=== PATIENT | female | born 1935 | race Caucasian/White ===

== ENCOUNTER → 2017-08-09 | Outpatient (CLI) | payer MEDICARE ==
--- NOTE | 2017-08-10 11:31 | MM ---
Reason for exam: clinical finding. History: Patient is postmenopausal. Indicated problem(s): lump or thickening in the right breast. Physical Findings: Nurse Summary: 1.5 x 2cm nodule in the right breast at 2 o'clock (nurse ts). MG 3D Diag Mammo Wo Cad SANDIE Bilateral CC and MLO view(s) were taken. Spot compression MLO and spot compression CC view(s) were taken of the left breast. The breast tissue is heterogeneously dense. This may lower the sensitivity of mammography. Benign round calcifications right breast. Focal asymmetry 3 o'clock right breast anteriorly incompletely disperses on 3D images. 2 o'clock focal asymmetry anterior left breast appears to disperse on spot 3D views. These results were verbally communicated with the patient and result sheet given to the patient on 08/09/17. ASSESSMENT: Incomplete: need additional imaging evaluation, BI-RAD 0 RECOMMENDATION: Ultrasound of both breasts. (left 2 o'clock upper outer quadrant and right palpable)
--- NOTE | 2017-08-10 11:34 | USB ---
Reason for exam: additional evaluation requested from abnormal screening. History: Patient is postmenopausal. US Breast Limited BILAT Right breast ultrasound includes all four quadrants, the retroareolar region and axilla. Finding demonstrates a 1.3 x 1.0 x 1.5cm irregular, spiculated, solid, hypoechoic lesion at 2 o'clock and a 0.8cm benign lymph node at the axilla. Left breast ultrasound demonstrates no cystic or solid lesion seen. Scanned 12-3 o'clock. These results were verbally communicated with the patient and result sheet given to the patient on 08/09/17. ASSESSMENT: Highly suggestive of malignancy, BI-RAD 5 RECOMMENDATION: Surgical consultation and ultrasound core biopsy of the right breast. Called Dr. Garcia with mammographic findings and has scheduled an appointment for the patient for 09/26/[address] at [address] English. Biopsy scheduled for 08/30/17 at 12:20. PRELIMINARY REPORT CALLED AND FAXED TO DR. ENGLISH ON 08/10/17.
== END | disposition home or self-care (01) ==
LOC: RADMAMWWP 13:35
PROVIDERS: ATTEND Family Medicine
DX: N63.0 Unspecified lump in unspecified breast (principal); R92.8 Other abnormal and inconclusive findings on diagnostic imaging of breast
CPT/HCPCS: 77066; 76642; G0279

== ENCOUNTER 2017-08-21 11:23 | Inpatient (IN) | payer MEDICARE, OTHER ==
[2017-08-21 12:51] LABS: INR 4.9 (<1.2); Partial Thromboplastin Time 37.5 sec (22.0-30.0); Prothrombin Time 44.6 sec (9.0-12.0)
[2017-08-21 12:57] LABS: Albumin 2.9 g/dL (3.5-5.0); Calcium 8.5 mg/dL (8.4-10.2); Magnesium 2.5 mg/dL (1.6-2.3); Potassium 3.2 mmol/L (3.5-5.1); Total Bilirubin 4.3 mg/dL (0.2-1.3); Total Protein 6.1 g/dL (6.3-8.2)
--- NOTE | 2017-08-21 13:21 | XR ---
EXAMINATION TYPE: XR chest 2V DATE OF EXAM: 08/21/2017 COMPARISON: 02/19/2016 TECHNIQUE: PA and lateral views submitted. HISTORY: Chest pain FINDINGS: Heart is markedly enlarged and is a diffuse interstitial pattern and small bilateral effusions. No pn eumothorax. Arthropathy of the shoulders. Atherosclerotic change aorta. Degenerative change spine. IMPRESSION: 1. Marked cardiomegaly with small bilateral effusions and findings suggestive of mild CHF.
[2017-08-21 13:32] LABS: Anisocytosis Slight; Basophils # (A) 0.1 k/uL (0-0.2); Basophils % (A) 1 %; Eosinophils # (A) 0.1 k/uL (0-0.7); Eosinophils % (A) 2 %; HCT 42.1 % (34.0-46.0); HGB 13.2 gm/dL (11.4-16.0); Hypochromasia Marked; Lymphocytes # (A) 0.9 k/uL (1.0-4.8); Lymphocytes % (A) 14 %; MCH 26.1 pg (25.0-35.0); MCHC 31.2 g/dL (31.0-37.0); Mean Platelet Volume 8.7; Monocytes # (A) 0.5 k/uL (0-1.0); Monocytes % (A) 7 %; Neutrophils # (A) 4.9 k/uL (1.3-7.7); Neutrophils % (A) 74 %; Platelet Count 186 k/uL (150-450); Poikilocytosis Moderate; RBC 5.05 m/uL (3.80-5.40); RDW 19.1 % (11.5-15.5); WBC 6.6 k/uL (3.8-10.6)
[2017-08-21 13:33] LABS: MCV 83.5 fL (80.0-100.0)
[2017-08-21] MEDS ORDERED: NALOXONE 0.4 MG/ML 1 ML VIAL IV PRN (13:48)
--- NOTE | 2017-08-21 13:48 | ED ---
SOB HPI - General Chief Complaint: Shortness of Breath Stated Complaint: CHF Time Seen by Provider: 08/21/17 11:25 Source: patient, EMS, Caregiver Mode of arrival: EMS Limitations: no limitations - History of Present Illness Initial Comments: Patient complains of progressively worsening shortness of breath. Nothing makes it better or worse. She was seen by her doctor today. He was concern for worsening heart failure. She has swelling in legs. She has no belly or back pain. She has no nausea or vomiting. Her shortness of breath is worse with any type of exertion. - Related Data Home Medications Medication Instructions Recorded Confirmed Atorvastatin [Lipitor] 40 mg PO HS 05/07/15 02/12/16 Calcium Carbonate/Vitamin D3 1 tab PO DAILY@1700 07/22/15 08/21/17 [Calcium 600-Vit D3 400 Tablet] Nystatin [Nystop] 1 applic TOPICAL BID PRN 07/22/15 08/21/17 Brinzolamide/Brimonidine Tart 1 drop LEFT EYE BID 10/13/15 08/21/17 [Simbrinza 1%-0.2% Eye Drops] Glucosamine/Chondr Paiz A Sod [Osteo 1 tab PO DAILY@1700 10/13/15 02/12/16 Bi-Flex Caplet] Potassium Chloride [K-Tab ER] 20 meq PO DAILY@1700 10/13/15 08/21/17 Timolol 0.5% Ophth Soln [Timoptic 1 drop LEFT EYE DAILY 10/13/15 08/21/17 0.5% Ophth Soln] Bisacodyl [Dulcolax] 10 mg RECTAL DAILY PRN 08/21/17 08/21/17 Ergocalciferol (Vitamin D2) 50,000 unit PO WE@1700 08/21/17 08/21/17 [Vitamin D2] Famotidine [Pepcid] 20 mg PO DAILY 08/21/17 08/21/17 Furosemide [Lasix] 40 mg PO DAILY@1400 08/21/17 08/21/17 Furosemide [Lasix] 80 mg PO DAILY 08/21/17 08/21/17 Latanoprost [Xalatan 0.005%] 1 drop BOTH EYES HS 08/21/17 08/21/17 Levothyroxine Sodium [Synthroid] 150 mcg PO DAILY@0800 08/21/17 08/21/17 Magnesium Hydroxide [Milk of 7,200 mg PO DAILY PRN 08/21/17 08/21/17 Magnesia Concentrate] Magnesium Oxide [Suarez] 500 mg PO BID@0800,1700 08/21/17 08/21/17 Memantine [Namenda] 10 mg PO DAILY 08/21/17 08/21/17 Metoprolol Succinate [Toprol XL] 50 mg PO DAILY 08/21/17 08/21/17 Na Phos,M-B/Na Phos,Di-Ba [Fleet 133 ml RECTAL ONCE PRN 08/21/17 08/21/17 Adult] Ocusoft Lid Scrub Plus Pad 1 applic OPHTHALMIC DAILY PRN 08/21/17 08/21/17 Polyethylene Glycol 3350 [Miralax] 17 gm PO DAILY PRN 08/21/17 08/21/17 Vit C/E/Zn/Coppr/Lutein/Zeaxan 1 cap PO BID@0800,1700 08/21/17 08/21/17 [Preservision Areds 2 Softgel] Warfarin [Coumadin] 2 mg PO DAILY@1700 08/21/17 08/21/17 guaiFENesin-DM 100-10MG/5ML 10 ml PO Q4H PRN 08/21/17 08/21/17 [Robitussin DM] Allergies Allergy/AdvReac Type Severity Reaction Status Date / Time No Known Allergies Allergy Verified 08/21/17 11:45 Review of Systems ROS Statement: Those systems with pertinent positive or pertinent negative responses have been documented in the HPI. ROS Other: All systems not noted in ROS Statement are negative. 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 Past Anesthesia/Blood Transfusion Reactions: No Reported Reaction Past Psychological History: No Psychological Hx Reported Smoking Status: Never smoker Past Alcohol Use History: None Reported Past Drug Use History: None Reported - Past Family History Father Additional Family Medical History / Comment(s): parkinsons Mother Family Medical History: Deep Vein Thrombosis (DVT) Additional Family Medical History / Comment(s): heart problems General Exam Limitations: no limitations General appearance: alert, in no apparent distress Head exam: Present: atraumatic, normocephalic, normal inspection Eye exam: Present: normal appearance, PERRL, EOMI. Absent: scleral icterus, conjunctival injection, periorbital swelling ENT exam: Present: normal exam, mucous membranes moist Neck exam: Present: normal inspection. Absent: tenderness, meningismus, lymphadenopathy Respiratory exam: Present: respiratory distress. Absent: wheezes, rales, rhonchi, stridor Cardiovascular Exam: Present: regular rate, normal rhythm, normal heart sounds. Absent: systolic murmur, diastolic murmur, rubs, gallop, clicks GI/Abdominal exam: Present: soft, normal bowel sounds. Absent: distended, tenderness, guarding, rebound, rigid Extremities exam: Present: normal capillary refill, pedal edema. Absent: tenderness, joint swelling, calf tenderness Back exam: Present: normal inspection Neurological exam: Present: alert, oriented X3, CN II-XII intact Psychiatric exam: Present: normal affect, normal mood Skin exam: Present: warm, dry, intact, normal color. Absent: rash Course Vital Signs 08/21/17 08/21/17 11:33 12:03 Temperature 94.7 F L Pulse Rate 107 H 96 Respiratory 18 18 Rate Blood Pressure 151/73 O2 Sat by Pulse 91 L Oximetry Medical Decision Making - Medical Decision Making Patient presents with shortness of breath. She has significant edema, rales in the lungs, and evidence of fluid overload on her chest x-ray. She will be admitted to her doctor. - Lab Data Result diagrams: 08/21/17 12:09 08/21/17 12:09 Lab Results 08/21/17 08/21/17 08/21/17 Range/Units 12:09 12:09 12:09 WBC 6.6 (3.8-10.6) k/uL RBC 5.05 (3.80-5.40) m/uL Hgb 13.2 (11.4-16.0) gm/dL Hct 42.1 (34.0-46.0) % MCV 83.5 D (80.0-100.0) fL MCH 26.1 (25.0-35.0) pg MCHC 31.2 (31.0-37.0) g/dL RDW 19.1 H (11.5-15.5) % Plt Count 186 (150-450) k/uL Neutrophils % 74 % Lymphocytes % 14 % Monocytes % 7 % Eosinophils % 2 % Basophils % 1 % Neutrophils # 4.9 (1.3-7.7) k/uL Lymphocytes # 0.9 L (1.0-4.8) k/uL Monocytes # 0.5 (0-1.0) k/uL Eosinophils # 0.1 (0-0.7) k/uL Basophils # 0.1 (0-0.2) k/uL Hypochromasia Marked Poikilocytosis Moderate Anisocytosis Slight PT 44.6 H (9.0-12.0) sec INR 4.9 H (<1.2) APTT 37.5 H (22.0-30.0) sec Sodium 139 (137-145) mmol/L Potassium 3.2 L (3.5-5.1) mmol/L Chloride 96 L (98-107) mmol/L Carbon Dioxide 33 H (22-30) mmol/L Anion Gap 10 mmol/L BUN 21 H (7-17) mg/dL Creatinine 0.90 (0.52-1.04) mg/dL Est GFR (CKD-EPI)AfAm 70 (>60 ml/min/1.73 sqM) Est GFR (CKD-EPI)NonAf 61 (>60 ml/min/1.73 sqM) Glucose 111 H (74-99) mg/dL Calcium 8.5 (8.4-10.2) mg/dL Magnesium 2.5 H (1.6-2.3) mg/dL Total Bilirubin 4.3 H (0.2-1.3) mg/dL AST 41 H (14-36) U/L ALT 40 (9-52) U/L Alkaline Phosphatase 356 H (38-126) U/L NT-Pro-B Natriuret Pep pg/mL Total Protein 6.1 L (6.3-8.2) g/dL Albumin 2.9 L (3.5-5.0) g/dL 08/21/17 Range/Units 12:09 WBC (3.8-10.6) k/uL RBC (3.80-5.40) m/uL Hgb (11.4-16.0) gm/dL Hct (34.0-46.0) % MCV (80.0-100.0) fL MCH (25.0-35.0) pg MCHC (31.0-37.0) g/dL RDW (11.5-15.5) % Plt Count (150-450) k/uL Neutrophils % % Lymphocytes % % Monocytes % % Eosinophils % % Basophils % % Neutrophils # (1.3-7.7) k/uL Lymphocytes # (1.0-4.8) k/uL Monocytes # (0-1.0) k/uL Eosinophils # (0-0.7) k/uL Basophils # (0-0.2) k/uL Hypochromasia Poikilocytosis Anisocytosis PT (9.0-12.0) sec INR (<1.2) APTT (22.0-30.0) sec Sodium (137-145) mmol/L Potassium (3.5-5.1) mmol/L Chloride (98-107) mmol/L Carbon Dioxide (22-30) mmol/L Anion Gap mmol/L BUN (7-17) mg/dL Creatinine (0.52-1.04) mg/dL Est GFR (CKD-EPI)AfAm (>60 ml/min/1.73 sqM) Est GFR (CKD-EPI)NonAf (>60 ml/min/1.73 sqM) Glucose (74-99) mg/dL Calcium (8.4-10.2) mg/dL Magnesium (1.6-2.3) mg/dL Total Bilirubin (0.2-1.3) mg/dL AST (14-36) U/L ALT (9-52) U/L Alkaline Phosphatase (38-126) U/L NT-Pro-B Natriuret Pep 4400 pg/mL Total Protein (6.3-8.2) g/dL Albumin (3.5-5.0) g/dL 08/21/17 13:47 Twelve-lead EKG interpreted by me as showing ventricular rate 103 bpm, no P waves are appreciated, QRS Compazine normal, no ST elevation or depression, interpreted by me as atrial fibrillation. Disposition Clinical Impression: Congestive heart failure Disposition: ADMITTED IP TO THIS HOSP Condition: Fair Referrals: Rohan Lucero MD [Primary Care Provider] - 1-2 days Time of Disposition: 13:48
[2017-08-21] MEDS ORDERED: FUROSEMIDE 10 MG/ML 10 ML VIAL IV STA (13:50)
[2017-08-21] MEDS ORDERED: FUROSEMIDE 40 MG TAB PO SCH (14:00)
[2017-08-21] MEDS ORDERED: NYSTATIN 100,000 UNIT/GM POWD 15 GM TOPICAL PRN (14:27)
[2017-08-21] MEDS ORDERED: guaiFENesin-DM 100-10MG/5ML 10 ML CUP PO PRN (14:27)
[2017-08-21] MEDS ORDERED: POLYETHYLENE GLYCOL 3350 17 GM POWD.PACK PO PRN (14:27)
[2017-08-21] MEDS ORDERED: MAGNESIUM HYDROXIDE 2,400 MG/10 ML CUP PO PRN (14:27)
[2017-08-21] MEDS ORDERED: POTASSIUM CHLORIDE ER 20 MEQ TAB.ER PO STA (14:31)
[2017-08-21] MEDS: POTASSIUM CHLORIDE ER 20 MEQ TAB.ER PO SCH (18:18)
[2017-08-21] MEDS: MAGNESIUM OXIDE 400 MG TAB PO SCH (18:18)
[2017-08-21] MEDS: ATORVASTATIN 40 MG TAB PO SCH (20:24)
[2017-08-21] MEDS: LATANOPROST 0.005% OPHTH DROPS 2.5 ML BTL BOTH EYES SCH (20:24)
[2017-08-21] MEDS: FAMOTIDINE 20 MG TAB PO SCH (20:24)
[2017-08-22 06:28] LABS: Anisocytosis Slight; Basophils % (A) 1 %; Eosinophils # (A) 0.1 k/uL (0-0.7); Eosinophils % (A) 2 %; HCT 43.7 % (34.0-46.0); HGB 13.5 gm/dL (11.4-16.0); Hypochromasia Marked; Lymphocytes # (A) 1.1 k/uL (1.0-4.8); Lymphocytes % (A) 19 %; MCH 25.6 pg (25.0-35.0); MCHC 30.8 g/dL (31.0-37.0); MCV 83.3 fL (80.0-100.0); Monocytes # (A) 0.5 k/uL (0-1.0); Monocytes % (A) 8 %; Neutrophils % (A) 68 %; Platelet Count 173 k/uL (150-450); Poikilocytosis Moderate; RBC 5.25 m/uL (3.80-5.40); RDW 19.1 % (11.5-15.5); WBC 5.9 k/uL (3.8-10.6)
[2017-08-22 06:44] LABS: Prothrombin Time 47.9 sec (9.0-12.0)
[2017-08-22 06:55] LABS: INR 5.3 (<1.2)
[2017-08-22 06:57] LABS: Albumin 2.8 g/dL (3.5-5.0); Calcium 8.4 mg/dL (8.4-10.2); Magnesium 2.4 mg/dL (1.6-2.3); Potassium 3.3 mmol/L (3.5-5.1)
[2017-08-22] MEDS ORDERED: POTASSIUM CHLORIDE ER 20 MEQ TAB.ER PO STA (07:29)
[2017-08-22] MEDS: FAMOTIDINE 20 MG TAB PO SCH (08:11)
[2017-08-22] MEDS: LEVOTHYROXINE 75 MCG TAB PO SCH (08:11)
[2017-08-22] MEDS: MAGNESIUM OXIDE 400 MG TAB PO SCH ×2 (08:11→15:12)
[2017-08-22] MEDS: METOPROLOL SUCCINATE (ER) 50 MG TAB.ER.24H PO SCH (08:12)
[2017-08-22] MEDS: TIMOLOL 0.5% OPHTH DROPS 5 ML BTL LEFT EYE SCH (08:12)
[2017-08-22] MEDS: MEMANTINE 10 MG TAB PO SCH (08:12)
[2017-08-22] MEDS ORDERED: FAMOTIDINE 20 MG TAB PO SCH (09:00)
[2017-08-22] MEDS ORDERED: FUROSEMIDE 80 MG TAB PO SCH (09:00)
--- NOTE | 2017-08-22 09:44 | XR ---
EXAMINATION TYPE: XR chest 1V DATE OF EXAM: 08/22/2017 COMPARISON: Prior chest x-ray 08/21/2017 HISTORY: Congestive heart failure, shortness of breath TECHNIQUE: Single frontal view of the chest is obtained. FINDINGS: The heart is enlarged. No evident pneumothorax or sizable effusion. Suspect some improveme nt in the interstitium, aeration within the lungs. There are overlying cardiac leads. Arthropathy aga in noted within the shoulders. IMPRESSION: Suspect some improvement in patient's volume status. Cardiomegaly.
--- NOTE | 2017-08-22 11:04 | P.CRDCN ---
History of Present Illness History of present illness: Patient is a poor historian. Initially she told me she just did not feel well but later when we be examined her she complained of shortness of breath. She is lying flat in bed and looks comfortable. Underlying atrial fibrillation. She has a murmur of mitral regurgitation at the cardiac apex right lower extremity edema and a d-dimer is pending. History of hypertension dyslipidemia atrial fibrillation. Hypokalemia. Supratherapeutic INR Suggest rate control for atrial fibrillation and anticoagulation for stroke prevention. Currently INR is supratherapeutic at 5.3 hemoglobin is normal LV function assessment Continue diuretics Add spironolactone See full dictation by nurse practitioner Past Medical History Past Medical History: Atrial Fibrillation, Heart Failure, CVA/TIA, Dementia, Hyperlipidemia, Hypertension, Memory Impairment, Osteoarthritis (OA), Thyroid Disorder Additional Past Medical History / Comment(s): irregular rythym, stress incont of urine,DJD, skin ca removed,had some bleeding behind lt eye- sees a dr for this, "RT CALF HAS A WOUND ON IT "10-13-15 fell out of w/c struck face on floor, pt 2 person assist, yael lift, continent uses bed bergeron, on coumadin for afib, rhabdoylosis, 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 breat biopsy scheduled 08/31/2017. surgery for hemorrhage from TIA in Left eye Past Anesthesia/Blood Transfusion Reactions: No Reported Reaction Past Psychological History: No Psychological Hx Reported Smoking Status: Never smoker Past Alcohol Use History: None Reported Past Drug Use History: None Reported - Past Family History Father Additional Family Medical History / Comment(s): parkinsons Mother Family Medical History: Deep Vein Thrombosis (DVT) Additional Family Medical History / Comment(s): heart problems Medications and Allergies Home Medications Medication Instructions Recorded Confirmed Type Atorvastatin [Lipitor] 40 mg PO HS 05/07/15 02/12/16 History Calcium Carbonate/Vitamin D3 1 tab PO DAILY@1700 07/22/15 08/21/17 History [Calcium 600-Vit D3 400 Tablet] Nystatin [Nystop] 1 applic TOPICAL BID PRN 07/22/15 08/21/17 History Brinzolamide/Brimonidine Tart 1 drop LEFT EYE BID 10/13/15 08/21/17 History [Simbrinza 1%-0.2% Eye Drops] Glucosamine/Chondr Paiz A Sod [Osteo 1 tab PO DAILY@1700 10/13/15 02/12/16 History Bi-Flex Caplet] Potassium Chloride [K-Tab ER] 20 meq PO DAILY@1700 10/13/15 08/21/17 History Timolol 0.5% Ophth Soln [Timoptic 1 drop LEFT EYE DAILY 10/13/15 08/21/17 History 0.5% Ophth Soln] Bisacodyl [Dulcolax] 10 mg RECTAL DAILY PRN 08/21/17 08/21/17 History Ergocalciferol (Vitamin D2) 50,000 unit PO WE@1700 08/21/17 08/21/17 History [Vitamin D2] Famotidine [Pepcid] 20 mg PO DAILY 08/21/17 08/21/17 History Furosemide [Lasix] 40 mg PO DAILY@1400 08/21/17 08/21/17 History Furosemide [Lasix] 80 mg PO DAILY 08/21/17 08/21/17 History Latanoprost [Xalatan 0.005%] 1 drop BOTH EYES HS 08/21/17 08/21/17 History Levothyroxine Sodium [Synthroid] 150 mcg PO DAILY@0800 08/21/17 08/21/17 History Magnesium Hydroxide [Milk of 7,200 mg PO DAILY PRN 08/21/17 08/21/17 History Magnesia Concentrate] Magnesium Oxide [Suarez] 500 mg PO BID@0800,1700 08/21/17 08/21/17 History Memantine [Namenda] 10 mg PO DAILY 08/21/17 08/21/17 History Metoprolol Succinate [Toprol XL] 50 mg PO DAILY 08/21/17 08/21/17 History Na Phos,M-B/Na Phos,Di-Ba [Fleet 133 ml RECTAL ONCE PRN 08/21/17 08/21/17 History Adult] Ocusoft Lid Scrub Plus Pad 1 applic OPHTHALMIC DAILY PRN 08/21/17 08/21/17 History Polyethylene Glycol 3350 [Miralax] 17 gm PO DAILY PRN 08/21/17 08/21/17 History Vit C/E/Zn/Coppr/Lutein/Zeaxan 1 cap PO BID@0800,1700 08/21/17 08/21/17 History [Preservision Areds 2 Softgel] Warfarin [Coumadin] 2 mg PO DAILY@1700 08/21/17 08/21/17 History guaiFENesin-DM 100-10MG/5ML 10 ml PO Q4H PRN 08/21/17 08/21/17 History [Robitussin DM] Allergies Allergy/AdvReac Type Severity Reaction Status Date / Time No Known Allergies Allergy Verified 08/21/17 11:45 Physical Exam Vitals: Vital Signs Temp Pulse Pulse Resp BP BP Pulse Ox 08/22/17 08:00 18 08/22/17 04:00 98.0 F 77 18 99/58 93 L 08/22/17 00:00 97.2 F L 80 16 102/66 93 L 08/21/17 23:44 106 H 20 08/21/17 20:00 97.3 F L 82 18 97/50 88 L 08/21/17 18:34 106 H 20 08/21/17 17:11 98.8 F 84 20 144/102 96 08/21/17 14:05 96.8 F L 106 H 16 113/90 92 L 08/21/17 14:00 94 18 129/72 08/21/17 13:45 96 18 08/21/17 12:03 96 18 91 L 08/21/17 11:33 94.7 F L 107 H 18 151/73 Intake and Output 08/21/17 08/22/17 08/22/17 22:59 06:59 14:59 Intake Total 118 Output Total 900 Balance -900 118 Intake: Oral 118 Output: Urine 900 Other: Voiding Method Indwelling Catheter Indwelling Catheter Indwelling Catheter Weight 99.5 kg Results 08/22/17 05:40 08/22/17 05:40 Cardiac Enzymes 08/21/17 08/21/17 08/21/17 Range/Units 12:09 12:09 17:58 AST 41 H (14-36) U/L Troponin I 0.013 0.014 (0.000-0.034) ng/mL 08/21/17 08/22/17 Range/Units 23:49 05:40 AST 39 H (14-36) U/L Troponin I 0.015 (0.000-0.034) ng/mL Coagulation 08/21/17 08/22/17 Range/Units 12:09 05:40 PT 44.6 H 47.9 H (9.0-12.0) sec APTT 37.5 H (22.0-30.0) sec CBC 08/21/17 08/22/17 Range/Units 12:09 05:40 WBC 6.6 5.9 (3.8-10.6) k/uL RBC 5.05 5.25 (3.80-5.40) m/uL Hgb 13.2 13.5 (11.4-16.0) gm/dL Hct 42.1 43.7 (34.0-46.0) % Plt Count 186 173 (150-450) k/uL Comprehensive Metabolic Panel 08/21/17 08/22/17 Range/Units 12:09 05:40 Sodium 139 138 (137-145) mmol/L Potassium 3.2 L 3.3 L (3.5-5.1) mmol/L Chloride 96 L 95 L (98-107) mmol/L Carbon Dioxide 33 H 33 H (22-30) mmol/L BUN 21 H 20 H (7-17) mg/dL Creatinine 0.90 1.00 (0.52-1.04) mg/dL Glucose 111 H 78 (74-99) mg/dL Calcium 8.5 8.4 (8.4-10.2) mg/dL AST 41 H 39 H (14-36) U/L ALT 40 36 (9-52) U/L Alkaline Phosphatase 356 H 357 H (38-126) U/L Total Protein 6.1 L 6.0 L (6.3-8.2) g/dL Albumin 2.9 L 2.8 L (3.5-5.0) g/dL Current Medications Generic Name Dose Route Start Last Admin Trade Name Freq PRN Reason Stop Dose Admin Atorvastatin Calcium 40 mg 08/21/17 21:00 08/21/17 20:24 Lipitor PO 40 mg HS [facility] Administration Famotidine 20 mg 08/21/17 21:00 08/22/17 08:11 Pepcid PO 20 mg BID [facility] Administration Furosemide 40 mg 08/21/17 14:00 08/21/17 14:57 Lasix PO Not Given DAILY@1400 [facility] Furosemide 80 mg 08/22/17 09:00 08/22/17 08:11 Lasix PO 80 mg DAILY [facility] Administration Guaifenesin/Dextromethorphan 10 ml 08/21/17 14:27 Robitussin Dm PO Q4H PRN Cough Latanoprost 1 drops 08/21/17 21:00 08/21/17 20:24 Xalatan 0.005% BOTH EYES 1 drops HS [facility] Administration Levothyroxine Sodium 150 mcg 08/22/17 08:00 08/22/17 08:11 Synthroid PO 150 mcg DAILY@0800 [facility] Administration Magnesium Hydroxide 7,200 mg 08/21/17 14:27 Milk Of Magnesia PO DAILY PRN Constipation Magnesium Oxide 400 mg 08/21/17 17:00 08/22/17 08:11 Mag-Ox PO 400 mg BID@0800,1700 [facility] Administration Memantine 10 mg 08/22/17 09:00 08/22/17 08:12 Namenda PO 10 mg DAILY [facility] Administration Metoprolol Succinate 50 mg 08/22/17 09:00 08/22/17 08:12 Toprol Xl PO 50 mg DAILY [facility] Administration Naloxone HCl 0.2 mg 08/21/17 13:48 Narcan IV Q2M PRN Opioid Reversal Nystatin 1 applic 08/21/17 14:27 Mycostatin Powder TOPICAL BID PRN Rash Ondansetron HCl 4 mg 08/21/17 13:48 Zofran IVP Q8HR PRN Nausea And Vomiting Polyethylene Glycol 17 gm 08/21/17 14:27 Miralax PO DAILY PRN Constipation Potassium Chloride 20 meq 08/21/17 17:00 08/21/17 18:18 K-Dur 20 PO 20 meq DAILY@1700 [facility] Administration Timolol Maleate 1 drops 08/22/17 09:00 08/22/17 08:12 Timoptic LEFT EYE 1 drops DAILY [facility] Administration Intake and Output 08/21/17 08/22/17 08/22/17 22:59 06:59 14:59 Intake Total 118 Output Total 900 Balance -900 118 Intake: Oral 118 Output: Urine 900 Other: Voiding Method Indwelling Catheter Indwelling Catheter Indwelling Catheter Weight 99.5 kg 08/22/17 05:40 08/22/17 05:40
--- NOTE | 2017-08-22 12:39 | P.HPIM ---
History of Present Illness H&P Date: 08/22/17 Chief Complaint: Shortness of breath 82-year-old female who was transported to [facility] from [facility] after she was seen by Dr. Lucero and found to have increasing shortness of breath and increased edema to the lower extremities. Patient denies chest pain or pressure. Denies cough or sputum production. Denies nausea or vomiting. Denies pain or discomfort. Denies dizziness or lightheadedness. The patient has a history of atrial fibrillation maintained on long-term anticoagulated with Coumadin, glaucoma, asymptomatic bacteriuria, mood disorder with psychotic features, hypothyroidism, diastolic congestive heart failure, hypertension, hyperlipidemia, TIA, and osteopenia. 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 Chest x-ray 08/21/2017: Marked cardiomegaly with small bilateral effusions and findings suggestive of mild congestive heart failure Chest x-ray 08/22/2017: Some improvement noted in the patient's volume status. Cardiomegaly. EKG: Atrial fibrillation. Rate 103. Laboratory data: WBC 6.6. Hemoglobin 13.2. Platelet count 186. Sodium 139. Potassium 3.2. BUN 21. Creatinine 0.90. GFR 61. Glucose 111. Magnesium 2.5. AST 41. ALT 40. Total bilirubin 4.3. Alkaline phosphatase 356. Troponins negative 3 BNP: 4400 The patient was admitted to the hospital under the care of Dr. Lucero. Consultations were placed to cardiology. Review of Systems GENERAL: Patient denies fever. Denies chills. EYES: Denies blurred vision. Denies vision changes. Denies eye pain. EARS, NOSE, MOUTH, & THROAT: Denies headache. Denies sore throat. Denies ear pain. RESPIRATORY: Positive for shortness of breath. Denies cough. Denies sputum production. Denies hemoptysis. CARDIOVASCULAR: Denies chest pain or pressure. Denies palpitations. Denies arrhythmias. GASTROINTESTINAL: Denies abdominal pain. Denies diarrhea. Denies constipation. Denies nausea. Denies vomiting. Denies heartburn. Denies blood in the stool. GENITOURINARY: Denies urinary frequency. Denies burning. Denies dysuria. Denies cloudy urine. Denies blood in the urine. MUSCULOSKELETAL: Complaints of pain to bilateral feet. Denies myalgias. Denies joint swelling. Denies decreased range of motion beyond patients baseline. INTEGUMENTARY: Denies pruitis. Denies rash. PSYCHIATRIC: Denies suicidal or homicial ideations. ENDOCRINE: Denies weight change. Denies polydipsia. Denies polyuria. HEMATOLOGIC: Denies bleeding disorders. Past Medical History Past Medical History: Atrial Fibrillation, Heart Failure, CVA/TIA, Dementia, Hyperlipidemia, Hypertension, Memory Impairment, Osteoarthritis (OA), Thyroid Disorder Additional Past Medical History / Comment(s): irregular rythym, stress incont of urine,DJD, skin ca removed,had some bleeding behind lt eye- sees a dr for this, "RT CALF HAS A WOUND ON IT "10-13-15 fell out of w/c struck face on floor, pt 2 person assist, yael lift, continent uses bed bergeron, on coumadin for afib, rhabdoylosis, 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 breat biopsy scheduled 08/31/2017. surgery for hemorrhage from TIA in Left eye Past Anesthesia/Blood Transfusion Reactions: No Reported Reaction Past Psychological History: No Psychological Hx Reported Smoking Status: Never smoker Past Alcohol Use History: None Reported Past Drug Use History: None Reported - Past Family History Father Additional Family Medical History / Comment(s): parkinsons Mother Family Medical History: Deep Vein Thrombosis (DVT) Additional Family Medical History / Comment(s): heart problems Medications and Allergies Home Medications Medication Instructions Recorded Confirmed Type Atorvastatin [Lipitor] 40 mg PO HS 05/07/15 02/12/16 History Calcium Carbonate/Vitamin D3 1 tab PO DAILY@1700 07/22/15 08/21/17 History [Calcium 600-Vit D3 400 Tablet] Nystatin [Nystop] 1 applic TOPICAL BID PRN 07/22/15 08/21/17 History Brinzolamide/Brimonidine Tart 1 drop LEFT EYE BID 10/13/15 08/21/17 History [Simbrinza 1%-0.2% Eye Drops] Glucosamine/Chondr Paiz A Sod [Osteo 1 tab PO DAILY@1700 10/13/15 02/12/16 History Bi-Flex Caplet] Potassium Chloride [K-Tab ER] 20 meq PO DAILY@1700 10/13/15 08/21/17 History Timolol 0.5% Ophth Soln [Timoptic 1 drop LEFT EYE DAILY 10/13/15 08/21/17 History 0.5% Ophth Soln] Bisacodyl [Dulcolax] 10 mg RECTAL DAILY PRN 08/21/17 08/21/17 History Ergocalciferol (Vitamin D2) 50,000 unit PO WE@1700 08/21/17 08/21/17 History [Vitamin D2] Famotidine [Pepcid] 20 mg PO DAILY 08/21/17 08/21/17 History Furosemide [Lasix] 40 mg PO DAILY@1400 08/21/17 08/21/17 History Furosemide [Lasix] 80 mg PO DAILY 08/21/17 08/21/17 History Latanoprost [Xalatan 0.005%] 1 drop BOTH EYES HS 08/21/17 08/21/17 History Levothyroxine Sodium [Synthroid] 150 mcg PO DAILY@0800 08/21/17 08/21/17 History Magnesium Hydroxide [Milk of 7,200 mg PO DAILY PRN 08/21/17 08/21/17 History Magnesia Concentrate] Magnesium Oxide [Suarez] 500 mg PO BID@0800,1700 08/21/17 08/21/17 History Memantine [Namenda] 10 mg PO DAILY 08/21/17 08/21/17 History Metoprolol Succinate [Toprol XL] 50 mg PO DAILY 08/21/17 08/21/17 History Na Phos,M-B/Na Phos,Di-Ba [Fleet 133 ml RECTAL ONCE PRN 08/21/17 08/21/17 History Adult] Ocusoft Lid Scrub Plus Pad 1 applic OPHTHALMIC DAILY PRN 08/21/17 08/21/17 History Polyethylene Glycol 3350 [Miralax] 17 gm PO DAILY PRN 08/21/17 08/21/17 History Vit C/E/Zn/Coppr/Lutein/Zeaxan 1 cap PO BID@0800,1700 08/21/17 08/21/17 History [Preservision Areds 2 Softgel] Warfarin [Coumadin] 2 mg PO DAILY@1700 08/21/17 08/21/17 History guaiFENesin-DM 100-10MG/5ML 10 ml PO Q4H PRN 08/21/17 08/21/17 History [Robitussin DM] Allergies Allergy/AdvReac Type Severity Reaction Status Date / Time No Known Allergies Allergy Verified 08/21/17 11:45 Physical Exam Vitals: Vital Signs Temp Pulse Pulse Resp BP BP Pulse Ox 08/22/17 08:00 18 08/22/17 04:00 98.0 F 77 18 99/58 93 L 08/22/17 00:00 97.2 F L 80 16 102/66 93 L 08/21/17 23:44 106 H 20 08/21/17 20:00 97.3 F L 82 18 97/50 88 L 08/21/17 18:34 106 H 20 08/21/17 17:11 98.8 F 84 20 144/102 96 08/21/17 14:05 96.8 F L 106 H 16 113/90 92 L 08/21/17 14:00 94 18 129/72 08/21/17 13:45 96 18 08/21/17 12:03 96 18 91 L 08/21/17 11:33 94.7 F L 107 H 18 151/73 Intake and Output 08/21/17 08/22/17 08/22/17 22:59 06:59 14:59 Intake Total 118 Output Total 900 Balance -900 118 Intake: Oral 118 Output: Urine 900 Other: Voiding Method Indwelling Catheter Indwelling Catheter Indwelling Catheter Weight 99.5 kg GENERAL: This is a 82-year-old female in no apparent distress at the time of examination. Pleasant and cooperative. HEENT: Head is atraumatic, normocephalic. Pupils are equal, round, and reactive to light. Sclerae anicteric. Conjunctivae are clear. Mucus membranes of the mouth are moist. Neck is supple. RESPIRATORY: Diminished throughout. Some rales noted to bilateral bases. No use of accessory muscles. Patient maintaining oxygen saturation greater than 92 %. No chest wall tenderness is noted on palpation or with deep breathing. CARDIOVASCULAR: Irregular rhythm. S1 and S2 noted. Systolic murmur auscultated. No JVD noted. No S3 or S4 noted. GASTROINTESTINAL: No distention noted. Abdomen soft and round. Normal active bowel sounds auscultated x 4 quadrants. No pain or tenderness noted upon palpation. INTEGUMENTARY: No cyanosis. No jaundice. No rashes noted. No cellulitis noted. EXTREMITIES: 1+ peripheral pulses. +2-3 right lower extremity edema. No calf tenderness noted. NEUROLOGIC: Cranial nerves II-XII intact. PSYCHIATRIC: Awake, alert, and oriented X 1-2. Appropriate affect. Results CBC & Chem 7: 08/22/17 05:40 08/22/17 05:40 Labs: Abnormal Lab Results - Last 24 Hours (Table) 08/21/17 08/21/17 08/21/17 Range/Units 12:09 12:09 12:09 MCHC (31.0-37.0) g/dL RDW 19.1 H (11.5-15.5) % Lymphocytes # 0.9 L (1.0-4.8) k/uL PT 44.6 H (9.0-12.0) sec INR 4.9 H (<1.2) APTT 37.5 H (22.0-30.0) sec Potassium 3.2 L (3.5-5.1) mmol/L Chloride 96 L (98-107) mmol/L Carbon Dioxide 33 H (22-30) mmol/L BUN 21 H (7-17) mg/dL Glucose 111 H (74-99) mg/dL Magnesium 2.5 H (1.6-2.3) mg/dL Total Bilirubin 4.3 H (0.2-1.3) mg/dL AST 41 H (14-36) U/L Alkaline Phosphatase 356 H (38-126) U/L Total Protein 6.1 L (6.3-8.2) g/dL Albumin 2.9 L (3.5-5.0) g/dL 08/22/17 08/22/17 08/22/17 Range/Units 05:40 05:40 05:40 MCHC 30.8 L (31.0-37.0) g/dL RDW 19.1 H (11.5-15.5) % Lymphocytes # (1.0-4.8) k/uL PT 47.9 H (9.0-12.0) sec INR 5.3 H* (<1.2) APTT (22.0-30.0) sec Potassium 3.3 L (3.5-5.1) mmol/L Chloride 95 L (98-107) mmol/L Carbon Dioxide 33 H (22-30) mmol/L BUN 20 H (7-17) mg/dL Glucose (74-99) mg/dL Magnesium 2.4 H (1.6-2.3) mg/dL Total Bilirubin 4.0 H (0.2-1.3) mg/dL AST 39 H (14-36) U/L Alkaline Phosphatase 357 H (38-126) U/L Total Protein 6.0 L (6.3-8.2) g/dL Albumin 2.8 L (3.5-5.0) g/dL Thrombosis Risk Factor Assmnt - Choose All That Apply Any of the Below Risk Factors Present?: Yes Each Factor Represents 1 point: Medical pt on bed rest, Obesity (BMI >25), Swollen legs (current) Each Risk Factor Represents 3 Points: Age 75 years or older Thrombosis Risk Factor Assessment Total Risk Factor Score: 6 Thrombosis Risk Factor Assessment Level: High Risk Assessment and Plan Plan: ASSESSMENT: Acute exacerbation of diastolic congestive heart failure, echo from 2015 revealed ejection fraction of 55-60%, repeat echo pending Chronic atrial fibrillation, maintained on long-term anticoagulation with Coumadin Supratherapeutic INR, INR 4.9 on admission 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 Appreciate recommendations and input Continue Lasix Spironolactone added per cardiology Await results of echocardiogram D-dimer ordered per cardiology. Await results Continue to hold Coumadin. Monitor INR. Recheck in a.m. Elevate lower extremities JESUS hose to bilateral LE Obtain UA and culture Urinary catheter ordered per ER physician per family request. Continue at this time Accurate I&O Replace potassium Consult physical therapy and occupational therapy Home meds as appropriate Monitor labs GI prophylaxis: Pepcid 20 mg by mouth twice a day DVT prophylaxis: Coumadin on hold secondary to elevated INR. Venodyne's to bilateral lower extremities Monitor vital signs and address as appropriate Discharge planning: Patient to return to [facility] when stable Further recommendations pending patient's course Nurse practitioner note has been reviewed by physician. Signing provider agrees with the documented findings, assessment, and plan of care.
--- NOTE | 2017-08-22 13:25 | P.PN ---
Subjective Progress Note Date: 08/22/17 This is an 82-year-old female with history of chronic persistent atrial fibrillation, anticoagulated with Coumadin, hypothyroidism, hypertension , hyperlipidemia, prior TIA. She presented to the hospital with symptoms of progressively worsening shortness of breath as well as edema to her lower extremities. Chest x-ray on presentation here showed marked cardiomegaly with small bilateral effusions and findings suggestive of mild congestive heart failure. EKG shows atrial fibrillation with a moderately rapid ventricular response. Blood pressure 118/80 with a heart rate in the 90s, temperature 97.6 she is 94% on 3 L of oxygen. White blood cell count 5.9, hemoglobin 13.5, platelet count 173. INR today 5.3, d-dimer 0.6, sodium 138, potassium 3.3, BUN 20, creatinine 1.0. A serum level is 2.4. AST and alk phos mildly elevated. BNP level 4400. Troponins 0.013, 0.014, 0.015. Patient denies having any chest discomfort. Objective - Vital Signs Vital signs: Vital Signs Temp 97.6 F 08/22/17 11:58 Pulse 95 08/22/17 11:58 Resp 18 08/22/17 12:00 BP 118/89 08/22/17 11:58 Pulse Ox 94 L 08/22/17 11:58 Intake & Output 08/21/17 08/22/17 08/22/17 18:59 06:59 18:59 Intake Total 118 Output Total 900 Balance -900 118 Weight 103.32 kg 99.5 kg Intake: Oral 118 Output: Urine 900 Other: Voiding Method Indwelling Catheter Indwelling Catheter Indwelling Catheter - Exam PHYSICAL EXAMINATION: HEENT: Head is atraumatic, normocephalic. Pupils equal, round. Neck is supple. There no elevated jugular venous pressure. HEART EXAMINATION: Heart S1 and S2 irregularly irregular a systolic murmur is heard. CHEST EXAMINATION: Lungs reveal diminished air entry to bilateral bases with rales to the bases bilaterally. ABDOMEN: Soft, nontender. Bowel sounds are heard. No organomegaly noted. EXTREMITIES: 1+ peripheral pulses with 1-2+ edema to the right lower extremity, trace edema to the left lower extremity. Evidence of bilateral redness to the lower extremities. . NEUROLOGIC patient is awake, alert and oriented -3. . - Labs CBC & Chem 7: 08/22/17 05:40 08/22/17 05:40 Labs: Abnormal Lab Results - Last 24 Hours (Table) 08/21/17 08/22/17 08/22/17 Range/Units 12:09 05:40 05:40 MCHC 30.8 L (31.0-37.0) g/dL RDW 19.1 H 19.1 H (11.5-15.5) % Lymphocytes # 0.9 L (1.0-4.8) k/uL PT 47.9 H (9.0-12.0) sec INR 5.3 H* (<1.2) D-Dimer (<0.60) mg/L FEU Potassium (3.5-5.1) mmol/L Chloride (98-107) mmol/L Carbon Dioxide (22-30) mmol/L BUN (7-17) mg/dL Magnesium (1.6-2.3) mg/dL Total Bilirubin (0.2-1.3) mg/dL AST (14-36) U/L Alkaline Phosphatase (38-126) U/L Total Protein (6.3-8.2) g/dL Albumin (3.5-5.0) g/dL 08/22/17 08/22/17 Range/Units 05:40 11:18 MCHC (31.0-37.0) g/dL RDW (11.5-15.5) % Lymphocytes # (1.0-4.8) k/uL PT (9.0-12.0) sec INR (<1.2) D-Dimer 0.62 H (<0.60) mg/L FEU Potassium 3.3 L (3.5-5.1) mmol/L Chloride 95 L (98-107) mmol/L Carbon Dioxide 33 H (22-30) mmol/L BUN 20 H (7-17) mg/dL Magnesium 2.4 H (1.6-2.3) mg/dL Total Bilirubin 4.0 H (0.2-1.3) mg/dL AST 39 H (14-36) U/L Alkaline Phosphatase 357 H (38-126) U/L Total Protein 6.0 L (6.3-8.2) g/dL Albumin 2.8 L (3.5-5.0) g/dL Assessment and Plan Plan: Assessment and plan #1 congestive cardiac failure, likely diastolic in nature, acute on chronic. Patient had an echocardiogram with Doppler study performed in 2016 which revealed an ejection fraction of 55-60% with evidence of moderate aortic stenosis. #2 chronic persistent atrial fibrillation, on Coumadin for anticoagulation, INR supratherapeutic, 5.3 #3 hypokalemia #4 hypothyroidism #5 hypertension #6 hyperlipidemia #7 prior TIA Plan Patient was given a one-time dose of IV Lasix in the emergency room, her weight is documented to be down 4 kg from admission. Patient still has bilateral rales with some considerable amount of edema, we'll continue with IV Lasix until tomorrow, then change control coordinator to by mouth Lasix. We will repeat an echocardiogram with Doppler study. Continue to hold Coumadin, monitor daily PT/ INRs. We will also get a venous duplex study of the right lower extremity because of the significant edema as compared with the left leg. Check lytes BUN and creatinine in the morning along with daily weights and daily lytes BUN and creatinine. DNP note has been reviewed, I agree with a documented findings and plan of care. Patient was seen and examined.
[2017-08-22 14:45] LABS: Appearance,Urine Clear (Clear); Bacteria,Urine Rare /hpf; Bilirubin,Urine Negative (Negative); Blood,Urine Moderate (Negative); Color,Urine Yellow; Glucose,Urine (UA) Negative (Negative); Hyaline Casts,Urine 7 /lpf (0-2); Ketones,Urine Negative (Negative); Leukocyte Esterase,Urine Moderate (Negative); Mucus,Urine Rare /hpf; Nitrite,Urine Negative (Negative); PH, Urine 6.5 (5.0-8.0); Protein,Urine 1+ (Negative); RBC,Urine 45 /hpf (0-5); Specific Gravity,Urine 1.013 (1.001-1.035); WBC,Urine 33 /hpf (0-5)
[2017-08-22] MEDS: FUROSEMIDE 10 MG/ML 4 ML VIAL IV SCH ×2 (15:11→21:11)
[2017-08-22] MEDS: POTASSIUM CHLORIDE ER 20 MEQ TAB.ER PO SCH (15:12)
--- NOTE | 2017-08-22 15:53 | US ---
EXAMINATION TYPE: US venous doppler duplex LE RT DATE OF EXAM: 08/22/2017 1:53 PM COMPARISON: US 01/05/2016 CLINICAL HISTORY: r/o dvt. Pt is a poor historian. Swelling. Difficult exam as patient is moving duri ng exam SIDE PERFORMED: Right TECHNIQUE: The lower extremity deep venous system is examined utilizing real time linear array sonog lynn with graded compression, doppler sonography and color-flow sonography. VESSELS IMAGED: External Iliac Vein (EIV) Common Femoral Vein Deep Femoral Vein Greater Saphenous Vein * Femoral Vein Popliteal Vein Small Saphenous Vein * Proximal Calf Veins (* superficial vessels) Right Leg: Appears negative for DVT IMPRESSION: 1. Right lower extremity negative for deep venous thrombosis
--- NOTE | 2017-08-22 16:32 | ECHOF ---
Referral Reason:chf MEASUREMENTS -------- HEIGHT: 175.3 cm WEIGHT: 103.0 kg BP: 129/72 RVIDd: 3.4 cm (< 3.3) IVSd: 1.4 cm (0.6 - 1.1) LVIDd: 4.4 cm (3.9 - 5.3) LVPWd: 1.2 cm (0.6 - 1.1) IVSs: 1.7 cm LVIDs: 3.1 cm LVPWs: 1.8 cm LA Diam: 5.0 cm (2.7 - 3.8) Ao Diam: 3.0 cm (2.0 - 3.7) AV Cusp: 1.5 cm (1.5 - 2.6) MV EXCURSION: 23.427 mm (> 18.000) MV EF SLOPE: 182 mm/s (70 - 150) EPSS: 0.1 cm AV maxP.92 mmHg AV meanP.94 mmHg AR PHT: 415 ms RAP: 15.00 mmHg RVSP: 54.14 mmHg FINDINGS -------- Atrial fibrillation. This was a technically adequate study. The left ventricular size is normal. There is moderate concentric left ventricular hypertrophy. O verall left ventricular systolic function is low-normal with, an EF between 50 - 55 %. The right ventricle is mildly enlarged. The left atrium is moderately dilated. The right atrium is normal in size. There is severe aortic valve sclerosis. There is mild aortic regurgitation. There is moderate-to- severe aortic stenosis present.peak gradient is 46.9 and mean gradient is 22.9 Moderate mitral annular calcification present. Moderate mitral regurgitation is present. Severe tricuspid regurgitation present. There is moderate pulmonary hypertension. The right ventr icular systolic pressure, as measured by Doppler, is 54.14mmHg. Moderate pulmonic regurgitation. The aortic root size is normal. The inferior vena cava is dilated with no significant inspiratory collapse which is consistent estima denise right atrial pressure of >15 mmHg. There is no pericardial effusion. CONCLUSIONS -------- 1. Atrial fibrillation. 2. This was a technically adequate study. 3. The left ventricular size is normal. 4. There is moderate concentric left ventricular hypertrophy. 5. Overall left ventricular systolic function is low-normal with, an EF between 50 - 55 %. 6. The right ventricle is mildly enlarged. 7. The left atrium is moderately dilated. 8. The right atrium is normal in size. 9. There is severe aortic valve sclerosis. 10. There is mild aortic regurgitation. 11. There is [id number] aortic stenosis present. 12. Moderate mitral annular calcification present. 13. Moderate mitral regurgitation is present. 14. Severe tricuspid regurgitation present. 15. There is moderate pulmonary hypertension. 16. The right ventricular systolic pressure, as measured by Doppler, is 54.14mmHg. 17. Moderate pulmonic regurgitation. 18. The aortic root size is normal. 19. The inferior vena cava is dilated with no significant inspiratory collapse which is consistent es timated right atrial pressure of >15 mmHg. 20. There is no pericardial effusion. STERILE PROCESSING TECHNICIAN: Rosi Stevens RDCS
[2017-08-22] MEDS: LATANOPROST 0.005% OPHTH DROPS 2.5 ML BTL BOTH EYES SCH (21:11)
[2017-08-22] MEDS: ATORVASTATIN 40 MG TAB PO SCH (21:11)
[2017-08-23 06:51] LABS: Anisocytosis Slight; Basophils % (A) 0 %; Eosinophils # (A) 0.1 k/uL (0-0.7); Eosinophils % (A) 2 %; HCT 42.9 % (34.0-46.0); HGB 13.3 gm/dL (11.4-16.0); Hypochromasia Marked; Lymphocytes % (A) 15 %; MCH 25.4 pg (25.0-35.0); MCHC 30.9 g/dL (31.0-37.0); MCV 82.3 fL (80.0-100.0); Mean Platelet Volume 8.3; Microcytosis Slight; Monocytes # (A) 0.5 k/uL (0-1.0); Monocytes % (A) 8 %; Neutrophils # (A) 4.7 k/uL (1.3-7.7); Neutrophils % (A) 73 %; Platelet Count 163 k/uL (150-450); Poikilocytosis Moderate; RBC 5.22 m/uL (3.80-5.40); RDW 19.3 % (11.5-15.5); WBC 6.5 k/uL (3.8-10.6)
[2017-08-23 07:13] LABS: INR 4.2 (<1.2); Prothrombin Time 37.5 sec (9.0-12.0)
[2017-08-23 07:14] LABS: Albumin 2.6 g/dL (3.5-5.0); Calcium 8.2 mg/dL (8.4-10.2); Magnesium 2.3 mg/dL (1.6-2.3); Potassium 3.1 mmol/L (3.5-5.1); Total Bilirubin 4.3 mg/dL (0.2-1.3); Total Protein 5.7 g/dL (6.3-8.2)
[2017-08-23] MEDS ORDERED: POTASSIUM CHLORIDE ER 20 MEQ TAB.ER PO STA (07:37)
[2017-08-23] MEDS ORDERED: FAMOTIDINE 20 MG TAB PO SCH (09:00)
[2017-08-23] MEDS: MEMANTINE 10 MG TAB PO SCH (09:13)
[2017-08-23] MEDS: FUROSEMIDE 10 MG/ML 4 ML VIAL IV SCH ×2 (09:13→19:47)
[2017-08-23] MEDS: LEVOTHYROXINE 75 MCG TAB PO SCH (09:13)
[2017-08-23] MEDS: METOPROLOL SUCCINATE (ER) 50 MG TAB.ER.24H PO SCH (09:14)
[2017-08-23] MEDS: TIMOLOL 0.5% OPHTH DROPS 5 ML BTL LEFT EYE SCH (09:14)
[2017-08-23] MEDS: MAGNESIUM OXIDE 400 MG TAB PO SCH ×2 (09:14→17:09)
--- NOTE | 2017-08-23 11:55 | P.PN ---
Subjective Progress Note Date: 08/23/17 82-year-old female who was transported to [facility] from [facility] after she was seen by Dr. Lucero and found to have increasing shortness of breath and increased edema to the lower extremities. Patient denies chest pain or pressure. Denies cough or sputum production. Denies nausea or vomiting. Denies pain or discomfort. Denies dizziness or lightheadedness. The patient has a history of atrial fibrillation maintained on long-term anticoagulated with Coumadin, glaucoma, asymptomatic bacteriuria, mood disorder with psychotic features, hypothyroidism, diastolic congestive heart failure, hypertension, hyperlipidemia, TIA, and osteopenia. 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 Chest x-ray 08/21/2017: Marked cardiomegaly with small bilateral effusions and findings suggestive of mild congestive heart failure Chest x-ray 08/22/2017: Some improvement noted in the patient's volume status. Cardiomegaly. EKG: Atrial fibrillation. Rate 103. Laboratory data: WBC 6.6. Hemoglobin 13.2. Platelet count 186. Sodium 139. Potassium 3.2. BUN 21. Creatinine 0.90. GFR 61. Glucose 111. Magnesium 2.5. AST 41. ALT 40. Total bilirubin 4.3. Alkaline phosphatase 356. Troponins negative 3 BNP: 4400 The patient was admitted to the hospital under the care of Dr. Lucero. Consultations were placed to cardiology. 08/23/2017 Patient seen and examined at the bedside. Patient was started on Lasix 40 mg IV every 12 hours yesterday per cardiology. Patient underwent a venous Doppler on 08/22/2017 due to right lower extremity edema. Doppler was negative for a DVT. Blood pressure is stable with a last reading of 110 over the T8. She is on room air with oxygen saturations greater than 92%. She is afebrile. She remains A. fib on the monitor in the 80s and 90s. INR this morning is 4.2. Coumadin remains on hold. Potassium is low this morning at 3.1. Urinalysis was completed on 08/22/2017 revealing clear yellow urine, 1+ proteinuria, moderate blood, moderate leukocyte esterase, RBC 45, WBC 33, rare bacteria, rare mucus, and hyaline casts of 7. The patient pulled out her indwelling urinary catheter this morning. Echocardiogram was completed on 08/21/2017 which revealed moderate concentric left ventricular hypertrophy, ejection fraction of 50-55%, mildly enlarged right ventricle, mild aortic regurgitation, moderate to severe aortic stenosis, moderate mitral regurgitation, severe tricuspid regurgitation, moderate pulmonary hypertension, moderate pulmonic regurgitation, and RVSP of 54.14. Objective - Vital Signs Vital signs: Vital Signs Temp 97.3 F L 08/23/17 03:19 Pulse 98 08/23/17 03:19 Resp 18 08/23/17 03:19 BP 110/58 08/23/17 03:19 Pulse Ox 93 L 08/23/17 03:19 Intake & Output 08/22/17 08/23/17 08/23/17 18:59 06:59 18:59 Intake Total 338 448 Output Total 200 1500 Balance 138 -1500 448 Weight 99.5 kg 99 kg Intake: Oral 338 448 Output: Urine 200 1500 Other: Voiding Method Indwelling Catheter Indwelling Catheter # Bowel Movements 1 - Exam GENERAL: This is a 82-year-old female in no apparent distress at the time of examination. Pleasant and cooperative. HEENT: Head is atraumatic, normocephalic. Pupils are equal, round, and reactive to light. Sclerae anicteric. Conjunctivae are clear. Mucus membranes of the mouth are moist. Neck is supple. RESPIRATORY: Diminished throughout. No use of accessory muscles. Patient maintaining oxygen saturation greater than 92%. No chest wall tenderness is noted on palpation or with deep breathing. CARDIOVASCULAR: Irregular rhythm. S1 and S2 noted. Systolic murmur auscultated. No JVD noted. No S3 or S4 noted. GASTROINTESTINAL: No distention noted. Abdomen soft and round. Normal active bowel sounds auscultated x 4 quadrants. Slight pain and tenderness noted upon palpation of right upper and lower quadrant. INTEGUMENTARY: Patient appears slightly jaundice. No cyanosis. No rashes noted. No cellulitis noted. EXTREMITIES: 1+ peripheral pulses. +2-3 right lower extremity edema. No calf tenderness noted. NEUROLOGIC: Cranial nerves II-XII intact. PSYCHIATRIC: Awake, alert, and oriented X 1-2. Appropriate affect. - Labs CBC & Chem 7: 08/23/17 06:13 08/23/17 06:13 Labs: Abnormal Lab Results - Last 24 Hours (Table) 08/22/17 08/22/17 08/23/17 Range/Units 11:18 13:35 06:13 MCHC 30.9 L (31.0-37.0) g/dL RDW 19.3 H (11.5-15.5) % PT (9.0-12.0) sec INR (<1.2) D-Dimer 0.62 H (<0.60) mg/L FEU Potassium (3.5-5.1) mmol/L Carbon Dioxide (22-30) mmol/L BUN (7-17) mg/dL Glucose (74-99) mg/dL Calcium (8.4-10.2) mg/dL Total Bilirubin (0.2-1.3) mg/dL AST (14-36) U/L Alkaline Phosphatase (38-126) U/L Total Protein (6.3-8.2) g/dL Albumin (3.5-5.0) g/dL Urine Protein 1+ H (Negative) Urine Blood Moderate H (Negative) Ur Leukocyte Esterase Moderate H (Negative) Urine RBC 45 H (0-5) /hpf Urine WBC 33 H (0-5) /hpf Urine Bacteria Rare H (None) /hpf Hyaline Casts 7 H (0-2) /lpf Urine Mucus Rare H (None) /hpf 08/23/17 08/23/17 Range/Units 06:13 06:13 MCHC (31.0-37.0) g/dL RDW (11.5-15.5) % PT 37.5 H (9.0-12.0) sec INR 4.2 H (<1.2) D-Dimer (<0.60) mg/L FEU Potassium 3.1 L (3.5-5.1) mmol/L Carbon Dioxide 31 H (22-30) mmol/L BUN 21 H (7-17) mg/dL Glucose 70 L (74-99) mg/dL Calcium 8.2 L (8.4-10.2) mg/dL Total Bilirubin 4.3 H (0.2-1.3) mg/dL AST 42 H (14-36) U/L Alkaline Phosphatase 378 H (38-126) U/L Total Protein 5.7 L (6.3-8.2) g/dL Albumin 2.6 L (3.5-5.0) g/dL Urine Protein (Negative) Urine Blood (Negative) Ur Leukocyte Esterase (Negative) Urine RBC (0-5) /hpf Urine WBC (0-5) /hpf Urine Bacteria (None) /hpf Hyaline Casts (0-2) /lpf Urine Mucus (None) /hpf Assessment and Plan Plan: ASSESSMENT: Acute exacerbation of diastolic congestive heart failure, echo reveals ejection fraction of 50-55% Chronic atrial fibrillation, maintained on long-term anticoagulation with Coumadin Supratherapeutic INR, INR 4.9 on admission, Coumadin remains on hold Bacteruria, urinalysis positive for leukocyte esterase, urine culture pending 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 Appreciate recommendations and input Continue Lasix 40 mg every 12 hours. Wean per cardiology Continue to hold Coumadin. Monitor INR. Recheck in a.m. Elevate lower extremities. JESUS hose to bilateral LE Await results of urine culture Begin Levaquin 750 mg by mouth daily Re-insert indwelling urinary catheter Accurate I&O Obtain amylase, lipase, and lactic acid Consult Dr. English Obtain ultrasound of gallbladder and liver Replace potassium Physical therapy and occupational therapy Home meds as appropriate Monitor labs GI prophylaxis: Pepcid 20 mg by daily DVT prophylaxis: Coumadin on hold secondary to elevated INR. JESUS hose and Venodyne's to bilateral lower extremities Monitor vital signs and address as appropriate Discharge planning: Patient to return to [facility] when stable Further recommendations pending patient's course Nurse practitioner note has been reviewed by physician. Signing provider agrees with the documented findings, assessment, and plan of care.
[2017-08-23 12:34] LABS: Amylase 31 U/L (30-110); Lipase 95 U/L (23-300)
[2017-08-23] MEDS ORDERED: Potassium Replacement Protocol 1 EACH MISC MISCELLANE PRN (12:37)
[2017-08-23] MEDS: LEVOFLOXACIN 750 MG TAB PO SCH (13:43)
[2017-08-23] MEDS ORDERED: SODIUM CHLORIDE 0.9% 1,000 ML IV SCH (13:45)
[2017-08-23] MEDS: POTASSIUM CHLORIDE ER 20 MEQ TAB.ER PO SCH (17:09)
--- NOTE | 2017-08-23 17:17 | US ---
"EXAMINATION TYPE: US abdomen limited DATE OF EXAM: 08/23/2017 COMPARISON: Previous dated ultrasound 02/02/2016, CT abdomen pelvis 02/11/2016 CLINICAL HISTORY: hx of gallstones, elevated bilirubin,jaundice. History of gallstones, jaundice EXAM MEASUREMENTS: Liver Length: 17.9 cm, size may be under represented by measurement obtained. Gallbladder Wall: 0.6 cm CBD: 0.7 cm Right Kidney: 9.8 x 4.8 x 4.6 cm *Technical limitations due to patient's condition- difficult for her to hold still Pancreas: Obscured by bowel gas Liver: upper limits of normal in size Gallbladder: hydropic = 11.3cm, multiple stones with sludge. Only visualized in supine position due to patient's condition Evidence for sonographic Pink's sign: Yes CBD: limited evaluation, appears upper limits of normal Right Kidney: no evidence of hydronephrosis *Right pleural effusion IMPRESSION: Right pleural effusion. Positive sonographic Pink's sign. Findings suggest cholecystiti s, correlate. Exam is limited. Suspect hepatomegaly. A Campbell level critical message alert has been initiated for Rohan Lucero MD via the [employer] | Critical Results System on 08/23/2017 5:13 PM. This message alert has been sent to Rohan Lucero MD via the preferences provided by the clinician for the receipt of Radiology Critical Findings. [facility] [id number]."
--- NOTE | 2017-08-23 18:32 | P.GSCN ---
History of Present Illness Consult date: 08/23/17 Reason for Consult: Cholecystitis History of present illness: Patient brought to the hospital with complaints of shortness of breath and lower extremity edema. During her evaluation she was found to have an elevated bilirubin and alkaline phosphatase. Ultrasound was obtained and showed multiple gallstones and some tenderness on examination of the gallbladder. Common bile duct at the upper limits of normal. Prior CAT scan from 2016 showed no pancreatic mass and some large gallstones present. The patient is evaluated this evening with her sister present. She denies any abdominal pain at this time. She states she is hungry. Per the sister her health is been declining recently. Her shortness of breath does seem improved. Her edema likewise seem somewhat improved. Patient on Coumadin with an elevated INR. Review of Systems The patient denies any acute changes in vision or hearing, no dysphagia or odynophagia, no chest pain, no dysuria or hematuria, no headache, no runny nose , no rectal bleeding or melena, no unexplained weight loss Past Medical History Past Medical History: Atrial Fibrillation, Heart Failure, CVA/TIA, Dementia, Hyperlipidemia, Hypertension, Memory Impairment, Osteoarthritis (OA), Thyroid Disorder Additional Past Medical History / Comment(s): irregular rythym, stress incont of urine,DJD, skin ca removed,had some bleeding behind lt eye- sees a dr for this, "RT CALF HAS A WOUND ON IT "10-13-15 fell out of w/c struck face on floor, pt 2 person assist, yael lift, continent uses bed bergeron, on coumadin for afib, rhabdoylosis, glaucoma History of Any Multi-Drug Resistant Organisms: ESBL Year Discovered:: 07/25/17 MDRO Source:: ESBL URINE Past Surgical History: Hernia Repair, Orthopedic Surgery, Tonsillectomy Additional Past Surgical History / Comment(s): rt ankle sx has screws in place, umbilical and lt inguinal hernias, carlyle cataracts, SKIN CANCER REMOVED FROM ARM. breat biopsy scheduled 08/31/2017. surgery for hemorrhage from TIA in Left eye Past Anesthesia/Blood Transfusion Reactions: No Reported Reaction Past Psychological History: No Psychological Hx Reported Smoking Status: Never smoker Past Alcohol Use History: None Reported Past Drug Use History: None Reported - Past Family History Father Additional Family Medical History / Comment(s): parkinsons Mother Family Medical History: Deep Vein Thrombosis (DVT) Additional Family Medical History / Comment(s): heart problems Medications and Allergies Home Medications Medication Instructions Recorded Confirmed Type Atorvastatin [Lipitor] 40 mg PO HS 05/07/15 02/12/16 History Calcium Carbonate/Vitamin D3 1 tab PO DAILY@1700 07/22/15 08/21/17 History [Calcium 600-Vit D3 400 Tablet] Nystatin [Nystop] 1 applic TOPICAL BID PRN 07/22/15 08/21/17 History Brinzolamide/Brimonidine Tart 1 drop LEFT EYE BID 10/13/15 08/21/17 History [Simbrinza 1%-0.2% Eye Drops] Glucosamine/Chondr Paiz A Sod [Osteo 1 tab PO DAILY@1700 10/13/15 02/12/16 History Bi-Flex Caplet] Potassium Chloride [K-Tab ER] 20 meq PO DAILY@1700 10/13/15 08/21/17 History Timolol 0.5% Ophth Soln [Timoptic 1 drop LEFT EYE DAILY 10/13/15 08/21/17 History 0.5% Ophth Soln] Bisacodyl [Dulcolax] 10 mg RECTAL DAILY PRN 08/21/17 08/21/17 History Ergocalciferol (Vitamin D2) 50,000 unit PO WE@1700 08/21/17 08/21/17 History [Vitamin D2] Famotidine [Pepcid] 20 mg PO DAILY 08/21/17 08/21/17 History Furosemide [Lasix] 40 mg PO DAILY@1400 08/21/17 08/21/17 History Furosemide [Lasix] 80 mg PO DAILY 08/21/17 08/21/17 History Latanoprost [Xalatan 0.005%] 1 drop BOTH EYES HS 08/21/17 08/21/17 History Levothyroxine Sodium [Synthroid] 150 mcg PO DAILY@0800 08/21/17 08/21/17 History Magnesium Hydroxide [Milk of 7,200 mg PO DAILY PRN 08/21/17 08/21/17 History Magnesia Concentrate] Magnesium Oxide [Suarez] 500 mg PO BID@0800,1700 08/21/17 08/21/17 History Memantine [Namenda] 10 mg PO DAILY 08/21/17 08/21/17 History Metoprolol Succinate [Toprol XL] 50 mg PO DAILY 08/21/17 08/21/17 History Na Phos,M-B/Na Phos,Di-Ba [Fleet 133 ml RECTAL ONCE PRN 08/21/17 08/21/17 History Adult] Ocusoft Lid Scrub Plus Pad 1 applic OPHTHALMIC DAILY PRN 08/21/17 08/21/17 History Polyethylene Glycol 3350 [Miralax] 17 gm PO DAILY PRN 08/21/17 08/21/17 History Vit C/E/Zn/Coppr/Lutein/Zeaxan 1 cap PO BID@0800,1700 08/21/17 08/21/17 History [Preservision Areds 2 Softgel] Warfarin [Coumadin] 2 mg PO DAILY@1700 08/21/17 08/21/17 History guaiFENesin-DM 100-10MG/5ML 10 ml PO Q4H PRN 08/21/17 08/21/17 History [Robitussin DM] Allergies Allergy/AdvReac Type Severity Reaction Status Date / Time No Known Allergies Allergy Verified 08/21/17 11:45 Surgical - Exam Vital Signs Temp Pulse Resp BP 94.7 F L 107 H 18 151/73 08/21/17 11:33 08/21/17 11:33 08/21/17 11:33 08/21/17 11:33 Physical exam: General: Elderly somewhat obese white female appears quite weak, in no distress , jaundiced HEENT: Normocephalic, sclerae icteric Abdomen: Nontender, nondistended Extremities: Bilateral lower extremity edema Neuro: Alert and oriented Results - Labs 08/23/17 06:13 08/23/17 14:22 Abnormal Lab Results - Last 24 Hours (Table) 08/23/17 08/23/17 08/23/17 Range/Units 06:13 06:13 06:13 MCHC 30.9 L (31.0-37.0) g/dL RDW 19.3 H (11.5-15.5) % PT 37.5 H (9.0-12.0) sec INR 4.2 H (<1.2) Potassium 3.1 L (3.5-5.1) mmol/L Carbon Dioxide 31 H (22-30) mmol/L BUN 21 H (7-17) mg/dL Glucose 70 L (74-99) mg/dL Plasma Lactic Acid Ashish (0.7-2.0) mmol/L Calcium 8.2 L (8.4-10.2) mg/dL Total Bilirubin 4.3 H (0.2-1.3) mg/dL AST 42 H (14-36) U/L Alkaline Phosphatase 378 H (38-126) U/L Total Protein 5.7 L (6.3-8.2) g/dL Albumin 2.6 L (3.5-5.0) g/dL 08/23/17 08/23/17 08/23/17 Range/Units 12:05 14:22 14:22 MCHC (31.0-37.0) g/dL RDW (11.5-15.5) % PT (9.0-12.0) sec INR (<1.2) Potassium 3.4 L (3.5-5.1) mmol/L Carbon Dioxide (22-30) mmol/L BUN (7-17) mg/dL Glucose (74-99) mg/dL Plasma Lactic Acid Ashish 3.3 H* 2.8 H* (0.7-2.0) mmol/L Calcium (8.4-10.2) mg/dL Total Bilirubin (0.2-1.3) mg/dL AST (14-36) U/L Alkaline Phosphatase (38-126) U/L Total Protein (6.3-8.2) g/dL Albumin (3.5-5.0) g/dL Microbiology - Last 24 Hours (Table) 08/22/17 13:35 Urine Culture - Preliminary Urine,Catheterized Diabetes panel 08/23/17 08/23/17 Range/Units 06:13 14:22 Sodium 138 (137-145) mmol/L Potassium 3.1 L 3.4 L (3.5-5.1) mmol/L Chloride 98 (98-107) mmol/L Carbon Dioxide 31 H (22-30) mmol/L BUN 21 H (7-17) mg/dL Creatinine 0.91 (0.52-1.04) mg/dL Glucose 70 L (74-99) mg/dL Calcium 8.2 L (8.4-10.2) mg/dL AST 42 H (14-36) U/L ALT 40 (9-52) U/L Alkaline Phosphatase 378 H (38-126) U/L Total Protein 5.7 L (6.3-8.2) g/dL Albumin 2.6 L (3.5-5.0) g/dL Calcium panel 08/23/17 Range/Units 06:13 Calcium 8.2 L (8.4-10.2) mg/dL Albumin 2.6 L (3.5-5.0) g/dL Pituitary panel 08/23/17 08/23/17 Range/Units 06:13 14:22 Sodium 138 (137-145) mmol/L Potassium 3.1 L 3.4 L (3.5-5.1) mmol/L Chloride 98 (98-107) mmol/L Carbon Dioxide 31 H (22-30) mmol/L BUN 21 H (7-17) mg/dL Creatinine 0.91 (0.52-1.04) mg/dL Glucose 70 L (74-99) mg/dL Calcium 8.2 L (8.4-10.2) mg/dL Adrenal panel 08/23/17 08/23/17 Range/Units 06:13 14:22 Sodium 138 (137-145) mmol/L Potassium 3.1 L 3.4 L (3.5-5.1) mmol/L Chloride 98 (98-107) mmol/L Carbon Dioxide 31 H (22-30) mmol/L BUN 21 H (7-17) mg/dL Creatinine 0.91 (0.52-1.04) mg/dL Glucose 70 L (74-99) mg/dL Calcium 8.2 L (8.4-10.2) mg/dL Total Bilirubin 4.3 H (0.2-1.3) mg/dL AST 42 H (14-36) U/L ALT 40 (9-52) U/L Alkaline Phosphatase 378 H (38-126) U/L Total Protein 5.7 L (6.3-8.2) g/dL Albumin 2.6 L (3.5-5.0) g/dL Assessment and Plan (1) Cholelithiasis Narrative/Plan: We'll consult GI for evaluation for possible choledocholithiasis. Clinically benign examination at this time. Patient is high risk for any sort of surgical procedure at this point. We'll follow closely with you. Current Visit: Yes Status: Acute Code(s): K80.20 - CALCULUS OF GALLBLADDER W /O CHOLECYSTITIS W/O OBSTRUCTION SNOMED Code(s): 289400613
[2017-08-23] MEDS: QUEtiapine 50 MG TAB PO SCH (19:47)
[2017-08-23] MEDS: FAMOTIDINE 20 MG TAB PO SCH (19:47)
[2017-08-23] MEDS: LATANOPROST 0.005% OPHTH DROPS 2.5 ML BTL BOTH EYES SCH (19:47)
[2017-08-23] MEDS: ATORVASTATIN 40 MG TAB PO SCH (19:47)
[2017-08-23] MEDS ORDERED: HALOPERIDOL LACTATE 5 MG/ML 1 ML VIAL IVP ONE (23:25)
[2017-08-24 05:53] LABS: Albumin 2.5 g/dL (3.5-5.0); Calcium 8.3 mg/dL (8.4-10.2); Potassium 3.6 mmol/L (3.5-5.1); Total Bilirubin 4.4 mg/dL (0.2-1.3); Total Protein 5.5 g/dL (6.3-8.2)
[2017-08-24 06:00] LABS: Anisocytosis Slight; Basophils % (A) 0 %; Eosinophils # (A) 0.1 k/uL (0-0.7); Eosinophils % (A) 1 %; HCT 42.4 % (34.0-46.0); Hypochromasia Marked; Lymphocytes # (A) 0.9 k/uL (1.0-4.8); Lymphocytes % (A) 12 %; MCH 25.5 pg (25.0-35.0); MCHC 30.7 g/dL (31.0-37.0); MCV 82.9 fL (80.0-100.0); Mean Platelet Volume 7.1; Microcytosis Slight; Monocytes # (A) 0.6 k/uL (0-1.0); Monocytes % (A) 7 %; Neutrophils # (A) 6.1 k/uL (1.3-7.7); Neutrophils % (A) 78 %; Platelet Count 167 k/uL (150-450); Poikilocytosis Moderate; RBC 5.12 m/uL (3.80-5.40); RDW 19.4 % (11.5-15.5); WBC 7.8 k/uL (3.8-10.6)
[2017-08-24 06:02] LABS: INR 3.9 (<1.2); Prothrombin Time 35.1 sec (9.0-12.0)
[2017-08-24] MEDS: FUROSEMIDE 10 MG/ML 4 ML VIAL IV SCH (09:17)
[2017-08-24] MEDS: MAGNESIUM OXIDE 400 MG TAB PO SCH ×2 (09:17→17:54)
[2017-08-24] MEDS: POTASSIUM CHLORIDE ER 20 MEQ TAB.ER PO SCH (09:17)
[2017-08-24] MEDS: TIMOLOL 0.5% OPHTH DROPS 5 ML BTL LEFT EYE SCH (09:17)
[2017-08-24] MEDS: LEVOFLOXACIN 750 MG TAB PO SCH (09:18)
[2017-08-24] MEDS: MEMANTINE 10 MG TAB PO SCH (09:18)
[2017-08-24] MEDS: LEVOTHYROXINE 75 MCG TAB PO SCH (09:18)
[2017-08-24] MEDS: METOPROLOL SUCCINATE (ER) 50 MG TAB.ER.24H PO SCH (09:18)
[2017-08-24] MEDS: FAMOTIDINE 20 MG TAB PO SCH (09:18)
--- NOTE | 2017-08-24 14:12 | P.PN ---
Subjective Progress Note Date: 08/24/17 82-year-old female who was transported to [facility] from [facility] after she was seen by Dr. Lucero and found to have increasing shortness of breath and increased edema to the lower extremities. Patient denies chest pain or pressure. Denies cough or sputum production. Denies nausea or vomiting. Denies pain or discomfort. Denies dizziness or lightheadedness. The patient has a history of atrial fibrillation maintained on long-term anticoagulated with Coumadin, glaucoma, asymptomatic bacteriuria, mood disorder with psychotic features, hypothyroidism, diastolic congestive heart failure, hypertension, hyperlipidemia, TIA, and osteopenia. 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 Chest x-ray 08/21/2017: Marked cardiomegaly with small bilateral effusions and findings suggestive of mild congestive heart failure Chest x-ray 08/22/2017: Some improvement noted in the patient's volume status. Cardiomegaly. EKG: Atrial fibrillation. Rate 103. Laboratory data: WBC 6.6. Hemoglobin 13.2. Platelet count 186. Sodium 139. Potassium 3.2. BUN 21. Creatinine 0.90. GFR 61. Glucose 111. Magnesium 2.5. AST 41. ALT 40. Total bilirubin 4.3. Alkaline phosphatase 356. Troponins negative 3 BNP: 4400 The patient was admitted to the hospital under the care of Dr. Lucero. Consultations were placed to cardiology. 08/23/2017 Patient seen and examined at the bedside. Patient was started on Lasix 40 mg IV every 12 hours yesterday per cardiology. Patient underwent a venous Doppler on 08/22/2017 due to right lower extremity edema. Doppler was negative for a DVT. Blood pressure is stable with a last reading of 110 over the T8. She is on room air with oxygen saturations greater than 92%. She is afebrile. She remains A. fib on the monitor in the 80s and 90s. INR this morning is 4.2. Coumadin remains on hold. Potassium is low this morning at 3.1. Urinalysis was completed on 08/22/2017 revealing clear yellow urine, 1+ proteinuria, moderate blood, moderate leukocyte esterase, RBC 45, WBC 33, rare bacteria, rare mucus, and hyaline casts of 7. The patient pulled out her indwelling urinary catheter this morning. Echocardiogram was completed on 08/21/2017 which revealed moderate concentric left ventricular hypertrophy, ejection fraction of 50-55%, mildly enlarged right ventricle, mild aortic regurgitation, moderate to severe aortic stenosis, moderate mitral regurgitation, severe tricuspid regurgitation, moderate pulmonary hypertension, moderate pulmonic regurgitation, and RVSP of 54.14. 08/24/2017 Patient seen and examined at the bedside. patient underwent ultrasound of the abdomen on 08/23/2017 which revealed right pleural effusion, positive sonographic Pink sign, findings suggestive of cholecystitis. Suspected hepatomegaly. General surgery was consulted. no surgical intervention from their standpoint. INR this morning is 3.9. Coumadin remains on hold. Patient' s lactic acid yesterday was 3.2. IV fluids were ordered if ok with cardiology. Fluids were discontinued. Repeat lactic acid 2.1. patient remains on Lasix 40 mg IV every 12 hours. patient remains on Levaquin for a possible urinary tract infection. Urine culture is currently pending. Objective - Vital Signs Vital signs: Vital Signs Temp 97.0 F L 08/24/17 08:00 Pulse 90 08/24/17 08:00 Resp 18 08/24/17 08:00 BP 115/83 08/24/17 08:00 Pulse Ox 98 08/24/17 08:00 Intake & Output 08/23/17 08/24/17 08/24/17 18:59 06:59 18:59 Intake Total 688 50 Output Total 250 97 Balance 438 -47 Intake: Oral 688 50 Output: Urine 250 Uretheral ([place]) 250 Post Void Residual 97 Other: Voiding Method Diaper Diaper Diaper Incontinent Incontinent Incontinent # Voids 2 # Bowel Movements 2 - Exam GENERAL: This is a 82-year-old female in no apparent distress at the time of examination. Pleasant and cooperative. HEENT: Head is atraumatic, normocephalic. Pupils are equal, round, and reactive to light. Sclerae anicteric. Conjunctivae are clear. Mucus membranes of the mouth are moist. Neck is supple. RESPIRATORY: Diminished throughout. No use of accessory muscles. Patient maintaining oxygen saturation greater than 92%. No chest wall tenderness is noted on palpation or with deep breathing. CARDIOVASCULAR: Irregular rhythm. S1 and S2 noted. Systolic murmur auscultated. No JVD noted. No S3 or S4 noted. GASTROINTESTINAL: No distention noted. Abdomen soft and round. Normal active bowel sounds auscultated x 4 quadrants. Slight pain and tenderness noted upon palpation of right upper quadrant. INTEGUMENTARY: Patient appears slightly jaundice. No cyanosis. No rashes noted. No cellulitis noted. EXTREMITIES: 1+ peripheral pulses. +2-3 right lower extremity edema. No calf tenderness noted. NEUROLOGIC: Cranial nerves II-XII intact. PSYCHIATRIC: Awake, alert, and oriented X 1-2. Appropriate affect. - Labs CBC & Chem 7: 08/24/17 05:16 08/24/17 05:16 Labs: Abnormal Lab Results - Last 24 Hours (Table) 08/23/17 08/23/17 08/23/17 Range/Units 12:05 14:22 14:22 MCHC (31.0-37.0) g/dL RDW (11.5-15.5) % Lymphocytes # (1.0-4.8) k/uL PT (9.0-12.0) sec INR (<1.2) Potassium 3.4 L (3.5-5.1) mmol/L Chloride (98-107) mmol/L Carbon Dioxide (22-30) mmol/L BUN (7-17) mg/dL Plasma Lactic Acid Ashish 3.3 H* 2.8 H* (0.7-2.0) mmol/L Calcium (8.4-10.2) mg/dL Total Bilirubin (0.2-1.3) mg/dL Alkaline Phosphatase (38-126) U/L Total Protein (6.3-8.2) g/dL Albumin (3.5-5.0) g/dL 08/23/17 08/24/17 08/24/17 Range/Units 19:53 00:35 05:16 MCHC 30.7 L (31.0-37.0) g/dL RDW 19.4 H (11.5-15.5) % Lymphocytes # 0.9 L (1.0-4.8) k/uL PT (9.0-12.0) sec INR (<1.2) Potassium (3.5-5.1) mmol/L Chloride (98-107) mmol/L Carbon Dioxide (22-30) mmol/L BUN (7-17) mg/dL Plasma Lactic Acid Ashish 3.2 H* 2.1 H* (0.7-2.0) mmol/L Calcium (8.4-10.2) mg/dL Total Bilirubin (0.2-1.3) mg/dL Alkaline Phosphatase (38-126) U/L Total Protein (6.3-8.2) g/dL Albumin (3.5-5.0) g/dL 08/24/17 08/24/17 Range/Units 05:16 05:16 MCHC (31.0-37.0) g/dL RDW (11.5-15.5) % Lymphocytes # (1.0-4.8) k/uL PT 35.1 H (9.0-12.0) sec INR 3.9 H (<1.2) Potassium (3.5-5.1) mmol/L Chloride 96 L (98-107) mmol/L Carbon Dioxide 33 H (22-30) mmol/L BUN 21 H (7-17) mg/dL Plasma Lactic Acid Ashish (0.7-2.0) mmol/L Calcium 8.3 L (8.4-10.2) mg/dL Total Bilirubin 4.4 H (0.2-1.3) mg/dL Alkaline Phosphatase 347 H (38-126) U/L Total Protein 5.5 L (6.3-8.2) g/dL Albumin 2.5 L (3.5-5.0) g/dL Microbiology - Last 24 Hours (Table) 08/22/17 13:35 Urine Culture - Preliminary Urine,Catheterized Assessment and Plan Plan: ASSESSMENT: Acute exacerbation of diastolic congestive heart failure, echo reveals ejection fraction of 50-55% Chronic atrial fibrillation, maintained on long-term anticoagulation with Coumadin Supratherapeutic INR, INR 4.9 on admission, Coumadin remains on hold Bacteruria, urinalysis positive for leukocyte esterase, urine culture pending 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 Appreciate recommendations and input Decrease lasix to once daily Continue to hold Coumadin. Monitor INR. Recheck in a.m. Elevate lower extremities. JESUS hose to bilateral LE Await results of urine culture Continue Levaquin Nursing unable to reinsert urinary catheter. Patient incontinent. Monitor number of voids Gen. surgery on consult. No intervention from their standpoint Gen. surgery consulted GI to evaluate patient Physical therapy and occupational therapy Home meds as appropriate Monitor labs GI prophylaxis: Pepcid 20 mg by daily DVT prophylaxis: Coumadin on hold secondary to elevated INR. JESUS hose and Venodyne's to bilateral lower extremities Monitor vital signs and address as appropriate Discharge planning: Patient to return to [facility] when stable Further recommendations pending patient's course Nurse practitioner note has been reviewed by physician. Signing provider agrees with the documented findings, assessment, and plan of care.
--- NOTE | 2017-08-24 15:21 | CONS ---
CONSULTATION DATE OF SERVICE: 08/24/2017 REASON FOR CONSULTATION: Elevated LFTs and jaundice. HISTORY OF THE PRESENT ILLNESS: The patient is an 82-year-old pleasant white female who has been in a [place] [facility] for the last 2 years, needing total care, was admitted to hospital because of shortness of breath, lower extremity edema on and off for the last several days' duration. During the hospitalization, she was noted to have elevated abnormal LFTs with bili up to 4 and alkaline phosphatase in 300 range and we are consulted in regards to this issue. The patient denies any abdominal pain. She reports no nausea vomiting, denies any rectal bleeding or melena. She does complain of some chronic constipation. About 2 months she was told that she has some gallstones. She denies any history of chronic liver disease. No history of jaundice or hepatitis in the past. No history of alcohol use. She has been on statins for several years for hypercholesteremia. Presently, she reports no abdominal pain. No nausea, vomiting. She did have.labs done at the time of admission the hospital, which showed initially the bilirubin was 4 and this morning it is 4.4, alk phos is elevated at 357 and ALT and AST are within normal limits at 34 and 35 respectively. Amylase and lipase are normal. On review of her labs from the last 1 year, she is always noted to have mild elevation of LFTs with T-bili in the range of 1.8 to 2.5 and alkaline phosphatase ranging between 180 to 220. In February of 2016, bilirubin was 1, but alkaline phosphatase was elevated at 197, but in August of 2016, T-bili was 1.8, alkaline phosphatase was 193 with ALT and AST within normal limits. PAST MEDICAL HISTORY: Significant for congestive heart failure, hypertension, hypercholesteremia, diabetes mellitus, morbid obesity, atrial fibrillation, hypothyroidism, dementia, history of CVA in the past. PAST SURGICAL HISTORY: Hernia repair, tonsillectomy, right ankle surgery, bilateral cataract surgery, breast biopsy that is scheduled for a week from now, inguinal hernia repair. MEDICATIONS: At home include Coumadin, polyethylene glycol, Toprol, Namenda, magnesium citrate p.r.n., Synthroid, Lasix, Pepcid, potassium chloride, Osteo Bi-Flex, Lipitor, calcium/vitamin-D. FAMILY HISTORY: Father had Parkinson's. Mother has coronary artery disease and DVT. SOCIAL HISTORY: No smoking or alcohol use. REVIEW OF SYSTEMS: CARDIOPULMONARY: No chest pain, shortness of breath. GENITOURINARY: No dysuria, hematuria. MUSCULOSKELETAL: Wheelchair-bound because of generalized weakness. NEUROLOGY: Unremarkable other than mild dementia. PSYCHIATRIC: Unremarkable. ENT: Vision unremarkable. CONSTITUTIONAL: Morbid obesity. No fever, chills, night sweats. HEMATOLOGY: Unremarkable. ENDOCRINE: Unremarkable. PHYSICAL EXAMINATION: She appears comfortable, in no apparent distress. Vital signs are stable. Blood pressure is 130/86, pulse rate 90, and temperature 97. HEENT examination unremarkable, conjunctivae are pink, sclerae slightly icteric. Oral cavity no lesions. Neck: No JVD or lymph node enlargement. Chest was clear to auscultation. HEART: Regular rate and rhythm. ABDOMEN: Soft. Bowel sounds are positive. EXTREMITIES: 2+ pedal edema. SKIN: No rashes. NEURO: Alert and oriented x3. No focal deficits. She did have a 2D echocardiogram that showed evidence of moderate pulmonary hypertension. Ejection fraction is 50% to 55%. Right ventricle is mildly enlarged. Dilation of the inferior vena cava with elevated right-sided pressures. Labs from today T-bili is 4.4. AST and ALT are 34 and 35 respectively. Alkaline phosphatase is 347. Amylase and lipase are normal. PT 35.1, INR 3.9, WBC 7.8, hemoglobin 13, and platelets are 167. 000. Ultrasound of the abdomen showed evidence of gallstones but no evidence of biliary ductal dilation. IMPRESSION: This is a lady who presents to the hospital with shortness of breath, lower extremity swelling/diastolic dysfunction/congestive heart failure,who is also noted to have elevated alkaline phosphatase and total bilirubin up to 4.4 with alkaline phosphatase in the 300 range. All of this is consistent with intrahepatic cholestasis, most likely explained on the basis of passive venous congestion resulting from right-sided heart failure. Her LFTs have been abnormal for the last 1 year with mild elevation of bilirubin and alkaline phosphatase, which over the year have been gradually getting worse. Serum transaminases all remain within normal limits. Ultrasound did show evidence of gallstones but no evidence of biliary ductal dilation. With lack of abdominal pain and with no evidence of biliary ductal dilation, it is very unlikely that we are dealing with extrahepatic biliary pathology. However, this cannot be entirely excluded. RECOMMENDATIONS: I had a lengthy discussion with the patient's family who is at the bedside. I will schedule her for an MRCP to evaluate for common bile duct and total of CBD stones or other pathology. Repeat labs in the morning and will follow closely during hospital stay. Thank you for this consultation. GARCIA / MARY: [id number] /
--- NOTE | 2017-08-24 17:07 | P.PN ---
Subjective Progress Note Date: 08/24/17 Principal diagnosis: Cholelithiasis Yesterday evening when evaluated had no abdominal pain however today suggested that she was having some vague abdominal discomforts. The patient is a poor historian however. Energy level remains poor. Shortness of breath is improved. Consultation by GI noted. Liver enzymes unchanged. Objective - Vital Signs Vital signs: Vital Signs Temp 96.6 F L 08/24/17 15:30 Pulse 93 08/24/17 15:30 Resp 20 08/24/17 15:30 BP 98/68 08/24/17 15:30 Pulse Ox 96 08/24/17 15:30 Intake & Output 08/23/17 08/24/17 08/24/17 18:59 06:59 18:59 Intake Total 688 50 240 Output Total 250 97 Balance 438 -47 240 Intake: Oral 688 50 240 Output: Urine 250 Uretheral ([place]) 250 Post Void Residual 97 Other: Voiding Method Diaper Diaper Diaper Incontinent Incontinent Incontinent # Voids 2 1 # Bowel Movements 2 - Exam Abdomen: Soft, mild epigastric tenderness, no rebound or guarding - Labs CBC & Chem 7: 08/24/17 05:16 08/24/17 05:16 Labs: Abnormal Lab Results - Last 24 Hours (Table) 08/23/17 08/24/17 08/24/17 Range/Units 19:53 00:35 05:16 MCHC 30.7 L (31.0-37.0) g/dL RDW 19.4 H (11.5-15.5) % Lymphocytes # 0.9 L (1.0-4.8) k/uL PT (9.0-12.0) sec INR (<1.2) Chloride (98-107) mmol/L Carbon Dioxide (22-30) mmol/L BUN (7-17) mg/dL Plasma Lactic Acid Ashish 3.2 H* 2.1 H* (0.7-2.0) mmol/L Calcium (8.4-10.2) mg/dL Total Bilirubin (0.2-1.3) mg/dL Alkaline Phosphatase (38-126) U/L Total Protein (6.3-8.2) g/dL Albumin (3.5-5.0) g/dL 08/24/17 08/24/17 Range/Units 05:16 05:16 MCHC (31.0-37.0) g/dL RDW (11.5-15.5) % Lymphocytes # (1.0-4.8) k/uL PT 35.1 H (9.0-12.0) sec INR 3.9 H (<1.2) Chloride 96 L (98-107) mmol/L Carbon Dioxide 33 H (22-30) mmol/L BUN 21 H (7-17) mg/dL Plasma Lactic Acid Ashish (0.7-2.0) mmol/L Calcium 8.3 L (8.4-10.2) mg/dL Total Bilirubin 4.4 H (0.2-1.3) mg/dL Alkaline Phosphatase 347 H (38-126) U/L Total Protein 5.5 L (6.3-8.2) g/dL Albumin 2.5 L (3.5-5.0) g/dL Microbiology - Last 24 Hours (Table) 08/22/17 13:35 Urine Culture - Final Urine,Catheterized Assessment and Plan (1) Cholelithiasis Narrative/Plan: Agree with GIs evaluation. Elevated liver enzymes likely on the basis of hepatic congestion with concurrent admission for exacerbation of CHF. Await MRI findings although the family was informed that given her girth this may not be a possible exam for her. If that is the case would advise continued observation. Will follow. Current Visit: Yes Status: Acute Code(s): K80.20 - CALCULUS OF GALLBLADDER W /O CHOLECYSTITIS W/O OBSTRUCTION SNOMED Code(s): 113477758
[2017-08-24] MEDS: ATORVASTATIN 40 MG TAB PO SCH (20:18)
[2017-08-24] MEDS: LATANOPROST 0.005% OPHTH DROPS 2.5 ML BTL BOTH EYES SCH (20:18)
[2017-08-24] MEDS: QUEtiapine 50 MG TAB PO SCH (20:18)
[2017-08-25] MEDS ORDERED: LORazepam 2 MG/ML INJ IV STA (00:09)
[2017-08-25 06:23] LABS: Anisocytosis Slight; Basophils % (A) 1 %; Eosinophils # (A) 0.1 k/uL (0-0.7); Eosinophils % (A) 2 %; HCT 45.1 % (34.0-46.0); HGB 13.4 gm/dL (11.4-16.0); Hypochromasia Marked; INR 3.8 (<1.2); Lymphocytes % (A) 14 %; MCH 25.2 pg (25.0-35.0); MCHC 29.8 g/dL (31.0-37.0); MCV 84.5 fL (80.0-100.0); Mean Platelet Volume 7.3; Monocytes # (A) 0.6 k/uL (0-1.0); Monocytes % (A) 7 %; Neutrophils # (A) 5.6 k/uL (1.3-7.7); Neutrophils % (A) 75 %; Platelet Count 153 k/uL (150-450); Poikilocytosis Moderate; Prothrombin Time 33.8 sec (9.0-12.0); RBC 5.34 m/uL (3.80-5.40); RDW 19.3 % (11.5-15.5); WBC 7.5 k/uL (3.8-10.6)
[2017-08-25 06:37] LABS: Albumin 2.5 g/dL (3.5-5.0); Calcium 8.3 mg/dL (8.4-10.2); Potassium 4.5 mmol/L (3.5-5.1); Total Bilirubin 3.7 mg/dL (0.2-1.3); Total Protein 5.6 g/dL (6.3-8.2)
--- NOTE | 2017-08-25 07:01 | CT ---
EXAMINATION TYPE: CT brain wo con DATE OF EXAM: 08/25/2017 HISTORY: Altered mental status CT DLP: 1081.6 mGycm. Automated Exposure Control for Dose Reduction was Utilized. TECHNIQUE: CT scan of the head is performed without contrast. COMPARISON: CT brain February 13, 2016 FINDINGS: There is no acute intracranial hemorrhage or midline shift identified. There is diffuse v entricular and sulcal prominence consistent with diffuse age-related cerebral atrophy. Asymmetry to t he ventricles with left side more prominent is stable from prior. There is low-attenuation in the per iventricular white matter consistent with chronic small vessel ischemic change. The globes are intac t and the visualized sinuses are clear. IMPRESSION: No acute intracranial hemorrhage or midline shift. There is moderate to severe diffuse age-related cerebral atrophy and chronic small vessel ischemic change redemonstrated without signific ant change from prior.
[2017-08-25] MEDS ORDERED: LEVOFLOXACIN 750 MG TAB PO SCH (09:00)
[2017-08-25] MEDS: LEVOTHYROXINE 75 MCG TAB PO SCH (09:24)
[2017-08-25] MEDS: FAMOTIDINE 20 MG TAB PO SCH (09:24)
[2017-08-25] MEDS: TIMOLOL 0.5% OPHTH DROPS 5 ML BTL LEFT EYE SCH (09:24)
[2017-08-25] MEDS: MAGNESIUM OXIDE 400 MG TAB PO SCH ×2 (09:24→17:07)
[2017-08-25] MEDS: FUROSEMIDE 10 MG/ML 4 ML VIAL IV SCH (09:24)
[2017-08-25] MEDS: MEMANTINE 10 MG TAB PO SCH (09:25)
[2017-08-25] MEDS: METOPROLOL SUCCINATE (ER) 50 MG TAB.ER.24H PO SCH (09:25)
--- NOTE | 2017-08-25 11:42 | P.PN ---
Subjective Progress Note Date: 08/25/17 Patient is an 82-year-old white female who presented to the hospital with shortness of breath and lower extremity edema. During her evaluation she was found to have an elevated bilirubin and alkaline phosphatase. An ultrasound revealed multiple gallstones and some tenderness on examination of the gallbladder. Common bile duct was at the upper limits of normal. The patient at this time denies any abdominal pain. Patient's bilirubin today is 3.7, AST 35 and ALT 37. Alk phosphatase 360. The intent is to obtain an MRCP. Objective - Vital Signs Vital signs: Vital Signs Temp 95.4 F L 08/25/17 11:27 Pulse 93 08/25/17 08:00 Resp 20 08/25/17 08:00 BP 107/87 08/25/17 08:00 Pulse Ox 97 08/25/17 08:00 Intake & Output 08/24/17 08/25/17 08/25/17 18:59 06:59 18:59 Intake Total 720 Balance 720 Weight 98.5 kg Intake: Oral 720 Other: Voiding Method Diaper Diaper Diaper Incontinent Incontinent Incontinent # Voids 1 1 1 # Bowel Movements 0 - Constitutional General appearance: Present: obese - Respiratory Details: Decreased breath sounds bilaterally at the bases - Cardiovascular Heart sounds: normal: S1, S2 - Gastrointestinal Gastrointestinal Comment(s): No guarding or rebound General gastrointestinal: Present: normal bowel sounds, soft - Labs CBC & Chem 7: 08/25/17 05:45 08/25/17 05:45 Labs: Abnormal Lab Results - Last 24 Hours (Table) 08/25/17 08/25/17 08/25/17 Range/Units 05:45 05:45 05:45 MCHC 29.8 L (31.0-37.0) g/dL RDW 19.3 H (11.5-15.5) % PT 33.8 H (9.0-12.0) sec INR 3.8 H (<1.2) BUN 27 H (7-17) mg/dL Creatinine 1.06 H (0.52-1.04) mg/dL Calcium 8.3 L (8.4-10.2) mg/dL Total Bilirubin 3.7 H (0.2-1.3) mg/dL Alkaline Phosphatase 360 H (38-126) U/L Total Protein 5.6 L (6.3-8.2) g/dL Albumin 2.5 L (3.5-5.0) g/dL Microbiology - Last 24 Hours (Table) 08/22/17 13:35 Urine Culture - Final Urine,Catheterized Assessment and Plan Assessment: Impression/plan: 1. Cholelithiasis with elevated bilirubin 2. Await MRCP 3. Patient does not have an acute surgical abdomen at this time
--- NOTE | 2017-08-25 12:10 | PN ---
PROGRESS NOTE Patient is an 82-year-old pleasant white female admitted to the hospital with shortness of breath and lower extremity swelling for the last few weeks duration. She was subsequently diagnosed with diastolic congestive heart failure/right-sided heart failure. The patient was seen in consultation yesterday for elevated total bilirubin and alkaline phosphatase. The patient was scheduled for an MRCP to evaluate for any CBD pathology. MRCP is scheduled for this afternoon. The patient in the meantime, denies any symptoms. She reports no abdominal pain. Overall she feels better. No nausea, vomiting. PHYSICAL EXAMINATION: She appears comfortable. No apparent distress. Vital signs are stable. Blood pressure is 107/87, pulse rate 97, temperature 95.4. HEENT EXAMINATION: Unremarkable. Conjunctivae pink. Sclerae slightly icteric. Oral cavity no lesions. Neck: No JVD or lymph node enlargement. Chest was clear to auscultation. HEART: Regular rate and rhythm. Abdomen is slightly distended. It was nontender. Bowel sounds are positive. Extremities: 2+ pedal edema. Skin: No rashes. Neuro: She is alert and oriented x3. No focal deficits. LAB: From today; WBC 7.5, hemoglobin 13.4, platelets are normal. INR of 3.8, AST is 35, ALT is 37, T bilirubin is 3.7, alkaline phosphatase is 360, BUN is 27, creatinine 1.06. IMPRESSION: This is a lady who was admitted to the hospital with diastolic congestive heart failure, who also was noted to have incidental elevated total bilirubin and alkaline phosphatase with normal serum transaminases. As mentioned in my yesterday's consultation note, she was noted to have elevated alkaline phosphatase and bilirubin dating back to January of 2017. Based on the clinical presentation, it appears that most likely we are dealing with an passive venous congestion of the liver causing the intrahepatic cholestasis and doubt biliary pathology. In any event, as the ultrasound of the abdomen showed gallstones, I schedule the patient for an MRCP which is going to be performed this afternoon. RECOMMENDATIONS: 1. Continue with current management. 2. Await MRCP results. 3. Repeat labs in the morning and follow the patient closely during hospital stay. MMODL / IJN: [id number] /
--- NOTE | 2017-08-25 12:40 | MR ---
EXAMINATION TYPE: MR MRCP DATE OF EXAM: 08/25/2017 COMPARISON: Limited abdominal ultrasound 2 days ago. HISTORY: abnormal u/s Standard multiplanar, multisequence MRI departmental protocol Multiplanar, multisequence images of the abdomen focusing on biliary system were acquired. . 2-D and 3-D reconstructed images are created on MRI scanner and reviewed. FINDINGS: Exam noted markedly suboptimal as patient did not understand breath-hold request. IMPRESSION: Liver/gallbladder/pancreas/biliary system: Gallbladder is redemonstrated with distended margins. Ther e are is single large dependent 1.9 cm gallstone felt present axial image 18. There is no suspicious surrounding inflammatory change. Liver is normal in size. There is no suspicious intrahepatic or extr a hepatic biliary dilatation. There are however 2 small common bile duct stones seen best image 21 se alejandra [id number] and image 60 series 701. Pancreas is poorly visualized. There is suspected fat replaced atro phy. Duct is not well seen but does not show dilatation. Other: Cardiomegaly is present. There is suspected small to moderate-sized right pleural effusion. Co nsider chest x-ray correlation. Spleen is small and lobulated. There is slight nodularity to left adr enal gland. There is some cortical thinning in both kidneys. There are subcentimeter lesion laterally lower pole level right kidney image 28 series 301 presumed benign. There is underlying scoliosis with moderate to advanced multilevel spurring and disc space narrowing in the lumbar spine. There are scattered colonic diverticula. There is no CT evidence for acute diver ticulitis. There is no suspicious abdominal fluid collection. IMPRESSION: There are 2 common bile duct stones. There is no suspicious biliary dilatation however. T here is larger stone in gallbladder without MRI evidence for acute cholecystitis. Suboptimal study du e to motion artifact degradation.
[2017-08-25] MEDS: POTASSIUM CHLORIDE ER 20 MEQ TAB.ER PO SCH (17:07)
[2017-08-25] MEDS: LEVOFLOXACIN 750 MG TAB PO SCH (17:07)
[2017-08-25] MEDS: LATANOPROST 0.005% OPHTH DROPS 2.5 ML BTL BOTH EYES SCH (21:02)
[2017-08-25] MEDS: ATORVASTATIN 40 MG TAB PO SCH (21:02)
[2017-08-25] MEDS: QUEtiapine 50 MG TAB PO SCH (21:02)
[2017-08-26 07:33] LABS: Anisocytosis Slight; Basophils % (A) 0 %; Eosinophils # (A) 0.2 k/uL (0-0.7); Eosinophils % (A) 2 %; HCT 44.1 % (34.0-46.0); HGB 13.1 gm/dL (11.4-16.0); Hypochromasia Marked; Lymphocytes # (A) 1.2 k/uL (1.0-4.8); Lymphocytes % (A) 18 %; MCHC 29.7 g/dL (31.0-37.0); MCV 84.3 fL (80.0-100.0); Monocytes # (A) 0.5 k/uL (0-1.0); Monocytes % (A) 8 %; Neutrophils # (A) 4.8 k/uL (1.3-7.7); Neutrophils % (A) 70 %; Platelet Count 167 k/uL (150-450); Poikilocytosis Slight; RBC 5.23 m/uL (3.80-5.40); RDW 19.6 % (11.5-15.5); WBC 6.9 k/uL (3.8-10.6)
[2017-08-26 07:38] LABS: INR 2.8 (<1.2); Prothrombin Time 25.1 sec (9.0-12.0)
[2017-08-26 08:00] LABS: Albumin 2.8 g/dL (3.5-5.0); Calcium 8.6 mg/dL (8.4-10.2); Magnesium 2.6 mg/dL (1.6-2.3); Total Bilirubin 3.9 mg/dL (0.2-1.3); Total Protein 6.1 g/dL (6.3-8.2)
[2017-08-26] MEDS: POTASSIUM CHLORIDE ER 20 MEQ TAB.ER PO SCH (08:03)
[2017-08-26] MEDS: METOPROLOL SUCCINATE (ER) 50 MG TAB.ER.24H PO SCH (08:03)
[2017-08-26] MEDS: TIMOLOL 0.5% OPHTH DROPS 5 ML BTL LEFT EYE SCH (08:03)
[2017-08-26] MEDS: MAGNESIUM OXIDE 400 MG TAB PO SCH ×2 (08:03→08:23)
[2017-08-26] MEDS: FUROSEMIDE 10 MG/ML 4 ML VIAL IV SCH (08:03)
[2017-08-26] MEDS: MEMANTINE 10 MG TAB PO SCH (08:04)
[2017-08-26] MEDS: FAMOTIDINE 20 MG TAB PO SCH (08:04)
[2017-08-26] MEDS: LEVOTHYROXINE 75 MCG TAB PO SCH (08:04)
[2017-08-26 08:08] LABS: Potassium 4.2 mmol/L (3.5-5.1)
--- NOTE | 2017-08-26 09:29 | PN ---
PROGRESS NOTE DATE OF SERVICE: August 26, 2017 REQUESTING PHYSICIAN: Dr. English HISTORY: The patient is an 82-year-old pleasant white female admitted to the hospital with/shortness of breath and lower extremity swelling. She was incidentally noted to have elevated bilirubin and alkaline phosphatase with normal ALT and AST. She had ultrasound of the abdomen showed evidence of gallstones. She hence had an MRCP done yesterday and surprisingly did show evidence of 2 common bile duct stones with no significant biliary ductal dilation. The patient remains stable. No abdominal pain. No nausea, vomiting. No fever, chills, night sweats. PHYSICAL EXAMINATION: She appears comfortable. No apparent distress. VITAL SIGNS: Stable. Blood pressure 95/64, pulse rate 50 and afebrile. HEENT examination: Unremarkable. Conjunctivae pink. Sclerae anicteric. Oral cavity no lesions. Neck no JVD or lymph node enlargement. Chest was clear to auscultation. HEART: Regular rate and rhythm. ABDOMEN: Soft, it was nontender, nondistended. Obese. Extremities 2+ pedal edema. Skin no rashes. Neuro: She is somewhat confused, but oriented to name and place. LABS: From this morning show T-bilirubin is 3.9, AST 68, ALT 32, and alkaline phosphatase is 438. WBC 6.9, hemoglobin 13.1, platelets 167. INR is 2.8. IMPRESSION: 1. Elevated alkaline phosphatase and T-bilirubin with minimal elevation of serum transaminases. MRCP done yesterday showed evidence of common bile duct stone as well as gallstones. 2. Exacerbation of congestive heart failure. 3. History of atrial fibrillation on Coumadin, presently on hold INR is 2.8. RECOMMENDATIONS: I discussed with the patient MRCP findings, but she is somewhat confused this morning and she is not able to comprehend at this time. In regards to the common bile duct stones, we will consider proceeding with an ERCP if the patient and family are in agreement to it. Of course, at her age and comorbid conditions, I would like to discuss the risks, benefits, and complications with the family who is presently not available at the bedside. At this time we will continue to hold heparin in preparation for possible ERCP in the next 1 or 2 days once INR is less than 1.5. Thank you for this consultation. MMODL / IJN: [id number] /
--- NOTE | 2017-08-26 11:24 | P.PN ---
Subjective Progress Note Date: 08/26/17 Principal diagnosis: Dementia, choledocholithiasis This is a patient residing in the assisted being cared for by Dr. Lucero with a history of known symptomatic gallstones who presented to the hospital with significant jaundice and elevated liver enzymes. MRCP yesterday revealed gallstones in the biliary ducts, as well as the slightly larger stone residing in the gallbladder itself, liver functions and bilirubin have improved over the last 3 or 4 days considerations at this time would be ERCP and possible laparoscopic cholecystectomy this will be discussed with family as patient may not be able to tolerate anesthetic or procedures Objective - Vital Signs Vital signs: Vital Signs Temp 96.7 F L 08/26/17 08:00 Pulse 50 L 08/26/17 08:00 Resp 20 08/26/17 08:00 BP 114/78 08/26/17 08:00 Pulse Ox 99 08/26/17 08:00 Intake & Output 08/25/17 08/26/17 08/26/17 17:59 06:59 18:59 Intake Total Output Total Balance Weight Intake: Oral Output: Urine Other: Voiding Method Diaper Incontinent # Voids # Bowel Movements - Exam General: [Patient awake, alert and oriented times 3. Patient in no acute distress.] HEENT: [PERRL. EOMI. No pharyngeal erythema or exudate.] Generalize as well as scleral icterus Neck: [No adenopathy.] Cardiac: [Heart regular in rate and rhythm. No S3. No S4. No clicks, rubs. No murmur.] Lungs: [Clear to auscultation bilaterally.] Abdomen: [No mass. No organomegaly. Bowel sounds presnt and normoactive in all 4 quadrants.] Extremes: [No edema no cyanosis no claudication normal pulses] : [] Musculoskeletal: [No joint erythema, edema or tenderness.] Skin: [No rash.] Neurologic: [No lateralizing deficits. CN II - XII grossly intact.] Lymphatic: [No adenopathy.] - Labs CBC & Chem 7: 08/26/17 07:12 08/26/17 07:12 Labs: Abnormal Lab Results - Last 24 Hours (Table) 08/26/17 08/26/17 08/26/17 Range/Units 07:12 07:12 07:12 MCHC 29.7 L (31.0-37.0) g/dL RDW 19.6 H (11.5-15.5) % PT 25.1 H (9.0-12.0) sec INR 2.8 H (<1.2) BUN 28 H (7-17) mg/dL Creatinine 1.07 H (0.52-1.04) mg/dL Glucose 63 L (74-99) mg/dL Magnesium 2.6 H (1.6-2.3) mg/dL Total Bilirubin 3.9 H (0.2-1.3) mg/dL AST 68 H (14-36) U/L Alkaline Phosphatase 438 H (38-126) U/L Total Protein 6.1 L (6.3-8.2) g/dL Albumin 2.8 L (3.5-5.0) g/dL Microbiology - Last 24 Hours (Table) 08/22/17 13:35 Urine Culture - Final Urine,Catheterized Assessment and Plan (1) Choledocholithiasis with chronic cholecystitis Current Visit: Yes Status: Acute Code(s): K80.44 - CALCULUS OF BILE DUCT W CHRONIC CHOLECYST W/O OBSTRUCTION SNOMED Code(s): 05677968 (2) Cholelithiasis Current Visit: Yes Status: Acute Code(s): K80.20 - CALCULUS OF GALLBLADDER W /O CHOLECYSTITIS W/O OBSTRUCTION SNOMED Code(s): 944758440 (3) Acute exacerbation of CHF (congestive heart failure) Current Visit: No Status: Acute Code(s): I50.9 - HEART FAILURE, UNSPECIFIED SNOMED Code(s): 06438514 Plan: Liver enzymes had been improving case discussed with Dr. Valentine Verdin GI, consideration of performing ERCP will be discussed with son's Time with Patient: Greater than 30
--- NOTE | 2017-08-26 11:42 | P.PN ---
Subjective Patient is an 82-year-old white female who presented to the hospital with shortness of breath and lower extremity edema. During her evaluation she was found to have an elevated bilirubin and alkaline phosphatase. An ultrasound revealed multiple gallstones and some tenderness on examination of the gallbladder. Common bile duct was at the upper limits of normal. The patient at this time denies any abdominal pain. Patient's bilirubin today is 3.9, AST 68 and ALT 32. Alk phosphatase 438. An MRCP was performed yesterday which revealed 2 common bile duct stones. No suspicious biliary dilatation was noted. There is also a larger stone in the gallbladder without MRI evidence for acute cholecystitis. Objective - Vital Signs Vital signs: Vital Signs Temp 96.7 F L 08/26/17 08:00 Pulse 50 L 08/26/17 08:00 Resp 20 08/26/17 08:00 BP 114/78 08/26/17 08:00 Pulse Ox 99 08/26/17 08:00 Intake & Output 08/25/17 08/26/17 08/26/17 17:59 06:59 18:59 Intake Total Output Total Balance Weight Intake: Oral Output: Urine Other: Voiding Method Diaper Incontinent # Voids # Bowel Movements - Constitutional General appearance: Present: obese - Respiratory Details: Decreased breath sounds at the bases - Cardiovascular Heart sounds: normal: S1, S2 - Gastrointestinal Gastrointestinal Comment(s): No guarding or rebound General gastrointestinal: Present: normal bowel sounds, soft - Labs CBC & Chem 7: 08/26/17 07:12 08/26/17 07:12 Labs: Abnormal Lab Results - Last 24 Hours (Table) 08/26/17 08/26/17 08/26/17 Range/Units 07:12 07:12 07:12 MCHC 29.7 L (31.0-37.0) g/dL RDW 19.6 H (11.5-15.5) % PT 25.1 H (9.0-12.0) sec INR 2.8 H (<1.2) BUN 28 H (7-17) mg/dL Creatinine 1.07 H (0.52-1.04) mg/dL Glucose 63 L (74-99) mg/dL Magnesium 2.6 H (1.6-2.3) mg/dL Total Bilirubin 3.9 H (0.2-1.3) mg/dL AST 68 H (14-36) U/L Alkaline Phosphatase 438 H (38-126) U/L Total Protein 6.1 L (6.3-8.2) g/dL Albumin 2.8 L (3.5-5.0) g/dL Microbiology - Last 24 Hours (Table) 08/22/17 13:35 Urine Culture - Final Urine,Catheterized - Imaging and Cardiology MRI cholangiopancreatography results reviewed. Assessment and Plan Assessment: Impression/plan: 1. Cholelithiasis with elevated bilirubin 2. MRI results reviewed, await recommendations from GI 3. Patient does not have an acute surgical abdomen at this time
[2017-08-26] MEDS: QUEtiapine 50 MG TAB PO SCH (21:18)
[2017-08-26] MEDS: ATORVASTATIN 40 MG TAB PO SCH (21:18)
[2017-08-26] MEDS: LATANOPROST 0.005% OPHTH DROPS 2.5 ML BTL BOTH EYES SCH (21:18)
[2017-08-27 07:05] LABS: Calcium 8.3 mg/dL (8.4-10.2)
[2017-08-27 07:07] LABS: INR 2.6 (<1.2); Prothrombin Time 23.3 sec (9.0-12.0)
[2017-08-27 07:08] LABS: Anisocytosis Slight; HCT 43.8 % (34.0-46.0); HGB 12.8 gm/dL (11.4-16.0); Hypochromasia Marked; MCH 24.8 pg (25.0-35.0); MCHC 29.3 g/dL (31.0-37.0); MCV 84.7 fL (80.0-100.0); Mean Platelet Volume 9.6; Platelet Count 159 k/uL (150-450); Poikilocytosis Slight; RBC 5.17 m/uL (3.80-5.40); RDW 19.8 % (11.5-15.5); WBC 6.1 k/uL (3.8-10.6)
[2017-08-27 07:15] LABS: Potassium 5.7 mmol/L (3.5-5.1)
[2017-08-27] MEDS: LEVOTHYROXINE 75 MCG TAB PO SCH (09:36)
[2017-08-27] MEDS: MAGNESIUM OXIDE 400 MG TAB PO SCH ×2 (09:36→16:21)
[2017-08-27] MEDS: FAMOTIDINE 20 MG TAB PO SCH (09:36)
[2017-08-27] MEDS: MEMANTINE 10 MG TAB PO SCH (09:37)
[2017-08-27] MEDS: METOPROLOL SUCCINATE (ER) 50 MG TAB.ER.24H PO SCH (09:37)
[2017-08-27] MEDS: TIMOLOL 0.5% OPHTH DROPS 5 ML BTL LEFT EYE SCH (09:38)
[2017-08-27 11:30] LABS: Eosinophils # (M) 0.24 k/uL (0-0.7); Lymphocytes # (M) 1.04 k/uL (1.0-4.8); Monocytes # (M) 0.24 k/uL (0-1.0); Neutrophils # (M) 4.58 k/uL (1.3-7.7); Neutrophils % (M) 75 %; Nucleated Red Blood Cells 0 /100 WBC (0-0); Total Cells Counted 100
--- NOTE | 2017-08-27 13:19 | P.PN ---
Subjective Progress Note Date: 08/27/17 82-year-old female who was transported to [facility] from [facility] after she was seen by Dr. Lucero and found to have increasing shortness of breath and increased edema to the lower extremities. Patient denies chest pain or pressure. Denies cough or sputum production. Denies nausea or vomiting. Denies pain or discomfort. Denies dizziness or lightheadedness. The patient has a history of atrial fibrillation maintained on long-term anticoagulated with Coumadin, glaucoma, asymptomatic bacteriuria, mood disorder with psychotic features, hypothyroidism, diastolic congestive heart failure, hypertension, hyperlipidemia, TIA, and osteopenia. 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 Chest x-ray 08/21/2017: Marked cardiomegaly with small bilateral effusions and findings suggestive of mild congestive heart failure Chest x-ray 08/22/2017: Some improvement noted in the patient's volume status. Cardiomegaly. EKG: Atrial fibrillation. Rate 103. Laboratory data: WBC 6.6. Hemoglobin 13.2. Platelet count 186. Sodium 139. Potassium 3.2. BUN 21. Creatinine 0.90. GFR 61. Glucose 111. Magnesium 2.5. AST 41. ALT 40. Total bilirubin 4.3. Alkaline phosphatase 356. Troponins negative 3 BNP: 4400 The patient was admitted to the hospital under the care of Dr. Lucero. Consultations were placed to cardiology. 08/23/2017 Patient seen and examined at the bedside. Patient was started on Lasix 40 mg IV every 12 hours yesterday per cardiology. Patient underwent a venous Doppler on 08/22/2017 due to right lower extremity edema. Doppler was negative for a DVT. Blood pressure is stable with a last reading of 110 over the T8. She is on room air with oxygen saturations greater than 92%. She is afebrile. She remains A. fib on the monitor in the 80s and 90s. INR this morning is 4.2. Coumadin remains on hold. Potassium is low this morning at 3.1. Urinalysis was completed on 08/22/2017 revealing clear yellow urine, 1+ proteinuria, moderate blood, moderate leukocyte esterase, RBC 45, WBC 33, rare bacteria, rare mucus, and hyaline casts of 7. The patient pulled out her indwelling urinary catheter this morning. Echocardiogram was completed on 08/21/2017 which revealed moderate concentric left ventricular hypertrophy, ejection fraction of 50-55%, mildly enlarged right ventricle, mild aortic regurgitation, moderate to severe aortic stenosis, moderate mitral regurgitation, severe tricuspid regurgitation, moderate pulmonary hypertension, moderate pulmonic regurgitation, and RVSP of 54.14. 08/24/2017 Patient seen and examined at the bedside. patient underwent ultrasound of the abdomen on 08/23/2017 which revealed right pleural effusion, positive sonographic Pink sign, findings suggestive of cholecystitis. Suspected hepatomegaly. General surgery was consulted. no surgical intervention from their standpoint. INR this morning is 3.9. Coumadin remains on hold. Patient' s lactic acid yesterday was 3.2. IV fluids were ordered if ok with cardiology. Fluids were discontinued. Repeat lactic acid 2.1. patient remains on Lasix 40 mg IV every 12 hours. patient remains on Levaquin for a possible urinary tract infection. Urine culture is currently pending. 08/25/2017-Note per Dr. Mendez 08/26/2017-Note per Dr. Mendez 08/27/2017 Patient evaluated at the bedside. Patient underwent MRCP which revealed common bile duct stone and well as gallstones. Patient is to undergo ERCP when INR is less than 1.5 per GI documentation. INR this morning is 2.6. Patient remains off Coumadin. Potassium this morning is 5.7. Patients urinalysis was positive for leukocyte esterase. Urine culture was sent but per lab report specimen was unsuitable and requested new specimen. Patient remains on Levaquin. Apparently, cardiology has signed off the case but patient remains on lasix 40mg IV daily. Patient has some confusion over the weekend and was pulling out IV lines and taking off her gown. CT of the brain was completed on 08/25/2017 revealing no evidence of intracranial hemorrhage or midline shift. There is moderate to severe diffuse age-related cerebral atrophy and chronic small vessel ischemic changes redemonstrated without significant change from prior exam. Objective - Vital Signs Vital signs: Vital Signs Temp 96.0 F L 08/27/17 09:00 Pulse 90 08/27/17 09:00 Resp 20 08/27/17 09:00 BP 97/71 08/27/17 09:00 Pulse Ox 92 L 08/27/17 09:00 Intake & Output 08/26/17 08/27/17 08/27/17 18:59 06:59 18:59 Intake Total 360 Output Total 0 Balance 360 0 Weight 99.5 kg Intake: Oral 360 Output: Urine 0 Other: Voiding Method Diaper Diaper Diaper Incontinent Incontinent Incontinent # Voids 2 1 - Exam GENERAL: This is a 82-year-old female in no apparent distress at the time of examination. Lethargic, but easily arousable to verbal stimulation HEENT: Head is atraumatic, normocephalic. Pupils are equal, round, and reactive to light. Sclerae anicteric. Conjunctivae are clear. Mucus membranes of the mouth are moist. Neck is supple. RESPIRATORY: Diminished throughout. No use of accessory muscles. Patient maintaining oxygen saturation greater than 92%. No chest wall tenderness is noted on palpation or with deep breathing. CARDIOVASCULAR: Irregular rhythm. S1 and S2 noted. Systolic murmur auscultated. No JVD noted. No S3 or S4 noted. GASTROINTESTINAL: No distention noted. Abdomen soft and round. Normal active bowel sounds auscultated x 4 quadrants. Slight pain and tenderness noted upon palpation of right upper quadrant. INTEGUMENTARY: Jaundiced improve significantly. No cyanosis. No rashes noted. No cellulitis noted. EXTREMITIES: 1+ peripheral pulses. +2-3 right lower extremity edema. No calf tenderness noted. NEUROLOGIC: Cranial nerves II-XII intact. PSYCHIATRIC: Awake, alert, and oriented X 1-2. Appropriate affect. - Labs CBC & Chem 7: 08/27/17 06:20 08/27/17 06:20 Labs: Abnormal Lab Results - Last 24 Hours (Table) 08/27/17 08/27/17 08/27/17 Range/Units 06:20 06:20 06:20 MCH 24.8 L (25.0-35.0) pg MCHC 29.3 L (31.0-37.0) g/dL RDW 19.8 H (11.5-15.5) % PT 23.3 H (9.0-12.0) sec INR 2.6 H (<1.2) Sodium 136 L (137-145) mmol/L Potassium 5.7 H (3.5-5.1) mmol/L BUN 30 H (7-17) mg/dL Calcium 8.3 L (8.4-10.2) mg/dL Assessment and Plan Plan: ASSESSMENT: Acute exacerbation of diastolic congestive heart failure, echo reveals ejection fraction of 50-55% Chronic atrial fibrillation, maintained on long-term anticoagulation with Coumadin Supratherapeutic INR, INR 4.9 on admission, Coumadin remains on hold Bacteruria, urinalysis positive for leukocyte esterase, urine culture pending 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 Continue to hold Coumadin. Monitor INR. Recheck in a.m. Nursing unable to insert IV. Okay per Dr. Mendez to leave out temporarily. Please attempt on each nursing shift to obtain IV access. Continue Levaquin. Obtain new urine culture as last specimen was unsuitable per lab report Elevate lower extremities. JESUS hose to bilateral LE Gen. surgery and GI on consult. Patient to undergo ERCP when INR is less than 1.5 per GI documentation Physical therapy and occupational therapy Home meds as appropriate Monitor labs GI prophylaxis: Pepcid 20 mg by daily DVT prophylaxis: Coumadin on hold secondary to elevated INR. JESUS hose and Venodyne's to bilateral lower extremities Monitor vital signs and address as appropriate Discharge planning: Patient to return to [facility] when stable Further recommendations pending patient's course Nurse practitioner note has been reviewed by physician. Signing provider agrees with the documented findings, assessment, and plan of care.
[2017-08-27] MEDS ORDERED: PHYTONADIONE ORAL 5 MG/5 ML ORAL.SYRG PO STA (13:21)
--- NOTE | 2017-08-27 15:06 | PN ---
PROGRESS NOTE DATE OF SERVICE: 08/27/2017 Patient is an 82-year-old pleasant white female admitted to the hospital with shortness of breath and lower extremity swelling. While in the hospital, she was noted to have elevated total bilirubin and alkaline phosphatase and an MRCP done 2 days ago did show evidence of common bile duct stones. She has history of A fib is on oral anticoagulant Coumadin which has been on hold and INR today is 2.6. She denies any new symptoms. PHYSICAL EXAMINATION: Appears comfortable, in no apparent distress. Vital signs are stable. Blood pressure is 106/80, pulse rate of 105 and afebrile. HEENT EXAMINATION: Unremarkable, conjunctivae are pink, sclarea slightly anicteric, no lesions. NECK: No JVD or lymph node enlargement Chest was clear to auscultation. HEART: Regular rate and rhythm. ABDOMEN: Obese, bowel sounds are positive, no organomegaly. EXTREMITIES: 1+ pedal edema. NEURO: Alert and oriented x3. No focal deficits. LABS: From today, WBC 6.1, hemoglobin 12.8, platelets are normal. INR is 2.5. T-bili yesterday was 3.9 and alk phos is 438. IMPRESSION: 1. Elevated T-bili and alk phos the cholestasis MRCP showed 2 CBD stones and gallstones. 2. History of congestive heart pain. 3. Atrial fibrillation on Coumadin which is on hold, INR is 2.3 today. RECOMMENDATIONS: I had a lengthy discussion with the patient's family who is at the bedside. I discussed with them about the possibility the MRCP results as well one CBD stone extraction. Explained the procedure with benefits and complications and they would like to think about it at this time. For now, continue with symptomatic and supportive care. Will follow the patient closely during the hospital stay. Thank you for this consultation. MMODL / IJN: [id number] /
--- NOTE | 2017-08-27 15:13 | P.PN ---
Subjective Progress Note Date: 08/27/17 Principal diagnosis: Cholelithiasis Patient remains confused. Denies pain. No liver enzymes obtained today. MRCP over the weekend did reveal choledocholithiasis. Family currently undecided on whether they would like ERCP performed. Objective - Vital Signs Vital signs: Vital Signs Temp 96.0 F L 08/27/17 09:00 Pulse 90 08/27/17 09:00 Resp 20 08/27/17 09:00 BP 97/71 08/27/17 09:00 Pulse Ox 92 L 08/27/17 09:00 Intake & Output 08/26/17 08/27/17 08/27/17 18:59 06:59 18:59 Intake Total 360 120 Output Total 0 Balance 360 0 120 Weight 99.5 kg Intake: Oral 360 120 Output: Urine 0 Other: Voiding Method Diaper Diaper Diaper Incontinent Incontinent Incontinent # Voids 2 1 1 - Exam Abdomen: Soft, nondistended, nontender - Labs CBC & Chem 7: 08/27/17 06:20 08/27/17 06:20 Labs: Abnormal Lab Results - Last 24 Hours (Table) 08/27/17 08/27/17 08/27/17 Range/Units 06:20 06:20 06:20 MCH 24.8 L (25.0-35.0) pg MCHC 29.3 L (31.0-37.0) g/dL RDW 19.8 H (11.5-15.5) % PT 23.3 H (9.0-12.0) sec INR 2.6 H (<1.2) Sodium 136 L (137-145) mmol/L Potassium 5.7 H (3.5-5.1) mmol/L BUN 30 H (7-17) mg/dL Calcium 8.3 L (8.4-10.2) mg/dL Assessment and Plan (1) Cholelithiasis Narrative/Plan: MRCP shows choledocholithiasis. If the patient's family chooses to proceed with ERCP will discuss surgical options with them following that. We'll follow with you. Repeat enzymes tomorrow. Current Visit: Yes Status: Acute Code(s): K80.20 - CALCULUS OF GALLBLADDER W /O CHOLECYSTITIS W/O OBSTRUCTION SNOMED Code(s): 692297152
[2017-08-27] MEDS: LEVOFLOXACIN 750 MG TAB PO SCH (16:21)
[2017-08-27] MEDS: POTASSIUM CHLORIDE ER 20 MEQ TAB.ER PO SCH (16:21)
[2017-08-27] MEDS: FUROSEMIDE 10 MG/ML 4 ML VIAL IV SCH (19:41)
[2017-08-27] MEDS: ATORVASTATIN 40 MG TAB PO SCH (19:59)
[2017-08-27] MEDS: QUEtiapine 50 MG TAB PO SCH (19:59)
[2017-08-27] MEDS: LATANOPROST 0.005% OPHTH DROPS 2.5 ML BTL BOTH EYES SCH (19:59)
[2017-08-27 20:56] LABS: Glucose,Whole Blood 83 mg/dL (75-99)
[2017-08-28 06:49] LABS: INR 2.5 (<1.2); Prothrombin Time 22.2 sec (9.0-12.0)
[2017-08-28 07:05] LABS: Albumin 2.5 g/dL (3.5-5.0); Calcium 8.5 mg/dL (8.4-10.2); Potassium 4.7 mmol/L (3.5-5.1); Total Bilirubin 3.8 mg/dL (0.2-1.3); Total Protein 5.6 g/dL (6.3-8.2)
[2017-08-28] MEDS: FUROSEMIDE 40 MG TAB PO SCH (08:02)
[2017-08-28] MEDS: MAGNESIUM OXIDE 400 MG TAB PO SCH ×2 (08:02→16:35)
[2017-08-28] MEDS: TIMOLOL 0.5% OPHTH DROPS 5 ML BTL LEFT EYE SCH (08:02)
[2017-08-28] MEDS: FAMOTIDINE 20 MG TAB PO SCH (08:02)
[2017-08-28] MEDS: MEMANTINE 10 MG TAB PO SCH (08:02)
[2017-08-28] MEDS: METOPROLOL SUCCINATE (ER) 50 MG TAB.ER.24H PO SCH (08:02)
[2017-08-28] MEDS: LEVOTHYROXINE 75 MCG TAB PO SCH (08:02)
--- NOTE | 2017-08-28 10:39 | P.PN ---
Subjective Patient is resting comfortably in bed. Mildly short of breath denies any chest discomfort on examination pulse rate in the 90s, blood pressure 110/60 mmHg, rhythm irregular Mildly tachypneic when she speaks Heart sounds systolic murmur breath sounds are reduced bilaterally with no rhonchi or crackles 2-D echo shows moderate concentric LVH ejection fraction 50-55% mild RV enlargement him a dilated left atrium, moderate to severe aortic stenosis Impression Atrial fibrillation Diastolic heart failure Aortic stenosis Suggest Increase metoprolol to 70 femoral grams. Daily Would increase Lasix to 40 mrem twice daily. At home she was taking 80 mg in the morning 40 mg in the evening Check TSH Objective - Vital Signs Vital signs: Vital Signs Temp 97 F L 08/28/17 08:00 Pulse 90 08/28/17 08:00 Resp 18 08/28/17 08:00 BP 110/60 08/28/17 08:00 Pulse Ox 93 L 08/28/17 08:00 Intake & Output 08/27/17 08/28/17 08/28/17 18:59 06:59 18:59 Intake Total 240 300 Balance 240 300 Weight 99.5 kg Intake: Oral 240 300 Other: Voiding Method Diaper Diaper Diaper Incontinent Incontinent Incontinent # Voids 1 - Labs CBC & Chem 7: 08/27/17 06:20 08/28/17 05:28 Labs: Abnormal Lab Results - Last 24 Hours (Table) 08/28/17 08/28/17 Range/Units 05:28 05:28 PT 22.2 H (9.0-12.0) sec INR 2.5 H (<1.2) Sodium 136 L (137-145) mmol/L Chloride 96 L (98-107) mmol/L BUN 31 H (7-17) mg/dL Creatinine 1.40 H (0.52-1.04) mg/dL Glucose 65 L (74-99) mg/dL Total Bilirubin 3.8 H (0.2-1.3) mg/dL AST 106 H (14-36) U/L ALT 53 H (9-52) U/L Alkaline Phosphatase 873 H (38-126) U/L Total Protein 5.6 L (6.3-8.2) g/dL Albumin 2.5 L (3.5-5.0) g/dL Microbiology - Last 24 Hours (Table) 08/27/17 18:00 Urine Culture - Preliminary Urine,Catheterized
[2017-08-28] MEDS ORDERED: PHYTONADIONE ORAL 5 MG/5 ML ORAL.SYRG PO STA (13:00)
--- NOTE | 2017-08-28 13:14 | P.PN ---
Subjective Progress Note Date: 08/28/17 Principal diagnosis: Elevated liver enzymes choledocholithiasis MRCP reported to, bile duct stones without suspicious biliary dilatation. INR 2.5. Received oral vitamin K yesterday. Afebrile. Total bilirubin 3.8. AST 106. ALT 53. Alkaline phosphatase 873. Objective - Vital Signs Vital signs: Vital Signs Temp 97 F L 08/28/17 08:00 Pulse 90 08/28/17 08:00 Resp 18 08/28/17 08:00 BP 110/60 08/28/17 08:00 Pulse Ox 93 L 08/28/17 08:00 Intake & Output 08/27/17 08/28/17 08/28/17 18:59 06:59 18:59 Intake Total 240 300 Balance 240 300 Weight 99.5 kg Intake: Oral 240 300 Other: Voiding Method Diaper Diaper Diaper Incontinent Incontinent Incontinent # Voids 1 - Exam General appearance: The patient is awake no acute distress. Slightly jaundice. HET: Head is normocephalic and atraumatic. Pupils are equal and reactive. Sclerae yellow. Oropharynx is clear without lesions. Neck: Supple without lymphadenopathy. Trachea midline. Heart: S1 S2. Regular rate and rhythm. Lungs: No crackles or wheezes are heard. Abdomen: Soft, nontender, nondistended with bowel sounds. No peritoneal signs. No palpable organomegaly or masses. Extremities: Normal skin color and turgor. No cyanosis, rash, ulceration, clubbing, or edema. Radial and pedal pulses are 2/4 bilaterally. Neurological: No focal deficits. Strength and sensation are grossly intact. - Labs CBC & Chem 7: 08/27/17 06:20 08/28/17 05:28 Labs: Abnormal Lab Results - Last 24 Hours (Table) 08/28/17 08/28/17 Range/Units 05:28 05:28 PT 22.2 H (9.0-12.0) sec INR 2.5 H (<1.2) Sodium 136 L (137-145) mmol/L Chloride 96 L (98-107) mmol/L BUN 31 H (7-17) mg/dL Creatinine 1.40 H (0.52-1.04) mg/dL Glucose 65 L (74-99) mg/dL Total Bilirubin 3.8 H (0.2-1.3) mg/dL AST 106 H (14-36) U/L ALT 53 H (9-52) U/L Alkaline Phosphatase 873 H (38-126) U/L Total Protein 5.6 L (6.3-8.2) g/dL Albumin 2.5 L (3.5-5.0) g/dL Microbiology - Last 24 Hours (Table) 08/27/17 18:00 Urine Culture - Preliminary Urine,Catheterized Assessment and Plan (1) Choledocholithiasis Narrative/Plan: Increased LFTs Current Visit: Yes Status: Acute Code(s): K80.50 - CALCULUS OF BILE DUCT W/ O CHOLANGITIS OR CHOLECYST W/O OBST SNOMED Code(s): 003807024 (2) Cholelithiasis Current Visit: Yes Status: Acute Code(s): K80.20 - CALCULUS OF GALLBLADDER W /O CHOLECYSTITIS W/O OBSTRUCTION SNOMED Code(s): 290940044 (3) Obesity (BMI 30.0-34.9) Current Visit: Yes Status: Chronic Code(s): E66.9 - OBESITY, UNSPECIFIED SNOMED Code(s): 993164996 (4) Warfarin-induced coagulopathy Current Visit: No Status: Acute Code(s): T45.511A - POISONING BY ANTICOAGULANTS, ACCIDENTAL, INIT SNOMED Code(s): 61940897 (5) Chronic atrial fibrillation Current Visit: Yes Status: Chronic Code(s): I48.2 - CHRONIC ATRIAL FIBRILLATION SNOMED Code(s): 100920066 (6) Congestive heart failure Current Visit: Yes Status: Acute Code(s): I50.9 - HEART FAILURE, UNSPECIFIED SNOMED Code(s): 68743686 (7) Dementia Current Visit: Yes Status: Chronic Code(s): F03.90 - UNSPECIFIED DEMENTIA WITHOUT BEHAVIORAL DISTURBANCE SNOMED Code(s): 03912268 Plan: 1. ERCP once INR is 1.5 or less. Awaiting family consent. 2. Will provide vitamin K today if family decides ERCP. Repeat PT/INR CMP in a.m. Nothing by mouth after midnight. Assessment and plan a care discussed with Dr. Savage
--- NOTE | 2017-08-28 14:13 | P.PN ---
Subjective Progress Note Date: 08/28/17 82-year-old female who was transported to [facility] from [facility] after she was seen by Dr. Lucero and found to have increasing shortness of breath and increased edema to the lower extremities. Patient denies chest pain or pressure. Denies cough or sputum production. Denies nausea or vomiting. Denies pain or discomfort. Denies dizziness or lightheadedness. The patient has a history of atrial fibrillation maintained on long-term anticoagulated with Coumadin, glaucoma, asymptomatic bacteriuria, mood disorder with psychotic features, hypothyroidism, diastolic congestive heart failure, hypertension, hyperlipidemia, TIA, and osteopenia. 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 Chest x-ray 08/21/2017: Marked cardiomegaly with small bilateral effusions and findings suggestive of mild congestive heart failure Chest x-ray 08/22/2017: Some improvement noted in the patient's volume status. Cardiomegaly. EKG: Atrial fibrillation. Rate 103. Laboratory data: WBC 6.6. Hemoglobin 13.2. Platelet count 186. Sodium 139. Potassium 3.2. BUN 21. Creatinine 0.90. GFR 61. Glucose 111. Magnesium 2.5. AST 41. ALT 40. Total bilirubin 4.3. Alkaline phosphatase 356. Troponins negative 3 BNP: 4400 The patient was admitted to the hospital under the care of Dr. Lucero. Consultations were placed to cardiology. 08/23/2017 Patient seen and examined at the bedside. Patient was started on Lasix 40 mg IV every 12 hours yesterday per cardiology. Patient underwent a venous Doppler on 08/22/2017 due to right lower extremity edema. Doppler was negative for a DVT. Blood pressure is stable with a last reading of 110 over the T8. She is on room air with oxygen saturations greater than 92%. She is afebrile. She remains A. fib on the monitor in the 80s and 90s. INR this morning is 4.2. Coumadin remains on hold. Potassium is low this morning at 3.1. Urinalysis was completed on 08/22/2017 revealing clear yellow urine, 1+ proteinuria, moderate blood, moderate leukocyte esterase, RBC 45, WBC 33, rare bacteria, rare mucus, and hyaline casts of 7. The patient pulled out her indwelling urinary catheter this morning. Echocardiogram was completed on 08/21/2017 which revealed moderate concentric left ventricular hypertrophy, ejection fraction of 50-55%, mildly enlarged right ventricle, mild aortic regurgitation, moderate to severe aortic stenosis, moderate mitral regurgitation, severe tricuspid regurgitation, moderate pulmonary hypertension, moderate pulmonic regurgitation, and RVSP of 54.14. 08/24/2017 Patient seen and examined at the bedside. patient underwent ultrasound of the abdomen on 08/23/2017 which revealed right pleural effusion, positive sonographic Pink sign, findings suggestive of cholecystitis. Suspected hepatomegaly. General surgery was consulted. no surgical intervention from their standpoint. INR this morning is 3.9. Coumadin remains on hold. Patient' s lactic acid yesterday was 3.2. IV fluids were ordered if ok with cardiology. Fluids were discontinued. Repeat lactic acid 2.1. patient remains on Lasix 40 mg IV every 12 hours. patient remains on Levaquin for a possible urinary tract infection. Urine culture is currently pending. 08/25/2017-Note per Dr. Mendez 08/26/2017-Note per Dr. Mendez 08/27/2017 Patient evaluated at the bedside. Patient underwent MRCP which revealed common bile duct stone and well as gallstones. Patient is to undergo ERCP when INR is less than 1.5 per GI documentation. INR this morning is 2.6. Patient remains off Coumadin. Potassium this morning is 5.7. Patients urinalysis was positive for leukocyte esterase. Urine culture was sent but per lab report specimen was unsuitable and requested new specimen. Patient remains on Levaquin. Apparently, cardiology has signed off the case but patient remains on lasix 40mg IV daily. Patient has some confusion over the weekend and was pulling out IV lines and taking off her gown. CT of the brain was completed on 08/25/2017 revealing no evidence of intracranial hemorrhage or midline shift. There is moderate to severe diffuse age-related cerebral atrophy and chronic small vessel ischemic changes redemonstrated without significant change from prior exam. 08/28/2017 Patient examined at the bedside on rounds with Dr. Mendez. Patient is awake and alert, but remains confused. Patient does complain of abdominal pain. Dr. Mendez asked patient if she wanted to undergo furthering testing and procedures and patient states she wanted to proceed. Patients son is her guardian. Apparently, family is undecided if they want to pursue ERCP. INR this morning is 2.5. Patient received 5mg Vitamin K yesterday. BUN 31. Creatinine 1.40. AST 106. ALT 53. Alkaline phosphatase 873. TSH 1.4. Objective - Vital Signs Vital signs: Vital Signs Temp 97.1 F L 08/28/17 12:00 Pulse 90 08/28/17 12:00 Resp 18 08/28/17 12:00 BP 109/76 08/28/17 12:00 Pulse Ox 99 08/28/17 12:00 Intake & Output 08/27/17 08/28/17 08/28/17 18:59 06:59 18:59 Intake Total 240 300 240 Balance 240 300 240 Weight 99.5 kg Intake: Oral 240 300 240 Other: Voiding Method Diaper Diaper Diaper Incontinent Incontinent Incontinent # Voids 1 - Exam GENERAL: This is a 82-year-old female in no apparent distress at the time of examination. Patient is awake and alert. Sitting up in bed. HEENT: Head is atraumatic, normocephalic. Pupils are equal, round, and reactive to light. Sclerae anicteric. Conjunctivae are clear. Mucus membranes of the mouth are moist. Neck is supple. RESPIRATORY: Diminished throughout. No use of accessory muscles. Patient maintaining oxygen saturation greater than 92%. No chest wall tenderness is noted on palpation or with deep breathing. CARDIOVASCULAR: Irregular rhythm. S1 and S2 noted. Systolic murmur auscultated. No JVD noted. No S3 or S4 noted. GASTROINTESTINAL: No distention noted. Abdomen soft and round. Normal active bowel sounds auscultated x 4 quadrants. Slight pain and tenderness noted upon palpation of right upper quadrant. INTEGUMENTARY: Jaundiced improve significantly. No cyanosis. No rashes noted. No cellulitis noted. EXTREMITIES: 1+ peripheral pulses. +2 right lower extremity edema. No calf tenderness noted. NEUROLOGIC: Cranial nerves II-XII intact. PSYCHIATRIC: Awake, alert, and oriented X 1-2. Appropriate affect. - Labs CBC & Chem 7: 08/27/17 06:20 08/28/17 05:28 Labs: Abnormal Lab Results - Last 24 Hours (Table) 08/28/17 08/28/17 Range/Units 05:28 05:28 PT 22.2 H (9.0-12.0) sec INR 2.5 H (<1.2) Sodium 136 L (137-145) mmol/L Chloride 96 L (98-107) mmol/L BUN 31 H (7-17) mg/dL Creatinine 1.40 H (0.52-1.04) mg/dL Glucose 65 L (74-99) mg/dL Total Bilirubin 3.8 H (0.2-1.3) mg/dL AST 106 H (14-36) U/L ALT 53 H (9-52) U/L Alkaline Phosphatase 873 H (38-126) U/L Total Protein 5.6 L (6.3-8.2) g/dL Albumin 2.5 L (3.5-5.0) g/dL Microbiology - Last 24 Hours (Table) 08/27/17 18:00 Urine Culture - Preliminary Urine,Catheterized Assessment and Plan Plan: ASSESSMENT: Acute exacerbation of diastolic congestive heart failure, echo reveals ejection fraction of 50-55% Chronic atrial fibrillation, maintained on long-term anticoagulation with Coumadin Supratherapeutic INR, INR 4.9 on admission, Coumadin remains on hold Bacteruria, urinalysis positive for leukocyte esterase, urine culture pending 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 Monitor INR. Recheck in a.m. Continue Levaquin. Await results of urine culture Elevate lower extremities. JESUS hose to bilateral LE Gen. surgery and GI on consult Physical therapy and occupational therapy Home meds as appropriate Monitor labs GI prophylaxis: Pepcid 20 mg by daily DVT prophylaxis: Coumadin on hold secondary to elevated INR. JESUS hose and Venodyne's to bilateral lower extremities Monitor vital signs and address as appropriate Discharge planning: Patient to return to [facility] when stable Further recommendations pending patient's course Nurse practitioner note has been reviewed by physician. Signing provider agrees with the documented findings, assessment, and plan of care.
[2017-08-28] MEDS: POTASSIUM CHLORIDE ER 20 MEQ TAB.ER PO SCH (16:35)
--- NOTE | 2017-08-28 22:31 | P.PN ---
Subjective Progress Note Date: 08/28/17 Principal diagnosis: Cholelithiasis Patient remains confused. Bilirubin remains elevated at 3.8. INR remains elevated as well. Unclear whether she is experiencing pain today or not. Unable to provide history. Per the nursing staff the family has not decided on aggressiveness of care. Objective - Vital Signs Vital signs: Vital Signs Temp 96.8 F L 08/28/17 17:00 Pulse 74 08/28/17 17:00 Resp 20 08/28/17 17:00 BP 107/66 08/28/17 17:00 Pulse Ox 93 L 08/28/17 17:00 Intake & Output 08/28/17 08/28/17 08/29/17 06:59 18:59 06:59 Intake Total 300 240 Balance 300 240 Weight 99.5 kg Intake: Oral 300 240 Other: Voiding Method Diaper Diaper Incontinent Incontinent # Voids 1 - Exam Abdomen: Soft, nontender, nondistended - Labs CBC & Chem 7: 08/27/17 06:20 08/28/17 05:28 Labs: Abnormal Lab Results - Last 24 Hours (Table) 08/28/17 08/28/17 Range/Units 05:28 05:28 PT 22.2 H (9.0-12.0) sec INR 2.5 H (<1.2) Sodium 136 L (137-145) mmol/L Chloride 96 L (98-107) mmol/L BUN 31 H (7-17) mg/dL Creatinine 1.40 H (0.52-1.04) mg/dL Glucose 65 L (74-99) mg/dL Total Bilirubin 3.8 H (0.2-1.3) mg/dL AST 106 H (14-36) U/L ALT 53 H (9-52) U/L Alkaline Phosphatase 873 H (38-126) U/L Total Protein 5.6 L (6.3-8.2) g/dL Albumin 2.5 L (3.5-5.0) g/dL Microbiology - Last 24 Hours (Table) 08/27/17 18:00 Urine Culture - Preliminary Urine,Catheterized Assessment and Plan (1) Cholelithiasis Narrative/Plan: Continue to hold anticoagulation. Await family decision regarding ERCP. Remain on surgical standby. Current Visit: Yes Status: Acute Code(s): K80.20 - CALCULUS OF GALLBLADDER W /O CHOLECYSTITIS W/O OBSTRUCTION SNOMED Code(s): 982367037
[2017-08-29] MEDS: QUEtiapine 50 MG TAB PO SCH ×2 (00:54→21:17)
[2017-08-29] MEDS: LATANOPROST 0.005% OPHTH DROPS 2.5 ML BTL BOTH EYES SCH ×2 (00:54→21:17)
[2017-08-29] MEDS: ATORVASTATIN 40 MG TAB PO SCH (01:04)
[2017-08-29] MEDS: FUROSEMIDE 40 MG TAB PO SCH (08:35)
[2017-08-29] MEDS: FAMOTIDINE 20 MG TAB PO SCH (08:36)
[2017-08-29] MEDS: MAGNESIUM OXIDE 400 MG TAB PO SCH ×2 (08:36→17:30)
[2017-08-29] MEDS: METOPROLOL SUCCINATE (ER) 25 MG TAB.ER.24H PO SCH (08:36)
[2017-08-29] MEDS: LEVOTHYROXINE 75 MCG TAB PO SCH (08:37)
[2017-08-29] MEDS: MEMANTINE 10 MG TAB PO SCH (08:37)
[2017-08-29] MEDS: TIMOLOL 0.5% OPHTH DROPS 5 ML BTL LEFT EYE SCH (08:41)
[2017-08-29] MEDS: HALOPERIDOL LACTATE 5 MG/ML 1 ML VIAL IM PRN (09:07)
[2017-08-29 11:00] LABS: Albumin 2.7 g/dL (3.5-5.0); Calcium 9.3 mg/dL (8.4-10.2); Potassium 4.8 mmol/L (3.5-5.1); Total Bilirubin 3.9 mg/dL (0.2-1.3); Total Protein 5.8 g/dL (6.3-8.2)
[2017-08-29 11:01] LABS: INR 1.7 (<1.2); Prothrombin Time 15.7 sec (9.0-12.0)
--- NOTE | 2017-08-29 11:04 | P.PN ---
Subjective Progress Note Date: 08/29/17 82-year-old female who was transported to [facility] from [facility] after she was seen by Dr. Lucero and found to have increasing shortness of breath and increased edema to the lower extremities. Patient denies chest pain or pressure. Denies cough or sputum production. Denies nausea or vomiting. Denies pain or discomfort. Denies dizziness or lightheadedness. The patient has a history of atrial fibrillation maintained on long-term anticoagulated with Coumadin, glaucoma, asymptomatic bacteriuria, mood disorder with psychotic features, hypothyroidism, diastolic congestive heart failure, hypertension, hyperlipidemia, TIA, and osteopenia. 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 Chest x-ray 08/21/2017: Marked cardiomegaly with small bilateral effusions and findings suggestive of mild congestive heart failure Chest x-ray 08/22/2017: Some improvement noted in the patient's volume status. Cardiomegaly. EKG: Atrial fibrillation. Rate 103. Laboratory data: WBC 6.6. Hemoglobin 13.2. Platelet count 186. Sodium 139. Potassium 3.2. BUN 21. Creatinine 0.90. GFR 61. Glucose 111. Magnesium 2.5. AST 41. ALT 40. Total bilirubin 4.3. Alkaline phosphatase 356. Troponins negative 3 BNP: 4400 The patient was admitted to the hospital under the care of Dr. Lucero. Consultations were placed to cardiology. 08/23/2017 Patient seen and examined at the bedside. Patient was started on Lasix 40 mg IV every 12 hours yesterday per cardiology. Patient underwent a venous Doppler on 08/22/2017 due to right lower extremity edema. Doppler was negative for a DVT. Blood pressure is stable with a last reading of 110 over the T8. She is on room air with oxygen saturations greater than 92%. She is afebrile. She remains A. fib on the monitor in the 80s and 90s. INR this morning is 4.2. Coumadin remains on hold. Potassium is low this morning at 3.1. Urinalysis was completed on 08/22/2017 revealing clear yellow urine, 1+ proteinuria, moderate blood, moderate leukocyte esterase, RBC 45, WBC 33, rare bacteria, rare mucus, and hyaline casts of 7. The patient pulled out her indwelling urinary catheter this morning. Echocardiogram was completed on 08/21/2017 which revealed moderate concentric left ventricular hypertrophy, ejection fraction of 50-55%, mildly enlarged right ventricle, mild aortic regurgitation, moderate to severe aortic stenosis, moderate mitral regurgitation, severe tricuspid regurgitation, moderate pulmonary hypertension, moderate pulmonic regurgitation, and RVSP of 54.14. 08/24/2017 Patient seen and examined at the bedside. patient underwent ultrasound of the abdomen on 08/23/2017 which revealed right pleural effusion, positive sonographic Pink sign, findings suggestive of cholecystitis. Suspected hepatomegaly. General surgery was consulted. no surgical intervention from their standpoint. INR this morning is 3.9. Coumadin remains on hold. Patient' s lactic acid yesterday was 3.2. IV fluids were ordered if ok with cardiology. Fluids were discontinued. Repeat lactic acid 2.1. patient remains on Lasix 40 mg IV every 12 hours. patient remains on Levaquin for a possible urinary tract infection. Urine culture is currently pending. 08/25/2017-Note per Dr. Mendez 08/26/2017-Note per Dr. Mendez 08/27/2017 Patient evaluated at the bedside. Patient underwent MRCP which revealed common bile duct stone and well as gallstones. Patient is to undergo ERCP when INR is less than 1.5 per GI documentation. INR this morning is 2.6. Patient remains off Coumadin. Potassium this morning is 5.7. Patients urinalysis was positive for leukocyte esterase. Urine culture was sent but per lab report specimen was unsuitable and requested new specimen. Patient remains on Levaquin. Apparently, cardiology has signed off the case but patient remains on lasix 40mg IV daily. Patient has some confusion over the weekend and was pulling out IV lines and taking off her gown. CT of the brain was completed on 08/25/2017 revealing no evidence of intracranial hemorrhage or midline shift. There is moderate to severe diffuse age-related cerebral atrophy and chronic small vessel ischemic changes redemonstrated without significant change from prior exam. 08/28/2017 Patient examined at the bedside on rounds with Dr. Mendez. Patient is awake and alert, but remains confused. Patient does complain of abdominal pain. Dr. Mendez asked patient if she wanted to undergo furthering testing and procedures and patient states she wanted to proceed. Patients son is her guardian. Apparently, family is undecided if they want to pursue ERCP. INR this morning is 2.5. Patient received 5mg Vitamin K yesterday. BUN 31. Creatinine 1.40. AST 106. ALT 53. Alkaline phosphatase 873. TSH 1.4. 08/29/2017 Patient examined at the bedside. Patient has been transferred to general medical floor. Patient very restless and agitated this morning. Constantly calling out and yelling. Patient's blood pressure is on the lower side this morning at 89/65. Previous reading 90/62. Patients heart rate currently 77 but has been running in the 90s. Patient's INR yesterday was 2.5. Patient received 10 mg vitamin K. Repeat INR this morning is currently pending. Comprehensive metabolic panel from this morning is also currently pending. Currently awaiting decision from family regarding whether or not they would like to proceed with ERCP. Objective - Vital Signs Vital signs: Vital Signs Temp 97.0 F L 08/29/17 06:11 Pulse 77 08/29/17 06:11 Resp 18 08/29/17 06:11 BP 89/65 08/29/17 06:11 Pulse Ox 94 L 08/29/17 06:11 Intake & Output 08/28/17 08/29/17 08/29/17 18:59 06:59 18:59 Intake Total 240 Balance 240 Weight 99.5 kg Intake: Oral 240 Other: Voiding Method Diaper Diaper Incontinent Incontinent # Voids 1 - Exam GENERAL: This is a 82-year-old female who is restless and agitated. Frequently yelling out. HEENT: Head is atraumatic, normocephalic. Pupils are equal, round, and reactive to light. Sclerae anicteric. Conjunctivae are clear. Mucus membranes of the mouth are dry. Neck is supple. RESPIRATORY: Diminished throughout. No use of accessory muscles. Patient maintaining oxygen saturation greater than 92%. No chest wall tenderness is noted on palpation or with deep breathing. CARDIOVASCULAR: Irregular rhythm. S1 and S2 noted. Systolic murmur auscultated. No JVD noted. No S3 or S4 noted. GASTROINTESTINAL: No distention noted. Abdomen soft and round. Normal active bowel sounds auscultated x 4 quadrants. Slight pain and tenderness noted upon palpation of right upper quadrant. INTEGUMENTARY: Jaundiced improve significantly. No cyanosis. No rashes noted. No cellulitis noted. EXTREMITIES: 1+ peripheral pulses. +1-2 right lower extremity edema. No calf tenderness noted. NEUROLOGIC: Cranial nerves II-XII intact. PSYCHIATRIC: Patient oriented 1. Restless and calling out frequently. - Labs CBC & Chem 7: 08/27/17 06:20 08/28/17 05:28 Labs: Microbiology - Last 24 Hours (Table) 08/27/17 18:00 Urine Culture - Final Urine,Catheterized Assessment and Plan Plan: ASSESSMENT: Acute exacerbation of diastolic congestive heart failure, echo reveals ejection fraction of 50-55% Chronic atrial fibrillation, maintained on long-term anticoagulation with Coumadin Supratherapeutic INR, INR 4.9 on admission, Coumadin remains on hold Bacteruria, urinalysis positive for leukocyte esterase, urine culture negative 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 Hypokalemia, secondary to diuretic therapy Elevated bilirubin and alkaline phosphatase with normal amylase and lipase with slight jaundice, s/p MRCP revealing common bile duct stone and also gallstones History of TIA Essential hypertension Hyperlipidemia Hypothyroidism Dementia Obesity: BMI 32.4 PLAN: Haldol 2 mg IM every 4 hours PRN for agitation Hold morning dose of Lasix secondary to hypotension. May give metoprolol. Monitor blood pressure Await results of lab work from this morning Await family's decision regarding whether or not they would like to proceed with ERCP Continue to hold Coumadin. Monitor INR. Gen. surgery and GI on consult Physical therapy and occupational therapy Home meds as appropriate Monitor labs GI prophylaxis: Pepcid 20 mg by daily DVT prophylaxis: Coumadin on hold secondary to elevated INR. JESUS hose and Venodyne's to bilateral lower extremities Monitor vital signs and address as appropriate Discharge planning: Patient to return to [facility] when stable Further recommendations pending patient's course Nurse practitioner note has been reviewed by physician. Signing provider agrees with the documented findings, assessment, and plan of care.
[2017-08-29] MEDS: SODIUM CHLORIDE 0.9% 1,000 ML IV SCH (12:25)
--- NOTE | 2017-08-29 13:14 | P.PN ---
Subjective Progress Note Date: 08/29/17 Principal diagnosis: Elevated liver enzymes choledocholithiasis INR 1.7. Still awaiting family consent for possible ERCP. Afebrile. Total bilirubin 3.9. AST 85. ALT 49. Alkaline phosphatase 839. Objective - Vital Signs Vital signs: Vital Signs Temp 97.0 F L 08/29/17 06:11 Pulse 77 08/29/17 06:11 Resp 18 08/29/17 06:11 BP 89/65 08/29/17 06:11 Pulse Ox 94 L 08/29/17 06:11 Intake & Output 08/28/17 08/29/17 08/29/17 18:59 06:59 18:59 Intake Total 240 Balance 240 Weight 99.5 kg 99.5 kg Intake: Oral 240 Other: Voiding Method Diaper Diaper Incontinent Incontinent # Voids 1 - Exam General appearance: The patient is awake no acute distress. Slightly jaundice. HET: Head is normocephalic and atraumatic. Pupils are equal and reactive. Sclerae yellow. Oropharynx is clear without lesions. Neck: Supple without lymphadenopathy. Trachea midline. Heart: S1 S2. Regular rate and rhythm. Lungs: No crackles or wheezes are heard. Abdomen: Soft, nontender, nondistended with bowel sounds. No peritoneal signs. No palpable organomegaly or masses. Extremities: Normal skin color and turgor. No cyanosis, rash, ulceration, clubbing, or edema. Radial and pedal pulses are 2/4 bilaterally. Neurological: No focal deficits. Strength and sensation are grossly intact. - Labs CBC & Chem 7: 08/27/17 06:20 08/29/17 09:30 Labs: Abnormal Lab Results - Last 24 Hours (Table) 08/29/17 08/29/17 Range/Units 09:30 09:30 PT 15.7 H (9.0-12.0) sec INR 1.7 H (<1.2) Chloride 95 L (98-107) mmol/L BUN 36 H (7-17) mg/dL Creatinine 1.60 H (0.52-1.04) mg/dL Glucose 113 H (74-99) mg/dL Total Bilirubin 3.9 H (0.2-1.3) mg/dL AST 85 H (14-36) U/L Alkaline Phosphatase 839 H (38-126) U/L Total Protein 5.8 L (6.3-8.2) g/dL Albumin 2.7 L (3.5-5.0) g/dL Microbiology - Last 24 Hours (Table) 08/27/17 18:00 Urine Culture - Final Urine,Catheterized Assessment and Plan (1) Choledocholithiasis Narrative/Plan: Increased LFTs Current Visit: Yes Status: Acute Code(s): K80.50 - CALCULUS OF BILE DUCT W/ O CHOLANGITIS OR CHOLECYST W/O OBST SNOMED Code(s): 351640954 (2) Cholelithiasis Current Visit: Yes Status: Acute Code(s): K80.20 - CALCULUS OF GALLBLADDER W /O CHOLECYSTITIS W/O OBSTRUCTION SNOMED Code(s): 485337038 (3) Obesity (BMI 30.0-34.9) Current Visit: Yes Status: Chronic Code(s): E66.9 - OBESITY, UNSPECIFIED SNOMED Code(s): 165767064 (4) Warfarin-induced coagulopathy Current Visit: No Status: Acute Code(s): T45.511A - POISONING BY ANTICOAGULANTS, ACCIDENTAL, INIT SNOMED Code(s): 21030411 (5) Chronic atrial fibrillation Current Visit: Yes Status: Chronic Code(s): I48.2 - CHRONIC ATRIAL FIBRILLATION SNOMED Code(s): 909367631 (6) Congestive heart failure Current Visit: Yes Status: Acute Code(s): I50.9 - HEART FAILURE, UNSPECIFIED SNOMED Code(s): 55918049 (7) Dementia Current Visit: Yes Status: Chronic Code(s): F03.90 - UNSPECIFIED DEMENTIA WITHOUT BEHAVIORAL DISTURBANCE SNOMED Code(s): 28450256 Plan: 1. ERCP; Awaiting family consent. Assessment and plan of care discussed with Dr. Savage
[2017-08-29] MEDS: LEVOFLOXACIN 750 MG TAB PO SCH (17:30)
[2017-08-29] MEDS: POTASSIUM CHLORIDE ER 20 MEQ TAB.ER PO SCH (17:30)
--- NOTE | 2017-08-29 20:35 | P.PN ---
Subjective Progress Note Date: 08/29/17 Principal diagnosis: Cholelithiasis Patient remains somewhat lethargic. Alkaline phosphatase elevated today. INR 1.7. Family is now interested in Dr. Verdin proceeding with ERCP. Patient apparently told her family she wanted those stones out. Objective - Vital Signs Vital signs: Vital Signs Temp 96.0 F L 08/29/17 19:00 Pulse 81 08/29/17 19:00 Resp 16 08/29/17 19:00 BP 116/80 08/29/17 19:00 Pulse Ox 99 08/29/17 19:00 Intake & Output 08/29/17 08/29/17 08/30/17 06:59 18:59 06:59 Intake Total 480 Output Total 0 Balance 480 Weight 99.5 kg 99.5 kg Intake: Oral 480 Output: Post Void Residual 0 Other: Voiding Method Diaper Incontinent # Voids 1 - Exam Abdomen: Soft, nontender, nondistended - Labs CBC & Chem 7: 08/27/17 06:20 08/29/17 09:30 Labs: Abnormal Lab Results - Last 24 Hours (Table) 08/29/17 08/29/17 Range/Units 09:30 09:30 PT 15.7 H (9.0-12.0) sec INR 1.7 H (<1.2) Chloride 95 L (98-107) mmol/L BUN 36 H (7-17) mg/dL Creatinine 1.60 H (0.52-1.04) mg/dL Glucose 113 H (74-99) mg/dL Total Bilirubin 3.9 H (0.2-1.3) mg/dL AST 85 H (14-36) U/L Alkaline Phosphatase 839 H (38-126) U/L Total Protein 5.8 L (6.3-8.2) g/dL Albumin 2.7 L (3.5-5.0) g/dL Microbiology - Last 24 Hours (Table) 08/27/17 18:00 Urine Culture - Final Urine,Catheterized Assessment and Plan (1) Cholelithiasis Narrative/Plan: Await ERCP findings. I did discuss with the patient's sister the options of cholecystectomy. We plan to review the results of the ERCP and discussed surgical options further following that. Current Visit: Yes Status: Acute Code(s): K80.20 - CALCULUS OF GALLBLADDER W /O CHOLECYSTITIS W/O OBSTRUCTION SNOMED Code(s): 683828840
[2017-08-29] MEDS: ATORVASTATIN 20 MG TAB PO SCH ×2 (21:19→21:21)
[2017-08-30] MEDS: HALOPERIDOL LACTATE 5 MG/ML 1 ML VIAL IM PRN (00:40)
[2017-08-30 00:49] LABS: Appearance,Urine Cloudy (Clear); Bacteria,Urine Many /hpf; Bilirubin,Urine 1+ (Negative); Blood,Urine Trace (Negative); Budding Yeast,Urine Moderate /hpf; Color,Urine Yellow; Glucose,Urine (UA) Negative (Negative); Hyaline Casts,Urine 25 /lpf (0-2); Ketones,Urine Negative (Negative); Leukocyte Esterase,Urine Moderate (Negative); Mucus,Urine Many /hpf; Nitrite,Urine Negative (Negative); Protein,Urine 2+ (Negative); RBC,Urine 29 /hpf (0-5); Specific Gravity,Urine 1.016 (1.001-1.035); Squamous Epithelial Cell,Urine 28 /hpf (0-4); WBC,Urine 63 /hpf (0-5)
[2017-08-30 08:55] LABS: INR 1.7 (<1.2); Prothrombin Time 15.7 sec (9.0-12.0)
[2017-08-30 09:02] LABS: Albumin 2.5 g/dL (3.5-5.0); Calcium 8.7 mg/dL (8.4-10.2); Potassium 5.9 mmol/L (3.5-5.1); Total Bilirubin 3.4 mg/dL (0.2-1.3); Total Protein 5.7 g/dL (6.3-8.2)
[2017-08-30] MEDS ORDERED: DEXTROSE 50%-WATER 50 ML SYRINGE IVP ONE ×2 (09:19→14:59)
[2017-08-30] MEDS: LEVOTHYROXINE 75 MCG TAB PO SCH (09:19)
[2017-08-30] MEDS: MAGNESIUM OXIDE 400 MG TAB PO SCH ×2 (09:19→17:17)
[2017-08-30] MEDS: FAMOTIDINE 20 MG TAB PO SCH (09:19)
[2017-08-30] MEDS: MEMANTINE 10 MG TAB PO SCH (09:19)
[2017-08-30] MEDS ORDERED: INSULIN REGULAR 100 UNIT/ML VIAL IV ONE ×2 (09:19→14:59)
[2017-08-30] MEDS: TIMOLOL 0.5% OPHTH DROPS 5 ML BTL LEFT EYE SCH (09:30)
[2017-08-30] MEDS: SODIUM CHLORIDE 0.9% 1,000 ML IV SCH (09:31)
[2017-08-30] MEDS: METOPROLOL SUCCINATE (ER) 25 MG TAB.ER.24H PO SCH (09:31)
--- NOTE | 2017-08-30 09:50 | P.PN ---
Subjective Progress Note Date: 08/30/17 82-year-old female who was transported to [facility] from [facility] after she was seen by Dr. Lucero and found to have increasing shortness of breath and increased edema to the lower extremities. Patient denies chest pain or pressure. Denies cough or sputum production. Denies nausea or vomiting. Denies pain or discomfort. Denies dizziness or lightheadedness. The patient has a history of atrial fibrillation maintained on long-term anticoagulated with Coumadin, glaucoma, asymptomatic bacteriuria, mood disorder with psychotic features, hypothyroidism, diastolic congestive heart failure, hypertension, hyperlipidemia, TIA, and osteopenia. 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 Chest x-ray 08/21/2017: Marked cardiomegaly with small bilateral effusions and findings suggestive of mild congestive heart failure Chest x-ray 08/22/2017: Some improvement noted in the patient's volume status. Cardiomegaly. EKG: Atrial fibrillation. Rate 103. Laboratory data: WBC 6.6. Hemoglobin 13.2. Platelet count 186. Sodium 139. Potassium 3.2. BUN 21. Creatinine 0.90. GFR 61. Glucose 111. Magnesium 2.5. AST 41. ALT 40. Total bilirubin 4.3. Alkaline phosphatase 356. Troponins negative 3 BNP: 4400 The patient was admitted to the hospital under the care of Dr. Lucero. Consultations were placed to cardiology. 08/23/2017 Patient seen and examined at the bedside. Patient was started on Lasix 40 mg IV every 12 hours yesterday per cardiology. Patient underwent a venous Doppler on 08/22/2017 due to right lower extremity edema. Doppler was negative for a DVT. Blood pressure is stable with a last reading of 110 over the T8. She is on room air with oxygen saturations greater than 92%. She is afebrile. She remains A. fib on the monitor in the 80s and 90s. INR this morning is 4.2. Coumadin remains on hold. Potassium is low this morning at 3.1. Urinalysis was completed on 08/22/2017 revealing clear yellow urine, 1+ proteinuria, moderate blood, moderate leukocyte esterase, RBC 45, WBC 33, rare bacteria, rare mucus, and hyaline casts of 7. The patient pulled out her indwelling urinary catheter this morning. Echocardiogram was completed on 08/21/2017 which revealed moderate concentric left ventricular hypertrophy, ejection fraction of 50-55%, mildly enlarged right ventricle, mild aortic regurgitation, moderate to severe aortic stenosis, moderate mitral regurgitation, severe tricuspid regurgitation, moderate pulmonary hypertension, moderate pulmonic regurgitation, and RVSP of 54.14. 08/24/2017 Patient seen and examined at the bedside. patient underwent ultrasound of the abdomen on 08/23/2017 which revealed right pleural effusion, positive sonographic Pink sign, findings suggestive of cholecystitis. Suspected hepatomegaly. General surgery was consulted. no surgical intervention from their standpoint. INR this morning is 3.9. Coumadin remains on hold. Patient' s lactic acid yesterday was 3.2. IV fluids were ordered if ok with cardiology. Fluids were discontinued. Repeat lactic acid 2.1. patient remains on Lasix 40 mg IV every 12 hours. patient remains on Levaquin for a possible urinary tract infection. Urine culture is currently pending. 08/25/2017-Note per Dr. Mendez 08/26/2017-Note per Dr. Mendez 08/27/2017 Patient evaluated at the bedside. Patient underwent MRCP which revealed common bile duct stone and well as gallstones. Patient is to undergo ERCP when INR is less than 1.5 per GI documentation. INR this morning is 2.6. Patient remains off Coumadin. Potassium this morning is 5.7. Patients urinalysis was positive for leukocyte esterase. Urine culture was sent but per lab report specimen was unsuitable and requested new specimen. Patient remains on Levaquin. Apparently, cardiology has signed off the case but patient remains on lasix 40mg IV daily. Patient has some confusion over the weekend and was pulling out IV lines and taking off her gown. CT of the brain was completed on 08/25/2017 revealing no evidence of intracranial hemorrhage or midline shift. There is moderate to severe diffuse age-related cerebral atrophy and chronic small vessel ischemic changes redemonstrated without significant change from prior exam. 08/28/2017 Patient examined at the bedside on rounds with Dr. Mendez. Patient is awake and alert, but remains confused. Patient does complain of abdominal pain. Dr. Mendez asked patient if she wanted to undergo furthering testing and procedures and patient states she wanted to proceed. Patients son is her guardian. Apparently, family is undecided if they want to pursue ERCP. INR this morning is 2.5. Patient received 5mg Vitamin K yesterday. BUN 31. Creatinine 1.40. AST 106. ALT 53. Alkaline phosphatase 873. TSH 1.4. 08/29/2017 Patient examined at the bedside. Patient has been transferred to general medical floor. Patient very restless and agitated this morning. Constantly calling out and yelling. Patient's blood pressure is on the lower side this morning at 89/65. Previous reading 90/62. Patients heart rate currently 77 but has been running in the 90s. Patient's INR yesterday was 2.5. Patient received 10 mg vitamin K. Repeat INR this morning is currently pending. Comprehensive metabolic panel from this morning is also currently pending. Currently awaiting decision from family regarding whether or not they would like to proceed with ERCP. Addendum: Lab work from this morning reveals creatinine 1.6. BUN 36. Creatinine yesterday was 1.40. Patient's baseline is around 1.0. Will continue to hold Lasix. Patient was hypotensive this morning and has had overall decreased oral intake. Begin gentle hydration with normal saline at 50 mL an hour. Monitor for signs of fluid overload. Will consult nephrology for acute kidney injury. INR is still pending. Addendum: Spoke with patients son, Derrek, regarding ERCP. Derrek states they would like to proceed with ERCP. Notified Dr. Savage. INR 1.7 today. Will recheck in AM. Will make patient NPO after midnight. 08/30/2017 Patient examined at the bedside. Patient remains confused and slightly lethargic. Patient will open eyes to verbal stimuli. She is scheduled for ERCP today. Her INR is 1.7. Potassium today is 5.9. BUN 40. Creatinine 1.81. Nephrology has been consulted. She remains on normal saline at 50 mL an hour. blood pressure has been on the lower side with systolics in the mid 80s. Blood pressure this morning is 95/68. Her Lasix remains on hold. She is afebrile. Objective - Vital Signs Vital signs: Vital Signs Temp 97.5 F L 08/30/17 07:00 Pulse 84 08/30/17 07:00 Resp 18 08/30/17 07:00 BP 95/68 08/30/17 07:00 Pulse Ox 99 08/30/17 07:00 Intake & Output 08/29/17 08/30/17 08/30/17 18:59 06:59 18:59 Intake Total 480 Output Total 0 Balance 480 Weight 99.5 kg 103.5 kg Intake: Oral 480 Output: Post Void Residual 0 Other: Voiding Method Diaper Bedpan Incontinent Diaper Incontinent # Voids 1 # Bowel Movements 1 - Exam GENERAL: This is a 82-year-old female who is confused and slightly lethargic. Arouses to verbal stimuli. HEENT: Head is atraumatic, normocephalic. Pupils are equal, round, and reactive to light. Sclerae anicteric. Conjunctivae are clear. Mucus membranes of the mouth are dry. Neck is supple. RESPIRATORY: Diminished throughout. No use of accessory muscles. Patient maintaining oxygen saturation greater than 92%. No chest wall tenderness is noted on palpation or with deep breathing. CARDIOVASCULAR: Irregular rhythm. S1 and S2 noted. Systolic murmur auscultated. No JVD noted. No S3 or S4 noted. GASTROINTESTINAL: No distention noted. Abdomen soft and round. Normal active bowel sounds auscultated x 4 quadrants. Slight pain and tenderness noted upon palpation of right upper quadrant. INTEGUMENTARY: Jaundiced No cyanosis. No rashes noted. No cellulitis noted. EXTREMITIES: 1+ peripheral pulses. +1-2 lower extremity edema. +2 edema to bilateral upper extremities. No calf tenderness noted. NEUROLOGIC: Cranial nerves II-XII intact. PSYCHIATRIC: Patient oriented 1. arouses to verbal stimuli. - Labs CBC & Chem 7: 08/27/17 06:20 08/30/17 13:56 Labs: Abnormal Lab Results - Last 24 Hours (Table) 08/29/17 08/29/17 08/30/17 Range/Units 09:30 09:30 00:29 PT 15.7 H (9.0-12.0) sec INR 1.7 H (<1.2) Sodium (137-145) mmol/L Potassium (3.5-5.1) mmol/L Chloride 95 L (98-107) mmol/L BUN 36 H (7-17) mg/dL Creatinine 1.60 H (0.52-1.04) mg/dL Glucose 113 H (74-99) mg/dL Total Bilirubin 3.9 H (0.2-1.3) mg/dL AST 85 H (14-36) U/L Alkaline Phosphatase 839 H (38-126) U/L Total Protein 5.8 L (6.3-8.2) g/dL Albumin 2.7 L (3.5-5.0) g/dL Urine Appearance Cloudy H (Clear) Urine Protein 2+ H (Negative) Urine Blood Trace H (Negative) Urine Bilirubin 1+ H (Negative) Ur Leukocyte Esterase Moderate H (Negative) Urine RBC 29 H (0-5) /hpf Urine WBC 63 H (0-5) /hpf Ur Squamous Epith Cells 28 H (0-4) /hpf Urine Bacteria Many H (None) /hpf Hyaline Casts 25 H (0-2) /lpf Urine Mucus Many H (None) /hpf Urine Yeast (Budding) Moderate H (None) /hpf 08/30/17 08/30/17 Range/Units 07:58 07:58 PT 15.7 H (9.0-12.0) sec INR 1.7 H (<1.2) Sodium 135 L (137-145) mmol/L Potassium 5.9 H (3.5-5.1) mmol/L Chloride (98-107) mmol/L BUN 40 H (7-17) mg/dL Creatinine 1.81 H (0.52-1.04) mg/dL Glucose 67 L (74-99) mg/dL Total Bilirubin 3.4 H (0.2-1.3) mg/dL AST 64 H (14-36) U/L Alkaline Phosphatase 792 H (38-126) U/L Total Protein 5.7 L (6.3-8.2) g/dL Albumin 2.5 L (3.5-5.0) g/dL Urine Appearance (Clear) Urine Protein (Negative) Urine Blood (Negative) Urine Bilirubin (Negative) Ur Leukocyte Esterase (Negative) Urine RBC (0-5) /hpf Urine WBC (0-5) /hpf Ur Squamous Epith Cells (0-4) /hpf Urine Bacteria (None) /hpf Hyaline Casts (0-2) /lpf Urine Mucus (None) /hpf Urine Yeast (Budding) (None) /hpf Assessment and Plan Plan: ASSESSMENT: Acute exacerbation of diastolic congestive heart failure, echo reveals ejection fraction of 50-55% Chronic atrial fibrillation, maintained on long-term anticoagulation with Coumadin Supratherapeutic INR, INR 4.9 on admission, resolved, Coumadin remains on hold Bacteruria, urinalysis positive for leukocyte esterase, urine culture negative 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 Hypokalemia, secondary to diuretic therapy, resolved Hyperkalemia, likely secondary to acute kidney injury and potassium supplementation Acute kidney injury, may be secondary to diuretic therapy and hypotension, baseline creatinine 1.0, creatinine this morning 1.81 Elevated bilirubin and alkaline phosphatase with normal amylase and lipase with slight jaundice, s/p MRCP revealing common bile duct stone and also gallstones Choledocholithiasis Cholelithiasis History of TIA Essential hypertension Hyperlipidemia Hypothyroidism Dementia Obesity: BMI 32.4 PLAN: Patient scheduled for ERCP today Continue to hold Lasix Continue normal saline at 50 mL an hour Nephrology on consult. Appreciate recommendations and input 10 units insulin IV 1 dose followed by Dextrose IVP Repeat potassium this afternoon Discontinue potassium supplement Continue Haldol 2 mg IM every 4 hours PRN for agitation Monitor blood pressure Continue to hold Coumadin. Monitor INR. Gen. surgery and GI on consult Physical therapy and occupational therapy Home meds as appropriate Monitor labs GI prophylaxis: Pepcid 20 mg by daily DVT prophylaxis: Coumadin on hold secondary to elevated INR. JESUS hose and Venodyne's to bilateral lower extremities Monitor vital signs and address as appropriate Discharge planning: Patient to return to [facility] when stable Further recommendations pending patient's course Nurse practitioner note has been reviewed by physician. Signing provider agrees with the documented findings, assessment, and plan of care.
[2017-08-30] MEDS ORDERED: LEVOFLOXACIN 500MG-D5W PMX 500 MG in DEXTROSE/WATER 1 100ML.BAG IVPB STA (10:34)
[2017-08-30] MEDS ORDERED: INDOMETHACIN 50MG SUPPOSITORY RECTAL ONE ×2 (11:00→12:00)
[2017-08-30] MEDS ORDERED: IV FLUID CONTINUATION 800 ML IV ONE (12:35)
--- NOTE | 2017-08-30 13:27 | P.PN ---
Progress Note - Text Progress Note Date: 08/30/17 Anesthesia cancelled ERCP secondary to elevated potassium. Will reevaluate in am for possible ERCP.
[2017-08-30] MEDS: QUEtiapine 50 MG TAB PO SCH (14:28)
[2017-08-30] MEDS: DEXTROSE 5%-0.9% NACL 1,000 ML IV SCH (14:32)
[2017-08-30 15:36] LABS: ABG Base Excess 1.9 mmol/L; ABG HCO3 26 mmol/L (21-25); ABG Oxygen Saturation 99.5 % (94-97); ABG PCO2 36 mmHg (35-45); ABG PH 7.46 (7.35-7.45); ABG PO2 139 mmHg (83-108); ABG TCO2 27 mmol/L (19-24)
[2017-08-30 15:38] LABS: Glucose,Whole Blood 88 mg/dL (75-99)
[2017-08-30 16:46] LABS: Anisocytosis Moderate; HCT 41.8 % (34.0-46.0); HGB 12.4 gm/dL (11.4-16.0); Hypochromasia Marked; MCH 25.3 pg (25.0-35.0); MCHC 29.6 g/dL (31.0-37.0); MCV 85.3 fL (80.0-100.0); Mean Platelet Volume 9.5; Platelet Count 132 k/uL (150-450); Poikilocytosis Slight; RDW 20.2 % (11.5-15.5)
[2017-08-30 17:25] LABS: Glucose,Whole Blood 94 mg/dL (75-99)
[2017-08-30] MEDS ORDERED: SODIUM CHLORIDE 0.9% 1,000 ML IV SCH (17:30)
--- NOTE | 2017-08-30 17:41 | XR ---
EXAMINATION TYPE: XR chest 1V DATE OF EXAM: 08/30/2017 COMPARISON: 08/22/2017 HISTORY: Short of breath TECHNIQUE: Single frontal view of the chest is obtained. FINDINGS: Heart is enlarged. There is pulmonary vascular congestion. There is blunting of costophren ic angles and more on the right side. IMPRESSION: Congestive heart failure with increasing congestion and right pleural fluid compared to old exam.
[2017-08-30] MEDS ORDERED: FUROSEMIDE 10 MG/ML 10 ML VIAL IV STA (17:58)
[2017-08-30] MEDS ORDERED: FUROSEMIDE 10 MG/ML 4 ML VIAL IV STA (18:54)
[2017-08-30 20:23] LABS: Glucose,Whole Blood 72 mg/dL (75-99)
[2017-08-30 20:43] LABS: Calcium 8.3 mg/dL (8.4-10.2); Potassium 5.3 mmol/L (3.5-5.1)
[2017-08-30 20:47] LABS: Glucose,Whole Blood 92 mg/dL (75-99)
[2017-08-30] MEDS: ATORVASTATIN 20 MG TAB PO SCH (21:27)
[2017-08-30] MEDS: LATANOPROST 0.005% OPHTH DROPS 2.5 ML BTL BOTH EYES SCH (21:27)
--- NOTE | 2017-08-30 21:39 | CONS ---
CONSULTATION REASON FOR CONSULT: Renal failure. HISTORY OF PRESENT ILLNESS: The patient is an 82-year-old female who was initially admitted to the hospital on 08/21/2017 with shortness of breath. The patient resides at [facility]. After initial admission, the patient was diuresed. Creatinine was 0.9 mg/dL initially. It did go up to 1.4 mg/dL on 08/28/2017 and this morning it was 1.8. The patient was found to have biliary obstruction with MRCP that reported bile duct stones. The patient was scheduled for surgery today; however, that was canceled, as the patient was hyperkalemic. It appears that the patient's blood pressure has been running on the lower side with systolic as low as 77 mmHg earlier today. The patient has received a fluid bolus. Her pressure is currently slightly improved with systolic of 99 and 90 mmHg. Patient has had minimal urine output and bladder scan was done which showed only about 100 mL. Patient received insulin and D50 for the hyperkalemia. A repeat potassium was at 5.5. UA shows evidence of pyuria and hyaline casts. Urine culture is currently pending. The patient is maintained on Levaquin. She is also on metoprolol. She did get the metoprolol this morning. The patient's mentation has declined. This afternoon she has received a dose of Haldol. It appears that her mentation is now improved, particularly with improvement in her blood pressure. PAST MEDICAL HISTORY: Significant for A. fib., history of CVA, TIA, dementia, hyperlipidemia, hypothyroidism, degenerative joint disease, history of glaucoma, ESBL urinary tract infection, skin cancer. PAST SURGICAL HISTORY: Hernia repair, tonsillectomy, umbilical hernia repair, cataract surgery, breast biopsy, surgery for left eye hemorrhage. MEDICATIONS PRIOR TO ADMISSION: Included: 1. Lipitor. 2. Vitamin D3. 3. Potassium. 4. Pepcid. 5. Lasix. 6. Synthroid. 7. Namenda. 8. Toprol. 9. MiraLAX. 10.Robitussin. 11.Coumadin. ALLERGIES: None. PHYSICAL EXAMINATION: Currently patient is sleepy. She is arousable. Blood pressure systolic was 90 mmHg. Heart rate about 80 per minute. Patient is afebrile. HEART: S1, S2. LUNGS: Decreased breath sounds at bases. Abdomen is soft, nontender. Lower extremities show no significant edema. CIGAR HEAD PEGGER: Cannot be performed in detail. LABS: This morning show sodium 135, potassium 5.9. Repeat potassium was 5.5, BUN 40, serum creatinine 1.8. Lactic acid was 2.2, calcium 8.7. UA shows 2+ protein, 1+ bilirubin, WBC 63, RBCs 29, hyaline casts 25. Urine culture so far shows no growth. Chest x-ray from this morning shows CHF. ASSESSMENT: 1. Acute kidney injury secondary to hypotension and hypoperfusion, currently oliguric. The patient is status post fluid bolus with improvement in her blood pressures. Her lactic acid was also elevated. She is being transferred to the ICU. She may need accurate input and output. Continue to avoid nephrotoxic agents. If blood pressure remains low, the patient may need to be started on vasopressors. 2. Pyuria, maintained on antibiotics. Urine culture is currently pending. So far, there is no growth. 3. Biliary obstruction with biliary duct stones. The patient was scheduled for ERCP, which is canceled secondary to hyperkalemia. 4. Congestive heart failure on initial admission. Current chest x-ray showing pulmonary vascular congestion. Echocardiogram showed preserved left ventricular function with ejection fraction 50%-55%. 5. Hyperkalemia associated with acute kidney injury. PLAN: Transfer to ICU. Avoid nephrotoxic agents. If blood pressure continues to remain low, patient will need to be started on pressors. Will give Lasix 40 x1 to help with the urine output. Repeat labs are pending from about half an hour ago. We will repeat labs again in a.m. Repeat labs are pending. No medications on board to precipitate hyperkalemia further. The indomethacin that patient received was rectal dose prior to the procedure. Scheduled to be given prior to the procedure. Thank you for this consultation. We will continue to follow the patient with you during her hospitalization. MMODL / IJN: [id number] /
[2017-08-30 21:42] LABS: Glucose,Whole Blood 86 mg/dL (75-99)
[2017-08-30 22:52] LABS: Glucose,Whole Blood 89 mg/dL (75-99)
[2017-08-30] MEDS ORDERED: NOREPINEPHRIN 4 MG-0.9% NS PMX 4 MG/250 ML ML IV ONE (22:54)
[2017-08-30] MEDS ORDERED: NALOXONE 0.4 MG/ML 1 ML VIAL IV PRN (23:30)
[2017-08-30 23:48] LABS: Glucose,Whole Blood 80 mg/dL (75-99)
[2017-08-31 00:02] LABS: Anisocytosis Moderate; Basophils % (A) 0 %; Eosinophils # (A) 0.1 k/uL (0-0.7); Eosinophils % (A) 2 %; HCT 42.1 % (34.0-46.0); HGB 13.2 gm/dL (11.4-16.0); Hypochromasia Marked; Lymphocytes # (A) 1.2 k/uL (1.0-4.8); Lymphocytes % (A) 18 %; MCH 26.2 pg (25.0-35.0); MCHC 31.4 g/dL (31.0-37.0); MCV 83.6 fL (80.0-100.0); Mean Platelet Volume 10.2; Microcytosis Slight; Monocytes # (A) 0.7 k/uL (0-1.0); Monocytes % (A) 10 %; Neutrophils # (A) 4.5 k/uL (1.3-7.7); Neutrophils % (A) 67 %; Platelet Count 121 k/uL (150-450); Poikilocytosis Slight; RBC 5.04 m/uL (3.80-5.40); WBC 6.7 k/uL (3.8-10.6)
[2017-08-31 00:24] LABS: Calcium 8.5 mg/dL (8.4-10.2); Magnesium 3.2 mg/dL (1.6-2.3); Phosphorus 3.9 mg/dL (2.5-4.5); Potassium 5.6 mmol/L (3.5-5.1)
[2017-08-31 01:29] LABS: Glucose,Whole Blood 82 mg/dL (75-99)
[2017-08-31 05:19] LABS: Anisocytosis Slight; Basophils % (A) 0 %; Eosinophils # (A) 0.2 k/uL (0-0.7); Eosinophils % (A) 3 %; HCT 44.4 % (34.0-46.0); HGB 13.5 gm/dL (11.4-16.0); Hypochromasia Marked; Lymphocytes # (A) 0.8 k/uL (1.0-4.8); Lymphocytes % (A) 13 %; MCH 25.1 pg (25.0-35.0); MCHC 30.5 g/dL (31.0-37.0); MCV 82.5 fL (80.0-100.0); Mean Platelet Volume 9.4; Microcytosis Slight; Monocytes # (A) 0.4 k/uL (0-1.0); Monocytes % (A) 6 %; Neutrophils # (A) 4.4 k/uL (1.3-7.7); Neutrophils % (A) 76 %; Platelet Count 171 k/uL (150-450); Poikilocytosis Slight; RBC 5.38 m/uL (3.80-5.40); RDW 19.9 % (11.5-15.5); WBC 5.8 k/uL (3.8-10.6)
[2017-08-31 05:25] LABS: INR 1.5 (<1.2); Prothrombin Time 13.9 sec (9.0-12.0)
[2017-08-31 05:32] LABS: Albumin 2.7 g/dL (3.5-5.0); Calcium 8.6 mg/dL (8.4-10.2); Total Bilirubin 3.8 mg/dL (0.2-1.3)
[2017-08-31 05:42] LABS: Magnesium 3.2 mg/dL (1.6-2.3); Phosphorus 3.6 mg/dL (2.5-4.5); Potassium 5.8 mmol/L (3.5-5.1)
[2017-08-31] MEDS: NOREPINEPHRIN 4 MG-0.9% NS PMX 4 MG/250 ML ML IV SCH ×2 (05:55→13:55)
[2017-08-31 06:07] LABS: Glucose,Whole Blood 178 mg/dL (75-99)
[2017-08-31] MEDS ORDERED: DEXTROSE 50%-WATER 50 ML SYRINGE IVP STA (06:10)
[2017-08-31] MEDS ORDERED: FUROSEMIDE 10 MG/ML 4 ML VIAL IV STA ×2 (06:10→10:26)
[2017-08-31] MEDS ORDERED: INSULIN REGULAR 100 UNIT/ML VIAL IV ONE (06:11)
--- NOTE | 2017-08-31 09:11 | XR ---
EXAMINATION TYPE: XR chest 1V portable DATE OF EXAM: 08/31/2017 COMPARISON: 08/30/2017 HISTORY: Shortness of breath FINDINGS: Noted is pulmonary venous congestion with scattered infiltrates. There is also cardiomegaly and small effusions. IMPRESSION: Improving features of congestive failure. Infiltrates of other etiology are not excluded. Clinical correlation and progress studies are recommended.
[2017-08-31] MEDS: TIMOLOL 0.5% OPHTH DROPS 5 ML BTL LEFT EYE SCH (09:24)
[2017-08-31] MEDS: DEXTROSE 50%-WATER 50 ML SYRINGE IVP PRN (09:28)
[2017-08-31 09:34] LABS: Glucose,Whole Blood 52 mg/dL (75-99)
--- NOTE | 2017-08-31 09:34 | P.PN ---
Subjective Progress Note Date: 08/31/17 Principal diagnosis: Elevated liver enzymes choledocholithiasis ERCP canceled yesterday secondary to elevated potassium. Per nursing patient was transferred to ICU yesterday secondary to increased confusion low body temperatures shortness of breath; temperature 94.0. Presently on levothyroid 10 g/hr. temperature 97.8. Mentation slightly improved. INR 1.5. Potassium 5.8. Sodium 138. BUN 49. Creatinine 1.9. Total bilirubin 3.8. AST 56. ALT 44. Alkaline phosphatase 634. Ammonia 38. Chest x-ray yesterday afternoon congestive heart failure with increasing congestion in right pleural fluid compared to all exam. Repeat chest x-ray this morning shows improvement. Objective - Vital Signs Vital signs: Vital Signs Temp 97.8 F 08/31/17 08:00 Pulse 80 08/31/17 09:00 Resp 24 08/31/17 09:00 BP 115/75 08/31/17 09:00 Pulse Ox 97 08/31/17 09:00 Intake & Output 08/30/17 08/31/17 08/31/17 18:59 06:59 18:59 Intake Total 561 160 40 Output Total 0 280 48 Balance 561 -120 -8 Weight 110.9 kg Intake: IV 160 40 Dextrose 5%-0.9% NaCl 1, 160 40 000 ml @ 50 mls/hr IV . Q20H [facility] Rx#:[id number] Oral 0 Blood Product 561 Ffp 24 Cpd Unit 314 [id number] Ffp 24 Cpd Unit 247 [id number] Output: Urine 280 48 Post Void Residual 0 Other: Voiding Method Indwelling Catheter Indwelling Catheter - Exam General appearance: The patient is resting arousable confused. Slightly jaundice. HET: Head is normocephalic and atraumatic. Pupils are equal and reactive. Sclerae yellow. Oropharynx is clear without lesions. Neck: Supple without lymphadenopathy. Trachea midline. Heart: S1 S2. Regular rate and rhythm. Lungs: Fine rales bilateral bases. Abdomen: Soft, nontender, nondistended with bowel sounds. No peritoneal signs. No palpable organomegaly or masses. Extremities: Normal skin color and turgor. No cyanosis, rash, ulceration, clubbing, or edema. Radial and pedal pulses are 2/4 bilaterally. Neurological: Confused. - Labs CBC & Chem 7: 08/31/17 05:05 03/16/18 09:17 Labs: Abnormal Lab Results - Last 24 Hours (Table) 08/30/17 08/30/17 08/30/17 Range/Units 13:56 15:33 16:23 MCHC 29.6 L (31.0-37.0) g/dL RDW 20.2 H (11.5-15.5) % Plt Count 132 L (150-450) k/uL Lymphocytes # (1.0-4.8) k/uL PT (9.0-12.0) sec INR (<1.2) ABG pH 7.46 H (7.35-7.45) ABG pO2 139 H (83-108) mmHg ABG HCO3 26 H (21-25) mmol/L ABG Total CO2 27 H (19-24) mmol/L ABG O2 Saturation 99.5 H (94-97) % Sodium (137-145) mmol/L Potassium 5.5 H (3.5-5.1) mmol/L BUN (7-17) mg/dL Creatinine (0.52-1.04) mg/dL Glucose (74-99) mg/dL POC Glucose (mg/dL) (75-99) mg/dL Plasma Lactic Acid Ashish (0.7-2.0) mmol/L Calcium (8.4-10.2) mg/dL Magnesium (1.6-2.3) mg/dL Total Bilirubin (0.2-1.3) mg/dL AST (14-36) U/L Alkaline Phosphatase (38-126) U/L Ammonia (<30) umol/L Total Protein (6.3-8.2) g/dL Albumin (3.5-5.0) g/dL 08/30/17 08/30/17 08/30/17 Range/Units 16:23 16:23 20:14 MCHC (31.0-37.0) g/dL RDW (11.5-15.5) % Plt Count (150-450) k/uL Lymphocytes # (1.0-4.8) k/uL PT (9.0-12.0) sec INR (<1.2) ABG pH (7.35-7.45) ABG pO2 (83-108) mmHg ABG HCO3 (21-25) mmol/L ABG Total CO2 (19-24) mmol/L ABG O2 Saturation (94-97) % Sodium 135 L 134 L (137-145) mmol/L Potassium 5.6 H 5.3 H (3.5-5.1) mmol/L BUN 42 H 43 H (7-17) mg/dL Creatinine 1.80 H 1.88 H (0.52-1.04) mg/dL Glucose (74-99) mg/dL POC Glucose (mg/dL) (75-99) mg/dL Plasma Lactic Acid Ashish 2.2 H* (0.7-2.0) mmol/L Calcium 8.3 L (8.4-10.2) mg/dL Magnesium 3.2 H (1.6-2.3) mg/dL Total Bilirubin (0.2-1.3) mg/dL AST (14-36) U/L Alkaline Phosphatase (38-126) U/L Ammonia (<30) umol/L Total Protein (6.3-8.2) g/dL Albumin (3.5-5.0) g/dL 08/30/17 08/30/17 08/30/17 Range/Units 20:14 20:21 23:46 MCHC (31.0-37.0) g/dL RDW 20.0 H (11.5-15.5) % Plt Count 121 L (150-450) k/uL Lymphocytes # (1.0-4.8) k/uL PT (9.0-12.0) sec INR (<1.2) ABG pH (7.35-7.45) ABG pO2 (83-108) mmHg ABG HCO3 (21-25) mmol/L ABG Total CO2 (19-24) mmol/L ABG O2 Saturation (94-97) % Sodium (137-145) mmol/L Potassium (3.5-5.1) mmol/L BUN (7-17) mg/dL Creatinine (0.52-1.04) mg/dL Glucose (74-99) mg/dL POC Glucose (mg/dL) 72 L (75-99) mg/dL Plasma Lactic Acid Ashish 2.5 H* (0.7-2.0) mmol/L Calcium (8.4-10.2) mg/dL Magnesium (1.6-2.3) mg/dL Total Bilirubin (0.2-1.3) mg/dL AST (14-36) U/L Alkaline Phosphatase (38-126) U/L Ammonia (<30) umol/L Total Protein (6.3-8.2) g/dL Albumin (3.5-5.0) g/dL 08/31/17 08/31/17 08/31/17 Range/Units 00:31 00:31 05:05 MCHC (31.0-37.0) g/dL RDW (11.5-15.5) % Plt Count (150-450) k/uL Lymphocytes # (1.0-4.8) k/uL PT 13.9 H (9.0-12.0) sec INR 1.5 H (<1.2) ABG pH (7.35-7.45) ABG pO2 (83-108) mmHg ABG HCO3 (21-25) mmol/L ABG Total CO2 (19-24) mmol/L ABG O2 Saturation (94-97) % Sodium (137-145) mmol/L Potassium (3.5-5.1) mmol/L BUN (7-17) mg/dL Creatinine (0.52-1.04) mg/dL Glucose (74-99) mg/dL POC Glucose (mg/dL) (75-99) mg/dL Plasma Lactic Acid Ashish 3.2 H* (0.7-2.0) mmol/L Calcium (8.4-10.2) mg/dL Magnesium (1.6-2.3) mg/dL Total Bilirubin (0.2-1.3) mg/dL AST (14-36) U/L Alkaline Phosphatase (38-126) U/L Ammonia 67 H (<30) umol/L Total Protein (6.3-8.2) g/dL Albumin (3.5-5.0) g/dL 08/31/17 08/31/17 08/31/17 Range/Units 05:05 05:05 06:06 MCHC 30.5 L (31.0-37.0) g/dL RDW 19.9 H (11.5-15.5) % Plt Count (150-450) k/uL Lymphocytes # 0.8 L (1.0-4.8) k/uL PT (9.0-12.0) sec INR (<1.2) ABG pH (7.35-7.45) ABG pO2 (83-108) mmHg ABG HCO3 (21-25) mmol/L ABG Total CO2 (19-24) mmol/L ABG O2 Saturation (94-97) % Sodium (137-145) mmol/L Potassium 5.8 H (3.5-5.1) mmol/L BUN 46 H (7-17) mg/dL Creatinine 1.91 H (0.52-1.04) mg/dL Glucose 64 L (74-99) mg/dL POC Glucose (mg/dL) 178 H (75-99) mg/dL Plasma Lactic Acid Ashish (0.7-2.0) mmol/L Calcium (8.4-10.2) mg/dL Magnesium 3.2 H (1.6-2.3) mg/dL Total Bilirubin 3.8 H (0.2-1.3) mg/dL AST 56 H (14-36) U/L Alkaline Phosphatase 634 H (38-126) U/L Ammonia (<30) umol/L Total Protein 6.0 L (6.3-8.2) g/dL Albumin 2.7 L (3.5-5.0) g/dL 08/31/17 Range/Units 09:25 MCHC (31.0-37.0) g/dL RDW (11.5-15.5) % Plt Count (150-450) k/uL Lymphocytes # (1.0-4.8) k/uL PT (9.0-12.0) sec INR (<1.2) ABG pH (7.35-7.45) ABG pO2 (83-108) mmHg ABG HCO3 (21-25) mmol/L ABG Total CO2 (19-24) mmol/L ABG O2 Saturation (94-97) % Sodium (137-145) mmol/L Potassium (3.5-5.1) mmol/L BUN (7-17) mg/dL Creatinine (0.52-1.04) mg/dL Glucose (74-99) mg/dL POC Glucose (mg/dL) 52 L (75-99) mg/dL Plasma Lactic Acid Ashish (0.7-2.0) mmol/L Calcium (8.4-10.2) mg/dL Magnesium (1.6-2.3) mg/dL Total Bilirubin (0.2-1.3) mg/dL AST (14-36) U/L Alkaline Phosphatase (38-126) U/L Ammonia (<30) umol/L Total Protein (6.3-8.2) g/dL Albumin (3.5-5.0) g/dL Microbiology - Last 24 Hours (Table) 08/30/17 00:29 Urine Culture - Preliminary Urine,Voided Assessment and Plan (1) Choledocholithiasis Narrative/Plan: Increased LFTs Current Visit: Yes Status: Acute Code(s): K80.50 - CALCULUS OF BILE DUCT W/ O CHOLANGITIS OR CHOLECYST W/O OBST SNOMED Code(s): 603070327 (2) Cholelithiasis Current Visit: Yes Status: Acute Code(s): K80.20 - CALCULUS OF GALLBLADDER W /O CHOLECYSTITIS W/O OBSTRUCTION SNOMED Code(s): 954086558 (3) Obesity (BMI 30.0-34.9) Current Visit: Yes Status: Chronic Code(s): E66.9 - OBESITY, UNSPECIFIED SNOMED Code(s): 209777321 (4) Warfarin-induced coagulopathy Current Visit: No Status: Acute Code(s): T45.511A - POISONING BY ANTICOAGULANTS, ACCIDENTAL, INIT SNOMED Code(s): 86275156 (5) Chronic atrial fibrillation Current Visit: Yes Status: Chronic Code(s): I48.2 - CHRONIC ATRIAL FIBRILLATION SNOMED Code(s): 485557068 (6) Congestive heart failure Current Visit: Yes Status: Acute Code(s): I50.9 - HEART FAILURE, UNSPECIFIED SNOMED Code(s): 04764076 (7) Dementia Current Visit: Yes Status: Chronic Code(s): F03.90 - UNSPECIFIED DEMENTIA WITHOUT BEHAVIORAL DISTURBANCE SNOMED Code(s): 99921760 (8) Acute kidney injury Current Visit: Yes Status: Acute Code(s): N17.9 - ACUTE KIDNEY FAILURE, UNSPECIFIED SNOMED Code(s): 77082780 (9) Hyperkalemia Current Visit: Yes Status: Acute Code(s): E87.5 - HYPERKALEMIA SNOMED Code (s): 02267596 Plan: 1. ERCP postponed for now. Will evaluate on a daily basis. Supportive measures. Diet as tolerated. Daily monitoring of electrolytes and liver function tests and INR. Repeat ammonia in a.m. Assessment and plan of care discussed with Dr. Smith.
[2017-08-31 09:47] LABS: Glucose,Whole Blood 140 mg/dL (75-99)
[2017-08-31] MEDS: DEXTROSE 5%-0.9% NACL 1,000 ML IV SCH (10:42)
[2017-08-31] MEDS: DEXTROSE 10% IN WATER 500 ML in EMPTY BAG 1 BAG IV SCH ×2 (10:43→20:35)
[2017-08-31 10:46] LABS: ABG Base Excess 3.3 mmol/L; ABG HCO3 27 mmol/L (21-25); ABG Oxygen Saturation 98.7 % (94-97); ABG PCO2 39 mmHg (35-45); ABG PH 7.45 (7.35-7.45); ABG PO2 107 mmHg (83-108); ABG TCO2 29 mmol/L (19-24)
--- NOTE | 2017-08-31 11:42 | CT ---
EXAMINATION TYPE: CT brain wo con DATE OF EXAM: 08/31/2017 COMPARISON: 08/25/2017 HISTORY: Confusion CT DLP: 1225 mGycm Automated exposure control for dose reduction was used. FINDINGS: There is no acute intracranial hemorrhage or midline shift identified. There is diffuse ventricular a nd sulcal prominence consistent with diffuse age-related cerebral atrophy. Asymmetry to the ventricles with left side more prominent is stable from prior. There is low-attenuat ion in the periventricular white matter consistent with chronic small vessel ischemic change. There is intracranial atherosclerotic changes. Hyperostosis noted. Calvarium intact. IMPRESSION: DEGENERATIVE CHANGE AND NONSPECIFIC WHITE MATTER CHANGES MOST TYPICAL OF REMOTE ISCHEMIA. NO ACUTE HE MORRHAGE OR MASS EFFECT.
--- NOTE | 2017-08-31 11:54 | P.PN ---
Subjective Patient was being seen on the floor for heart failure with preserved LV systolic function and valvular heart disease. At this time she is in the ICU with hyperkalemia as well as mental status changes She is on pressors Pleural effusion noted on chest x-ray Shortness of breath On examination breath sounds are reduced bilaterally She is an ejection systolic murmur Abdomen soft Obtunded Impression Severe aortic stenosis with mild aortic regurgitation Moderate mitral regurgitation Severe tricuspid regurgitation Moderate pulmonary hypertension Low normal LV systolic function of 50-55% Dilated IVC consistent with elevated right-sided pressures Suggest Continue diuretics and management of her other medical conditions Objective - Vital Signs Vital signs: Vital Signs Temp 97.8 F 08/31/17 08:00 Pulse 80 08/31/17 09:00 Resp 24 08/31/17 09:00 BP 115/75 08/31/17 09:00 Pulse Ox 97 08/31/17 09:00 Intake & Output 08/30/17 08/31/17 08/31/17 18:59 06:59 18:59 Intake Total 561 160 203.733 Output Total 0 280 48 Balance 561 -120 155.733 Weight 110.9 kg Intake: IV 160 40 Dextrose 5%-0.9% NaCl 1, 160 40 000 ml @ 50 mls/hr IV . Q20H [facility] Rx#:[id number] Intake, IV Titration 163.733 Amount Norepinephrin 4 mg-0.9% 163.733 Ns Pmx 4 mg In 250 ml @ Titrate IV .Q0M [facility] Rx#: [id number] Oral 0 Blood Product 561 Ffp 24 Cpd Unit 314 [id number] Ffp 24 Cpd Unit 247 [id number] Output: Urine 280 48 Post Void Residual 0 Other: Voiding Method Indwelling Catheter Indwelling Catheter - Labs CBC & Chem 7: 08/31/17 05:05 08/31/17 09:17 Labs: Abnormal Lab Results - Last 24 Hours (Table) 08/30/17 08/30/17 08/30/17 Range/Units 13:56 15:33 16:23 MCHC 29.6 L (31.0-37.0) g/dL RDW 20.2 H (11.5-15.5) % Plt Count 132 L (150-450) k/uL Lymphocytes # (1.0-4.8) k/uL PT (9.0-12.0) sec INR (<1.2) ABG pH 7.46 H (7.35-7.45) ABG pO2 139 H (83-108) mmHg ABG HCO3 26 H (21-25) mmol/L ABG Total CO2 27 H (19-24) mmol/L ABG O2 Saturation 99.5 H (94-97) % Sodium (137-145) mmol/L Potassium 5.5 H (3.5-5.1) mmol/L BUN (7-17) mg/dL Creatinine (0.52-1.04) mg/dL Glucose (74-99) mg/dL POC Glucose (mg/dL) (75-99) mg/dL Plasma Lactic Acid Ashish (0.7-2.0) mmol/L Calcium (8.4-10.2) mg/dL Magnesium (1.6-2.3) mg/dL Total Bilirubin (0.2-1.3) mg/dL AST (14-36) U/L Alkaline Phosphatase (38-126) U/L Ammonia (<30) umol/L Total Protein (6.3-8.2) g/dL Albumin (3.5-5.0) g/dL 08/30/17 08/30/17 08/30/17 Range/Units 16:23 16:23 20:14 MCHC (31.0-37.0) g/dL RDW (11.5-15.5) % Plt Count (150-450) k/uL Lymphocytes # (1.0-4.8) k/uL PT (9.0-12.0) sec INR (<1.2) ABG pH (7.35-7.45) ABG pO2 (83-108) mmHg ABG HCO3 (21-25) mmol/L ABG Total CO2 (19-24) mmol/L ABG O2 Saturation (94-97) % Sodium 135 L 134 L (137-145) mmol/L Potassium 5.6 H 5.3 H (3.5-5.1) mmol/L BUN 42 H 43 H (7-17) mg/dL Creatinine 1.80 H 1.88 H (0.52-1.04) mg/dL Glucose (74-99) mg/dL POC Glucose (mg/dL) (75-99) mg/dL Plasma Lactic Acid Ashish 2.2 H* (0.7-2.0) mmol/L Calcium 8.3 L (8.4-10.2) mg/dL Magnesium 3.2 H (1.6-2.3) mg/dL Total Bilirubin (0.2-1.3) mg/dL AST (14-36) U/L Alkaline Phosphatase (38-126) U/L Ammonia (<30) umol/L Total Protein (6.3-8.2) g/dL Albumin (3.5-5.0) g/dL 08/30/17 08/30/17 08/30/17 Range/Units 20:14 20:21 23:46 MCHC (31.0-37.0) g/dL RDW 20.0 H (11.5-15.5) % Plt Count 121 L (150-450) k/uL Lymphocytes # (1.0-4.8) k/uL PT (9.0-12.0) sec INR (<1.2) ABG pH (7.35-7.45) ABG pO2 (83-108) mmHg ABG HCO3 (21-25) mmol/L ABG Total CO2 (19-24) mmol/L ABG O2 Saturation (94-97) % Sodium (137-145) mmol/L Potassium (3.5-5.1) mmol/L BUN (7-17) mg/dL Creatinine (0.52-1.04) mg/dL Glucose (74-99) mg/dL POC Glucose (mg/dL) 72 L (75-99) mg/dL Plasma Lactic Acid Ashish 2.5 H* (0.7-2.0) mmol/L Calcium (8.4-10.2) mg/dL Magnesium (1.6-2.3) mg/dL Total Bilirubin (0.2-1.3) mg/dL AST (14-36) U/L Alkaline Phosphatase (38-126) U/L Ammonia (<30) umol/L Total Protein (6.3-8.2) g/dL Albumin (3.5-5.0) g/dL 08/31/17 08/31/17 08/31/17 Range/Units 00:31 00:31 05:05 MCHC (31.0-37.0) g/dL RDW (11.5-15.5) % Plt Count (150-450) k/uL Lymphocytes # (1.0-4.8) k/uL PT 13.9 H (9.0-12.0) sec INR 1.5 H (<1.2) ABG pH (7.35-7.45) ABG pO2 (83-108) mmHg ABG HCO3 (21-25) mmol/L ABG Total CO2 (19-24) mmol/L ABG O2 Saturation (94-97) % Sodium (137-145) mmol/L Potassium (3.5-5.1) mmol/L BUN (7-17) mg/dL Creatinine (0.52-1.04) mg/dL Glucose (74-99) mg/dL POC Glucose (mg/dL) (75-99) mg/dL Plasma Lactic Acid Ashish 3.2 H* (0.7-2.0) mmol/L Calcium (8.4-10.2) mg/dL Magnesium (1.6-2.3) mg/dL Total Bilirubin (0.2-1.3) mg/dL AST (14-36) U/L Alkaline Phosphatase (38-126) U/L Ammonia 67 H (<30) umol/L Total Protein (6.3-8.2) g/dL Albumin (3.5-5.0) g/dL 18 18 08/31/17 Range/Units 05:05 05:05 06:06 MCHC 30.5 L (31.0-37.0) g/dL RDW 19.9 H (11.5-15.5) % Plt Count (150-450) k/uL Lymphocytes # 0.8 L (1.0-4.8) k/uL PT (9.0-12.0) sec INR (<1.2) ABG pH (7.35-7.45) ABG pO2 (83-108) mmHg ABG HCO3 (21-25) mmol/L ABG Total CO2 (19-24) mmol/L ABG O2 Saturation (94-97) % Sodium (137-145) mmol/L Potassium 5.8 H (3.5-5.1) mmol/L BUN 46 H (7-17) mg/dL Creatinine 1.91 H (0.52-1.04) mg/dL Glucose 64 L (74-99) mg/dL POC Glucose (mg/dL) 178 H (75-99) mg/dL Plasma Lactic Acid Ashish (0.7-2.0) mmol/L Calcium (8.4-10.2) mg/dL Magnesium 3.2 H (1.6-2.3) mg/dL Total Bilirubin 3.8 H (0.2-1.3) mg/dL AST 56 H (14-36) U/L Alkaline Phosphatase 634 H (38-126) U/L Ammonia (<30) umol/L Total Protein 6.0 L (6.3-8.2) g/dL Albumin 2.7 L (3.5-5.0) g/dL 08/31/17 08/31/17 08/31/17 Range/Units 09:25 09:28 09:45 MCHC (31.0-37.0) g/dL RDW (11.5-15.5) % Plt Count (150-450) k/uL Lymphocytes # (1.0-4.8) k/uL PT (9.0-12.0) sec INR (<1.2) ABG pH (7.35-7.45) ABG pO2 (83-108) mmHg ABG HCO3 (21-25) mmol/L ABG Total CO2 (19-24) mmol/L ABG O2 Saturation (94-97) % Sodium (137-145) mmol/L Potassium (3.5-5.1) mmol/L BUN (7-17) mg/dL Creatinine (0.52-1.04) mg/dL Glucose (74-99) mg/dL POC Glucose (mg/dL) 52 L 140 H (75-99) mg/dL Plasma Lactic Acid Ashish (0.7-2.0) mmol/L Calcium (8.4-10.2) mg/dL Magnesium (1.6-2.3) mg/dL Total Bilirubin (0.2-1.3) mg/dL AST (14-36) U/L Alkaline Phosphatase (38-126) U/L Ammonia 38 H (<30) umol/L Total Protein (6.3-8.2) g/dL Albumin (3.5-5.0) g/dL 08/31/17 Range/Units 10:42 MCHC (31.0-37.0) g/dL RDW (11.5-15.5) % Plt Count (150-450) k/uL Lymphocytes # (1.0-4.8) k/uL PT (9.0-12.0) sec INR (<1.2) ABG pH (7.35-7.45) ABG pO2 (83-108) mmHg ABG HCO3 27 H (21-25) mmol/L ABG Total CO2 29 H (19-24) mmol/L ABG O2 Saturation 98.7 H (94-97) % Sodium (137-145) mmol/L Potassium (3.5-5.1) mmol/L BUN (7-17) mg/dL Creatinine (0.52-1.04) mg/dL Glucose (74-99) mg/dL POC Glucose (mg/dL) (75-99) mg/dL Plasma Lactic Acid Ashish (0.7-2.0) mmol/L Calcium (8.4-10.2) mg/dL Magnesium (1.6-2.3) mg/dL Total Bilirubin (0.2-1.3) mg/dL AST (14-36) U/L Alkaline Phosphatase (38-126) U/L Ammonia (<30) umol/L Total Protein (6.3-8.2) g/dL Albumin (3.5-5.0) g/dL Microbiology - Last 24 Hours (Table) 08/30/17 00:29 Urine Culture - Preliminary Urine,Voided
[2017-08-31 12:16] LABS: Glucose,Whole Blood 93 mg/dL (75-99)
[2017-08-31 12:48] LABS: Hemoglobin A1C 5.9 % (4.0-6.0)
--- NOTE | 2017-08-31 13:38 | P.PN ---
<Denise Paiz - Last Filed: 08/31/17 15:07> Subjective Progress Note Date: 08/31/17 82-year-old female who was transported to [facility] from [facility] after she was seen by Dr. Lucero and found to have increasing shortness of breath and increased edema to the lower extremities. Patient denies chest pain or pressure. Denies cough or sputum production. Denies nausea or vomiting. Denies pain or discomfort. Denies dizziness or lightheadedness. The patient has a history of atrial fibrillation maintained on long-term anticoagulated with Coumadin, glaucoma, asymptomatic bacteriuria, mood disorder with psychotic features, hypothyroidism, diastolic congestive heart failure, hypertension, hyperlipidemia, TIA, and osteopenia. 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 Chest x-ray 08/21/2017: Marked cardiomegaly with small bilateral effusions and findings suggestive of mild congestive heart failure Chest x-ray 08/22/2017: Some improvement noted in the patient's volume status. Cardiomegaly. EKG: Atrial fibrillation. Rate 103. Laboratory data: WBC 6.6. Hemoglobin 13.2. Platelet count 186. Sodium 139. Potassium 3.2. BUN 21. Creatinine 0.90. GFR 61. Glucose 111. Magnesium 2.5. AST 41. ALT 40. Total bilirubin 4.3. Alkaline phosphatase 356. Troponins negative 3 BNP: 4400 The patient was admitted to the hospital under the care of Dr. Lucero. Consultations were placed to cardiology. 08/23/2017 Patient seen and examined at the bedside. Patient was started on Lasix 40 mg IV every 12 hours yesterday per cardiology. Patient underwent a venous Doppler on 08/22/2017 due to right lower extremity edema. Doppler was negative for a DVT. Blood pressure is stable with a last reading of 110 over the T8. She is on room air with oxygen saturations greater than 92%. She is afebrile. She remains A. fib on the monitor in the 80s and 90s. INR this morning is 4.2. Coumadin remains on hold. Potassium is low this morning at 3.1. Urinalysis was completed on 08/22/2017 revealing clear yellow urine, 1+ proteinuria, moderate blood, moderate leukocyte esterase, RBC 45, WBC 33, rare bacteria, rare mucus, and hyaline casts of 7. The patient pulled out her indwelling urinary catheter this morning. Echocardiogram was completed on 08/21/2017 which revealed moderate concentric left ventricular hypertrophy, ejection fraction of 50-55%, mildly enlarged right ventricle, mild aortic regurgitation, moderate to severe aortic stenosis, moderate mitral regurgitation, severe tricuspid regurgitation, moderate pulmonary hypertension, moderate pulmonic regurgitation, and RVSP of 54.14. 08/24/2017 Patient seen and examined at the bedside. patient underwent ultrasound of the abdomen on 08/23/2017 which revealed right pleural effusion, positive sonographic Pink sign, findings suggestive of cholecystitis. Suspected hepatomegaly. General surgery was consulted. no surgical intervention from their standpoint. INR this morning is 3.9. Coumadin remains on hold. Patient' s lactic acid yesterday was 3.2. IV fluids were ordered if ok with cardiology. Fluids were discontinued. Repeat lactic acid 2.1. patient remains on Lasix 40 mg IV every 12 hours. patient remains on Levaquin for a possible urinary tract infection. Urine culture is currently pending. 08/25/2017-Note per Dr. Mendez 08/26/2017-Note per Dr. Mendez 08/27/2017 Patient evaluated at the bedside. Patient underwent MRCP which revealed common bile duct stone and well as gallstones. Patient is to undergo ERCP when INR is less than 1.5 per GI documentation. INR this morning is 2.6. Patient remains off Coumadin. Potassium this morning is 5.7. Patients urinalysis was positive for leukocyte esterase. Urine culture was sent but per lab report specimen was unsuitable and requested new specimen. Patient remains on Levaquin. Apparently, cardiology has signed off the case but patient remains on lasix 40mg IV daily. Patient has some confusion over the weekend and was pulling out IV lines and taking off her gown. CT of the brain was completed on 08/25/2017 revealing no evidence of intracranial hemorrhage or midline shift. There is moderate to severe diffuse age-related cerebral atrophy and chronic small vessel ischemic changes redemonstrated without significant change from prior exam. 08/28/2017 Patient examined at the bedside on rounds with Dr. Mendez. Patient is awake and alert, but remains confused. Patient does complain of abdominal pain. Dr. Mendez asked patient if she wanted to undergo furthering testing and procedures and patient states she wanted to proceed. Patients son is her guardian. Apparently, family is undecided if they want to pursue ERCP. INR this morning is 2.5. Patient received 5mg Vitamin K yesterday. BUN 31. Creatinine 1.40. AST 106. ALT 53. Alkaline phosphatase 873. TSH 1.4. 08/29/2017 Patient examined at the bedside. Patient has been transferred to general medical floor. Patient very restless and agitated this morning. Constantly calling out and yelling. Patient's blood pressure is on the lower side this morning at 89/65. Previous reading 90/62. Patients heart rate currently 77 but has been running in the 90s. Patient's INR yesterday was 2.5. Patient received 10 mg vitamin K. Repeat INR this morning is currently pending. Comprehensive metabolic panel from this morning is also currently pending. Currently awaiting decision from family regarding whether or not they would like to proceed with ERCP. Addendum: Lab work from this morning reveals creatinine 1.6. BUN 36. Creatinine yesterday was 1.40. Patient's baseline is around 1.0. Will continue to hold Lasix. Patient was hypotensive this morning and has had overall decreased oral intake. Begin gentle hydration with normal saline at 50 mL an hour. Monitor for signs of fluid overload. Will consult nephrology for acute kidney injury. INR is still pending. Addendum: Spoke with patients son, Derrek, regarding ERCP. Derrek states they would like to proceed with ERCP. Notified Dr. Savage. INR 1.7 today. Will recheck in AM. Will make patient NPO after midnight. 08/30/2017 Patient examined at the bedside. Patient remains confused and slightly lethargic. Patient will open eyes to verbal stimuli. She is scheduled for ERCP today. Her INR is 1.7. Potassium today is 5.9. BUN 40. Creatinine 1.81. Nephrology has been consulted. She remains on normal saline at 50 mL an hour. blood pressure has been on the lower side with systolics in the mid 80s. Blood pressure this morning is 95/68. Her Lasix remains on hold. She is afebrile. ADDENDUM 1730: Notified by nursing this afternoon that patient has become more lethargic. SOCIAL MEDIA INTERN re -assessed patient. Patient was scheduled for ERCP today but it was cancelled due to elevated potassium. Hyperkalemia was treated this AM with IV insulin and dextrose. Patients BP has been borderline hypotensive with BPs in the 90s. Patient is receiving IV fluids at 50cc/hr. Patient was admitted with CHF exac and was receiving IV lasix a few days ago, thus fluid resuscitation has been modest. Lasix has been transitioned to oral which remains on hold. Patient received scheduled seroquel last night along with Haldol as she becomes agitated and restless and yells out frequently secondary to her dementia. Patient does appear more lethargic in comparison to examination this morning. Lethargy is likely multifactorial due to seroquel, haldol, hypotension, acute kidney injury, and suspected urinary tract infection. Patient is a DNR and does not want to be intubated. ABG was obtained to assess patients oxygenation. ABG is within normal limits. Patient is on 2L with oxygen saturations greater than 92%. She is lethargic, but appears comfortable. No signs of agonal breathing. Spoke with patients daughter in law and sister at the bedside. All questions answered to the best of my ability. Patients sister states she is going to stay overnight in the event that she becomes agitated throughout the night or in case her condition continues to decline. Repeat K is 5.5 Additional 10 units IV insulin and dextrose ordered. Repeat at 1999. Will DC seroquel and haldol. SOCIAL MEDIA INTERN updated Dr. Mendez who agrees with orders and plan of care. Dr. Mendez does not want patient transferred to the ICU. This was also told to the patients RN. However, shortly after SOCIAL MEDIA INTERN spoke with RN and spoke with patients family, the patients nurse called an A team. No further interventions were performed. SOCIAL MEDIA INTERN notified Dr. Mendez that A-team was called on patient by floor nurse. 08/31/2017 Patient was transferred to ICU yesterday per Dr. Mccoy orders. Patient remains lethargic this morning but is able to open her eyes to commands. Patient is verbalizing a few words at a time. She remains confused, which is her baseline. She received 750cc in fluid boluses. She was started on Levophed and is currently infusing at 9mcg/min. Blood pressure has been running 110/70s. She is on 3L NC with oxygen saturations greater than 92%. Indwelling urinary catheter was inserted yesterday. Meaghan urine noted. Decreased output. Chest xray was completed 08/30/2017 revealing congestive heart failure with increasing congestion and right pleural fluid. Patient received 40mg IV lasix per nephrology. Repeat chest xray was completed 08/31/2017 revealing improving features of congestive heart failure, cardiomegaly, and scattered infiltrates. CBC this morning 5.8. Hemoglobin 13.5. INR 1.5. Sodium 137. Potassium 5.8. BUN 46. Creatinine 1.91. Magnesium 3.2. Total bilirubin 3.8. AST 56. ALT 44. Alkaline phosphatase 634. Ammonia level was 67 yesterday. Repeated this morning. Result is 38. Patient was hypoglycemic this morning and was receiving IV dextrose at the time of my examination. Objective - Vital Signs Vital signs: Vital Signs Temp 97.8 F 08/31/17 08:00 Pulse 80 08/31/17 09:00 Resp 24 08/31/17 09:00 BP 115/75 08/31/17 09:00 Pulse Ox 97 08/31/17 09:00 Intake & Output 08/30/17 08/31/17 08/31/17 18:59 06:59 18:59 Intake Total 561 160 203.733 Output Total 0 280 48 Balance 561 -120 155.733 Weight 110.9 kg Intake: IV 160 40 Dextrose 5%-0.9% NaCl 1, 160 40 000 ml @ 50 mls/hr IV . Q20H [facility] Rx#:[id number] Intake, IV Titration 163.733 Amount Norepinephrin 4 mg-0.9% 163.733 Ns Pmx 4 mg In 250 ml @ Titrate IV .Q0M [facility] Rx#: [id number] Oral 0 Blood Product 561 Ffp 24 Cpd Unit 314 [id number] Ffp 24 Cpd Unit 247 [id number] Output: Urine 280 48 Post Void Residual 0 Other: Voiding Method Indwelling Catheter Indwelling Catheter - Exam GENERAL: This is a 82-year-old female who is confused and slightly lethargic. Arouses to verbal stimuli. HEENT: Head is atraumatic, normocephalic. Pupils are equal, round, and reactive to light. Sclerae anicteric. Conjunctivae are clear. Mucus membranes of the mouth are dry. Neck is supple. RESPIRATORY: Diminished throughout. Rales noted to bilateral bases. No use of accessory muscles. Patient maintaining oxygen saturation greater than 92% on 3 L nasal cannula. No chest wall tenderness is noted on palpation or with deep breathing. CARDIOVASCULAR: Irregular rhythm. S1 and S2 noted. Systolic murmur auscultated. No JVD noted. No S3 or S4 noted. GASTROINTESTINAL: No distention noted. Abdomen soft and round. Normal active bowel sounds auscultated x 4 quadrants. Slight pain and tenderness noted upon palpation of right upper quadrant. INTEGUMENTARY: No cyanosis. No rashes noted. No cellulitis noted. EXTREMITIES: 1+ peripheral pulses. +2 lower extremity edema. +2 edema to bilateral upper extremities. No calf tenderness noted. NEUROLOGIC: Cranial nerves II-XII intact. PSYCHIATRIC: Patient oriented 1. arouses to verbal stimuli. - Labs CBC & Chem 7: 08/31/17 05:05 08/31/17 09:17 Labs: Abnormal Lab Results - Last 24 Hours (Table) 08/30/17 08/30/17 08/30/17 Range/Units 13:56 15:33 16:23 MCHC 29.6 L (31.0-37.0) g/dL RDW 20.2 H (11.5-15.5) % Plt Count 132 L (150-450) k/uL Lymphocytes # (1.0-4.8) k/uL PT (9.0-12.0) sec INR (<1.2) ABG pH 7.46 H (7.35-7.45) ABG pO2 139 H (83-108) mmHg ABG HCO3 26 H (21-25) mmol/L ABG Total CO2 27 H (19-24) mmol/L ABG O2 Saturation 99.5 H (94-97) % Sodium (137-145) mmol/L Potassium 5.5 H (3.5-5.1) mmol/L BUN (7-17) mg/dL Creatinine (0.52-1.04) mg/dL Glucose (74-99) mg/dL POC Glucose (mg/dL) (75-99) mg/dL Plasma Lactic Acid Ashish (0.7-2.0) mmol/L Calcium (8.4-10.2) mg/dL Magnesium (1.6-2.3) mg/dL Total Bilirubin (0.2-1.3) mg/dL AST (14-36) U/L Alkaline Phosphatase (38-126) U/L Ammonia (<30) umol/L Total Protein (6.3-8.2) g/dL Albumin (3.5-5.0) g/dL 08/30/17 08/30/17 08/30/17 Range/Units 16:23 16:23 20:14 MCHC (31.0-37.0) g/dL RDW (11.5-15.5) % Plt Count (150-450) k/uL Lymphocytes # (1.0-4.8) k/uL PT (9.0-12.0) sec INR (<1.2) ABG pH (7.35-7.45) ABG pO2 (83-108) mmHg ABG HCO3 (21-25) mmol/L ABG Total CO2 (19-24) mmol/L ABG O2 Saturation (94-97) % Sodium 135 L 134 L (137-145) mmol/L Potassium 5.6 H 5.3 H (3.5-5.1) mmol/L BUN 42 H 43 H (7-17) mg/dL Creatinine 1.80 H 1.88 H (0.52-1.04) mg/dL Glucose (74-99) mg/dL POC Glucose (mg/dL) (75-99) mg/dL Plasma Lactic Acid Ashish 2.2 H* (0.7-2.0) mmol/L Calcium 8.3 L (8.4-10.2) mg/dL Magnesium 3.2 H (1.6-2.3) mg/dL Total Bilirubin (0.2-1.3) mg/dL AST (14-36) U/L Alkaline Phosphatase (38-126) U/L Ammonia (<30) umol/L Total Protein (6.3-8.2) g/dL Albumin (3.5-5.0) g/dL 08/30/17 08/30/17 08/30/17 Range/Units 20:14 20:21 23:46 MCHC (31.0-37.0) g/dL RDW 20.0 H (11.5-15.5) % Plt Count 121 L (150-450) k/uL Lymphocytes # (1.0-4.8) k/uL PT (9.0-12.0) sec INR (<1.2) ABG pH (7.35-7.45) ABG pO2 (83-108) mmHg ABG HCO3 (21-25) mmol/L ABG Total CO2 (19-24) mmol/L ABG O2 Saturation (94-97) % Sodium (137-145) mmol/L Potassium (3.5-5.1) mmol/L BUN (7-17) mg/dL Creatinine (0.52-1.04) mg/dL Glucose (74-99) mg/dL POC Glucose (mg/dL) 72 L (75-99) mg/dL Plasma Lactic Acid Ashish 2.5 H* (0.7-2.0) mmol/L Calcium (8.4-10.2) mg/dL Magnesium (1.6-2.3) mg/dL Total Bilirubin (0.2-1.3) mg/dL AST (14-36) U/L Alkaline Phosphatase (38-126) U/L Ammonia (<30) umol/L Total Protein (6.3-8.2) g/dL Albumin (3.5-5.0) g/dL 08/31/17 08/31/17 08/31/17 Range/Units 00:31 00:31 05:05 MCHC (31.0-37.0) g/dL RDW (11.5-15.5) % Plt Count (150-450) k/uL Lymphocytes # (1.0-4.8) k/uL PT 13.9 H (9.0-12.0) sec INR 1.5 H (<1.2) ABG pH (7.35-7.45) ABG pO2 (83-108) mmHg ABG HCO3 (21-25) mmol/L ABG Total CO2 (19-24) mmol/L ABG O2 Saturation (94-97) % Sodium (137-145) mmol/L Potassium (3.5-5.1) mmol/L BUN (7-17) mg/dL Creatinine (0.52-1.04) mg/dL Glucose (74-99) mg/dL POC Glucose (mg/dL) (75-99) mg/dL Plasma Lactic Acid Ashish 3.2 H* (0.7-2.0) mmol/L Calcium (8.4-10.2) mg/dL Magnesium (1.6-2.3) mg/dL Total Bilirubin (0.2-1.3) mg/dL AST (14-36) U/L Alkaline Phosphatase (38-126) U/L Ammonia 67 H (<30) umol/L Total Protein (6.3-8.2) g/dL Albumin (3.5-5.0) g/dL 08/31/17 08/31/17 08/31/17 Range/Units 05:05 05:05 06:06 MCHC 30.5 L (31.0-37.0) g/dL RDW 19.9 H (11.5-15.5) % Plt Count (150-450) k/uL Lymphocytes # 0.8 L (1.0-4.8) k/uL PT (9.0-12.0) sec INR (<1.2) ABG pH (7.35-7.45) ABG pO2 (83-108) mmHg ABG HCO3 (21-25) mmol/L ABG Total CO2 (19-24) mmol/L ABG O2 Saturation (94-97) % Sodium (137-145) mmol/L Potassium 5.8 H (3.5-5.1) mmol/L BUN 46 H (7-17) mg/dL Creatinine 1.91 H (0.52-1.04) mg/dL Glucose 64 L (74-99) mg/dL POC Glucose (mg/dL) 178 H (75-99) mg/dL Plasma Lactic Acid Ashish (0.7-2.0) mmol/L Calcium (8.4-10.2) mg/dL Magnesium 3.2 H (1.6-2.3) mg/dL Total Bilirubin 3.8 H (0.2-1.3) mg/dL AST 56 H (14-36) U/L Alkaline Phosphatase 634 H (38-126) U/L Ammonia (<30) umol/L Total Protein 6.0 L (6.3-8.2) g/dL Albumin 2.7 L (3.5-5.0) g/dL 08/31/17 08/31/17 08/31/17 Range/Units 09:25 09:28 09:45 MCHC (31.0-37.0) g/dL RDW (11.5-15.5) % Plt Count (150-450) k/uL Lymphocytes # (1.0-4.8) k/uL PT (9.0-12.0) sec INR (<1.2) ABG pH (7.35-7.45) ABG pO2 (83-108) mmHg ABG HCO3 (21-25) mmol/L ABG Total CO2 (19-24) mmol/L ABG O2 Saturation (94-97) % Sodium (137-145) mmol/L Potassium (3.5-5.1) mmol/L BUN (7-17) mg/dL Creatinine (0.52-1.04) mg/dL Glucose (74-99) mg/dL POC Glucose (mg/dL) 52 L 140 H (75-99) mg/dL Plasma Lactic Acid Ashish (0.7-2.0) mmol/L Calcium (8.4-10.2) mg/dL Magnesium (1.6-2.3) mg/dL Total Bilirubin (0.2-1.3) mg/dL AST (14-36) U/L Alkaline Phosphatase (38-126) U/L Ammonia 38 H (<30) umol/L Total Protein (6.3-8.2) g/dL Albumin (3.5-5.0) g/dL 08/31/17 Range/Units 10:42 MCHC (31.0-37.0) g/dL RDW (11.5-15.5) % Plt Count (150-450) k/uL Lymphocytes # (1.0-4.8) k/uL PT (9.0-12.0) sec INR (<1.2) ABG pH (7.35-7.45) ABG pO2 (83-108) mmHg ABG HCO3 27 H (21-25) mmol/L ABG Total CO2 29 H (19-24) mmol/L ABG O2 Saturation 98.7 H (94-97) % Sodium (137-145) mmol/L Potassium (3.5-5.1) mmol/L BUN (7-17) mg/dL Creatinine (0.52-1.04) mg/dL Glucose (74-99) mg/dL POC Glucose (mg/dL) (75-99) mg/dL Plasma Lactic Acid Ashish (0.7-2.0) mmol/L Calcium (8.4-10.2) mg/dL Magnesium (1.6-2.3) mg/dL Total Bilirubin (0.2-1.3) mg/dL AST (14-36) U/L Alkaline Phosphatase (38-126) U/L Ammonia (<30) umol/L Total Protein (6.3-8.2) g/dL Albumin (3.5-5.0) g/dL Microbiology - Last 24 Hours (Table) 08/30/17 00:29 Urine Culture - Preliminary Urine,Voided Assessment and Plan Plan: ASSESSMENT: Acute exacerbation of diastolic congestive heart failure, echo reveals ejection fraction of 50-55% Chronic atrial fibrillation, maintained on long-term anticoagulation with Coumadin Supratherapeutic INR, INR 4.9 on admission, resolved, coumadin remains on hold Bacteruria, urinalysis positive for leukocyte esterase, urine culture negative 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 Hypokalemia, secondary to diuretic therapy, resolved Hyperkalemia, likely secondary to acute kidney injury Acute kidney injury, secondary to diuretic therapy, hypotension, and hypoperfusion, baseline creatinine 1.0 Hypotension, requiring vasopressor support Hypoglycemia Elevated bilirubin and alkaline phosphatase with normal amylase and lipase with slight jaundice, s/p MRCP revealing common bile duct stone and also gallstones Choledocholithiasis Cholelithiasis History of TIA Essential hypertension Hyperlipidemia Hypothyroidism Dementia Obesity: BMI 32.4 PLAN: Continue ICU management per Dr. Lindo Continue to hold Seroquel. Haldol discontinued as well Nephrology on consult. Appreciate recommendations and input 10 units insulin 1 dose plus dextrose per nephrology for hyperkalemia 40 mg Lasix IV ordered per nephrology this morning Additional 40 mg Lasix IV ordered per pulmonary Wean Levophed as tolerated. Maintain MAP greater than 65. Continue urinary catheter Accurate I&O Dextrose 10% in water at 50cc/hr ordered per visual training aide CT Brain ordered per visual training aide. Await results ERCP cancelled today. Continue to hold Coumadin. Monitor INR. Gen. surgery and GI on consult Physical therapy and occupational therapy Home meds as appropriate Monitor labs GI prophylaxis: Pepcid 20 mg by daily DVT prophylaxis: JESUS hose and Venodyne's to bilateral lower extremities Monitor vital signs and address as appropriate Further recommendations pending patient's course Nurse practitioner note has been reviewed by physician. Signing provider agrees with the documented findings, assessment, and plan of care. <George Mendez Jr - Last Filed: 09/01/17 08:38> Objective - Vital Signs Vital signs: Vital Signs Temp 97.2 F L 09/01/17 04:00 Pulse 80 09/01/17 07:00 Resp 30 H 09/01/17 07:00 BP 92/74 09/01/17 07:00 Pulse Ox 98 09/01/17 07:00 Intake & Output 08/31/17 09/01/17 09/01/17 18:59 06:59 18:59 Intake Total 761.215 742.438 106.347 Output Total 268 180 20 Balance 493.215 562.438 86.347 Weight 111.1 kg Intake: IV 60 450 50 Dextrose 10% in Water 500 450 50 ml In Empty Bag 1 bag @ 50 mls/hr IV .Q10H [facility] Rx #:[id number] Dextrose 5%-0.9% NaCl 1, 60 000 ml @ 50 mls/hr IV . Q20H [facility] Rx#:[id number] Intake, IV Titration 701.215 292.438 56.347 Amount Dextrose 10% in Water 500 400 150 ml In Empty Bag 1 bag @ 50 mls/hr IV .Q10H [facility] Rx #:[id number] Norepinephrin 4 mg-0.9% 301.215 142.438 56.347 Ns Pmx 4 mg In 250 ml @ Titrate IV .Q0M [facility] Rx#: [id number] Output: Urine 268 180 20 Other: Voiding Method Indwelling Catheter Indwelling Catheter - Labs CBC & Chem 7: 09/01/17 04:08 09/01/17 04:08 Labs: Abnormal Lab Results - Last 24 Hours (Table) 08/31/17 08/31/17 08/31/17 Range/Units 09:25 09:28 09:45 MCHC (31.0-37.0) g/dL RDW (11.5-15.5) % Lymphocytes # (1.0-4.8) k/uL PT (9.0-12.0) sec INR (<1.2) ABG HCO3 (21-25) mmol/L ABG Total CO2 (19-24) mmol/L ABG O2 Saturation (94-97) % Sodium (137-145) mmol/L BUN (7-17) mg/dL Creatinine (0.52-1.04) mg/dL Glucose (74-99) mg/dL POC Glucose (mg/dL) 52 L 140 H (75-99) mg/dL Calcium (8.4-10.2) mg/dL Magnesium (1.6-2.3) mg/dL Total Bilirubin (0.2-1.3) mg/dL AST (14-36) U/L Alkaline Phosphatase (38-126) U/L Ammonia 38 H (<30) umol/L Total Protein (6.3-8.2) g/dL Albumin (3.5-5.0) g/dL Urine Appearance (Clear) Urine Protein (Negative) Urine Blood (Negative) Ur Leukocyte Esterase (Negative) Urine RBC (0-5) /hpf Urine WBC (0-5) /hpf Urine WBC Clumps (None) /hpf Urine Bacteria (None) /hpf Hyaline Casts (0-2) /lpf Urine Mucus (None) /hpf /18 08/31/17/ Range/Units 10:42 20:13 20:38 MCHC (31.0-37.0) g/dL RDW (11.5-15.5) % Lymphocytes # (1.0-4.8) k/uL PT (9.0-12.0) sec INR (<1.2) ABG HCO3 27 H (21-25) mmol/L ABG Total CO2 29 H (19-24) mmol/L ABG O2 Saturation 98.7 H (94-97) % Sodium (137-145) mmol/L BUN 48 H (7-17) mg/dL Creatinine 2.12 H (0.52-1.04) mg/dL Glucose 105 H (74-99) mg/dL POC Glucose (mg/dL) 120 H (75-99) mg/dL Calcium 8.3 L (8.4-10.2) mg/dL Magnesium 3.1 H (1.6-2.3) mg/dL Total Bilirubin 3.4 H (0.2-1.3) mg/dL AST 69 H (14-36) U/L Alkaline Phosphatase 574 H (38-126) U/L Ammonia (<30) umol/L Total Protein 5.6 L (6.3-8.2) g/dL Albumin 2.5 L (3.5-5.0) g/dL Urine Appearance (Clear) Urine Protein (Negative) Urine Blood (Negative) Ur Leukocyte Esterase (Negative) Urine RBC (0-5) /hpf Urine WBC (0-5) /hpf Urine WBC Clumps (None) /hpf Urine Bacteria (None) /hpf Hyaline Casts (0-2) /lpf Urine Mucus (None) /hpf 08/31/17 09/01/17 09/01/17 Range/Units 22:54 00:08 02:14 MCHC (31.0-37.0) g/dL RDW (11.5-15.5) % Lymphocytes # (1.0-4.8) k/uL PT (9.0-12.0) sec INR (<1.2) ABG HCO3 (21-25) mmol/L ABG Total CO2 (19-24) mmol/L ABG O2 Saturation (94-97) % Sodium (137-145) mmol/L BUN (7-17) mg/dL Creatinine (0.52-1.04) mg/dL Glucose (74-99) mg/dL POC Glucose (mg/dL) 147 H 108 H 108 H (75-99) mg/dL Calcium (8.4-10.2) mg/dL Magnesium (1.6-2.3) mg/dL Total Bilirubin (0.2-1.3) mg/dL AST (14-36) U/L Alkaline Phosphatase (38-126) U/L Ammonia (<30) umol/L Total Protein (6.3-8.2) g/dL Albumin (3.5-5.0) g/dL Urine Appearance (Clear) Urine Protein (Negative) Urine Blood (Negative) Ur Leukocyte Esterase (Negative) Urine RBC (0-5) /hpf Urine WBC (0-5) /hpf Urine WBC Clumps (None) /hpf Urine Bacteria (None) /hpf Hyaline Casts (0-2) /lpf Urine Mucus (None) /hpf 09/01/17 09/01/17 09/01/17 Range/Units 04:08 04:08 04:08 MCHC 30.8 L (31.0-37.0) g/dL RDW 20.2 H (11.5-15.5) % Lymphocytes # 0.8 L (1.0-4.8) k/uL PT 14.3 H (9.0-12.0) sec INR 1.5 H (<1.2) ABG HCO3 (21-25) mmol/L ABG Total CO2 (19-24) mmol/L ABG O2 Saturation (94-97) % Sodium 134 L (137-145) mmol/L BUN 47 H (7-17) mg/dL Creatinine 2.30 H (0.52-1.04) mg/dL Glucose (74-99) mg/dL POC Glucose (mg/dL) (75-99) mg/dL Calcium 8.1 L (8.4-10.2) mg/dL Magnesium 3.0 H (1.6-2.3) mg/dL Total Bilirubin 3.0 H (0.2-1.3) mg/dL AST 44 H (14-36) U/L Alkaline Phosphatase 544 H (38-126) U/L Ammonia (<30) umol/L Total Protein 5.2 L (6.3-8.2) g/dL Albumin 2.3 L (3.5-5.0) g/dL Urine Appearance (Clear) Urine Protein (Negative) Urine Blood (Negative) Ur Leukocyte Esterase (Negative) Urine RBC (0-5) /hpf Urine WBC (0-5) /hpf Urine WBC Clumps (None) /hpf Urine Bacteria (None) /hpf Hyaline Casts (0-2) /lpf Urine Mucus (None) /hpf 09/01/17 Range/Units 05:00 MCHC (31.0-37.0) g/dL RDW (11.5-15.5) % Lymphocytes # (1.0-4.8) k/uL PT (9.0-12.0) sec INR (<1.2) ABG HCO3 (21-25) mmol/L ABG Total CO2 (19-24) mmol/L ABG O2 Saturation (94-97) % Sodium (137-145) mmol/L BUN (7-17) mg/dL Creatinine (0.52-1.04) mg/dL Glucose (74-99) mg/dL POC Glucose (mg/dL) (75-99) mg/dL Calcium (8.4-10.2) mg/dL Magnesium (1.6-2.3) mg/dL Total Bilirubin (0.2-1.3) mg/dL AST (14-36) U/L Alkaline Phosphatase (38-126) U/L Ammonia (<30) umol/L Total Protein (6.3-8.2) g/dL Albumin (3.5-5.0) g/dL Urine Appearance Cloudy H (Clear) Urine Protein 1+ H (Negative) Urine Blood Moderate H (Negative) Ur Leukocyte Esterase Large H (Negative) Urine RBC 94 H (0-5) /hpf Urine WBC 109 H (0-5) /hpf Urine WBC Clumps Occasional H (None) /hpf Urine Bacteria Few H (None) /hpf Hyaline Casts 35 H (0-2) /lpf Urine Mucus Few H (None) /hpf Microbiology - Last 24 Hours (Table) 08/30/17 23:46 Blood Culture - Preliminary Blood No Growth after 24 hours 08/30/17 00:29 Urine Culture - Final Urine,Voided Assessment and Plan (1) Choledocholithiasis with chronic cholecystitis Current Visit: Yes Status: Acute Code(s): K80.44 - CALCULUS OF BILE DUCT W CHRONIC CHOLECYST W/O OBSTRUCTION SNOMED Code(s): 22416747 (2) Cholelithiasis Current Visit: Yes Status: Acute Code(s): K80.20 - CALCULUS OF GALLBLADDER W /O CHOLECYSTITIS W/O OBSTRUCTION SNOMED Code(s): 906157620 (3) Acute exacerbation of CHF (congestive heart failure) Current Visit: No Status: Acute Code(s): I50.9 - HEART FAILURE, UNSPECIFIED SNOMED Code(s): 98720813
--- NOTE | 2017-08-31 14:34 | P.CNPUL ---
History of Present Illness Consult date: 08/31/17 Requesting physician: Rohan Lucero Reason for consult: other (Critical care management) Chief complaint: Altered mental status, obtunded, unresponsive History of present illness: This is an 82-year-old female patient who follows with Dr. Lucero as her primary care physician. She has a history of atrial fibrillation, cerebrovascular accident/transischemic attack, dementia, hyperlipidemia, hypothyroidism, degenerative joint disease, glaucoma, ESBL urinary tract infections, skin cancer. She resides at [facility]. She was originally admitted here on 08/21/2017 for complaints of shortness of breath. Her initial concerns regarding congestive heart failure. Her chest x-ray did reveal marketed cardiomegaly with small bilateral pleural effusions and mild congestive heart failure. Her echocardiogram revealed preserved left ventricular systolic function with ejection fraction 50-55%. There is moderate pulmonary hypertension, moderate pulmonary regurgitation, moderate mitral regurgitation. Doppler of the right lower extremity was negative for DVT. A computed tomography scan on 08/25/2017 was performed due to altered mental status. There is no acute intracranial hemorrhage or midline shift. There is moderate to severe diffuse age-related cerebral atrophy and small vessel ischemic changes. An MRCP was performed and there were 2 common bile duct stones. No suspicious biliary dilatation however. There is a larger stone in the gallbladder without evidence of acute cholecystitis. Surgical services are on the case. No current interventions planned. The patient had become obtunded while out on the regular medical floor and transferred here to the intensive care unit. We are consulted now for critical care management. She is currently withdrawing to painful stimuli only. No eye contact. Nonfocal. Pupils are pinpoint. She was sent for a second computed tomography scan of the brain today which again revealed no acute intracranial abnormalities. Arterial blood gas on 32% FiO2 revealed a PaO2 of 107, CO2 of 39, pH 7.45. She is maintaining good O2 saturations up to 100% on 3 L/m per nasal cannula. She has been having some issues with low blood sugar. She is on D5W at 50 MLS per hour. She's also been borderline hypotensive and is currently on norepinephrine at 7 mcg/m. Urine culture is in progress. She is currently on Levaquin. Review of Systems ROS unobtainable: due to mental status Past Medical History Past Medical History: Atrial Fibrillation, Heart Failure, CVA/TIA, Dementia, Hyperlipidemia, Hypertension, Memory Impairment, Osteoarthritis (OA), Thyroid Disorder Additional Past Medical History / Comment(s): irregular rythym, stress incont of urine,DJD, skin ca removed,had some bleeding behind lt eye- sees a for this, "RT CALF HAS A WOUND ON IT "10-13-15 fell out of w/c struck face on floor, pt 2 person assist, yael lift, continent uses bed bergeron, on coumadin for afib, rhabdoylosis, 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 breat biopsy scheduled 08/31/2017. surgery for hemorrhage from TIA in Left eye Past Anesthesia/Blood Transfusion Reactions: No Reported Reaction Past Psychological History: No Psychological Hx Reported Smoking Status: Never smoker Past Alcohol Use History: None Reported Past Drug Use History: None Reported - Past Family History Father Additional Family Medical History / Comment(s): parkinsons Mother Family Medical History: Deep Vein Thrombosis (DVT) Additional Family Medical History / Comment(s): heart problems Medications and Allergies Home Medications Medication Instructions Recorded Confirmed Type Atorvastatin [Lipitor] 40 mg PO HS 05/07/15 02/12/16 History Calcium Carbonate/Vitamin D3 1 tab PO DAILY@1700 07/22/15 08/21/17 History [Calcium 600-Vit D3 400 Tablet] Nystatin [Nystop] 1 applic TOPICAL BID PRN 07/22/15 08/21/17 History Brinzolamide/Brimonidine Tart 1 drop LEFT EYE BID 10/13/15 08/21/17 History [Simbrinza 1%-0.2% Eye Drops] Glucosamine/Chondr Paiz A Sod [Osteo 1 tab PO DAILY@1700 10/13/15 02/12/16 History Bi-Flex Caplet] Potassium Chloride [K-Tab ER] 20 meq PO DAILY@1700 10/13/15 08/21/17 History Timolol 0.5% Ophth Soln [Timoptic 1 drop LEFT EYE DAILY 10/13/15 08/21/17 History 0.5% Ophth Soln] Bisacodyl [Dulcolax] 10 mg RECTAL DAILY PRN 08/21/17 08/21/17 History Ergocalciferol (Vitamin D2) 50,000 unit PO WE@1700 08/21/17 08/21/17 History [Vitamin D2] Famotidine [Pepcid] 20 mg PO DAILY 08/21/17 08/21/17 History Furosemide [Lasix] 40 mg PO DAILY@1400 08/21/17 08/21/17 History Furosemide [Lasix] 80 mg PO DAILY 08/21/17 08/21/17 History Latanoprost [Xalatan 0.005%] 1 drop BOTH EYES HS 08/21/17 08/21/17 History Levothyroxine Sodium [Synthroid] 150 mcg PO DAILY@0800 08/21/17 08/21/17 History Magnesium Hydroxide [Milk of 7,200 mg PO DAILY PRN 08/21/17 08/21/17 History Magnesia Concentrate] Magnesium Oxide [Suarez] 500 mg PO BID@0800,1700 08/21/17 08/21/17 History Memantine [Namenda] 10 mg PO DAILY 08/21/17 08/21/17 History Metoprolol Succinate [Toprol XL] 50 mg PO DAILY 08/21/17 08/21/17 History Na Phos,M-B/Na Phos,Di-Ba [Fleet 133 ml RECTAL ONCE PRN 08/21/17 08/21/17 History Adult] Ocusoft Lid Scrub Plus Pad 1 applic OPHTHALMIC DAILY PRN 08/21/17 08/21/17 History Polyethylene Glycol 3350 [Miralax] 17 gm PO DAILY PRN 08/21/17 08/21/17 History Vit C/E/Zn/Coppr/Lutein/Zeaxan 1 cap PO BID@0800,1700 08/21/17 08/21/17 History [Preservision Areds 2 Softgel] Warfarin [Coumadin] 2 mg PO DAILY@1700 08/21/17 08/21/17 History guaiFENesin-DM 100-10MG/5ML 10 ml PO Q4H PRN 08/21/17 08/21/17 History [Robitussin DM] Allergies Allergy/AdvReac Type Severity Reaction Status Date / Time No Known Allergies Allergy Verified 08/21/17 11:45 Physical Exam Vitals: Vital Signs Temp Pulse Pulse Resp BP BP BP 08/31/17 12:30 18 117/84 08/31/17 12:00 97.9 F 68 9 L 117/84 08/31/17 11:31 78 24 100/79 08/31/17 11:00 72 15 100/79 08/31/17 10:30 80 25 H 90/64 08/31/17 10:00 84 14 104/65 08/31/17 09:30 78 25 H 115/75 08/31/17 09:00 80 24 115/75 08/31/17 08:30 85 14 106/69 08/31/17 08:00 97.8 F 75 28 H 102/74 08/31/17 07:30 81 29 H 111/69 08/31/17 07:00 90 22 105/68 08/31/17 06:30 86 25 H 118/82 08/31/17 06:00 82 20 08/31/17 05:30 88 20 108/67 08/31/17 05:00 87 19 109/53 08/31/17 04:30 81 20 08/31/17 04:00 97.8 F 82 20 08/31/17 03:30 78 20 107/64 08/31/17 03:00 97.7 F 85 24 109/78 08/31/17 02:30 74 18 112/69 08/31/17 02:00 81 17 112/68 08/31/17 01:30 75 15 115/77 08/31/17 01:00 73 24 93/73 08/31/17 00:30 76 23 113/80 08/31/17 00:00 96.4 F L 73 13 08/30/17 23:30 67 15 08/30/17 23:00 69 20 78/48 08/30/17 22:44 96.2 F L 76 08/30/17 21:20 71 20 66/34 18 21:15 71 18 19:18 96.2 F L 17 99/77 08/30/17 17:30 94.0 F L 75 20 84/54 08/30/17 17:17 77/47 08/30/17 16:42 94.0 F L 79 20 03/15/18 16:12 72 20 92/57 08/30/17 16:02 95.4 F L 75 22 92/57 08/30/17 15:52 78 20 08/30/17 15:28 94.0 F L 81 20 72/58 08/30/17 15:00 96.7 F L 79 18 98/69 08/30/17 14:58 95.3 F L 81 20 95/62 08/30/17 14:48 96.7 F L 81 20 98/69 Pulse Ox 08/31/17 12:30 100 08/31/17 12:00 100 08/31/17 11:31 100 08/31/17 11:00 100 08/31/17 10:30 97 08/31/17 10:00 97 08/31/17 09:30 97 08/31/17 09:00 97 08/31/17 08:30 98 08/31/17 08:00 100 08/31/17 07:30 98 08/31/17 07:00 99 08/31/17 06:30 97 08/31/17 06:00 99 08/31/17 05:30 100 08/31/17 05:00 99 08/31/17 04:30 99 08/31/17 04:00 99 08/31/17 03:30 98 08/31/17 03:00 97 08/31/17 02:30 98 08/31/17 02:00 99 08/31/17 01:30 99 08/31/17 01:00 74 L 08/31/17 00:30 99 08/31/17 00:00 100 08/30/17 23:30 75 L 08/30/17 23:00 97 08/30/17 22:44 91 L 08/30/17 21:20 93 L 08/30/17 21:15 08/30/17 19:18 95 08/30/17 17:30 96 08/30/17 17:17 08/30/17 16:42 08/30/17 16:12 08/30/17 16:02 08/30/17 15:52 08/30/17 15:28 08/30/17 15:00 94 L 08/30/17 14:58 08/30/17 14:48 Intake and Output 08/30/17 08/31/17 08/31/17 22:59 06:59 14:59 Intake Total 561 160 323.733 Output Total 0 280 88 Balance 561 -120 235.733 Intake: IV 160 60 Dextrose 5%-0.9% NaCl 1, 160 60 000 ml @ 50 mls/hr IV . Q20H [facility] Rx#:[id number] Intake, IV Titration 263.733 Amount Dextrose 10% in Water 500 100 ml In Empty Bag 1 bag @ 50 mls/hr IV .Q10H [facility] Rx #:[id number] Norepinephrin 4 mg-0.9% 163.733 Ns Pmx 4 mg In 250 ml @ Titrate IV .Q0M [facility] Rx#: [id number] Blood Product 561 Ffp 24 Cpd Unit 314 [id number] Ffp 24 Cpd Unit 247 [id number] Output: Urine 280 88 Post Void Residual 0 Other: Voiding Method Bedpan Indwelling Catheter Indwelling Catheter Diaper Incontinent Weight 110.9 kg GENERAL EXAM: Obtunded, unresponsive. HEAD: Normocephalic. EYES: Sluggish reaction. Pupils, pinpoint.. NOSE: Clear with pink turbinates. THROAT: No erythema or exudates. NECK: No masses, no JVD. CHEST: No chest wall deformity. LUNGS: Equal air entry with crackles in the posterior bases. CVS: S1 and S2 normal with no audible murmur, regular rhythm. ABDOMEN: No hepatosplenomegaly, normal bowel sounds, no guarding or rigidity. SPINE: No scoliosis or deformity SKIN: No rashes CENTRAL NERVOUS SYSTEM: Tone is normal in all 4 extremities. EXTREMITIES: There is no peripheral edema. No clubbing, no cyanosis. Peripheral pulses are intact. Results - Laboratory Findings CBC and BMP: 08/31/17 05:05 08/31/17 09:17 ABG ABG pH 7.45 (7.35-7.45) 08/31/17 10:42 ABG pCO2 39 mmHg (35-45) 08/31/17 10:42 ABG pO2 107 mmHg (83-108) 08/31/17 10:42 ABG O2 Saturation 98.7 % (94-97) H 08/31/17 10:42 PT/INR, D-dimer PT 13.9 sec (9.0-12.0) H 08/31/17 05:05 INR 1.5 (<1.2) H 08/31/17 05:05 D-Dimer 0.62 mg/L FEU (<0.60) H 08/22/17 11:18 Abnormal lab findings: Abnormal Labs 08/21/17 08/21/17 08/21/17 12:09 12:09 12:09 MCH MCHC RDW 19.1 H Plt Count Lymphocytes # 0.9 L PT 44.6 H INR 4.9 H APTT 37.5 H D-Dimer ABG pH ABG pO2 ABG HCO3 ABG Total CO2 ABG O2 Saturation Sodium Potassium 3.2 L Chloride 96 L Carbon Dioxide 33 H BUN 21 H Creatinine Glucose 111 H POC Glucose (mg/dL) Plasma Lactic Acid Ashish Calcium Magnesium 2.5 H Total Bilirubin 4.3 H AST 41 H ALT Alkaline Phosphatase 356 H Ammonia Total Protein 6.1 L Albumin 2.9 L Urine Appearance Urine Protein Urine Blood Urine Bilirubin Ur Leukocyte Esterase Urine RBC Urine WBC Ur Squamous Epith Cells Urine Bacteria Hyaline Casts Urine Mucus Urine Yeast (Budding) 08/22/17 08/22/17 08/22/17 05:40 05:40 05:40 MCH MCHC 30.8 L RDW 19.1 H Plt Count Lymphocytes # PT 47.9 H INR 5.3 H* APTT D-Dimer ABG pH ABG pO2 ABG HCO3 ABG Total CO2 ABG O2 Saturation Sodium Potassium 3.3 L Chloride 95 L Carbon Dioxide 33 H BUN 20 H Creatinine Glucose POC Glucose (mg/dL) Plasma Lactic Acid Ashish Calcium Magnesium 2.4 H Total Bilirubin 4.0 H AST 39 H ALT Alkaline Phosphatase 357 H Ammonia Total Protein 6.0 L Albumin 2.8 L Urine Appearance Urine Protein Urine Blood Urine Bilirubin Ur Leukocyte Esterase Urine RBC Urine WBC Ur Squamous Epith Cells Urine Bacteria Hyaline Casts Urine Mucus Urine Yeast (Budding) 08/22/17 08/22/17 08/23/17 11:18 13:35 06:13 MCH MCHC 30.9 L RDW 19.3 H Plt Count Lymphocytes # PT INR APTT D-Dimer 0.62 H ABG pH ABG pO2 ABG HCO3 ABG Total CO2 ABG O2 Saturation Sodium Potassium Chloride Carbon Dioxide BUN Creatinine Glucose POC Glucose (mg/dL) Plasma Lactic Acid Ashish Calcium Magnesium Total Bilirubin AST ALT Alkaline Phosphatase Ammonia Total Protein Albumin Urine Appearance Urine Protein 1+ H Urine Blood Moderate H Urine Bilirubin Ur Leukocyte Esterase Moderate H Urine RBC 45 H Urine WBC 33 H Ur Squamous Epith Cells Urine Bacteria Rare H Hyaline Casts 7 H Urine Mucus Rare H Urine Yeast (Budding) 08/23/17 08/23/17 08/23/17 06:13 06:13 12:05 [facility] MCHC RDW Plt Count Lymphocytes # PT 37.5 H INR 4.2 H APTT D-Dimer ABG pH ABG pO2 ABG HCO3 ABG Total CO2 ABG O2 Saturation Sodium Potassium 3.1 L Chloride Carbon Dioxide 31 H BUN 21 H Creatinine Glucose 70 L POC Glucose (mg/dL) Plasma Lactic Acid Ashish 3.3 H* Calcium 8.2 L Magnesium Total Bilirubin 4.3 H AST 42 H ALT Alkaline Phosphatase 378 H Ammonia Total Protein 5.7 L Albumin 2.6 L Urine Appearance Urine Protein Urine Blood Urine Bilirubin Ur Leukocyte Esterase Urine RBC Urine WBC Ur Squamous Epith Cells Urine Bacteria Hyaline Casts Urine Mucus Urine Yeast (Budding) 08/23/17 08/23/17 08/23/17 14:22 14:22 19:53 [facility] RDW Plt Count Lymphocytes # PT INR APTT D-Dimer ABG pH ABG pO2 ABG HCO3 ABG Total CO2 ABG O2 Saturation Sodium Potassium 3.4 L Chloride Carbon Dioxide BUN Creatinine Glucose POC Glucose (mg/dL) Plasma Lactic Acid Ashish 2.8 H* 3.2 H* Calcium Magnesium Total Bilirubin AST ALT Alkaline Phosphatase Ammonia Total Protein Albumin Urine Appearance Urine Protein Urine Blood Urine Bilirubin Ur Leukocyte Esterase Urine RBC Urine WBC Ur Squamous Epith Cells Urine Bacteria Hyaline Casts Urine Mucus Urine Yeast (Budding) 08/24/17 08/24/17 08/24/17 00:35 05:16 05:16 [facility] MCHC 30.7 L RDW 19.4 H Plt Count Lymphocytes # 0.9 L PT 35.1 H INR 3.9 H APTT D-Dimer ABG pH ABG pO2 ABG HCO3 ABG Total CO2 ABG O2 Saturation Sodium Potassium Chloride Carbon Dioxide BUN Creatinine Glucose POC Glucose (mg/dL) Plasma Lactic Acid Ashish 2.1 H* Calcium Magnesium Total Bilirubin AST ALT Alkaline Phosphatase Ammonia Total Protein Albumin Urine Appearance Urine Protein Urine Blood Urine Bilirubin Ur Leukocyte Esterase Urine RBC Urine WBC Ur Squamous Epith Cells Urine Bacteria Hyaline Casts Urine Mucus Urine Yeast (Budding) 03/09/18 03/10/18 03/10/18 05:16 05:45 05:45 MCH MCHC 29.8 L RDW 19.3 H Plt Count Lymphocytes # PT 33.8 H INR 3.8 H APTT D-Dimer ABG pH ABG pO2 ABG HCO3 ABG Total CO2 ABG O2 Saturation Sodium Potassium Chloride 96 L Carbon Dioxide 33 H BUN 21 H Creatinine Glucose POC Glucose (mg/dL) Plasma Lactic Acid Ashish Calcium 8.3 L Magnesium Total Bilirubin 4.4 H AST ALT Alkaline Phosphatase 347 H Ammonia Total Protein 5.5 L Albumin 2.5 L Urine Appearance Urine Protein Urine Blood Urine Bilirubin Ur Leukocyte Esterase Urine RBC Urine WBC Ur Squamous Epith Cells Urine Bacteria Hyaline Casts Urine Mucus Urine Yeast (Budding) 08/25/17 08/26/17 08/26/17 05:45 07:12 07:12 MCH MCHC 29.7 L RDW 19.6 H Plt Count Lymphocytes # PT 25.1 H INR 2.8 H APTT D-Dimer ABG pH ABG pO2 ABG HCO3 ABG Total CO2 ABG O2 Saturation Sodium Potassium Chloride Carbon Dioxide BUN 27 H Creatinine 1.06 H Glucose POC Glucose (mg/dL) Plasma Lactic Acid Ashish Calcium 8.3 L Magnesium Total Bilirubin 3.7 H AST ALT Alkaline Phosphatase 360 H Ammonia Total Protein 5.6 L Albumin 2.5 L Urine Appearance Urine Protein Urine Blood Urine Bilirubin Ur Leukocyte Esterase Urine RBC Urine WBC Ur Squamous Epith Cells Urine Bacteria Hyaline Casts Urine Mucus Urine Yeast (Budding) 08/26/17 08/27/17 08/27/17 07:12 06:20 06:20 MCH 24.8 L MCHC 29.3 L RDW 19.8 H Plt Count Lymphocytes # PT INR APTT D-Dimer ABG pH ABG pO2 ABG HCO3 ABG Total CO2 ABG O2 Saturation Sodium 136 L Potassium 5.7 H Chloride Carbon Dioxide BUN 28 H 30 H Creatinine 1.07 H Glucose 63 L POC Glucose (mg/dL) Plasma Lactic Acid Ashish Calcium 8.3 L Magnesium 2.6 H Total Bilirubin 3.9 H AST 68 H ALT Alkaline Phosphatase 438 H Ammonia Total Protein 6.1 L Albumin 2.8 L Urine Appearance Urine Protein Urine Blood Urine Bilirubin Ur Leukocyte Esterase Urine RBC Urine WBC Ur Squamous Epith Cells Urine Bacteria Hyaline Casts Urine Mucus Urine Yeast (Budding) 08/27/17 08/28/17 08/28/17 06:20 05:28 05:28 MCH MCHC RDW Plt Count Lymphocytes # PT 23.3 H 22.2 H INR 2.6 H 2.5 H APTT D-Dimer ABG pH ABG pO2 ABG HCO3 ABG Total CO2 ABG O2 Saturation Sodium 136 L Potassium Chloride 96 L Carbon Dioxide BUN 31 H Creatinine 1.40 H Glucose 65 L POC Glucose (mg/dL) Plasma Lactic Acid Ashish Calcium Magnesium Total Bilirubin 3.8 H AST 106 H ALT 53 H Alkaline Phosphatase 873 H Ammonia Total Protein 5.6 L Albumin 2.5 L Urine Appearance Urine Protein Urine Blood Urine Bilirubin Ur Leukocyte Esterase Urine RBC Urine WBC Ur Squamous Epith Cells Urine Bacteria Hyaline Casts Urine Mucus Urine Yeast (Budding) 08/29/17 08/29/17 08/30/17 09:30 09:30 00:29 [facility] RDW Plt Count Lymphocytes # PT 15.7 H INR 1.7 H APTT D-Dimer ABG pH ABG pO2 ABG HCO3 ABG Total CO2 ABG O2 Saturation Sodium Potassium Chloride 95 L Carbon Dioxide BUN 36 H Creatinine 1.60 H Glucose 113 H POC Glucose (mg/dL) Plasma Lactic Acid Ashish Calcium Magnesium Total Bilirubin 3.9 H AST 85 H ALT Alkaline Phosphatase 839 H Ammonia Total Protein 5.8 L Albumin 2.7 L Urine Appearance Cloudy H Urine Protein 2+ H Urine Blood Trace H Urine Bilirubin 1+ H Ur Leukocyte Esterase Moderate H Urine RBC 29 H Urine WBC 63 H Ur Squamous Epith Cells 28 H Urine Bacteria Many H Hyaline Casts 25 H Urine Mucus Many H Urine Yeast (Budding) Moderate H 08/30/17 08/30/17 08/30/17 07:58 07:58 13:56 [facility] RDW Plt Count Lymphocytes # PT 15.7 H INR 1.7 H APTT D-Dimer ABG pH ABG pO2 ABG HCO3 ABG Total CO2 ABG O2 Saturation Sodium 135 L Potassium 5.9 H 5.5 H Chloride Carbon Dioxide BUN 40 H Creatinine 1.81 H Glucose 67 L POC Glucose (mg/dL) Plasma Lactic Acid Ashish Calcium Magnesium Total Bilirubin 3.4 H AST 64 H ALT Alkaline Phosphatase 792 H Ammonia Total Protein 5.7 L Albumin 2.5 L Urine Appearance Urine Protein Urine Blood Urine Bilirubin Ur Leukocyte Esterase Urine RBC Urine WBC Ur Squamous Epith Cells Urine Bacteria Hyaline Casts Urine Mucus Urine Yeast (Budding) 08/30/17 08/30/17 08/30/17 15:33 16:23 16:23 [facility] 29.6 L RDW 20.2 H Plt Count 132 L Lymphocytes # PT INR APTT D-Dimer ABG pH 7.46 H ABG pO2 139 H ABG HCO3 26 H ABG Total CO2 27 H ABG O2 Saturation 99.5 H Sodium Potassium Chloride Carbon Dioxide BUN Creatinine Glucose POC Glucose (mg/dL) Plasma Lactic Acid Ashish 2.2 H* Calcium Magnesium Total Bilirubin AST ALT Alkaline Phosphatase Ammonia Total Protein Albumin Urine Appearance Urine Protein Urine Blood Urine Bilirubin Ur Leukocyte Esterase Urine RBC Urine WBC Ur Squamous Epith Cells Urine Bacteria Hyaline Casts Urine Mucus Urine Yeast (Budding) 08/30/1718 18 16:23 20:14 20:14 [facility] RDW Plt Count Lymphocytes # PT INR APTT D-Dimer ABG pH ABG pO2 ABG HCO3 ABG Total CO2 ABG O2 Saturation Sodium 135 L 134 L Potassium 5.6 H 5.3 H Chloride Carbon Dioxide BUN 42 H 43 H Creatinine 1.80 H 1.88 H Glucose POC Glucose (mg/dL) Plasma Lactic Acid Ashish 2.5 H* Calcium 8.3 L Magnesium 3.2 H Total Bilirubin AST ALT Alkaline Phosphatase Ammonia Total Protein Albumin Urine Appearance Urine Protein Urine Blood Urine Bilirubin Ur Leukocyte Esterase Urine RBC Urine WBC Ur Squamous Epith Cells Urine Bacteria Hyaline Casts Urine Mucus Urine Yeast (Budding) 08/30/17 08/30/17 08/31/17 20:21 23:46 00:31 [facility] RDW 20.0 H Plt Count 121 L Lymphocytes # PT INR APTT D-Dimer ABG pH ABG pO2 ABG HCO3 ABG Total CO2 ABG O2 Saturation Sodium Potassium Chloride Carbon Dioxide BUN Creatinine Glucose POC Glucose (mg/dL) 72 L Plasma Lactic Acid Ashish 3.2 H* Calcium Magnesium Total Bilirubin AST ALT Alkaline Phosphatase Ammonia Total Protein Albumin Urine Appearance Urine Protein Urine Blood Urine Bilirubin Ur Leukocyte Esterase Urine RBC Urine WBC Ur Squamous Epith Cells Urine Bacteria Hyaline Casts Urine Mucus Urine Yeast (Budding) 08/31/17 08/31/17 08/31/17 00:31 05:05 05:05 [facility] RDW Plt Count Lymphocytes # PT 13.9 H INR 1.5 H APTT D-Dimer ABG pH ABG pO2 ABG HCO3 ABG Total CO2 ABG O2 Saturation Sodium Potassium 5.8 H Chloride Carbon Dioxide BUN 46 H Creatinine 1.91 H Glucose 64 L POC Glucose (mg/dL) Plasma Lactic Acid Ashish Calcium Magnesium 3.2 H Total Bilirubin 3.8 H AST 56 H ALT Alkaline Phosphatase 634 H Ammonia 67 H Total Protein 6.0 L Albumin 2.7 L Urine Appearance Urine Protein Urine Blood Urine Bilirubin Ur Leukocyte Esterase Urine RBC Urine WBC Ur Squamous Epith Cells Urine Bacteria Hyaline Casts Urine Mucus Urine Yeast (Budding) 08/31/17 08/31/17 08/31/17 05:05 06:06 09:25 MCH MCHC 30.5 L RDW 19.9 H Plt Count Lymphocytes # 0.8 L PT INR APTT D-Dimer ABG pH ABG pO2 ABG HCO3 ABG Total CO2 ABG O2 Saturation Sodium Potassium Chloride Carbon Dioxide BUN Creatinine Glucose POC Glucose (mg/dL) 178 H 52 L Plasma Lactic Acid Ashish Calcium Magnesium Total Bilirubin AST ALT Alkaline Phosphatase Ammonia Total Protein Albumin Urine Appearance Urine Protein Urine Blood Urine Bilirubin Ur Leukocyte Esterase Urine RBC Urine WBC Ur Squamous Epith Cells Urine Bacteria Hyaline Casts Urine Mucus Urine Yeast (Budding) 08/31/17 08/31/17 08/31/17 09:28 09:45 10:42 MCH MCHC RDW Plt Count Lymphocytes # PT INR APTT D-Dimer ABG pH ABG pO2 ABG HCO3 27 H ABG Total CO2 29 H ABG O2 Saturation 98.7 H Sodium Potassium Chloride Carbon Dioxide BUN Creatinine Glucose POC Glucose (mg/dL) 140 H Plasma Lactic Acid Ashish Calcium Magnesium Total Bilirubin AST ALT Alkaline Phosphatase Ammonia 38 H Total Protein Albumin Urine Appearance Urine Protein Urine Blood Urine Bilirubin Ur Leukocyte Esterase Urine RBC Urine WBC Ur Squamous Epith Cells Urine Bacteria Hyaline Casts Urine Mucus Urine Yeast (Budding) Assessment and Plan Assessment: Impression: #1 Altered mental status with obtundation and unresponsiveness of unclear etiology. Computed tomography scan performed today revealed no acute intracranial mass or hemorrhage. No acute abnormalities. #2 Acute exacerbation of diastolic congestive heart failure. #3 Chronic atrial fibrillation maintained on warfarin. 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 #5 Acute kidney injury secondary to diuretic therapy and hypotension now requiring pressor support. #6 MRCP revealing common bile duct stone. #7 History of TIA. #8 History of hypertension. #9 Hyperlipidemia. #10 Hypothyroidism. Plan: The patient was seen and evaluated by Dr. Lindo. Computed tomography scan of the brain was reviewed. We'll continue with the patient's current treatment plan for now. She is a DO NOT RESUSCITATE/DO NOT INTUBATE CODE STATUS. He will be speaking with the family regarding possible comfort care in the next 24 hours there is no significant improvement in her unresponsiveness. In the interim, we'll continue a full supportive care. We'll continue to observe her closely here in the intensive care unit. We will continue to follow and make further recommendations based on her clinical status. Critical care time 38 minutes. I, the cosigning physician, performed a history & physical examination of the patient. Lungs sounds with few scattered rhonchi. Maintaining good O2 saturations in the 90s on 3 L/m per nasal cannula. I discussed the assessment and plan of care with my nurse practitioner, Anel Hay. I attest to the above note as dictated by her. Time with Patient: Greater than 30
[2017-08-31 15:21] LABS: Glucose,Whole Blood 86 mg/dL (75-99)
--- NOTE | 2017-08-31 15:35 | P.PN ---
Subjective Progress Note Date: 08/31/17 82-year-old female seen in the ICU family at bedside patient does not open eyes to verbal stimuli lethargic. Patients being followed by multiple consulting physicians. Patient was transferred to the intensive care unit yesterday secondary to nursing reporting the patient was increasingly more confused short of breath with the temp 94. Electrolytes were abnormal. Patient's been followed by GI for elevated liver enzymes and cholelithiasis. ERCP was canceled yesterday secondary to elevated potassium level. Dr. Marsh from surgical service about the potential option of cholecystectomy is been put on hold until the ERCP could be done Objective - Vital Signs Vital signs: Vital Signs Temp 97.9 F 08/31/17 12:00 Pulse 77 08/31/17 15:00 Resp 15 08/31/17 15:00 BP 102/70 08/31/17 15:00 Pulse Ox 99 08/31/17 15:00 Intake & Output 08/30/17 08/31/17 08/31/17 18:59 06:59 18:59 Intake Total 561 160 574.465 Output Total 0 280 178 Balance 561 -120 396.465 Weight 110.9 kg Intake: IV 160 60 Dextrose 5%-0.9% NaCl 1, 160 60 000 ml @ 50 mls/hr IV . Q20H [facility] Rx#:[id number] Intake, IV Titration 514.465 Amount Dextrose 10% in Water 500 250 ml In Empty Bag 1 bag @ 50 mls/hr IV .Q10H [facility] Rx #:[id number] Norepinephrin 4 mg-0.9% 264.465 Ns Pmx 4 mg In 250 ml @ Titrate IV .Q0M [facility] Rx#: [id number] Oral 0 Blood Product 561 Ffp 24 Cpd Unit 314 [id number] Ffp 24 Cpd Unit 247 [id number] Output: Urine 280 178 Post Void Residual 0 Other: Voiding Method Indwelling Catheter Indwelling Catheter - Exam Physical exam Abdomen soft and not distended few hypoactive bowel tones not able to elicit any facial grimacing with palpitation to the abdominal wall no nausea no vomiting poor oral intake indwelling [place] catheter in place no guarding noted - Labs CBC & Chem 7: 08/31/17 05:05 08/31/17 09:17 Labs: Abnormal Lab Results - Last 24 Hours (Table) 03/08/30/17 08/30/17 Range/Units 15:33 16:23 16:23 MCHC 29.6 L (31.0-37.0) g/dL RDW 20.2 H (11.5-15.5) % Plt Count 132 L (150-450) k/uL Lymphocytes # (1.0-4.8) k/uL PT (9.0-12.0) sec INR (<1.2) ABG pH 7.46 H (7.35-7.45) ABG pO2 139 H (83-108) mmHg ABG HCO3 26 H (21-25) mmol/L ABG Total CO2 27 H (19-24) mmol/L ABG O2 Saturation 99.5 H (94-97) % Sodium (137-145) mmol/L Potassium (3.5-5.1) mmol/L BUN (7-17) mg/dL Creatinine (0.52-1.04) mg/dL Glucose (74-99) mg/dL POC Glucose (mg/dL) (75-99) mg/dL Plasma Lactic Acid Ashish 2.2 H* (0.7-2.0) mmol/L Calcium (8.4-10.2) mg/dL Magnesium (1.6-2.3) mg/dL Total Bilirubin (0.2-1.3) mg/dL AST (14-36) U/L Alkaline Phosphatase (38-126) U/L Ammonia (<30) umol/L Total Protein (6.3-8.2) g/dL Albumin (3.5-5.0) g/dL 08/30/17 08/30/17 08/30/17 Range/Units 16:23 20:14 20:14 MCHC (31.0-37.0) g/dL RDW (11.5-15.5) % Plt Count (150-450) k/uL Lymphocytes # (1.0-4.8) k/uL PT (9.0-12.0) sec INR (<1.2) ABG pH (7.35-7.45) ABG pO2 (83-108) mmHg ABG HCO3 (21-25) mmol/L ABG Total CO2 (19-24) mmol/L ABG O2 Saturation (94-97) % Sodium 135 L 134 L (137-145) mmol/L Potassium 5.6 H 5.3 H (3.5-5.1) mmol/L BUN 42 H 43 H (7-17) mg/dL Creatinine 1.80 H 1.88 H (0.52-1.04) mg/dL Glucose (74-99) mg/dL POC Glucose (mg/dL) (75-99) mg/dL Plasma Lactic Acid Ashish 2.5 H* (0.7-2.0) mmol/L Calcium 8.3 L (8.4-10.2) mg/dL Magnesium 3.2 H (1.6-2.3) mg/dL Total Bilirubin (0.2-1.3) mg/dL AST (14-36) U/L Alkaline Phosphatase (38-126) U/L Ammonia (<30) umol/L Total Protein (6.3-8.2) g/dL Albumin (3.5-5.0) g/dL 08/30/17 08/30/17 08/31/17 Range/Units 20:21 23:46 00:31 MCHC (31.0-37.0) g/dL RDW 20.0 H (11.5-15.5) % Plt Count 121 L (150-450) k/uL Lymphocytes # (1.0-4.8) k/uL PT (9.0-12.0) sec INR (<1.2) ABG pH (7.35-7.45) ABG pO2 (83-108) mmHg ABG HCO3 (21-25) mmol/L ABG Total CO2 (19-24) mmol/L ABG O2 Saturation (94-97) % Sodium (137-145) mmol/L Potassium (3.5-5.1) mmol/L BUN (7-17) mg/dL Creatinine (0.52-1.04) mg/dL Glucose (74-99) mg/dL POC Glucose (mg/dL) 72 L (75-99) mg/dL Plasma Lactic Acid Ashish 3.2 H* (0.7-2.0) mmol/L Calcium (8.4-10.2) mg/dL Magnesium (1.6-2.3) mg/dL Total Bilirubin (0.2-1.3) mg/dL AST (14-36) U/L Alkaline Phosphatase (38-126) U/L Ammonia (<30) umol/L Total Protein (6.3-8.2) g/dL Albumin (3.5-5.0) g/dL 08/31/17 08/31/17 08/31/17 Range/Units 00:31 05:05 05:05 MCHC (31.0-37.0) g/dL RDW (11.5-15.5) % Plt Count (150-450) k/uL Lymphocytes # (1.0-4.8) k/uL PT 13.9 H (9.0-12.0) sec INR 1.5 H (<1.2) ABG pH (7.35-7.45) ABG pO2 (83-108) mmHg ABG HCO3 (21-25) mmol/L ABG Total CO2 (19-24) mmol/L ABG O2 Saturation (94-97) % Sodium (137-145) mmol/L Potassium 5.8 H (3.5-5.1) mmol/L BUN 46 H (7-17) mg/dL Creatinine 1.91 H (0.52-1.04) mg/dL Glucose 64 L (74-99) mg/dL POC Glucose (mg/dL) (75-99) mg/dL Plasma Lactic Acid Ashish (0.7-2.0) mmol/L Calcium (8.4-10.2) mg/dL Magnesium 3.2 H (1.6-2.3) mg/dL Total Bilirubin 3.8 H (0.2-1.3) mg/dL AST 56 H (14-36) U/L Alkaline Phosphatase 634 H (38-126) U/L Ammonia 67 H (<30) umol/L Total Protein 6.0 L (6.3-8.2) g/dL Albumin 2.7 L (3.5-5.0) g/dL 08/31/17 08/31/17 08/31/17 Range/Units 05:05 06:06 09:25 MCHC 30.5 L (31.0-37.0) g/dL RDW 19.9 H (11.5-15.5) % Plt Count (150-450) k/uL Lymphocytes # 0.8 L (1.0-4.8) k/uL PT (9.0-12.0) sec INR (<1.2) ABG pH (7.35-7.45) ABG pO2 (83-108) mmHg ABG HCO3 (21-25) mmol/L ABG Total CO2 (19-24) mmol/L ABG O2 Saturation (94-97) % Sodium (137-145) mmol/L Potassium (3.5-5.1) mmol/L BUN (7-17) mg/dL Creatinine (0.52-1.04) mg/dL Glucose (74-99) mg/dL POC Glucose (mg/dL) 178 H 52 L (75-99) mg/dL Plasma Lactic Acid Ashish (0.7-2.0) mmol/L Calcium (8.4-10.2) mg/dL Magnesium (1.6-2.3) mg/dL Total Bilirubin (0.2-1.3) mg/dL AST (14-36) U/L Alkaline Phosphatase (38-126) U/L Ammonia (<30) umol/L Total Protein (6.3-8.2) g/dL Albumin (3.5-5.0) g/dL 08/31/17 08/31/17 08/31/17 Range/Units 09:28 09:45 10:42 MCHC (31.0-37.0) g/dL RDW (11.5-15.5) % Plt Count (150-450) k/uL Lymphocytes # (1.0-4.8) k/uL PT (9.0-12.0) sec INR (<1.2) ABG pH (7.35-7.45) ABG pO2 (83-108) mmHg ABG HCO3 27 H (21-25) mmol/L ABG Total CO2 29 H (19-24) mmol/L ABG O2 Saturation 98.7 H (94-97) % Sodium (137-145) mmol/L Potassium (3.5-5.1) mmol/L BUN (7-17) mg/dL Creatinine (0.52-1.04) mg/dL Glucose (74-99) mg/dL POC Glucose (mg/dL) 140 H (75-99) mg/dL Plasma Lactic Acid Ashish (0.7-2.0) mmol/L Calcium (8.4-10.2) mg/dL Magnesium (1.6-2.3) mg/dL Total Bilirubin (0.2-1.3) mg/dL AST (14-36) U/L Alkaline Phosphatase (38-126) U/L Ammonia 38 H (<30) umol/L Total Protein (6.3-8.2) g/dL Albumin (3.5-5.0) g/dL Assessment and Plan Assessment: Impression Choledocholithiasis Cholelithiasis Elevated bilirubin and alkaline phosphatase with normal amylase and lipase with slight jaundice, s/p MRCP revealing common bile duct stone and also gallstones Obesity BMI 36 encephalopathy suspect metabolic Dementia baseline with no behavior disturbance Hyperkalemia Chronic atrial fibrillation Warfarin induced coagulopathy Plan Will plan for a cholecystectomy at this time Defer to GI service for the timing of ERCP Continue with ICU management per the jackspooler Will follow with you Progress note dictated for Dr. sherman rounding on behalf of Dr. marsh The above impression and plan of care have been discussed and directed by signing physician. Farideh Miller nurse practitioner acting as scribe for signing physician.
[2017-08-31 16:54] LABS: Glucose,Whole Blood 93 mg/dL (75-99)
[2017-08-31] MEDS: LEVOTHYROXINE 75 MCG TAB PO SCH (18:00)
[2017-08-31] MEDS: METOPROLOL SUCCINATE (ER) 50 MG TAB.ER.24H PO SCH (18:01)
[2017-08-31] MEDS: MEMANTINE 10 MG TAB PO SCH (18:01)
[2017-08-31] MEDS: FAMOTIDINE 20 MG TAB PO SCH (18:01)
[2017-08-31 18:07] LABS: Glucose,Whole Blood 97 mg/dL (75-99)
--- NOTE | 2017-08-31 19:22 | PN ---
PROGRESS NOTE The patient is seen for followup for acute kidney injury secondary to hypotension, hypoperfusion; initially oliguric, currently nonoliguric with improved urine output with improvement in blood pressure. The patient remains on Levophed, although it is down from 10 mcg to 8 mcg now. IV fluids were discontinued. As patient was short of breath this morning, she did receive 2 doses of Lasix a day. Urine output has been about 30 mL an hour. EXAMINATION: Patient is sleepy. She is easily arousable. Blood pressure is 107/77, heart rate 83 per minute. She is afebrile. HEART: S1, S2. LUNGS: Bilateral breath sounds are heard. Abdomen is soft, nontender. Lower extremities show no significant edema. EARLY BRE[employer]ED[employer] C[employer] SPECIALIST cannot be performed at this time. LABS: Show sodium 137, potassium 5.8. Repeat potassium was 5.0, BUN 46, serum creatinine 1.9. Magnesium was 3.2. ASSESSMENT: 1. Acute kidney injury, acute tubular necrosis secondary to hypotension, hypoperfusion, currently nonoliguric. No nephrotoxic agents on board. Continue to wean down the pressors. The patient is status post IV fluids. 2. Mild volume overload, status post Lasix. Chest x-ray showed pulmonary vascular congestion. 3. Obstructive jaundice with biliary duct stone. Endoscopic retrograde cholangiopancreatography is currently on hold. 4. Hyperkalemia secondary to acute kidney injury, currently improved. 5. Moderate pulmonary hypertension. 6. Elevated right heart pressures. 7. Severe tricuspid regurgitation. 8. Severe aortic stenosis. PLAN: Try to wean down pressors. Repeat labs this evening. Continue to avoid nephrotoxic agents. I will also discontinue the magnesium, as her magnesium level is elevated. MMODL / IJN: [id number] /
[2017-08-31] MEDS: MAGNESIUM OXIDE 400 MG TAB PO SCH (19:38)
[2017-08-31 20:31] LABS: Albumin 2.5 g/dL (3.5-5.0); Calcium 8.3 mg/dL (8.4-10.2); Magnesium 3.1 mg/dL (1.6-2.3); Phosphorus 3.4 mg/dL (2.5-4.5); Potassium 5.1 mmol/L (3.5-5.1); Total Bilirubin 3.4 mg/dL (0.2-1.3); Total Protein 5.6 g/dL (6.3-8.2)
[2017-08-31] MEDS: LATANOPROST 0.005% OPHTH DROPS 2.5 ML BTL BOTH EYES SCH (20:40)
[2017-08-31 20:48] LABS: Glucose,Whole Blood 120 mg/dL (75-99)
[2017-08-31] MEDS: ATORVASTATIN 40 MG TAB PO SCH (21:30)
[2017-08-31 22:56] LABS: Glucose,Whole Blood 147 mg/dL (75-99)
[2017-08-31] MEDS: ONDANSETRON 4 MG/2 ML VIAL IVP PRN (23:21)
[2017-09-01 00:10] LABS: Glucose,Whole Blood 108 mg/dL (75-99)
[2017-09-01 02:16] LABS: Glucose,Whole Blood 108 mg/dL (75-99)
[2017-09-01] MEDS ORDERED: DEXTROSE 5% IN WATER 1,000 ML IV SCH (03:15)
[2017-09-01 04:04] LABS: Glucose,Whole Blood 97 mg/dL (75-99)
[2017-09-01 04:36] LABS: Anisocytosis Moderate; Basophils % (A) 0 %; Eosinophils # (A) 0.2 k/uL (0-0.7); Eosinophils % (A) 3 %; HCT 41.3 % (34.0-46.0); HGB 12.7 gm/dL (11.4-16.0); Hypochromasia Marked; Lymphocytes # (A) 0.8 k/uL (1.0-4.8); Lymphocytes % (A) 12 %; MCH 25.7 pg (25.0-35.0); MCHC 30.8 g/dL (31.0-37.0); MCV 83.4 fL (80.0-100.0); Microcytosis Slight; Monocytes # (A) 0.4 k/uL (0-1.0); Monocytes % (A) 6 %; Neutrophils # (A) 5.4 k/uL (1.3-7.7); Neutrophils % (A) 77 %; Platelet Count 164 k/uL (150-450); Poikilocytosis Slight; RBC 4.96 m/uL (3.80-5.40); RDW 20.2 % (11.5-15.5)
[2017-09-01 04:45] LABS: INR 1.5 (<1.2); Prothrombin Time 14.3 sec (9.0-12.0)
[2017-09-01 04:55] LABS: Albumin 2.3 g/dL (3.5-5.0); Calcium 8.1 mg/dL (8.4-10.2); Phosphorus 3.2 mg/dL (2.5-4.5); Potassium 4.8 mmol/L (3.5-5.1); Total Protein 5.2 g/dL (6.3-8.2)
[2017-09-01 05:28] LABS: Appearance,Urine Cloudy (Clear); Bacteria,Urine Few /hpf; Bilirubin,Urine Negative (Negative); Blood,Urine Moderate (Negative); Color,Urine Yellow; Glucose,Urine (UA) Negative (Negative); Hyaline Casts,Urine 35 /lpf (0-2); Ketones,Urine Negative (Negative); Leukocyte Esterase,Urine Large (Negative); Mucus,Urine Few /hpf; Nitrite,Urine Negative (Negative); Protein,Urine 1+ (Negative); RBC,Urine 94 /hpf (0-5); Specific Gravity,Urine 1.015 (1.001-1.035); Squamous Epithelial Cell,Urine 1 /hpf (0-4); Urobilinogen,Urine <2.0 mg/dL (<2.0); WBC,Urine 109 /hpf (0-5)
[2017-09-01] MEDS: DEXTROSE 5%-0.9% NACL 1,000 ML IV SCH (05:43)
[2017-09-01 06:12] LABS: Glucose,Whole Blood 90 mg/dL (75-99)
[2017-09-01] MEDS: LEVOTHYROXINE 75 MCG TAB PO SCH (08:17)
[2017-09-01] MEDS: TIMOLOL 0.5% OPHTH DROPS 5 ML BTL LEFT EYE SCH (08:18)
[2017-09-01] MEDS: MEMANTINE 10 MG TAB PO SCH (08:18)
[2017-09-01] MEDS: FAMOTIDINE 20 MG TAB PO SCH (08:18)
--- NOTE | 2017-09-01 10:35 | P.PN ---
Progress Note - Text Progress Note Date: 09/01/17 The patient appears more awake in her bed. She is seen with her daughter at the bedside. The family is requesting to undergo ERCP. I discussed with him that the decision for ERCP will be made by Dr. Savage. The family is adamant that they wanted to have the ERCP performed as soon as possible. I discussed with them that Dr. Savage will be O made aware of her request. If they feel that Dr. Savage is hesitant about doing the ERCP they can obtain a second opinion at [facility]. On exam her vital signs appear stable. Her abdomen soft. Status post choledocholithiasis. Patient will undergo ERCP by Dr. Savage
[2017-09-01] MEDS ORDERED: SODIUM CHLORIDE 0.9% 1,000 ML IV ONE (10:52)
[2017-09-01] MEDS ORDERED: SODIUM CHLORIDE 0.9% 250 ML IV SCH (10:52)
[2017-09-01] MEDS: SODIUM CHLORIDE 0.9% 1,000 ML IV SCH (11:15)
[2017-09-01] MEDS ORDERED: SODIUM CHLORIDE 0.9% 1,000 ML IV SCH (11:15)
[2017-09-01] MEDS ORDERED: LEVOFLOXACIN 750 MG TAB PO SCH (12:00)
[2017-09-01] MEDS: NOREPINEPHRIN 4 MG-0.9% NS PMX 4 MG/250 ML ML IV SCH (12:00)
--- NOTE | 2017-09-01 12:42 | XR ---
EXAMINATION TYPE: XR chest 1V portable DATE OF EXAM: 09/01/2017 HISTORY: SOB. REFERENCE: Previous study dated 08/31/2017. FINDINGS: The heart is enlarged. There is vascular congestion and pulmonary edema. I suspect small, b ilateral effusions. IMPRESSION: WORSENING CHANGES OF CONGESTIVE HEART FAILURE.
[2017-09-01 12:51] LABS: Glucose,Whole Blood 121 mg/dL (75-99)
--- NOTE | 2017-09-01 13:26 | P.PN ---
Subjective Progress Note Date: 09/01/17 Principal diagnosis: Acute metabolic encephalopathy and mental status change This is an 82-year-old female patient who follows with Dr. Lucero as her primary care physician. She has a history of atrial fibrillation, cerebrovascular accident/transischemic attack, dementia, hyperlipidemia, hypothyroidism, degenerative joint disease, glaucoma, ESBL urinary tract infections, skin cancer. She resides at [facility]. She was originally admitted here on 08/21/2017 for complaints of shortness of breath. Her initial concerns regarding congestive heart failure. Her chest x-ray did reveal marketed cardiomegaly with small bilateral pleural effusions and mild congestive heart failure. Her echocardiogram revealed preserved left ventricular systolic function with ejection fraction 50-55%. There is moderate pulmonary hypertension, moderate pulmonary regurgitation, moderate mitral regurgitation. Doppler of the right lower extremity was negative for DVT. A computed tomography scan on 08/25/2017 was performed due to altered mental status. There is no acute intracranial hemorrhage or midline shift. There is moderate to severe diffuse age-related cerebral atrophy and small vessel ischemic changes. An MRCP was performed and there were 2 common bile duct stones. No suspicious biliary dilatation however. There is a larger stone in the gallbladder without evidence of acute cholecystitis. Surgical services are on the case. No current interventions planned. The patient had become obtunded while out on the regular medical floor and transferred here to the intensive care unit. We are consulted now for critical care management. She is currently withdrawing to painful stimuli only. No eye contact. Nonfocal. Pupils are pinpoint. She was sent for a second computed tomography scan of the brain today which again revealed no acute intracranial abnormalities. Arterial blood gas on 32% FiO2 revealed a PaO2 of 107, CO2 of 39, pH 7.45. She is maintaining good O2 saturations up to 100% on 3 L/m per nasal cannula. She has been having some issues with low blood sugar. She is on D5W at 50 MLS per hour. She's also been borderline hypotensive and is currently on norepinephrine at 7 mcg/m. Urine culture is in progress. She is currently on Levaquin. Patient was reevaluated today on 09/01/2017, she is definitely more awake, her CT of the brain was negative, I felt that the patient had mostly a combination of metabolic encephalopathy and worsening encephalopathy with Haldol. Patient is awake today, confused as to place person or time, but overall she is much improved compared to how she was yesterday. Sister is at bedside, and she was seen by general surgery, who is also recommending ERCP. CBC is relatively normal. INR is 1.5 basic metabolic profile is normal, however her BUN is 47 creatinine is 2.30. Chest x-ray is showing evidence of pulmonary edema, hence I recommended more diuretics to be given. Potassium is 4.8 today. Liver enzymes were reviewed, continues to have significantly elevated alkaline phosphatase, and elevated total bilirubin of 3.0. Transaminases are borderline elevated. Urinalysis is showing evidence of pyuria and bacteriuria. And Nuvia. Objective - Vital Signs Vital signs: Vital Signs Temp 97.6 F 09/01/17 08:00 Pulse 83 09/01/17 09:00 Resp 15 09/01/17 09:00 BP 79/68 09/01/17 09:00 Pulse Ox 99 09/01/17 09:00 Intake & Output 08/31/17 09/01/17 09/01/17 18:59 06:59 18:59 Intake Total 761.215 742.438 606.347 Output Total 268 180 65 Balance 493.215 562.438 541.347 Weight 111.1 kg Intake: IV 60 450 250 Dextrose 10% in Water 500 450 250 ml In Empty Bag 1 bag @ 50 mls/hr IV .Q10H [facility] Rx #:[id number] Dextrose 5%-0.9% NaCl 1, 60 000 ml @ 50 mls/hr IV . Q20H [facility] Rx#:[id number] Intake, IV Titration 701.215 292.438 56.347 Amount Dextrose 10% in Water 500 400 150 ml In Empty Bag 1 bag @ 50 mls/hr IV .Q10H [facility] Rx #:[id number] Norepinephrin 4 mg-0.9% 301.215 142.438 56.347 Ns Pmx 4 mg In 250 ml @ Titrate IV .Q0M [facility] Rx#: [id number] Oral 300 Output: Urine 268 180 65 Other: Voiding Method Indwelling Catheter Indwelling Catheter Indwelling Catheter - Exam GENERAL EXAM: Awake, confused, in no distress. HEAD: Normocephalic. EYES: PERRLA, EOMI, positive icterus. NOSE: Clear with pink turbinates. THROAT: No erythema or exudates. NECK: No masses, no JVD. CHEST: No chest wall deformity. LUNGS: Equal air entry crackles at the bases bilaterally noted, no rhonchi and no wheezes. CVS: Irregular rhythm S1 and S2 normal with no audible murmur, ABDOMEN: No hepatosplenomegaly, normal bowel sounds, no guarding or rigidity. SPINE: No scoliosis or deformity SKIN: No rashes CENTRAL NERVOUS SYSTEM: Tone is normal in all 4 extremities. Patient is confused otherwise no gross focal neurologic deficit EXTREMITIES: There is no peripheral edema. No clubbing, no cyanosis. Peripheral pulses are intact. - Labs CBC & Chem 7: 09/01/17 04:08 09/01/17 04:08 Labs: Abnormal Lab Results - Last 24 Hours (Table) 08/31/17 08/31/17 08/31/17 Range/Units 20:13 20:38 22:54 MCHC (31.0-37.0) g/dL RDW (11.5-15.5) % Lymphocytes # (1.0-4.8) k/uL PT (9.0-12.0) sec INR (<1.2) Sodium (137-145) mmol/L BUN 48 H (7-17) mg/dL Creatinine 2.12 H (0.52-1.04) mg/dL Glucose 105 H (74-99) mg/dL POC Glucose (mg/dL) 120 H 147 H (75-99) mg/dL Calcium 8.3 L (8.4-10.2) mg/dL Magnesium 3.1 H (1.6-2.3) mg/dL Total Bilirubin 3.4 H (0.2-1.3) mg/dL AST 69 H (14-36) U/L Alkaline Phosphatase 574 H (38-126) U/L Total Protein 5.6 L (6.3-8.2) g/dL Albumin 2.5 L (3.5-5.0) g/dL Urine Appearance (Clear) Urine Protein (Negative) Urine Blood (Negative) Ur Leukocyte Esterase (Negative) Urine RBC (0-5) /hpf Urine WBC (0-5) /hpf Urine WBC Clumps (None) /hpf Urine Bacteria (None) /hpf Hyaline Casts (0-2) /lpf Urine Mucus (None) /hpf 09/01/17 09/01/1718 Range/Units 00:08 02:14 04:08 MCHC (31.0-37.0) g/dL RDW (11.5-15.5) % Lymphocytes # (1.0-4.8) k/uL PT 14.3 H (9.0-12.0) sec INR 1.5 H (<1.2) Sodium (137-145) mmol/L BUN (7-17) mg/dL Creatinine (0.52-1.04) mg/dL Glucose (74-99) mg/dL POC Glucose (mg/dL) 108 H 108 H (75-99) mg/dL Calcium (8.4-10.2) mg/dL Magnesium (1.6-2.3) mg/dL Total Bilirubin (0.2-1.3) mg/dL AST (14-36) U/L Alkaline Phosphatase (38-126) U/L Total Protein (6.3-8.2) g/dL Albumin (3.5-5.0) g/dL Urine Appearance (Clear) Urine Protein (Negative) Urine Blood (Negative) Ur Leukocyte Esterase (Negative) Urine RBC (0-5) /hpf Urine WBC (0-5) /hpf Urine WBC Clumps (None) /hpf Urine Bacteria (None) /hpf Hyaline Casts (0-2) /lpf Urine Mucus (None) /hpf 09/01/17 09/01/17 09/01/17 Range/Units 04:08 04:08 05:00 MCHC 30.8 L (31.0-37.0) g/dL RDW 20.2 H (11.5-15.5) % Lymphocytes # 0.8 L (1.0-4.8) k/uL PT (9.0-12.0) sec INR (<1.2) Sodium 134 L (137-145) mmol/L BUN 47 H (7-17) mg/dL Creatinine 2.30 H (0.52-1.04) mg/dL Glucose (74-99) mg/dL POC Glucose (mg/dL) (75-99) mg/dL Calcium 8.1 L (8.4-10.2) mg/dL Magnesium 3.0 H (1.6-2.3) mg/dL Total Bilirubin 3.0 H (0.2-1.3) mg/dL AST 44 H (14-36) U/L Alkaline Phosphatase 544 H (38-126) U/L Total Protein 5.2 L (6.3-8.2) g/dL Albumin 2.3 L (3.5-5.0) g/dL Urine Appearance Cloudy H (Clear) Urine Protein 1+ H (Negative) Urine Blood Moderate H (Negative) Ur Leukocyte Esterase Large H (Negative) Urine RBC 94 H (0-5) /hpf Urine WBC 109 H (0-5) /hpf Urine WBC Clumps Occasional H (None) /hpf Urine Bacteria Few H (None) /hpf Hyaline Casts 35 H (0-2) /lpf Urine Mucus Few H (None) /hpf 09/01/17 Range/Units 12:48 MCHC (31.0-37.0) g/dL RDW (11.5-15.5) % Lymphocytes # (1.0-4.8) k/uL PT (9.0-12.0) sec INR (<1.2) Sodium (137-145) mmol/L BUN (7-17) mg/dL Creatinine (0.52-1.04) mg/dL Glucose (74-99) mg/dL POC Glucose (mg/dL) 121 H (75-99) mg/dL Calcium (8.4-10.2) mg/dL Magnesium (1.6-2.3) mg/dL Total Bilirubin (0.2-1.3) mg/dL AST (14-36) U/L Alkaline Phosphatase (38-126) U/L Total Protein (6.3-8.2) g/dL Albumin (3.5-5.0) g/dL Urine Appearance (Clear) Urine Protein (Negative) Urine Blood (Negative) Ur Leukocyte Esterase (Negative) Urine RBC (0-5) /hpf Urine WBC (0-5) /hpf Urine WBC Clumps (None) /hpf Urine Bacteria (None) /hpf Hyaline Casts (0-2) /lpf Urine Mucus (None) /hpf Microbiology - Last 24 Hours (Table) 08/30/17 23:46 Blood Culture - Preliminary Blood No Growth after 24 hours 08/30/17 00:29 Urine Culture - Final Urine,Voided Assessment and Plan Assessment: #1 Altered mental status with obtundation and unresponsiveness of unclear etiology. Computed tomography scan performed yesterday, revealed no acute intracranial mass or hemorrhage. No acute abnormalities. #2 Acute exacerbation of diastolic congestive heart failure. Based on the chest x-ray today, patient will need more diuretics, and we need to continue to monitor her renal profile closely. #3 Chronic atrial fibrillation maintained on warfarin. 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 Will switch Levaquin to Merrem until the final cultures become available. #5 Acute kidney injury secondary to diuretic therapy and hypotension now requiring pressor support. #6 MRCP revealing common bile duct stone. #7 History of TIA. #8 History of hypertension. #9 Hyperlipidemia. #10 Hypothyroidism. Recommendation: Continue present supportive care measures, discussed her condition with Dr. Mendez, he is consulting surgery to evaluate, patient will eventually need ERCP. If could not be done in our station, suggest transferred to a tertiary care center. Time with Patient: Less than 30
[2017-09-01] MEDS: METOPROLOL SUCCINATE (ER) 50 MG TAB.ER.24H PO SCH (13:28)
[2017-09-01] MEDS: FUROSEMIDE 10 MG/ML 4 ML VIAL IV SCH ×2 (13:54→22:54)
[2017-09-01] MEDS ORDERED: MEROPENEM 1 GM in SODIUM CHLORIDE 0.9% 100 ML IVPB ONE (14:00)
--- NOTE | 2017-09-01 14:02 | PN ---
PROGRESS NOTE An 82-year-old lady who is in the hospital with congestive heart failure and valvular heart disease and is currently awaiting an ERCP and possible cholecystectomy. This morning, patient is alert, responding to questions. At times, she is inappropriate. There is a daughter at bedside. She is on Levophed because of hypotension. Remains in atrial fibrillation with controlled ventricular rate. She is not on anticoagulant because of all the surgeries that she needs to go through. PHYSICAL EXAMINATION: On exam, heart rate is 80 beats per minute, blood pressure of 80/60, respiratory rate is 18. Chest exam reveals diminished air entry at the bases. Heart exam reveals first and second heart sounds. Regular rhythm. Systolic murmur at the apex and left lower sternal border. Abdomen is soft. Examination of the extremities did not reveal any edema. ASSESSMENT: 1. Chronic atrial fibrillation with controlled ventricular rate. 2. Acute cholecystitis. 3. Hypotension. PLAN: When the patient is off pressors, she is going to have ERCP. MMODL / IJN: [id number] /
--- NOTE | 2017-09-01 15:21 | P.PN ---
Subjective Progress Note Date: 09/01/17 Principal diagnosis: Dementia, choledocholithiasis sepsis This is a patient residing in the [facility] being cared for by Dr. Lucero with a history of known symptomatic gallstones who presented to the hospital with significant jaundice and elevated liver enzymes. MRCP yesterday revealed gallstones in the biliary ducts, as well as the slightly larger stone residing in the gallbladder itself, liver functions and bilirubin have improved over the last 3 or 4 days considerations at this time would be ERCP and possible laparoscopic cholecystectomy this will be discussed with family as patient may not be able to tolerate anesthetic or procedures Objective - Vital Signs Vital signs: Vital Signs Temp 97.6 F 09/01/17 08:00 Pulse 83 09/01/17 09:00 Resp 15 09/01/17 09:00 BP 79/68 09/01/17 09:00 Pulse Ox 99 09/01/17 09:00 Intake & Output 08/31/17 09/01/17 09/01/17 18:59 06:59 18:59 Intake Total 761.215 742.438 606.347 Output Total 268 180 65 Balance 493.215 562.438 541.347 Weight 111.1 kg Intake: IV 60 450 250 Dextrose 10% in Water 500 450 250 ml In Empty Bag 1 bag @ 50 mls/hr IV .Q10H [facility] Rx #:[id number] Dextrose 5%-0.9% NaCl 1, 60 000 ml @ 50 mls/hr IV . Q20H [facility] Rx#:[id number] Intake, IV Titration 701.215 292.438 56.347 Amount Dextrose 10% in Water 500 400 150 ml In Empty Bag 1 bag @ 50 mls/hr IV .Q10H [facility] Rx #:[id number] Norepinephrin 4 mg-0.9% 301.215 142.438 56.347 Ns Pmx 4 mg In 250 ml @ Titrate IV .Q0M [facility] Rx#: [id number] Oral 300 Output: Urine 268 180 65 Other: Voiding Method Indwelling Catheter Indwelling Catheter Indwelling Catheter - Exam General: [Patient awake, alert and oriented times 3. Patient in no acute distress.] HEENT: [PERRL. EOMI. No pharyngeal erythema or exudate.] Generalize as well as scleral icterus Neck: [No adenopathy.] Cardiac: [Heart regular in rate and rhythm. No S3. No S4. No clicks, rubs. No murmur.] Lungs: [Clear to auscultation bilaterally.] Abdomen: [No mass. No organomegaly. Bowel sounds presnt and normoactive in all 4 quadrants.] Extremes: [No edema no cyanosis no claudication normal pulses] : [] Musculoskeletal: [No joint erythema, edema or tenderness.] Skin: [No rash.] Neurologic: [No lateralizing deficits. CN II - XII grossly intact.] Lymphatic: [No adenopathy.] - Labs CBC & Chem 7: 09/01/17 04:08 09/01/17 04:08 Labs: Abnormal Lab Results - Last 24 Hours (Table) 08/31/17 08/31/17 08/31/17 Range/Units 20:13 20:38 22:54 MCHC (31.0-37.0) g/dL RDW (11.5-15.5) % Lymphocytes # (1.0-4.8) k/uL PT (9.0-12.0) sec INR (<1.2) Sodium (137-145) mmol/L BUN 48 H (7-17) mg/dL Creatinine 2.12 H (0.52-1.04) mg/dL Glucose 105 H (74-99) mg/dL POC Glucose (mg/dL) 120 H 147 H (75-99) mg/dL Calcium 8.3 L (8.4-10.2) mg/dL Magnesium 3.1 H (1.6-2.3) mg/dL Total Bilirubin 3.4 H (0.2-1.3) mg/dL AST 69 H (14-36) U/L Alkaline Phosphatase 574 H (38-126) U/L Total Protein 5.6 L (6.3-8.2) g/dL Albumin 2.5 L (3.5-5.0) g/dL Urine Appearance (Clear) Urine Protein (Negative) Urine Blood (Negative) Ur Leukocyte Esterase (Negative) Urine RBC (0-5) /hpf Urine WBC (0-5) /hpf Urine WBC Clumps (None) /hpf Urine Bacteria (None) /hpf Hyaline Casts (0-2) /lpf Urine Mucus (None) /hpf 09/01/17 09/01/1709/01/18 Range/Units 00:08 02:14 04:08 MCHC (31.0-37.0) g/dL RDW (11.5-15.5) % Lymphocytes # (1.0-4.8) k/uL PT 14.3 H (9.0-12.0) sec INR 1.5 H (<1.2) Sodium (137-145) mmol/L BUN (7-17) mg/dL Creatinine (0.52-1.04) mg/dL Glucose (74-99) mg/dL POC Glucose (mg/dL) 108 H 108 H (75-99) mg/dL Calcium (8.4-10.2) mg/dL Magnesium (1.6-2.3) mg/dL Total Bilirubin (0.2-1.3) mg/dL AST (14-36) U/L Alkaline Phosphatase (38-126) U/L Total Protein (6.3-8.2) g/dL Albumin (3.5-5.0) g/dL Urine Appearance (Clear) Urine Protein (Negative) Urine Blood (Negative) Ur Leukocyte Esterase (Negative) Urine RBC (0-5) /hpf Urine WBC (0-5) /hpf Urine WBC Clumps (None) /hpf Urine Bacteria (None) /hpf Hyaline Casts (0-2) /lpf Urine Mucus (None) /hpf 09/01/17 09/01/17 09/01/17 Range/Units 04:08 04:08 05:00 MCHC 30.8 L (31.0-37.0) g/dL RDW 20.2 H (11.5-15.5) % Lymphocytes # 0.8 L (1.0-4.8) k/uL PT (9.0-12.0) sec INR (<1.2) Sodium 134 L (137-145) mmol/L BUN 47 H (7-17) mg/dL Creatinine 2.30 H (0.52-1.04) mg/dL Glucose (74-99) mg/dL POC Glucose (mg/dL) (75-99) mg/dL Calcium 8.1 L (8.4-10.2) mg/dL Magnesium 3.0 H (1.6-2.3) mg/dL Total Bilirubin 3.0 H (0.2-1.3) mg/dL AST 44 H (14-36) U/L Alkaline Phosphatase 544 H (38-126) U/L Total Protein 5.2 L (6.3-8.2) g/dL Albumin 2.3 L (3.5-5.0) g/dL Urine Appearance Cloudy H (Clear) Urine Protein 1+ H (Negative) Urine Blood Moderate H (Negative) Ur Leukocyte Esterase Large H (Negative) Urine RBC 94 H (0-5) /hpf Urine WBC 109 H (0-5) /hpf Urine WBC Clumps Occasional H (None) /hpf Urine Bacteria Few H (None) /hpf Hyaline Casts 35 H (0-2) /lpf Urine Mucus Few H (None) /hpf 09/01/17 Range/Units 12:48 MCHC (31.0-37.0) g/dL RDW (11.5-15.5) % Lymphocytes # (1.0-4.8) k/uL PT (9.0-12.0) sec INR (<1.2) Sodium (137-145) mmol/L BUN (7-17) mg/dL Creatinine (0.52-1.04) mg/dL Glucose (74-99) mg/dL POC Glucose (mg/dL) 121 H (75-99) mg/dL Calcium (8.4-10.2) mg/dL Magnesium (1.6-2.3) mg/dL Total Bilirubin (0.2-1.3) mg/dL AST (14-36) U/L Alkaline Phosphatase (38-126) U/L Total Protein (6.3-8.2) g/dL Albumin (3.5-5.0) g/dL Urine Appearance (Clear) Urine Protein (Negative) Urine Blood (Negative) Ur Leukocyte Esterase (Negative) Urine RBC (0-5) /hpf Urine WBC (0-5) /hpf Urine WBC Clumps (None) /hpf Urine Bacteria (None) /hpf Hyaline Casts (0-2) /lpf Urine Mucus (None) /hpf Microbiology - Last 24 Hours (Table) 08/30/17 23:46 Blood Culture - Preliminary Blood No Growth after 24 hours 08/30/17 00:29 Urine Culture - Final Urine,Voided Assessment and Plan (1) Choledocholithiasis with chronic cholecystitis Current Visit: Yes Status: Acute Code(s): K80.44 - CALCULUS OF BILE DUCT W CHRONIC CHOLECYST W/O OBSTRUCTION SNOMED Code(s): 99392421 (2) Cholelithiasis Current Visit: Yes Status: Acute Code(s): K80.20 - CALCULUS OF GALLBLADDER W /O CHOLECYSTITIS W/O OBSTRUCTION SNOMED Code(s): 656738614 (3) Acute exacerbation of CHF (congestive heart failure) Current Visit: No Status: Acute Code(s): I50.9 - HEART FAILURE, UNSPECIFIED SNOMED Code(s): 37235251 Plan: Patient is quite arousable, responding appropriately to general questions, current labs have improved including renal functions as well as liver functions Time with Patient: Greater than 30
--- NOTE | 2017-09-01 15:29 | PN ---
PROGRESS NOTE Patient is seen for followup for acute kidney injury secondary to ischemic ATN. Her urine output has stayed low with last few hours staying at 10 mL an hour. Blood pressure remains low, however, Levophed is down to 3.5 mcg. The patient is awake. She is comfortable. She is not in any acute distress. Blood pressure is 92/65, heart rate 82 per minute. She is afebrile. EXAMINATION OF THE HEART: S1, S2. EXAMINATION OF THE LUNGS: Bilateral breath sounds are heard. Decreased breath sounds at bases. Abdomen is soft, nontender. Examination of the lower extremities shows no significant edema. [employer] exam shows patient is moving all 4 extremities. She is occasionally confused. LABS: Labs reveal sodium of 134, potassium 4.8, chloride 98, BUN 47, serum creatinine 2.3. Hemoglobin 12.7 g/dL. ASSESSMENT: 1. Acute kidney injury, acute tubular necrosis secondary to hypotension hypoperfusion currently oliguric. We will give her a bolus of normal saline and if there is no improvement in urine output, we will start diuretics. Renal function continues to worsen. There are no nephrotoxic agents noted on board. 2. Biliary obstruction. ERCP, currently on hold. 3. Congestive heart failure, which had improved. However, if the patient does not respond to the fluid bolus, I will start her on diuretics. 4. Chronic atrial fibrillation, maintained on Coumadin. 5. Encephalopathy associated with hypotension hypoperfusion. 6. Hypothyroidism. PLAN: IV fluid bolus with 500 mL x1. If there is no improvement in urine output, we will start diuresis. MMODL / IJN: [id number] /
[2017-09-01 18:28] LABS: Glucose,Whole Blood 74 mg/dL (75-99)
[2017-09-01] MEDS ORDERED: FUROSEMIDE 10 MG/ML 10 ML VIAL IV STA (19:09)
[2017-09-01 20:36] LABS: Glucose,Whole Blood 86 mg/dL (75-99)
[2017-09-01] MEDS: MEROPENEM 500 MG in SODIUM CHLORIDE 0.9% 50 ML IVPB SCH (22:54)
[2017-09-01] MEDS: LATANOPROST 0.005% OPHTH DROPS 2.5 ML BTL BOTH EYES SCH (23:10)
[2017-09-01] MEDS: ATORVASTATIN 40 MG TAB PO SCH (23:10)
[2017-09-01 23:39] LABS: Glucose,Whole Blood 73 mg/dL (75-99)
[2017-09-01] MEDS ORDERED: TERBUTALINE 1 MG/ML VIAL SQ ONE (23:41)
[2017-09-02] MEDS ORDERED: TERBUTALINE 1 MG/ML VIAL SQ ONE (01:56)
[2017-09-02] MEDS: NOREPINEPHRIN 4 MG-0.9% NS PMX 4 MG/250 ML ML IV SCH (03:14)
[2017-09-02 05:07] LABS: Anisocytosis Moderate; Basophils % (A) 1 %; Eosinophils # (A) 0.2 k/uL (0-0.7); Eosinophils % (A) 2 %; HCT 41.8 % (34.0-46.0); HGB 12.7 gm/dL (11.4-16.0); Hypochromasia Marked; Lymphocytes % (A) 13 %; MCH 25.5 pg (25.0-35.0); MCHC 30.4 g/dL (31.0-37.0); MCV 83.7 fL (80.0-100.0); Mean Platelet Volume 9.3; Microcytosis Slight; Monocytes # (A) 0.5 k/uL (0-1.0); Monocytes % (A) 6 %; Neutrophils # (A) 5.9 k/uL (1.3-7.7); Neutrophils % (A) 76 %; Platelet Count 144 k/uL (150-450); Poikilocytosis Slight; RBC 4.99 m/uL (3.80-5.40); RDW 20.2 % (11.5-15.5); WBC 7.7 k/uL (3.8-10.6)
[2017-09-02 05:12] LABS: INR 1.5 (<1.2); Prothrombin Time 14.3 sec (9.0-12.0)
[2017-09-02 05:20] LABS: Albumin 2.5 g/dL (3.5-5.0); Calcium 8.2 mg/dL (8.4-10.2); Total Bilirubin 4.1 mg/dL (0.2-1.3); Total Protein 5.7 g/dL (6.3-8.2)
[2017-09-02 05:22] LABS: Magnesium 2.8 mg/dL (1.6-2.3); Phosphorus 3.2 mg/dL (2.5-4.5); Potassium 4.8 mmol/L (3.5-5.1)
[2017-09-02 06:08] LABS: Glucose,Whole Blood 58 mg/dL (75-99)
--- NOTE | 2017-09-02 06:44 | XR ---
EXAMINATION TYPE: XR chest 1V portable DATE OF EXAM: 09/02/2017 HISTORY: CHF. REFERENCE: Previous study dated 09/01/2017. FINDINGS: The heart is enlarged. Pulmonary vasculature has improved. Interstitial change has improved . I suspect a small left effusion. IMPRESSION: IMPROVING CHANGES OF CONGESTIVE HEART FAILURE.
[2017-09-02 06:57] LABS: Glucose,Whole Blood 81 mg/dL (75-99)
[2017-09-02] MEDS: SODIUM CHLORIDE 0.9% 1,000 ML IV SCH ×2 (08:00→13:00)
[2017-09-02 08:02] LABS: Glucose,Whole Blood 82 mg/dL (75-99)
[2017-09-02] MEDS: TIMOLOL 0.5% OPHTH DROPS 5 ML BTL LEFT EYE SCH (08:30)
[2017-09-02] MEDS: MEROPENEM 500 MG in SODIUM CHLORIDE 0.9% 50 ML IVPB SCH ×2 (08:30→20:46)
[2017-09-02] MEDS: FUROSEMIDE 10 MG/ML 4 ML VIAL IV SCH ×2 (09:28→21:19)
[2017-09-02] MEDS ORDERED: SODIUM CHLORIDE 0.9% 1,000 ML IV ONE (09:30)
[2017-09-02] MEDS: ONDANSETRON 4 MG/2 ML VIAL IVP PRN (09:43)
--- NOTE | 2017-09-02 10:33 | PN ---
PROGRESS NOTE DATE OF SERVICE: 09/02/2017. HISTORY: Patient is seen for followup for acute kidney injury secondary to ischemic ATN. The patient's urine output remains borderline with the last few hours showing 40 mL. Levophed is at 3 mcg. Patient is awake. She was confused and pulled out two IVs. Currently, she has a sitter in place. EXAMINATION: Blood pressure is ranging 105-85 mmHg systolic, heart rate 106 per minute. She is afebrile. Examination of the heart S1, S2. Examination lungs bilateral breath sounds are heard. Decreased breath sounds at bases. Abdomen is soft, distended, nontender. Examination of lower extremity shows edema trace bilaterally. LABS: Sodium 132, potassium 4.8, BUN 49, serum creatinine 2.2, hemoglobin 12.7 g/dL. ASSESSMENT: 1. Acute kidney injury, acute tubular necrosis, nonoliguric but with marginal urine output secondary to hypotension and hypoperfusion. Renal function about the same as yesterday with slight drop in creatinine from 2.3 to 2.2. 2. Sepsis, most likely abdominal source, maintained on antibiotics. 3. Elevated liver enzymes secondary to biliary duct stone, ERCP is currently on hold. 4. CHF/volume overload, currently improved. PLAN: Continue to try and wean down Levophed. May continue with current dose of Lasix. Discontinue normal saline. MMODL / IJN: [id number] /
[2017-09-02] MEDS ORDERED: SODIUM CHLORIDE 0.9% 1,000 ML IV SCH (11:15)
--- NOTE | 2017-09-02 11:19 | P.PN ---
Progress Note - Text Progress Note Date: 09/02/17 The patient remained stable in the ICU. It is unclear if Dr. Verdin will be performing ERCP. Dr. English will be resuming care tomorrow.
[2017-09-02 12:14] LABS: Glucose,Whole Blood 99 mg/dL (75-99)
--- NOTE | 2017-09-02 14:18 | PN ---
PROGRESS NOTE HISTORY: An 82-year-old lady who we are following because of atrial fibrillation. She has gallstones and will need an ERCP. She has not been able to go through it because of hypotension. This morning she appeared confused and sleepy. Blood pressures still running low, around 85/65. Early this morning at the time of my evaluation is 104/60. Chest exam reveals diminished air entry bilaterally. Heart exam reveals first and second heart sounds. No gallop. Exam of extremities reveals that the peripheral pulses are palpable. Labs show a white cell count of 7.7, hemoglobin is 12.7, INR is 1.5, BUN is 49, creatinine is 2.2 kg. An echocardiogram shows normal LV function with moderate mitral regurgitation. ASSESSMENT: 1. Chronic atrial fibrillation with controlled ventricular rate. 2. Hypotension. 3. Renal insufficiency. PLAN: We will continue with supportive care. Whenever the hypotension resolves the patient will undergo ERCP. MMODL / IJN: [id number] /
--- NOTE | 2017-09-02 15:26 | P.PN ---
Subjective Progress Note Date: 09/02/17 Principal diagnosis: Acute metabolic encephalopathy and mental status change This is an 82-year-old female patient who follows with Dr. Lucero as her primary care physician. She has a history of atrial fibrillation, cerebrovascular accident/transischemic attack, dementia, hyperlipidemia, hypothyroidism, degenerative joint disease, glaucoma, ESBL urinary tract infections, skin cancer. She resides at [facility]. She was originally admitted here on 08/21/2017 for complaints of shortness of breath. Her initial concerns regarding congestive heart failure. Her chest x-ray did reveal marketed cardiomegaly with small bilateral pleural effusions and mild congestive heart failure. Her echocardiogram revealed preserved left ventricular systolic function with ejection fraction 50-55%. There is moderate pulmonary hypertension, moderate pulmonary regurgitation, moderate mitral regurgitation. Doppler of the right lower extremity was negative for DVT. A computed tomography scan on 08/25/2017 was performed due to altered mental status. There is no acute intracranial hemorrhage or midline shift. There is moderate to severe diffuse age-related cerebral atrophy and small vessel ischemic changes. An MRCP was performed and there were 2 common bile duct stones. No suspicious biliary dilatation however. There is a larger stone in the gallbladder without evidence of acute cholecystitis. Surgical services are on the case. No current interventions planned. The patient had become obtunded while out on the regular medical floor and transferred here to the intensive care unit. We are consulted now for critical care management. She is currently withdrawing to painful stimuli only. No eye contact. Nonfocal. Pupils are pinpoint. She was sent for a second computed tomography scan of the brain today which again revealed no acute intracranial abnormalities. Arterial blood gas on 32% FiO2 revealed a PaO2 of 107, CO2 of 39, pH 7.45. She is maintaining good O2 saturations up to 100% on 3 L/m per nasal cannula. She has been having some issues with low blood sugar. She is on D5W at 50 MLS per hour. She's also been borderline hypotensive and is currently on norepinephrine at 7 mcg/m. Urine culture is in progress. She is currently on Levaquin. Patient was reevaluated today on 09/01/2017, she is definitely more awake, her CT of the brain was negative, I felt that the patient had mostly a combination of metabolic encephalopathy and worsening encephalopathy with Haldol. Patient is awake today, confused as to place person or time, but overall she is much improved compared to how she was yesterday. Sister is at bedside, and she was seen by general surgery, who is also recommending ERCP. CBC is relatively normal. INR is 1.5 basic metabolic profile is normal, however her BUN is 47 creatinine is 2.30. Chest x-ray is showing evidence of pulmonary edema, hence I recommended more diuretics to be given. Potassium is 4.8 today. Liver enzymes were reviewed, continues to have significantly elevated alkaline phosphatase, and elevated total bilirubin of 3.0. Transaminases are borderline elevated. Urinalysis is showing evidence of pyuria and bacteriuria. And Nuvia. Patient was reevaluated today on 09/02/2017, seems to be doing better from the overall perspective, blood pressure remains marginal and she is on a small dose of norepinephrine ranging between 1-3 mcg/m. Patient seems to be less encephalopathic today, she is awake, intermittently confused, but overall improved compared to yesterday. Sister remains at bedside, patient may still undergo ERCP tomorrow. Her chest x-ray today showed definite improvement in her fluid overload, patient did receive multiple doses of diuretics for congestive heart failure. Her labs today showed BUN of 49 and creatinine of 2.20. Her liver enzymes remain elevated specially her alkaline phosphatase and her bilirubin. CBC is relatively normal. Objective - Vital Signs Vital signs: Vital Signs Temp 97.4 F L 09/02/17 04:00 Pulse 106 H 09/02/17 07:00 Resp 26 H 09/02/17 07:00 BP 85/65 09/02/17 07:00 Pulse Ox 100 09/02/17 07:00 Intake & Output 09/01/17 09/02/17 09/02/17 18:59 06:59 18:59 Intake Total 1180.597 824.50 Output Total 163 390 Balance 1017.597 434.50 Weight 114.5 kg Intake: IV 200 600 Dextrose 10% in Water 500 200 ml In Empty Bag 1 bag @ 50 mls/hr IV .Q10H [facility] Rx #:[id number] Sodium Chloride 0.9% 1, 600 000 ml @ 50 mls/hr IV . Q20H [facility] Rx#:[id number] Intake, IV Titration 530.597 224.50 Amount Norepinephrin 4 mg-0.9% 130.597 174.50 Ns Pmx 4 mg In 250 ml @ Titrate IV .Q0M [facility] Rx#: [id number] Sodium Chloride 0.9% 1, 400 50 000 ml @ 50 mls/hr IV . Q20H [facility] Rx#:[id number] Oral 450 Output: Urine 163 390 Other: Voiding Method Indwelling Catheter Indwelling Catheter Indwelling Catheter - Exam GENERAL EXAM: Awake, confused, in no distress. HEAD: Normocephalic. EYES: PERRLA, EOMI, positive icterus. NOSE: Clear with pink turbinates. THROAT: No erythema or exudates. NECK: No masses, no JVD. CHEST: No chest wall deformity. LUNGS: Equal air entry crackles at the bases bilaterally noted, no rhonchi and no wheezes. CVS: Irregular rhythm S1 and S2 normal with no audible murmur, ABDOMEN: No hepatosplenomegaly, normal bowel sounds, no guarding or rigidity. SPINE: No scoliosis or deformity SKIN: No rashes CENTRAL NERVOUS SYSTEM: Tone is normal in all 4 extremities. Patient is confused otherwise no gross focal neurologic deficit EXTREMITIES: There is no peripheral edema. No clubbing, no cyanosis. Peripheral pulses are intact. - Labs CBC & Chem 7: 09/02/17 04:34 09/02/17 04:34 Labs: Abnormal Lab Results - Last 24 Hours (Table) 09/01/17 09/01/17 09/02/17 Range/Units 18:26 23:37 04:34 MCHC (31.0-37.0) g/dL RDW (11.5-15.5) % Plt Count (150-450) k/uL PT 14.3 H (9.0-12.0) sec INR 1.5 H (<1.2) Sodium (137-145) mmol/L BUN (7-17) mg/dL Creatinine (0.52-1.04) mg/dL Glucose (74-99) mg/dL POC Glucose (mg/dL) 74 L 73 L (75-99) mg/dL Calcium (8.4-10.2) mg/dL Magnesium (1.6-2.3) mg/dL Total Bilirubin (0.2-1.3) mg/dL AST (14-36) U/L Alkaline Phosphatase (38-126) U/L Total Protein (6.3-8.2) g/dL Albumin (3.5-5.0) g/dL 09/02/17 09/02/17 09/02/17 Range/Units 04:34 04:34 06:06 MCHC 30.4 L (31.0-37.0) g/dL RDW 20.2 H (11.5-15.5) % Plt Count 144 L (150-450) k/uL PT (9.0-12.0) sec INR (<1.2) Sodium 132 L (137-145) mmol/L BUN 49 H (7-17) mg/dL Creatinine 2.20 H (0.52-1.04) mg/dL Glucose 67 L (74-99) mg/dL POC Glucose (mg/dL) 58 L (75-99) mg/dL Calcium 8.2 L (8.4-10.2) mg/dL Magnesium 2.8 H (1.6-2.3) mg/dL Total Bilirubin 4.1 H (0.2-1.3) mg/dL AST 50 H (14-36) U/L Alkaline Phosphatase 526 H (38-126) U/L Total Protein 5.7 L (6.3-8.2) g/dL Albumin 2.5 L (3.5-5.0) g/dL Microbiology - Last 24 Hours (Table) 08/30/17 23:46 Blood Culture - Preliminary Blood No Growth after 48 hours Assessment and Plan Assessment: #1 Altered mental status with obtundation and unresponsiveness of unclear etiology. Computed tomography scan performed yesterday, revealed no acute intracranial mass or hemorrhage. No acute abnormalities. #2 Acute exacerbation of diastolic congestive heart failure. Improved with diuretics based on the chest x-ray today. #3 Chronic atrial fibrillation maintained on warfarin. 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 Continue Merrem for now. #5 Acute kidney injury secondary to diuretic therapy and hypotension now requiring pressor support. The nurse was instructed to taper down the norepinephrine and maintain a mean arterial pressure between 60 and 65. #6 MRCP revealing common bile duct stone. #7 History of TIA. #8 History of hypertension. #9 Hyperlipidemia. #10 Hypothyroidism. Recommendation: Continue present supportive care measures, discussed her condition with Dr. Mendez, again today, hopefully the patient could have ERCP tomorrow. We'll continue to follow, prognosis remains guarded. Discussed her condition with her sister at bedside. Time with Patient: Less than 30
[2017-09-02 17:07] LABS: Glucose,Whole Blood 85 mg/dL (75-99)
[2017-09-02] MEDS: LEVOTHYROXINE 75 MCG TAB PO SCH (18:16)
[2017-09-02] MEDS: MEMANTINE 10 MG TAB PO SCH (18:16)
[2017-09-02] MEDS: FAMOTIDINE 20 MG TAB PO SCH (18:16)
[2017-09-02] MEDS: METOPROLOL SUCCINATE (ER) 50 MG TAB.ER.24H PO SCH (20:04)
--- NOTE | 2017-09-02 20:32 | P.PN ---
Subjective Progress Note Date: 09/02/17 Principal diagnosis: Dementia, choledocholithiasis sepsis This is a patient residing in the residential being cared for by Dr. Lucero with a history of known symptomatic gallstones who presented to the hospital with significant jaundice and elevated liver enzymes. MRCP yesterday revealed gallstones in the biliary ducts, as well as the slightly larger stone residing in the gallbladder itself, liver functions and bilirubin have improved over the last 3 or 4 days considerations at this time would be ERCP and possible laparoscopic cholecystectomy this will be discussed with family as patient may not be able to tolerate anesthetic or procedures Objective - Vital Signs Vital signs: Vital Signs Temp 97.8 F 09/02/17 16:00 Pulse 103 H 09/02/17 19:00 Resp 30 H 09/02/17 19:00 BP 127/77 09/02/17 19:00 Pulse Ox 99 09/02/17 19:00 Intake & Output 09/02/17 09/02/17 09/03/17 06:59 18:59 06:59 Intake Total 824.50 1738.93 75 Output Total 390 289 20 Balance 434.50 1449.93 55 Weight 114.5 kg Intake: IV 600 675 75 Sodium Chloride 0.9% 1, 600 675 75 000 ml @ 50 mls/hr IV . Q20H [facility] Rx#:[id number] Intake, IV Titration 224.50 1063.93 Amount Norepinephrin 4 mg-0.9% 174.50 63.93 Ns Pmx 4 mg In 250 ml @ Titrate IV .Q0M [facility] Rx#: [id number] Sodium Chloride 0.9% 1, 50 000 ml @ 50 mls/hr IV . Q20H [facility] Rx#:[id number] Sodium Chloride 0.9% 1, 1000 000 ml @ 999 mls/hr IV . Q1H1M [facility] Rx#:[id number] Output: Urine 390 289 20 Other: Voiding Method Indwelling Catheter Indwelling Catheter - Exam General: [Patient awake, alert and oriented times 3. Patient in no acute distress.] HEENT: [PERRL. EOMI. No pharyngeal erythema or exudate.] Generalize as well as scleral icterus Neck: [No adenopathy.] Cardiac: [Heart regular in rate and rhythm. No S3. No S4. No clicks, rubs. No murmur.] Lungs: [Clear to auscultation bilaterally.] Abdomen: [No mass. No organomegaly. Bowel sounds presnt and normoactive in all 4 quadrants.] Extremes: [No edema no cyanosis no claudication normal pulses] : [] Musculoskeletal: [No joint erythema, edema or tenderness.] Skin: [No rash.] Neurologic: [No lateralizing deficits. CN II - XII grossly intact.] Lymphatic: [No adenopathy.] - Labs CBC & Chem 7: 09/02/17 04:34 09/02/17 04:34 Labs: Abnormal Lab Results - Last 24 Hours (Table) 09/01/17 09/02/17 09/02/17 Range/Units 23:37 04:34 04:34 MCHC (31.0-37.0) g/dL RDW (11.5-15.5) % Plt Count (150-450) k/uL PT 14.3 H (9.0-12.0) sec INR 1.5 H (<1.2) Sodium 132 L (137-145) mmol/L BUN 49 H (7-17) mg/dL Creatinine 2.20 H (0.52-1.04) mg/dL Glucose 67 L (74-99) mg/dL POC Glucose (mg/dL) 73 L (75-99) mg/dL Calcium 8.2 L (8.4-10.2) mg/dL Magnesium 2.8 H (1.6-2.3) mg/dL Total Bilirubin 4.1 H (0.2-1.3) mg/dL AST 50 H (14-36) U/L Alkaline Phosphatase 526 H (38-126) U/L Total Protein 5.7 L (6.3-8.2) g/dL Albumin 2.5 L (3.5-5.0) g/dL 09/02/17 09/02/17 Range/Units 04:34 06:06 MCHC 30.4 L (31.0-37.0) g/dL RDW 20.2 H (11.5-15.5) % Plt Count 144 L (150-450) k/uL PT (9.0-12.0) sec INR (<1.2) Sodium (137-145) mmol/L BUN (7-17) mg/dL Creatinine (0.52-1.04) mg/dL Glucose (74-99) mg/dL POC Glucose (mg/dL) 58 L (75-99) mg/dL Calcium (8.4-10.2) mg/dL Magnesium (1.6-2.3) mg/dL Total Bilirubin (0.2-1.3) mg/dL AST (14-36) U/L Alkaline Phosphatase (38-126) U/L Total Protein (6.3-8.2) g/dL Albumin (3.5-5.0) g/dL Microbiology - Last 24 Hours (Table) 08/30/17 23:46 Blood Culture - Preliminary Blood No Growth after 48 hours Assessment and Plan (1) Choledocholithiasis with chronic cholecystitis Current Visit: Yes Status: Acute Code(s): K80.44 - CALCULUS OF BILE DUCT W CHRONIC CHOLECYST W/O OBSTRUCTION SNOMED Code(s): 21975291 (2) Cholelithiasis Current Visit: Yes Status: Acute Code(s): K80.20 - CALCULUS OF GALLBLADDER W /O CHOLECYSTITIS W/O OBSTRUCTION SNOMED Code(s): 123854271 (3) Acute exacerbation of CHF (congestive heart failure) Current Visit: No Status: Acute Code(s): I50.9 - HEART FAILURE, UNSPECIFIED SNOMED Code(s): 46052776 Plan: Patient is quite arousable, responding appropriately to general questions, current labs have improved including renal functions as well as liver functions Time with Patient: Greater than 30
[2017-09-02] MEDS: ATORVASTATIN 40 MG TAB PO SCH (20:46)
[2017-09-02] MEDS: LATANOPROST 0.005% OPHTH DROPS 2.5 ML BTL BOTH EYES SCH (20:51)
--- NOTE | 2017-09-02 21:56 | P.PN ---
Subjective Progress Note Date: 09/01/17 Principal diagnosis: Common bile duct stones The patient is more alert today but continues to be in congestive heart failure and is requiring pressor support. Cardiology and pulmonology are following as well. Objective - Vital Signs Vital signs: Vital Signs Temp 97.6 F 09/01/17 08:00 Pulse 83 09/01/17 09:00 Resp 15 09/01/17 09:00 BP 79/68 09/01/17 09:00 Pulse Ox 99 09/01/17 09:00 Intake & Output 08/31/17 09/01/17 09/01/17 18:59 06:59 18:59 Intake Total 761.215 742.438 606.347 Output Total 268 180 65 Balance 493.215 562.438 541.347 Weight 111.1 kg Intake: IV 60 450 250 Dextrose 10% in Water 500 450 250 ml In Empty Bag 1 bag @ 50 mls/hr IV .Q10H [facility] Rx #:[id number] Dextrose 5%-0.9% NaCl 1, 60 000 ml @ 50 mls/hr IV . Q20H [facility] Rx#:[id number] Intake, IV Titration 701.215 292.438 56.347 Amount Dextrose 10% in Water 500 400 150 ml In Empty Bag 1 bag @ 50 mls/hr IV .Q10H [facility] Rx #:[id number] Norepinephrin 4 mg-0.9% 301.215 142.438 56.347 Ns Pmx 4 mg In 250 ml @ Titrate IV .Q0M [facility] Rx#: [id number] Oral 300 Output: Urine 268 180 65 Other: Voiding Method Indwelling Catheter Indwelling Catheter Indwelling Catheter - Exam General: Appears stated age, very pleasant in some respiratory distress Head and neck: Normocephalic and atraumatic, conjunctivae pink and sclerae not icteric, mucous membranes moist and pink. No masses in the neck or tracheal shifts Lungs: Crackles heard over both bases, no dullness to percussion Heart: Regular, no abnormal sounds, murmurs, gallops or friction rubs Abdomen: Soft, no masses or organomegalies. No tenderness or guarding. Bowel sounds present Extremities: No clubbing, cyanosis or edema Neurologic: Alert but somewhat sleepy and oriented to person. Cranial nerves grossly intact. No gross sensory or motor abnormalities - Labs CBC & Chem 7: 09/02/17 04:34 09/02/17 04:34 Labs: Abnormal Lab Results - Last 24 Hours (Table) 08/31/17 08/31/17 08/31/17 Range/Units 20:13 20:38 22:54 MCHC (31.0-37.0) g/dL RDW (11.5-15.5) % Lymphocytes # (1.0-4.8) k/uL PT (9.0-12.0) sec INR (<1.2) Sodium (137-145) mmol/L BUN 48 H (7-17) mg/dL Creatinine 2.12 H (0.52-1.04) mg/dL Glucose 105 H (74-99) mg/dL POC Glucose (mg/dL) 120 H 147 H (75-99) mg/dL Calcium 8.3 L (8.4-10.2) mg/dL Magnesium 3.1 H (1.6-2.3) mg/dL Total Bilirubin 3.4 H (0.2-1.3) mg/dL AST 69 H (14-36) U/L Alkaline Phosphatase 574 H (38-126) U/L Total Protein 5.6 L (6.3-8.2) g/dL Albumin 2.5 L (3.5-5.0) g/dL Urine Appearance (Clear) Urine Protein (Negative) Urine Blood (Negative) Ur Leukocyte Esterase (Negative) Urine RBC (0-5) /hpf Urine WBC (0-5) /hpf Urine WBC Clumps (None) /hpf Urine Bacteria (None) /hpf Hyaline Casts (0-2) /lpf Urine Mucus (None) /hpf 09/01/17 09/01/17 09/01/17 Range/Units 00:08 02:14 04:08 MCHC (31.0-37.0) g/dL RDW (11.5-15.5) % Lymphocytes # (1.0-4.8) k/uL PT 14.3 H (9.0-12.0) sec INR 1.5 H (<1.2) Sodium (137-145) mmol/L BUN (7-17) mg/dL Creatinine (0.52-1.04) mg/dL Glucose (74-99) mg/dL POC Glucose (mg/dL) 108 H 108 H (75-99) mg/dL Calcium (8.4-10.2) mg/dL Magnesium (1.6-2.3) mg/dL Total Bilirubin (0.2-1.3) mg/dL AST (14-36) U/L Alkaline Phosphatase (38-126) U/L Total Protein (6.3-8.2) g/dL Albumin (3.5-5.0) g/dL Urine Appearance (Clear) Urine Protein (Negative) Urine Blood (Negative) Ur Leukocyte Esterase (Negative) Urine RBC (0-5) /hpf Urine WBC (0-5) /hpf Urine WBC Clumps (None) /hpf Urine Bacteria (None) /hpf Hyaline Casts (0-2) /lpf Urine Mucus (None) /hpf 09/01/17 09/01/17 09/01/17 Range/Units 04:08 04:08 05:00 MCHC 30.8 L (31.0-37.0) g/dL RDW 20.2 H (11.5-15.5) % Lymphocytes # 0.8 L (1.0-4.8) k/uL PT (9.0-12.0) sec INR (<1.2) Sodium 134 L (137-145) mmol/L BUN 47 H (7-17) mg/dL Creatinine 2.30 H (0.52-1.04) mg/dL Glucose (74-99) mg/dL POC Glucose (mg/dL) (75-99) mg/dL Calcium 8.1 L (8.4-10.2) mg/dL Magnesium 3.0 H (1.6-2.3) mg/dL Total Bilirubin 3.0 H (0.2-1.3) mg/dL AST 44 H (14-36) U/L Alkaline Phosphatase 544 H (38-126) U/L Total Protein 5.2 L (6.3-8.2) g/dL Albumin 2.3 L (3.5-5.0) g/dL Urine Appearance Cloudy H (Clear) Urine Protein 1+ H (Negative) Urine Blood Moderate H (Negative) Ur Leukocyte Esterase Large H (Negative) Urine RBC 94 H (0-5) /hpf Urine WBC 109 H (0-5) /hpf Urine WBC Clumps Occasional H (None) /hpf Urine Bacteria Few H (None) /hpf Hyaline Casts 35 H (0-2) /lpf Urine Mucus Few H (None) /hpf 09/01/17 Range/Units 12:48 MCHC (31.0-37.0) g/dL RDW (11.5-15.5) % Lymphocytes # (1.0-4.8) k/uL PT (9.0-12.0) sec INR (<1.2) Sodium (137-145) mmol/L BUN (7-17) mg/dL Creatinine (0.52-1.04) mg/dL Glucose (74-99) mg/dL POC Glucose (mg/dL) 121 H (75-99) mg/dL Calcium (8.4-10.2) mg/dL Magnesium (1.6-2.3) mg/dL Total Bilirubin (0.2-1.3) mg/dL AST (14-36) U/L Alkaline Phosphatase (38-126) U/L Total Protein (6.3-8.2) g/dL Albumin (3.5-5.0) g/dL Urine Appearance (Clear) Urine Protein (Negative) Urine Blood (Negative) Ur Leukocyte Esterase (Negative) Urine RBC (0-5) /hpf Urine WBC (0-5) /hpf Urine WBC Clumps (None) /hpf Urine Bacteria (None) /hpf Hyaline Casts (0-2) /lpf Urine Mucus (None) /hpf Microbiology - Last 24 Hours (Table) 08/30/17 23:46 Blood Culture - Preliminary Blood No Growth after 24 hours 08/30/17 00:29 Urine Culture - Final Urine,Voided Assessment and Plan Assessment: Elevated liver enzymes with cholelithiasis and choledocholithiasis demonstrated on MRI. Plan: I discussed at length with her son and her sister. The family understands her guarded condition and understands the risk of endoscopic and surgical intervention and would still like her to have an ERCP as soon as she is off pressors and cleared by anesthesia and the other providers. I will tentatively plan for the ERCP for Sunday.
[2017-09-02 22:08] LABS: Glucose,Whole Blood 78 mg/dL (75-99)
[2017-09-03 05:36] LABS: Glucose,Whole Blood 71 mg/dL (75-99)
[2017-09-03 06:36] LABS: Anisocytosis Moderate; Basophils % (A) 0 %; Eosinophils # (A) 0.2 k/uL (0-0.7); Eosinophils % (A) 3 %; HCT 39.8 % (34.0-46.0); HGB 12.3 gm/dL (11.4-16.0); Hypochromasia Marked; Lymphocytes # (A) 0.8 k/uL (1.0-4.8); Lymphocytes % (A) 12 %; MCH 25.4 pg (25.0-35.0); MCHC 30.9 g/dL (31.0-37.0); MCV 82.3 fL (80.0-100.0); Mean Platelet Volume 8.2; Microcytosis Slight; Monocytes # (A) 0.4 k/uL (0-1.0); Monocytes % (A) 5 %; Neutrophils # (A) 5.3 k/uL (1.3-7.7); Neutrophils % (A) 78 %; Platelet Count 140 k/uL (150-450); Poikilocytosis Moderate; RBC 4.84 m/uL (3.80-5.40); RDW 20.8 % (11.5-15.5); WBC 6.9 k/uL (3.8-10.6)
[2017-09-03 06:44] LABS: INR 1.5 (<1.2); Prothrombin Time 13.6 sec (9.0-12.0)
[2017-09-03 06:46] LABS: Calcium 7.9 mg/dL (8.4-10.2); Magnesium 2.6 mg/dL (1.6-2.3); Phosphorus 3.5 mg/dL (2.5-4.5); Potassium 3.6 mmol/L (3.5-5.1)
[2017-09-03] MEDS: SODIUM CHLORIDE 0.9% 1,000 ML IV SCH (06:57)
[2017-09-03] MEDS ORDERED: INDOMETHACIN 50MG SUPPOSITORY RECTAL ONE (09:52)
[2017-09-03] MEDS: MEROPENEM 500 MG in SODIUM CHLORIDE 0.9% 50 ML IVPB SCH ×2 (10:32→22:05)
[2017-09-03] MEDS: FUROSEMIDE 10 MG/ML 4 ML VIAL IV SCH ×2 (10:34→21:51)
[2017-09-03] MEDS: TIMOLOL 0.5% OPHTH DROPS 5 ML BTL LEFT EYE SCH (10:35)
--- NOTE | 2017-09-03 11:08 | P.PN ---
Subjective Progress Note Date: 09/03/17 82-year-old female who was transported to [facility] from [facility] after she was seen by Dr. Lucero and found to have increasing shortness of breath and increased edema to the lower extremities. Patient denies chest pain or pressure. Denies cough or sputum production. Denies nausea or vomiting. Denies pain or discomfort. Denies dizziness or lightheadedness. The patient has a history of atrial fibrillation maintained on long-term anticoagulated with Coumadin, glaucoma, asymptomatic bacteriuria, mood disorder with psychotic features, hypothyroidism, diastolic congestive heart failure, hypertension, hyperlipidemia, TIA, and osteopenia. 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 Chest x-ray 08/21/2017: Marked cardiomegaly with small bilateral effusions and findings suggestive of mild congestive heart failure Chest x-ray 08/22/2017: Some improvement noted in the patient's volume status. Cardiomegaly. EKG: Atrial fibrillation. Rate 103. Laboratory data: WBC 6.6. Hemoglobin 13.2. Platelet count 186. Sodium 139. Potassium 3.2. BUN 21. Creatinine 0.90. GFR 61. Glucose 111. Magnesium 2.5. AST 41. ALT 40. Total bilirubin 4.3. Alkaline phosphatase 356. Troponins negative 3 BNP: 4400 The patient was admitted to the hospital under the care of Dr. Lucero. Consultations were placed to cardiology. 08/23/2017 Patient seen and examined at the bedside. Patient was started on Lasix 40 mg IV every 12 hours yesterday per cardiology. Patient underwent a venous Doppler on 08/22/2017 due to right lower extremity edema. Doppler was negative for a DVT. Blood pressure is stable with a last reading of 110 over the T8. She is on room air with oxygen saturations greater than 92%. She is afebrile. She remains A. fib on the monitor in the 80s and 90s. INR this morning is 4.2. Coumadin remains on hold. Potassium is low this morning at 3.1. Urinalysis was completed on 08/22/2017 revealing clear yellow urine, 1+ proteinuria, moderate blood, moderate leukocyte esterase, RBC 45, WBC 33, rare bacteria, rare mucus, and hyaline casts of 7. The patient pulled out her indwelling urinary catheter this morning. Echocardiogram was completed on 08/21/2017 which revealed moderate concentric left ventricular hypertrophy, ejection fraction of 50-55%, mildly enlarged right ventricle, mild aortic regurgitation, moderate to severe aortic stenosis, moderate mitral regurgitation, severe tricuspid regurgitation, moderate pulmonary hypertension, moderate pulmonic regurgitation, and RVSP of 54.14. 08/24/2017 Patient seen and examined at the bedside. patient underwent ultrasound of the abdomen on 08/23/2017 which revealed right pleural effusion, positive sonographic Pink sign, findings suggestive of cholecystitis. Suspected hepatomegaly. General surgery was consulted. no surgical intervention from their standpoint. INR this morning is 3.9. Coumadin remains on hold. Patient' s lactic acid yesterday was 3.2. IV fluids were ordered if ok with cardiology. Fluids were discontinued. Repeat lactic acid 2.1. patient remains on Lasix 40 mg IV every 12 hours. patient remains on Levaquin for a possible urinary tract infection. Urine culture is currently pending. 08/25/2017-Note per Dr. Mendez 08/26/2017-Note per Dr. Mendez 08/27/2017 Patient evaluated at the bedside. Patient underwent MRCP which revealed common bile duct stone and well as gallstones. Patient is to undergo ERCP when INR is less than 1.5 per GI documentation. INR this morning is 2.6. Patient remains off Coumadin. Potassium this morning is 5.7. Patients urinalysis was positive for leukocyte esterase. Urine culture was sent but per lab report specimen was unsuitable and requested new specimen. Patient remains on Levaquin. Apparently, cardiology has signed off the case but patient remains on lasix 40mg IV daily. Patient has some confusion over the weekend and was pulling out IV lines and taking off her gown. CT of the brain was completed on 08/25/2017 revealing no evidence of intracranial hemorrhage or midline shift. There is moderate to severe diffuse age-related cerebral atrophy and chronic small vessel ischemic changes redemonstrated without significant change from prior exam. 08/28/2017 Patient examined at the bedside on rounds with Dr. Mendez. Patient is awake and alert, but remains confused. Patient does complain of abdominal pain. Dr. Mendez asked patient if she wanted to undergo furthering testing and procedures and patient states she wanted to proceed. Patients son is her guardian. Apparently, family is undecided if they want to pursue ERCP. INR this morning is 2.5. Patient received 5mg Vitamin K yesterday. BUN 31. Creatinine 1.40. AST 106. ALT 53. Alkaline phosphatase 873. TSH 1.4. 08/29/2017 Patient examined at the bedside. Patient has been transferred to general medical floor. Patient very restless and agitated this morning. Constantly calling out and yelling. Patient's blood pressure is on the lower side this morning at 89/65. Previous reading 90/62. Patients heart rate currently 77 but has been running in the 90s. Patient's INR yesterday was 2.5. Patient received 10 mg vitamin K. Repeat INR this morning is currently pending. Comprehensive metabolic panel from this morning is also currently pending. Currently awaiting decision from family regarding whether or not they would like to proceed with ERCP. Addendum: Lab work from this morning reveals creatinine 1.6. BUN 36. Creatinine yesterday was 1.40. Patient's baseline is around 1.0. Will continue to hold Lasix. Patient was hypotensive this morning and has had overall decreased oral intake. Begin gentle hydration with normal saline at 50 mL an hour. Monitor for signs of fluid overload. Will consult nephrology for acute kidney injury. INR is still pending. Addendum: Spoke with patients son, Derrek, regarding ERCP. Derrek states they would like to proceed with ERCP. Notified Dr. Savage. INR 1.7 today. Will recheck in AM. Will make patient NPO after midnight. 08/30/2017 Patient examined at the bedside. Patient remains confused and slightly lethargic. Patient will open eyes to verbal stimuli. She is scheduled for ERCP today. Her INR is 1.7. Potassium today is 5.9. BUN 40. Creatinine 1.81. Nephrology has been consulted. She remains on normal saline at 50 mL an hour. blood pressure has been on the lower side with systolics in the mid 80s. Blood pressure this morning is 95/68. Her Lasix remains on hold. She is afebrile. ADDENDUM 1730: Notified by nursing this afternoon that patient has become more lethargic. CONFERENCE SPECIALIST re -assessed patient. Patient was scheduled for ERCP today but it was cancelled due to elevated potassium. Hyperkalemia was treated this AM with IV insulin and dextrose. Patients BP has been borderline hypotensive with BPs in the 90s. Patient is receiving IV fluids at 50cc/hr. Patient was admitted with CHF exac and was receiving IV lasix a few days ago, thus fluid resuscitation has been modest. Lasix has been transitioned to oral which remains on hold. Patient received scheduled seroquel last night along with Haldol as she becomes agitated and restless and yells out frequently secondary to her dementia. Patient does appear more lethargic in comparison to examination this morning. Lethargy is likely multifactorial due to seroquel, haldol, hypotension, acute kidney injury, and suspected urinary tract infection. Patient is a DNR and does not want to be intubated. ABG was obtained to assess patients oxygenation. ABG is within normal limits. Patient is on 2L with oxygen saturations greater than 92%. She is lethargic, but appears comfortable. No signs of agonal breathing. Spoke with patients daughter in law and sister at the bedside. All questions answered to the best of my ability. Patients sister states she is going to stay overnight in the event that she becomes agitated throughout the night or in case her condition continues to decline. Repeat K is 5.5 Additional 10 units IV insulin and dextrose ordered. Repeat at 1999. Will DC seroquel and haldol. CONFERENCE SPECIALIST updated Dr. Mendez who agrees with orders and plan of care. Dr. Mendez does not want patient transferred to the ICU. This was also told to the patients RN. However, shortly after CONFERENCE SPECIALIST spoke with RN and spoke with patients family, the patients nurse called an A team. No further interventions were performed. CONFERENCE SPECIALIST notified Dr. Mendez that A-team was called on patient by floor nurse. 08/31/2017 Patient was transferred to ICU yesterday per Dr. Mccoy orders. Patient remains lethargic this morning but is able to open her eyes to commands. Patient is verbalizing a few words at a time. She remains confused, which is her baseline. She received 750cc in fluid boluses. She was started on Levophed and is currently infusing at 9mcg/min. Blood pressure has been running 110/70s. She is on 3L NC with oxygen saturations greater than 92%. Indwelling urinary catheter was inserted yesterday. Meaghan urine noted. Decreased output. Chest xray was completed 08/30/2017 revealing congestive heart failure with increasing congestion and right pleural fluid. Patient received 40mg IV lasix per nephrology. Repeat chest xray was completed 08/31/2017 revealing improving features of congestive heart failure, cardiomegaly, and scattered infiltrates. CBC this morning 5.8. Hemoglobin 13.5. INR 1.5. Sodium 137. Potassium 5.8. BUN 46. Creatinine 1.91. Magnesium 3.2. Total bilirubin 3.8. AST 56. ALT 44. Alkaline phosphatase 634. Ammonia level was 67 yesterday. Repeated this morning. Result is 38. Patient was hypoglycemic this morning and was receiving IV dextrose at the time of my examination. 09/01/2017-Note per Dr. Mendez 09/02/2017-Note per Dr. Mendez 09/03/2017 Patient seen and examined at the bedside. Patient has been transferred out of the ICU to the selective care unit. Blood pressure this morning is 107/61. Heart rate is in the 70s. Patient is awake and alert. She is confused which is her baseline. Patient's left arm is extremely edematous with ecchymosis and erythema throughout. Spoke with nursing who states that patient pulled out 2 of her peripheral IVs while was running in the intensive care unit. Dr. Lucero recommends Gaudencio wrap to left upper extremity. Patient is scheduled for ERCP this afternoon with Dr. Smith. Objective - Vital Signs Vital signs: Vital Signs Temp 97.8 F 09/03/17 07:58 Pulse 98 09/03/17 07:58 Resp 16 09/03/17 07:58 BP 107/61 09/03/17 07:58 Pulse Ox 96 09/03/17 07:58 Intake & Output 09/02/17 09/03/17 09/03/17 18:59 06:59 18:59 Intake Total 1738.93 325 Output Total 289 565 Balance 1449.93 -240 Weight 112.5 kg Intake: IV 675 325 Meropenem 500 mg In 50 Sodium Chloride 0.9% 50 ml @ 100 mls/hr IVPB Q12HR [facility] Rx#:[id number] Sodium Chloride 0.9% 1, 675 275 000 ml @ 50 mls/hr IV . Q20H [facility] Rx#:[id number] Intake, IV Titration 1063.93 Amount Norepinephrin 4 mg-0.9% 63.93 Ns Pmx 4 mg In 250 ml @ Titrate IV .Q0M [facility] Rx#: [id number] Sodium Chloride 0.9% 1, 1000 000 ml @ 999 mls/hr IV . Q1H1M [facility] Rx#:[id number] Output: Urine 289 565 Other: Voiding Method Indwelling Catheter Indwelling Catheter Indwelling Catheter # Voids 1 - Exam GENERAL: This is a 82-year-old female who is confused, which is her baseline. Awake and alert. HEENT: Head is atraumatic, normocephalic. Pupils are equal, round, and reactive to light. Sclerae anicteric. Conjunctivae are clear. Mucus membranes of the mouth are dry. Neck is supple. RESPIRATORY: Diminished throughout. No rales auscultated. No use of accessory muscles. Patient maintaining oxygen saturation greater than 92%. No chest wall tenderness is noted on palpation or with deep breathing. CARDIOVASCULAR: Irregular rhythm. S1 and S2 noted. Systolic murmur auscultated. No JVD noted. No S3 or S4 noted. GASTROINTESTINAL: No distention noted. Abdomen soft and round. Normal active bowel sounds auscultated x 4 quadrants. Slight pain and tenderness noted upon palpation of right upper quadrant. INTEGUMENTARY: Left upper extremity with significant edema, ecchymosis, and erythema secondary to peripheral IV infiltration. EXTREMITIES: 1+ peripheral pulses. +1 lower extremity edema. No calf tenderness noted. NEUROLOGIC: Cranial nerves II-XII intact. PSYCHIATRIC: Patient oriented 1, which is her baseline. Awake and alert.. - Labs CBC & Chem 7: 09/03/17 06:13 09/03/17 06:13 Labs: Abnormal Lab Results - Last 24 Hours (Table) 09/03/17 09/03/17 09/03/17 Range/Units 05:34 06:13 06:13 MCHC 30.9 L (31.0-37.0) g/dL RDW 20.8 H (11.5-15.5) % Plt Count 140 L (150-450) k/uL Lymphocytes # 0.8 L (1.0-4.8) k/uL PT 13.6 H (9.0-12.0) sec INR 1.5 H (<1.2) BUN (7-17) mg/dL Creatinine (0.52-1.04) mg/dL Glucose (74-99) mg/dL POC Glucose (mg/dL) 71 L (75-99) mg/dL Calcium (8.4-10.2) mg/dL Magnesium (1.6-2.3) mg/dL 09/03/17 Range/Units 06:13 MCHC (31.0-37.0) g/dL RDW (11.5-15.5) % Plt Count (150-450) k/uL Lymphocytes # (1.0-4.8) k/uL PT (9.0-12.0) sec INR (<1.2) BUN 46 H (7-17) mg/dL Creatinine 2.17 H (0.52-1.04) mg/dL Glucose 60 L (74-99) mg/dL POC Glucose (mg/dL) (75-99) mg/dL Calcium 7.9 L (8.4-10.2) mg/dL Magnesium 2.6 H (1.6-2.3) mg/dL Microbiology - Last 24 Hours (Table) 08/30/17 23:46 Blood Culture - Preliminary Blood No Growth after 72 hours Assessment and Plan Plan: ASSESSMENT: Acute exacerbation of diastolic congestive heart failure, echo reveals ejection fraction of 50-55% Chronic atrial fibrillation, maintained on long-term anticoagulation with Coumadin Supratherapeutic INR, INR 4.9 on admission, resolved, coumadin remains on hold for ERCP Bacteruria, urinalysis positive for leukocyte esterase, urine culture negative 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 Hypokalemia, secondary to diuretic therapy, resolved Hyperkalemia, likely secondary to acute kidney injury, resolved Acute kidney injury, secondary to diuretic therapy, hypotension, and hypoperfusion, baseline creatinine 1.0 Hypotension, requiring vasopressor support, improved Hypoglycemia Elevated bilirubin and alkaline phosphatase with normal amylase and lipase with slight jaundice, s/p MRCP revealing common bile duct stone and also gallstones Choledocholithiasis Cholelithiasis History of TIA Essential hypertension Hyperlipidemia Hypothyroidism Dementia Obesity: BMI 32.4 PLAN: ERCP planned for this afternoon Discontinue IV fluids as patient was treated for CHF exacerbation with IV Lasix over the past few days Gaudencio wrap to upper left extremity per Dr. Lucero Continue urinary catheter Accurate I&O IV dextrose PRN for hypoglycemia Physical therapy and occupational therapy Home meds as appropriate Monitor labs GI prophylaxis: Pepcid 20 mg by daily DVT prophylaxis: JESUS hose and Venodyne's to bilateral lower extremities Monitor vital signs and address as appropriate Further recommendations pending patient's course Nurse practitioner note has been reviewed by physician. Signing provider agrees with the documented findings, assessment, and plan of care.
[2017-09-03 12:05] LABS: Glucose,Whole Blood 58 mg/dL (75-99)
[2017-09-03] MEDS ORDERED: DEXTROSE 50%-WATER 50 ML SYRINGE IVP ONE ×2 (12:05→15:13)
[2017-09-03] MEDS: DEXTROSE 50%-WATER 50 ML SYRINGE IVP PRN ×2 (12:07→15:16)
[2017-09-03 12:45] LABS: Glucose,Whole Blood 125 mg/dL (75-99)
--- NOTE | 2017-09-03 13:19 | P.PN ---
Subjective Progress Note Date: 09/03/17 Principal diagnosis: Cholelithiasis Patient remains confused although does seem more alert today. Her labs continue to show an elevated bilirubin and alk phos phosphatase. Denies pain. Objective - Vital Signs Vital signs: Vital Signs Temp 97.8 F 09/03/17 07:58 Pulse 98 09/03/17 07:58 Resp 16 09/03/17 07:58 BP 107/61 09/03/17 07:58 Pulse Ox 96 09/03/17 07:58 Intake & Output 09/02/17 09/03/17 09/03/17 18:59 06:59 18:59 Intake Total 1738.93 325 Output Total 289 565 Balance 1449.93 -240 Weight 112.5 kg Intake: IV 675 325 Meropenem 500 mg In 50 Sodium Chloride 0.9% 50 ml @ 100 mls/hr IVPB Q12HR [facility] Rx#:[id number] Sodium Chloride 0.9% 1, 675 275 000 ml @ 50 mls/hr IV . Q20H [facility] Rx#:[id number] Intake, IV Titration 1063.93 Amount Norepinephrin 4 mg-0.9% 63.93 Ns Pmx 4 mg In 250 ml @ Titrate IV .Q0M [facility] Rx#: [id number] Sodium Chloride 0.9% 1, 1000 000 ml @ 999 mls/hr IV . Q1H1M [facility] Rx#:[id number] Output: Urine 289 565 Other: Voiding Method Indwelling Catheter Indwelling Catheter Indwelling Catheter # Voids 1 - Exam Abdomen: Soft, nontender, nondistended - Labs CBC & Chem 7: 09/03/17 06:13 09/03/17 06:13 Labs: Abnormal Lab Results - Last 24 Hours (Table) 09/03/17 09/03/17 09/03/17 Range/Units 05:34 06:13 06:13 MCHC 30.9 L (31.0-37.0) g/dL RDW 20.8 H (11.5-15.5) % Plt Count 140 L (150-450) k/uL Lymphocytes # 0.8 L (1.0-4.8) k/uL PT 13.6 H (9.0-12.0) sec INR 1.5 H (<1.2) BUN (7-17) mg/dL Creatinine (0.52-1.04) mg/dL Glucose (74-99) mg/dL POC Glucose (mg/dL) 71 L (75-99) mg/dL Calcium (8.4-10.2) mg/dL Magnesium (1.6-2.3) mg/dL 09/03/17 09/03/17 09/03/17 Range/Units 06:13 12:01 12:34 MCHC (31.0-37.0) g/dL RDW (11.5-15.5) % Plt Count (150-450) k/uL Lymphocytes # (1.0-4.8) k/uL PT (9.0-12.0) sec INR (<1.2) BUN 46 H (7-17) mg/dL Creatinine 2.17 H (0.52-1.04) mg/dL Glucose 60 L (74-99) mg/dL POC Glucose (mg/dL) 58 L 125 H (75-99) mg/dL Calcium 7.9 L (8.4-10.2) mg/dL Magnesium 2.6 H (1.6-2.3) mg/dL Microbiology - Last 24 Hours (Table) 08/30/17 23:46 Blood Culture - Preliminary Blood No Growth after 72 hours Assessment and Plan (1) Cholelithiasis Narrative/Plan: Await ERCP findings today. Continue nothing by mouth for now. Current Visit: Yes Status: Acute Code(s): K80.20 - CALCULUS OF GALLBLADDER W /O CHOLECYSTITIS W/O OBSTRUCTION SNOMED Code(s): 138679704
[2017-09-03] MEDS: METOPROLOL SUCCINATE (ER) 25 MG TAB.ER.24H PO SCH (14:34)
--- NOTE | 2017-09-03 14:49 | P.PN ---
Subjective Progress Note Date: 09/03/17 Principal diagnosis: Mental status changes Progress note dated 09/03/2017 This is an 82-year-old female who came into the hospital with complaints of changes in mental status. CT was essentially negative for anything acute. In addition, the patient has has a history of diastolic CHF chronic atrial fibrillation extended spectrum beta-lactamase producing urinary tract infection acute kidney injury, bile duct stone history of TIA hypertension hyperlipidemia and hypothyroidism. The patient's most recent chest x-ray shows improving volume status. She looks okay. She seems to be in no distress. Almost laying flat in bed. Is receiving supplemental oxygen. Denies any chest pain or chest discomfort. No nausea vomiting or diarrhea. No coughing up of phlegm or blood. No fever or chills. Objective - Vital Signs Vital signs: Vital Signs Temp 97.8 F 09/03/17 07:58 Pulse 98 09/03/17 07:58 Resp 16 09/03/17 07:58 BP 107/61 09/03/17 07:58 Pulse Ox 96 09/03/17 07:58 Intake & Output 09/02/17 09/03/17 09/03/17 18:59 06:59 18:59 Intake Total 1738.93 325 Output Total 289 565 Balance 1449.93 -240 Weight 112.5 kg 112.5 kg Intake: IV 675 325 Meropenem 500 mg In 50 Sodium Chloride 0.9% 50 ml @ 100 mls/hr IVPB Q12HR [facility] Rx#:[id number] Sodium Chloride 0.9% 1, 675 275 000 ml @ 50 mls/hr IV . Q20H [facility] Rx#:[id number] Intake, IV Titration 1063.93 Amount Norepinephrin 4 mg-0.9% 63.93 Ns Pmx 4 mg In 250 ml @ Titrate IV .Q0M [facility] Rx#: [id number] Sodium Chloride 0.9% 1, 1000 000 ml @ 999 mls/hr IV . Q1H1M [facility] Rx#:[id number] Output: Urine 289 565 Other: Voiding Method Indwelling Catheter Indwelling Catheter Indwelling Catheter # Voids 1 - Exam No acute distress, oriented 3. HEENT examination is grossly unremarkable. Mucous membranes are moist. No oral lesions. Neck supple. Full range of motion. No adenopathy thyromegaly or neck vein distention. Cardiovascular examination reveals irregular rhythm and rate. S1-S2 normal. No S3 or S4. No discernible murmur noted. Lungs reveal clear breath sounds. Her sounds are equal bilaterally. No adventitious lung sounds including wheezes rhonchi or crackles. Abdomen soft bowel sounds are heard. Mild tenderness, right upper quadrant on palpation. Extremities are intact. No cyanosis clubbing or edema. Skin is without rash or lesion. Neurologic examination is brief but nonfocal. - Labs CBC & Chem 7: 09/03/17 06:13 09/03/17 06:13 Labs: Abnormal Lab Results - Last 24 Hours (Table) 09/03/17 09/03/17 09/03/17 Range/Units 05:34 06:13 06:13 MCHC 30.9 L (31.0-37.0) g/dL RDW 20.8 H (11.5-15.5) % Plt Count 140 L (150-450) k/uL Lymphocytes # 0.8 L (1.0-4.8) k/uL PT 13.6 H (9.0-12.0) sec INR 1.5 H (<1.2) BUN (7-17) mg/dL Creatinine (0.52-1.04) mg/dL Glucose (74-99) mg/dL POC Glucose (mg/dL) 71 L (75-99) mg/dL Calcium (8.4-10.2) mg/dL Magnesium (1.6-2.3) mg/dL 09/03/17 09/03/17 09/03/17 Range/Units 06:13 12:01 12:34 MCHC (31.0-37.0) g/dL RDW (11.5-15.5) % Plt Count (150-450) k/uL Lymphocytes # (1.0-4.8) k/uL PT (9.0-12.0) sec INR (<1.2) BUN 46 H (7-17) mg/dL Creatinine 2.17 H (0.52-1.04) mg/dL Glucose 60 L (74-99) mg/dL POC Glucose (mg/dL) 58 L 125 H (75-99) mg/dL Calcium 7.9 L (8.4-10.2) mg/dL Magnesium 2.6 H (1.6-2.3) mg/dL Microbiology - Last 24 Hours (Table) 08/30/17 23:46 Blood Culture - Preliminary Blood No Growth after 72 hours Assessment and Plan Assessment: Assessment Mental status changes, improved, with a negative computed tomography scan of the brain Acute exacerbation of diastolic see clinically and radiographically Chronic atrial fibrillation Previous history of urinary tract infection secondary to extended spectrum beta- lactamase producing organism Acute kidney injury, possibly related to ATN Common bile duct stone History of TIA History of hypertension Hyperlipidemia Hypothyroidism Plan: Plan dated 09/03/2017 We'll continue with supportive care. We'll await GI input as it relates to ERCP. Additional recommendations suggestions are forthcoming. Clinically she is doing better. X-rays improved. Mental status is improved. Follow. Time with Patient: Less than 30
[2017-09-03 15:07] LABS: Glucose,Whole Blood 67 mg/dL (75-99)
[2017-09-03 15:07] LABS: Glucose,Whole Blood 67 mg/dL (75-99)
[2017-09-03] MEDS: IV FLUID CONTINUATION 1,000 ML IV ONE ×2 (15:29→21:27)
[2017-09-03] MEDS ORDERED: IV FLUID CONTINUATION 1,000 ML IV ONE ×7 (15:29→16:21)
[2017-09-03 15:48] LABS: Glucose,Whole Blood 105 mg/dL (75-99)
[2017-09-03] MEDS ORDERED: ePHEDrine SULFATE/0.9% NACL/PF 50 MG/5 ML SYRINGE IV ONE (16:10)
[2017-09-03] MEDS ORDERED: PHENYLEPHRINE-0.9% NACL SYG 1 MG/10 ML SYRINGE ONE (16:10)
[2017-09-03] MEDS ORDERED: PROPOFOL 10 MG/ML 20 ML VIAL IV ONE (16:10)
[2017-09-03] MEDS ORDERED: IOHEXOL 300 MG/ML 50 ML BOTTLE MISCELLANE ONE (16:44)
--- NOTE | 2017-09-03 17:14 | P.PCN ---
Date of Procedure: 09/03/17 Procedure(s) Performed: Procedure: Endoscopic retrograde cholangiopancreatography with sphincterotomy and successful extraction of 2 common bile duct stones using the 11.5 mm balloon catheter. Preoperative diagnosis: Cholelithiasis and suspected choledocholithiasis. Postoperative diagnosis: 1. Normal papilla and pancreatic duct. 2. Common bile duct slightly dilated with 2 filling defects consistent with common bile duct stones. 3. Successful sphincterotomy and extraction of the common bile duct stones using the 11.5 mm balloon catheter. Operation and sedation: Was provided by anesthesia. Brief clinical history: The patient is an 82-year-old female who presented with shortness of breath and lower extremity swelling and was found to have abnormal bilirubin and alkaline phosphatase. Hes imaging studies showed cholelithiasis and suspected 2 common bile duct stones. The details are summarized in the history and physical and dictated consultations and progress notes. Procedure: With the patient in the prone position and after informed consent and intubation and mechanical ventilation, I passed the Olympus video duodenoscope down the esophagus into the stomach then passed it through the pylorus into the duodenum and brought the papilla into view. The papilla appeared normal. Initial cannulation and injection with dye resulted in opacification of the pancreatic duct which appeared within normal. Subsequently , I was able to selectively cannulate and inject dye into the common bile duct. The common bile duct appeared somewhat dilated and there was two filling defects in the distal common bile duct. I proceeded to exchange the catheter for a sphincterotome over a guidewire. After successful sphincterotomy, I was able to extract the 2 common bile duct stones using the 11.5 mm balloon catheter which was withdrawn across the sphincterotomy site fully inflated. The patient tolerated the procedure well and did not have any immediate complications. Plan: I summarized the findings to the patient and her family. Will allow liquid diet and advance as tolerated. Timing of the cholecystectomy could be made based on his course. Will continue to follow with you with interest.
[2017-09-03] MEDS ORDERED: MIDAZOLAM 2 MG/2 ML VIAL IVP ONE (18:07)
[2017-09-03] MEDS: PROPOFOL 1,000 MG in EMPTY BAG 1 BAG IV SCH (18:09)
[2017-09-03 18:24] LABS: Glucose,Whole Blood 102 mg/dL (75-99)
[2017-09-03] MEDS ORDERED: PHENYLEPHRINE 10 MG/ML VIAL IV ONE ×2 (18:46)
[2017-09-03] MEDS: LEVOTHYROXINE 75 MCG TAB PO SCH (19:26)
[2017-09-03] MEDS: FAMOTIDINE 20 MG TAB PO SCH (19:27)
[2017-09-03] MEDS: MEMANTINE 10 MG TAB PO SCH (19:27)
[2017-09-03 20:16] LABS: Glucose,Whole Blood 95 mg/dL (75-99)
[2017-09-03] MEDS ORDERED: NOREPINEPHRIN 4 MG-0.9% NS PMX 4 MG/250 ML ML IV ONE (20:36)
[2017-09-03 21:52] LABS: ABG Base Excess -3.3 mmol/L; ABG HCO3 22 mmol/L (21-25); ABG PCO2 36 mmHg (35-45); ABG PH 7.39 (7.35-7.45); ABG PO2 357 mmHg (83-108); ABG TCO2 23 mmol/L (19-24)
[2017-09-03] MEDS: ATORVASTATIN 40 MG TAB PO SCH (21:58)
[2017-09-03] MEDS: LATANOPROST 0.005% OPHTH DROPS 2.5 ML BTL BOTH EYES SCH (21:59)
--- NOTE | 2017-09-03 22:03 | XR ---
EXAMINATION: XR chest 1V portable DATE AND TIME: 09/03/2017 9:44 PM ORDERING PROVIDER: Rik Lozoya CLINICAL INDICATION: confirm ET placement/OG placement TECHNIQUE: AP COMPARISON: 09/02/2017 at 5:54 AM DESCRIPTION: ET tube tip superimposed over the mid trachea. NG tube present, its tip superimposed over the expected position of the GE junction and its port supe rimposed over the expected position of the distal thoracic esophagus, the NG tube may be better place d 10 cm distally. There is dense opacity over the right hemithorax, suggesting large dependent pleural effusion. Associ ated silhouetting of the right hemidiaphragm consistent with right lower lobe atelectasis and current right lower lobe bronchopneumonia can be clinically considered. No abnormal gas collections are evident. Mildly enlarged cardiac silhouette redemonstrated. IMPRESSION: 1. POSTINTUBATION CHEST RADIOGRAPH, WITH PROMINENT NEW RIGHT PLEURAL PARENCHYMAL FINDINGS. 2. NG TUBE COMMENTS.
--- NOTE | 2017-09-03 23:07 | PN ---
PROGRESS NOTE The patient was seen this morning. She was comfortable. The patient was not in any acute distress. Renal function seems to have stabilized. This morning, blood pressure was 107/61, heart rate about 90 per minute. Patient is afebrile. Examination of the heart: S1, S2. Examination of the lungs: Decreased breath sounds at bases. Abdomen is soft, obese, nontender. Examination of the lower extremities shows trace edema bilaterally. [employer] exam shows the patient is confused. She is moving all 4 extremities. LABS: Reveal sodium of 137, potassium 3.6, BUN 46, serum creatinine 2.17, hemoglobin 12.3 g/dL. ASSESSMENT: 1. Acute kidney injury, acute tubular necrosis secondary to hypotension/hypoperfusion. Serum creatinine is slightly better from yesterday. The patient is currently on Lasix 40 mg IV q.12 hours. She has received IV fluids while she was in the ICU. Clinically, the patient does not appear to be in overt heart failure. 2. Volume overload, currently improved. 3. Biliary duct stone with plans for possible ERCP today. 4. Hypotension secondary to sepsis, most likely abdominal source. Urine culture did not reveal any growth. The patient is maintained on empiric antibiotics. PLAN: Continue with Lasix. Repeat labs in a.m. May need to decrease Lasix depending on labs and volume status in the morning. MMODL / IJN: [id number] /
[2017-09-03] MEDS ORDERED: TERBUTALINE FOR EXTRAVASATION 1 MG/ML VIAL SQ STA (23:24)
[2017-09-04] MEDS ORDERED: NOREPINEPHRIN 4 MG-0.9% NS PMX 4 MG/250 ML ML IV SCH
[2017-09-04 03:32] LABS: Glucose,Whole Blood 81 mg/dL (75-99)
[2017-09-04 05:06] LABS: ABG Base Excess -1.7 mmol/L; ABG HCO3 23 mmol/L (21-25); ABG Oxygen Saturation 99.4 % (94-97); ABG PCO2 37 mmHg (35-45); ABG PH 7.41 (7.35-7.45); ABG PO2 119 mmHg (83-108); ABG TCO2 24 mmol/L (19-24)
[2017-09-04 05:58] LABS: Albumin 2.1 g/dL (3.5-5.0); Calcium 7.7 mg/dL (8.4-10.2); Magnesium 2.4 mg/dL (1.6-2.3); Phosphorus 4.1 mg/dL (2.5-4.5); Potassium 3.6 mmol/L (3.5-5.1); Total Bilirubin 3.6 mg/dL (0.2-1.3)
[2017-09-04 06:14] LABS: Anisocytosis Moderate; Basophils % (A) 0 %; Eosinophils # (A) 0.2 k/uL (0-0.7); Eosinophils % (A) 2 %; HCT 40.5 % (34.0-46.0); HGB 12.5 gm/dL (11.4-16.0); Hypochromasia Marked; Lymphocytes # (A) 0.8 k/uL (1.0-4.8); Lymphocytes % (A) 11 %; MCH 25.5 pg (25.0-35.0); MCHC 30.9 g/dL (31.0-37.0); MCV 82.6 fL (80.0-100.0); Microcytosis Slight; Monocytes # (A) 0.5 k/uL (0-1.0); Monocytes % (A) 6 %; Neutrophils # (A) 5.7 k/uL (1.3-7.7); Neutrophils % (A) 78 %; Platelet Count 125 k/uL (150-450); Poikilocytosis Moderate; RBC 4.91 m/uL (3.80-5.40); RDW 20.7 % (11.5-15.5); WBC 7.3 k/uL (3.8-10.6)
[2017-09-04] MEDS: IPRATROPIUM-ALBUTEROL 3 ML NEB INHALATION SCH ×4 (07:58→20:14)
--- NOTE | 2017-09-04 08:20 | XR ---
EXAMINATION TYPE: XR chest 1V portable DATE OF EXAM: 09/04/2017 COMPARISON: Prior chest x-ray 09/03/2017 HISTORY: Intubated TECHNIQUE: frontal view of the chest is obtained on 2 images. FINDINGS: Endotracheal tube and NG tube are overlying appropriate positions. Patient is rotated. No evident pneumothorax. Bibasilar increased density obscures the hemidiaphragms as on prior. There are overlying cardiac leads. Interstitium is increased. Heart remains enlarged. IMPRESSION: Correlate for congestive heart failure with bibasilar effusions and associated atelectasi s versus edema, correlate to exclude pneumonia. Follow-up recommended.
[2017-09-04 08:24] LABS: Glucose,Whole Blood 61 mg/dL (75-99)
[2017-09-04 08:55] LABS: Glucose,Whole Blood 54 mg/dL (75-99)
[2017-09-04] MEDS: MEMANTINE 10 MG TAB PO SCH (09:15)
[2017-09-04] MEDS: FUROSEMIDE 10 MG/ML 4 ML VIAL IV SCH ×2 (09:15→21:41)
[2017-09-04] MEDS: FAMOTIDINE 20 MG TAB PO SCH (09:15)
[2017-09-04] MEDS: LEVOTHYROXINE 75 MCG TAB PO SCH (09:15)
[2017-09-04] MEDS: CHLORHEXIDINE GLUCONATE 15 ML CUP MUCOUS MEM SCH ×2 (09:15→21:41)
[2017-09-04] MEDS: TIMOLOL 0.5% OPHTH DROPS 5 ML BTL LEFT EYE SCH (09:16)
[2017-09-04] MEDS ORDERED: CISATRACURIUM 2 MG/ML 5 ML VIAL IV ONE ×2 (09:23→10:25)
[2017-09-04 09:40] LABS: Glucose,Whole Blood 86 mg/dL (75-99)
--- NOTE | 2017-09-04 09:55 | FL ---
EXAMINATION TYPE: FL ERCP biliary duct only DATE OF EXAM: 09/03/2017 CLINICAL HISTORY: Common bile duct stones TECHNIQUE: Fluoroscopy. COMPARISON: MRCP 08/25/2017 FINDINGS: Fluoroscopic guidance was provided during procedure performed by Dr. Smith. A total of 17 seconds of fluoroscopic time was utilized during the procedure and 3 spot images was acquired. IMPRESSION: See dictated report from gastroenterology
--- NOTE | 2017-09-04 10:22 | P.PN ---
Subjective Progress Note Date: 09/04/17 Principal diagnosis: Mental status changes Progress note dated 09/03/2017 This is an 82-year-old female who came into the hospital with complaints of changes in mental status. CT was essentially negative for anything acute. In addition, the patient has has a history of diastolic CHF chronic atrial fibrillation extended spectrum beta-lactamase producing urinary tract infection acute kidney injury, bile duct stone history of TIA hypertension hyperlipidemia and hypothyroidism. The patient's most recent chest x-ray shows improving volume status. She looks okay. She seems to be in no distress. Almost laying flat in bed. Is receiving supplemental oxygen. Denies any chest pain or chest discomfort. No nausea vomiting or diarrhea. No coughing up of phlegm or blood. No fever or chills. Progress note dated 09/04/2017 This is a 82-year-old female who had a ERCP done yesterday. The patient apparently had the procedure done under general anesthesia. I'm not sure why that was. Anyway, she arrived back here into the ICU with hypotension and on the ventilator. Her initial ventilator settings included the assist control mode rate of 12 tidal volume 500 FiO2 50% and a PEEP of 5. Arterial blood gases showed a PaO2 of 119 a PaCO2 37 and a pH of 7.41. The vent was changed to a rate of 16 tidal volume 400 and FiO2 was dropped from 50 down to 40%. The patient is on no additional IV fluids at this time in part because is no good IV access and the patient's also on norepinephrine and bit of propofol. She is postop day #1. She is a no code patient. Chest x-ray shows bilateral pleural effusions and some mild vascular congestion. An art line was placed by myself and my nurse practitioner and a central line will also be placed. Objective - Vital Signs Vital signs: Vital Signs Temp 98.0 F 09/04/17 09:00 Pulse 118 H 09/04/17 10:00 Resp 16 09/04/17 10:00 BP 111/64 09/04/17 10:00 Pulse Ox 99 09/04/17 10:00 Intake & Output 09/03/17 09/04/17 09/04/17 18:59 06:59 18:59 Intake Total 875 1038.333 93.75 Output Total 800 200 65 Balance 75 838.333 28.75 Weight 112.5 kg 113 kg Intake: IV 875 1000 0.9 bolus 1000 Intake, IV Titration 38.333 93.75 Amount Norepinephrin 4 mg-0.9% 93.75 Ns Pmx 4 mg In 250 ml @ Titrate IV .Q0M [facility] Rx#: [id number] Propofol 1,000 mg In 38.333 0 Empty Bag 1 bag @ Titrate IV .Q0M [facility] Rx#: [id number] Output: Urine 800 200 65 Other: Voiding Method Indwelling Catheter Indwelling Catheter # Voids 1 1 ABP, PAP, CO, CI - Last Documented Arterial Blood Pressure 96/61 - Exam No acute distress, sedated, with an orally placed endotracheal tube and NG tube. HEENT examination is grossly unremarkable. Mucous membranes are moist. Neck supple. Full range of motion. No adenopathy thyromegaly or neck vein distention. Cardiovascular examination reveals irregular rhythm and rate. S1-S2 normal. No S3 or S4. No discernible murmur noted. Heart sounds are distant Lungs reveal diffuse rhonchi and crackles. Breath sounds are diminished at the bases. No wheezes. Breath sounds are equal bilaterally. Abdomen soft bowel sounds are heard. Extremities are intact. No cyanosis or clubbing. There are significant lower extremity edema and diffuse anasarca. Skin is without rash or lesion. Neurologic examination could not be adequately assessed. - Labs CBC & Chem 7: 09/04/17 05:29 09/04/17 05:29 Labs: Abnormal Lab Results - Last 24 Hours (Table) 09/03/17 09/03/17 09/03/17 Range/Units 12:01 12:34 15:04 MCHC (31.0-37.0) g/dL RDW (11.5-15.5) % Plt Count (150-450) k/uL Lymphocytes # (1.0-4.8) k/uL ABG pO2 (83-108) mmHg ABG O2 Saturation (94-97) % BUN (7-17) mg/dL Creatinine (0.52-1.04) mg/dL Glucose (74-99) mg/dL POC Glucose (mg/dL) 58 L 125 H 67 L (75-99) mg/dL Calcium (8.4-10.2) mg/dL Magnesium (1.6-2.3) mg/dL Total Bilirubin (0.2-1.3) mg/dL Alkaline Phosphatase (38-126) U/L Total Protein (6.3-8.2) g/dL Albumin (3.5-5.0) g/dL 09/03/17 09/03/17 09/03/17 Range/Units 15:06 15:30 18:22 MCHC (31.0-37.0) g/dL RDW (11.5-15.5) % Plt Count (150-450) k/uL Lymphocytes # (1.0-4.8) k/uL ABG pO2 (83-108) mmHg ABG O2 Saturation (94-97) % BUN (7-17) mg/dL Creatinine (0.52-1.04) mg/dL Glucose (74-99) mg/dL POC Glucose (mg/dL) 67 L 105 H 102 H (75-99) mg/dL Calcium (8.4-10.2) mg/dL Magnesium (1.6-2.3) mg/dL Total Bilirubin (0.2-1.3) mg/dL Alkaline Phosphatase (38-126) U/L Total Protein (6.3-8.2) g/dL Albumin (3.5-5.0) g/dL 09/03/17 09/04/17 09/04/17 Range/Units 21:49 05:04 05:29 MCHC 30.9 L (31.0-37.0) g/dL RDW 20.7 H (11.5-15.5) % Plt Count 125 L (150-450) k/uL Lymphocytes # 0.8 L (1.0-4.8) k/uL ABG pO2 357 H 119 H (83-108) mmHg ABG O2 Saturation 100.0 H 99.4 H (94-97) % BUN (7-17) mg/dL Creatinine (0.52-1.04) mg/dL Glucose (74-99) mg/dL POC Glucose (mg/dL) (75-99) mg/dL Calcium (8.4-10.2) mg/dL Magnesium (1.6-2.3) mg/dL Total Bilirubin (0.2-1.3) mg/dL Alkaline Phosphatase (38-126) U/L Total Protein (6.3-8.2) g/dL Albumin (3.5-5.0) g/dL 09/04/17 09/04/17 09/04/17 Range/Units 05:29 08:03 08:42 MCHC (31.0-37.0) g/dL RDW (11.5-15.5) % Plt Count (150-450) k/uL Lymphocytes # (1.0-4.8) k/uL ABG pO2 (83-108) mmHg ABG O2 Saturation (94-97) % BUN 45 H (7-17) mg/dL Creatinine 2.20 H (0.52-1.04) mg/dL Glucose 68 L (74-99) mg/dL POC Glucose (mg/dL) 61 L 54 L (75-99) mg/dL Calcium 7.7 L (8.4-10.2) mg/dL Magnesium 2.4 H (1.6-2.3) mg/dL Total Bilirubin 3.6 H (0.2-1.3) mg/dL Alkaline Phosphatase 447 H (38-126) U/L Total Protein 5.0 L (6.3-8.2) g/dL Albumin 2.1 L (3.5-5.0) g/dL Microbiology - Last 24 Hours (Table) 08/30/17 23:46 Blood Culture - Preliminary Blood No Growth after 96 hours Assessment and Plan Assessment: Assessment Postop day #1, status post ERCP, done under general anesthesia Postoperative respiratory failure Mental status changes, improved, with a negative computed tomography scan of the brain Acute exacerbation of diastolic see clinically and radiographically Chronic atrial fibrillation Previous history of urinary tract infection secondary to extended spectrum beta- lactamase producing organism Acute kidney injury, possibly related to ATN Common bile duct stone History of TIA History of hypertension Hyperlipidemia Hypothyroidism Plan: Plan dated 09/03/2017 We'll continue with supportive care. We'll await GI input as it relates to ERCP. Additional recommendations suggestions are forthcoming. Clinically she is doing better. X-rays improved. Mental status is improved. Plan dated 09/04/2017 The patient will have an art line placed and a central line placed. We'll see for can wean her off the norepinephrine. We'll use propofol for sedation. We' ll make sure she is on updrafts every 4 hours with DuoNeb. Additional recommendations and suggestions are forthcoming. Labs x-rays a medications are all reviewed. Prognosis is guarded. She is a no code patient. Critical care time is 33 minute Time with Patient: Greater than 30
--- NOTE | 2017-09-04 10:46 | P.PN ---
Subjective Progress Note Date: 09/04/17 Principal diagnosis: Elevated liver enzymes choledocholithiasis Status post ERCP yesterday with sphincterotomy balloon stone extraction. Presently intubated sedated IV pressors. Total bilirubin 3.6. AST ALT 35. Alkaline phosphatase 447. Objective - Vital Signs Vital signs: Vital Signs Temp 98.0 F 09/04/17 09:00 Pulse 118 H 09/04/17 10:00 Resp 16 09/04/17 10:00 BP 111/64 09/04/17 10:00 Pulse Ox 99 09/04/17 10:00 Intake & Output 09/03/17 09/04/17 09/04/17 18:59 06:59 18:59 Intake Total 875 1038.333 93.75 Output Total 800 200 65 Balance 75 838.333 28.75 Weight 112.5 kg 113 kg Intake: IV 875 1000 0.9 bolus 1000 Intake, IV Titration 38.333 93.75 Amount Norepinephrin 4 mg-0.9% 93.75 Ns Pmx 4 mg In 250 ml @ Titrate IV .Q0M [facility] Rx#: [id number] Propofol 1,000 mg In 38.333 0 Empty Bag 1 bag @ Titrate IV .Q0M [facility] Rx#: [id number] Output: Urine 800 200 65 Other: Voiding Method Indwelling Catheter Indwelling Catheter # Voids 1 1 ABP, PAP, CO, CI - Last Documented Arterial Blood Pressure 96/61 - Exam General appearance: The patient is intubated sedated. HET: Head is normocephalic and atraumatic. Pupils are equal and reactive. Sclerae dull. Oropharynx with orogastric tube dark brown colored gastric contents intubating. Neck: Supple without lymphadenopathy. Trachea midline. Heart: S1 S2. Regular rate and rhythm. Lungs: Fine rales bilateral bases. Abdomen: Soft, nontender, nondistended with bowel sounds. No peritoneal signs. No palpable organomegaly or masses. Extremities: No edema. [place]. Neurological: Intubated sedated unable to assess - Labs CBC & Chem 7: 09/04/17 05:29 09/04/17 05:29 Labs: Abnormal Lab Results - Last 24 Hours (Table) 09/03/17 09/03/17 09/03/17 Range/Units 12:01 12:34 15:04 MCHC (31.0-37.0) g/dL RDW (11.5-15.5) % Plt Count (150-450) k/uL Lymphocytes # (1.0-4.8) k/uL ABG pO2 (83-108) mmHg ABG O2 Saturation (94-97) % BUN (7-17) mg/dL Creatinine (0.52-1.04) mg/dL Glucose (74-99) mg/dL POC Glucose (mg/dL) 58 L 125 H 67 L (75-99) mg/dL Calcium (8.4-10.2) mg/dL Magnesium (1.6-2.3) mg/dL Total Bilirubin (0.2-1.3) mg/dL Alkaline Phosphatase (38-126) U/L Total Protein (6.3-8.2) g/dL Albumin (3.5-5.0) g/dL 09/03/17 09/03/17 09/03/17 Range/Units 15:06 15:30 18:22 MCHC (31.0-37.0) g/dL RDW (11.5-15.5) % Plt Count (150-450) k/uL Lymphocytes # (1.0-4.8) k/uL ABG pO2 (83-108) mmHg ABG O2 Saturation (94-97) % BUN (7-17) mg/dL Creatinine (0.52-1.04) mg/dL Glucose (74-99) mg/dL POC Glucose (mg/dL) 67 L 105 H 102 H (75-99) mg/dL Calcium (8.4-10.2) mg/dL Magnesium (1.6-2.3) mg/dL Total Bilirubin (0.2-1.3) mg/dL Alkaline Phosphatase (38-126) U/L Total Protein (6.3-8.2) g/dL Albumin (3.5-5.0) g/dL 09/03/17 09/04/17 09/04/17 Range/Units 21:49 05:04 05:29 MCHC 30.9 L (31.0-37.0) g/dL RDW 20.7 H (11.5-15.5) % Plt Count 125 L (150-450) k/uL Lymphocytes # 0.8 L (1.0-4.8) k/uL ABG pO2 357 H 119 H (83-108) mmHg ABG O2 Saturation 100.0 H 99.4 H (94-97) % BUN (7-17) mg/dL Creatinine (0.52-1.04) mg/dL Glucose (74-99) mg/dL POC Glucose (mg/dL) (75-99) mg/dL Calcium (8.4-10.2) mg/dL Magnesium (1.6-2.3) mg/dL Total Bilirubin (0.2-1.3) mg/dL Alkaline Phosphatase (38-126) U/L Total Protein (6.3-8.2) g/dL Albumin (3.5-5.0) g/dL 09/04/17 09/04/17 09/04/17 Range/Units 05:29 08:03 08:42 MCHC (31.0-37.0) g/dL RDW (11.5-15.5) % Plt Count (150-450) k/uL Lymphocytes # (1.0-4.8) k/uL ABG pO2 (83-108) mmHg ABG O2 Saturation (94-97) % BUN 45 H (7-17) mg/dL Creatinine 2.20 H (0.52-1.04) mg/dL Glucose 68 L (74-99) mg/dL POC Glucose (mg/dL) 61 L 54 L (75-99) mg/dL Calcium 7.7 L (8.4-10.2) mg/dL Magnesium 2.4 H (1.6-2.3) mg/dL Total Bilirubin 3.6 H (0.2-1.3) mg/dL Alkaline Phosphatase 447 H (38-126) U/L Total Protein 5.0 L (6.3-8.2) g/dL Albumin 2.1 L (3.5-5.0) g/dL Microbiology - Last 24 Hours (Table) 08/30/17 23:46 Blood Culture - Preliminary Blood No Growth after 96 hours Assessment and Plan (1) Choledocholithiasis Narrative/Plan: Status post ERCP sphincterotomy balloon stone extraction Current Visit: Yes Status: Acute Code(s): K80.50 - CALCULUS OF BILE DUCT W/ O CHOLANGITIS OR CHOLECYST W/O OBST SNOMED Code(s): 786617054 (2) Cholelithiasis Current Visit: Yes Status: Acute Code(s): K80.20 - CALCULUS OF GALLBLADDER W /O CHOLECYSTITIS W/O OBSTRUCTION SNOMED Code(s): 872826226 (3) Obesity (BMI 30.0-34.9) Current Visit: Yes Status: Chronic Code(s): E66.9 - OBESITY, UNSPECIFIED SNOMED Code(s): 856336630 (4) Warfarin-induced coagulopathy Current Visit: No Status: Acute Code(s): T45.511A - POISONING BY ANTICOAGULANTS, ACCIDENTAL, INIT SNOMED Code(s): 96417028 (5) Chronic atrial fibrillation Current Visit: Yes Status: Chronic Code(s): I48.2 - CHRONIC ATRIAL FIBRILLATION SNOMED Code(s): 309108925 (6) Congestive heart failure Current Visit: Yes Status: Acute Code(s): I50.9 - HEART FAILURE, UNSPECIFIED SNOMED Code(s): 20144169 (7) Dementia Current Visit: Yes Status: Chronic Code(s): F03.90 - UNSPECIFIED DEMENTIA WITHOUT BEHAVIORAL DISTURBANCE SNOMED Code(s): 11681976 (8) Acute kidney injury Current Visit: Yes Status: Acute Code(s): N17.9 - ACUTE KIDNEY FAILURE, UNSPECIFIED SNOMED Code(s): 57815662 (9) Hyperkalemia Current Visit: Yes Status: Acute Code(s): E87.5 - HYPERKALEMIA SNOMED Code (s): 56465731 (10) Postoperative respiratory failure Current Visit: Yes Status: Acute Code(s): J95.821 - ACUTE POSTPROCEDURAL RESPIRATORY FAILURE SNOMED Code(s): 518501534 Plan: 1. Supportive measures. ICU management. General surgery following. No CODE STATUS. Assessment and plan a care discussed with Dr. Smith
--- NOTE | 2017-09-04 11:08 | PCN ---
PROCEDURE NOTE DATE 0F PROCEDURE: September 04, 2017. PROCEDURE: Right radial arterial line insertion. ARTERIAL LINE PLACEMENT: Indication Hemodynamic monitoring. A time-out was completed verifying correct patient, procedure, site, positioning, and implant(s) or special equipment if applicable. Logan's test was performed to ensure adequate perfusion. The patient's right wrist was prepped and draped in sterile fashion. 1% Lidocaine was used to anesthetize the area. An 18G Arrow arterial line was introduced into the right radial artery. The catheter was threaded over the guide wire and the needle was removed with appropriate pulsatile blood return. Blood loss was minimal. The catheter was then sutured in place to the skin and a sterile dressing applied. Perfusion to the extremity distal to the point of catheter insertion was checked and found to be adequate. The patient tolerated the procedure well and there were no complications. There were no immediate complications. MMODL / IJN: [id number] /
--- NOTE | 2017-09-04 11:28 | XR ---
EXAMINATION TYPE: XR chest 1V confirm line [facility] DATE OF EXAM: 09/04/2017 CLINICAL HISTORY: Central line placement. TECHNIQUE: Single AP portable supine view of the chest is obtained. COMPARISON: Chest x-ray from earlier today FINDINGS: There is new left subclavian Mediport catheter with tip at cavoatrial junction. Endotrache al and orogastric tube are stable in appearance. There is persistent cardiomegaly with central vascul ar congestion and small to moderate-sized bilateral pleural effusions. No pneumothorax is seen bilate rally. Visualized osseous structures are intact. IMPRESSION: New left-sided subclavian central venous catheter with tip at caval atrial junction. No p neumothorax after line placement.
--- NOTE | 2017-09-04 11:38 | PCN ---
PROCEDURE NOTE PROCEDURE: Central line. PREOPERATIVE DIAGNOSIS: Administration of fluids and pressors. POSTOPERATIVE DIAGNOSIS: Administration of fluids and pressors. TRIPLE LUMEN CATHETER PLACEMENT: Indication: Hemodynamic monitoring/Intravenous access. A time-out was completed verifying correct patient, procedure, site, positioning, and implant(s) or special equipment if applicable. The patient was placed in a dependent position appropriate for triple lumen catheter placement based on the vein to be cannulated. The patient's left neck was prepped and draped in sterile fashion. 1% Lidocaine was used to anesthetize the surrounding skin area. A triple lumen 9F Cordis catheter was introduced into the left internal jugular vein using Seldinger technique. The catheter was threaded smoothly over the guide wire and appropriate blood return was obtained. Each lumen of the catheter was evacuated of air and flushed with sterile saline. The catheter was then sutured in place to the skin and a sterile dressing applied. Perfusion to the extremity distal to the point of catheter insertion was checked and found to be adequate. There was no immediate complication. There was good blood return from all 3 ports. The patient tolerated the procedure well. Sterile dressing was applied by the nurse. The catheter was sutured into place. A chest x-ray was ordered. There was no immediate complication. There was informed consent. MMODL / IJN: [id number] /
[2017-09-04] MEDS: METOPROLOL SUCCINATE (ER) 25 MG TAB.ER.24H PO SCH (11:59)
--- NOTE | 2017-09-04 11:59 | PN ---
PROGRESS NOTE Valorie is an 82-year-old lady with hypertension, atrial fibrillation, gallstones who underwent ERCP yesterday following which she could not be extubated and she is currently intubated and on vent. She is on Toprol-XL 25 mg daily, IV Levophed, Synthroid, Lipitor. At the time of my evaluation, she is intubated, sedated, on Levophed. Heart rate is somewhat poorly controlled around 110 beats per minute. Chest exam reveals diminished air entry at the bases. Heart exam reveals first and second heart sounds. No gallop. Regular rhythm. Exam of extremities did not reveal any edema. Labs show a hemoglobin of 12.5, platelet count is 125. Potassium is 3.6, BUN is 45, creatinine is 2.2. Renal functions have remained elevated for the last several days. ASSESSMENT: 1. Chronic atrial fibrillation with poorly-controlled ventricular rate. 2. Hypertension. 3. Vent requiring respiratory failure. PLAN: I will continue the Toprol, continue the Levophed. Prognosis guarded. MMODL / FRANCISCAN: [id number] /
[2017-09-04 12:30] LABS: Glucose,Whole Blood 68 mg/dL (75-99)
[2017-09-04 12:30] LABS: Glucose,Whole Blood 86 mg/dL (75-99)
[2017-09-04 13:22] VITALS: BP 97/67
--- NOTE | 2017-09-04 14:25 | CDI ---
Documentation Clarification Form Date: September 04, 2017 CDS: Deb Terrell, MANDI, CCDS Admit Date: 08/21/2017 Patient Name: Valorie Carney Discharge Date: ATTENTION: The Clinical Documentation Specialists (CDI) and [facility] Coding Staff appreciate your assistance in clarifying documentation. Please respond to the clarification below the line at the bottom and electronically sign. The CDI & [facility] Coding staff will review the response and follow-up if needed. Please note: Queries are made part of the Legal Health Record. If you have any questions, please contact the author of this message via ITS. Dear Dr. Lozoya: Postoperative respiratory failure is documented in the 09/04 pulmonary/critical care progress note.. Patients Admitting Diagnosis: Presented with SOB, diagnosed with Acute exacerbation of diastolic CHF. Elevated bilirubin & alkaline phosphatase. Procedure performed: 09/03 ERCP w/sphincterotomy & extraction of CBD stones. 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 Clinical Indicators: VS: T 97.3, P 119, BP 97/67, Arterial BP 88/53. Treatment: to ICU postoperatively on vent, remains on vent. Albuterol INH, IV Norepinephrine. In order to accurately reflect this patients severity of illness, please clarify if the post-operative respiratory failure diagnosis is: An expected post-procedural or post-surgical condition; Integral to the procedure; Inherent to the procedure; An unexpected post-procedural or post-surgical condition related to surgical care; Other, please specify Unable to determine Please continue to document in your progress notes and discharge summary in order to capture severity of illness and risk of mortality. Include clinical findings that support your diagnosis. undetermined MTDD
[2017-09-04] MEDS: MEROPENEM 500 MG in SODIUM CHLORIDE 0.9% 50 ML IVPB SCH ×2 (14:33→22:21)
[2017-09-04] MEDS: LACTATED RINGERS 1,000 ML IV SCH (15:38)
[2017-09-04] MEDS: PROPOFOL 1,000 MG in EMPTY BAG 1 BAG IV SCH (15:56)
--- NOTE | 2017-09-04 16:14 | P.PN ---
Subjective Progress Note Date: 09/04/17 Principal diagnosis: Cholelithiasis Patient currently in the ICU on the ventilator. She did have her ERCP performed yesterday. She tolerated this well. Stone was removed. Sufficient sphincterotomy was performed. Objective - Vital Signs Vital signs: Vital Signs Temp 97.3 F L 09/04/17 12:00 Pulse 109 H 09/04/17 15:00 Resp 16 09/04/17 15:00 BP 97/67 09/04/17 12:00 Pulse Ox 98 09/04/17 15:00 Intake & Output 09/03/17 09/04/17 09/04/17 18:59 06:59 18:59 Intake Total 875 1038.333 191.417 Output Total 800 200 130 Balance 75 838.333 61.417 Weight 112.5 kg 113 kg Intake: IV 875 1000 56 0.9 bolus 1000 Meropenem 500 mg In 50 Sodium Chloride 0.9% 50 ml @ 100 mls/hr IVPB Q12HR [facility] Rx#:[id number] Pressure bag 6 Intake, IV Titration 38.333 135.417 Amount Norepinephrin 4 mg-0.9% 93.75 Ns Pmx 4 mg In 250 ml @ Titrate IV .Q0M [facility] Rx#: [id number] Propofol 1,000 mg In 38.333 41.667 Empty Bag 1 bag @ Titrate IV .Q0M [facility] Rx#: [id number] Output: Urine 800 200 130 Other: Voiding Method Indwelling Catheter Indwelling Catheter Indwelling Catheter # Voids 1 1 ABP, PAP, CO, CI - Last Documented Arterial Blood Pressure 109/65 - Exam Abdomen: Soft, nontender, nondistended - Labs CBC & Chem 7: 09/04/17 05:29 09/04/17 05:29 Labs: Abnormal Lab Results - Last 24 Hours (Table) 09/03/17 09/03/17 09/04/17 Range/Units 18:22 21:49 05:04 MCHC (31.0-37.0) g/dL RDW (11.5-15.5) % Plt Count (150-450) k/uL Lymphocytes # (1.0-4.8) k/uL ABG pO2 357 H 119 H (83-108) mmHg ABG O2 Saturation 100.0 H 99.4 H (94-97) % BUN (7-17) mg/dL Creatinine (0.52-1.04) mg/dL Glucose (74-99) mg/dL POC Glucose (mg/dL) 102 H (75-99) mg/dL Calcium (8.4-10.2) mg/dL Magnesium (1.6-2.3) mg/dL Total Bilirubin (0.2-1.3) mg/dL Alkaline Phosphatase (38-126) U/L Total Protein (6.3-8.2) g/dL Albumin (3.5-5.0) g/dL 09/04/17 09/04/17 09/04/17 Range/Units 05:29 05:29 08:03 MCHC 30.9 L (31.0-37.0) g/dL RDW 20.7 H (11.5-15.5) % Plt Count 125 L (150-450) k/uL Lymphocytes # 0.8 L (1.0-4.8) k/uL ABG pO2 (83-108) mmHg ABG O2 Saturation (94-97) % BUN 45 H (7-17) mg/dL Creatinine 2.20 H (0.52-1.04) mg/dL Glucose 68 L (74-99) mg/dL POC Glucose (mg/dL) 61 L (75-99) mg/dL Calcium 7.7 L (8.4-10.2) mg/dL Magnesium 2.4 H (1.6-2.3) mg/dL Total Bilirubin 3.6 H (0.2-1.3) mg/dL Alkaline Phosphatase 447 H (38-126) U/L Total Protein 5.0 L (6.3-8.2) g/dL Albumin 2.1 L (3.5-5.0) g/dL 09/04/17 09/04/17 Range/Units 08:42 12:13 MCHC (31.0-37.0) g/dL RDW (11.5-15.5) % Plt Count (150-450) k/uL Lymphocytes # (1.0-4.8) k/uL ABG pO2 (83-108) mmHg ABG O2 Saturation (94-97) % BUN (7-17) mg/dL Creatinine (0.52-1.04) mg/dL Glucose (74-99) mg/dL POC Glucose (mg/dL) 54 L 68 L (75-99) mg/dL Calcium (8.4-10.2) mg/dL Magnesium (1.6-2.3) mg/dL Total Bilirubin (0.2-1.3) mg/dL Alkaline Phosphatase (38-126) U/L Total Protein (6.3-8.2) g/dL Albumin (3.5-5.0) g/dL Microbiology - Last 24 Hours (Table) 08/30/17 23:46 Blood Culture - Preliminary Blood No Growth after 96 hours Assessment and Plan (1) Cholelithiasis Narrative/Plan: Continue to wean ventilator as tolerated. Plan at this time is for the patient to likely be discharged from the hospital with outpatient semi-elective cholecystectomy if she tolerates this hospitalization well. Current Visit: Yes Status: Acute Code(s): K80.20 - CALCULUS OF GALLBLADDER W /O CHOLECYSTITIS W/O OBSTRUCTION SNOMED Code(s): 289289753
[2017-09-04 17:17] LABS: Glucose,Whole Blood 76 mg/dL (75-99)
--- NOTE | 2017-09-04 19:11 | PN ---
PROGRESS NOTE Patient is seen for followup for acute kidney injury. She was intubated yesterday after her procedure. Patient is currently on the vent. Urine output has been at about 20-35 mL an hour. Blood pressure is not low. This morning, it had been slightly on the lower side, 113/63 and a reading of 96/61. This evening, her pressure is noted to be 144/87, heart rate about 102 per minute. Patient is afebrile. HEART: S1, S2. LUNGS: Bilateral breath sounds are heard. Abdomen is soft, nontender. Lower extremities show chronic skin changes. Trace edema is noted. LABS: Reveal sodium 139, potassium 3.6, serum creatinine 2.2. Magnesium 2.4, calcium 7.7. Hemoglobin 12.5 g/dL. ASSESSMENT: 1. Acute kidney injury, acute tubular necrosis, ischemic acute tubular necrosis, initially oliguric, currently nonoliguric with marginal urine output. Renal function is fairly stable. 2. Biliary duct stone, status post endoscopic retrograde cholangiopancreatography and removal of the stone. 3. Volume overload, currently maintained on Lasix 40 mg IV q.12 hours to maintain urine output. Chest x-ray from this morning shows central vascular congestion with moderate size bilateral pleural effusions. 4. History of urine tract infection previously. Currently, urine culture showing no growth. PLAN: Continue current dose of Lasix. Monitor labs and continue to avoid nephrotoxic agents. MMODL / IJN: [id number] /
[2017-09-04 19:48] LABS: Glucose,Whole Blood 71 mg/dL (75-99)
[2017-09-04 19:48] LABS: Glucose,Whole Blood 85 mg/dL (75-99)
[2017-09-04] MEDS: ATORVASTATIN 40 MG TAB PO SCH (21:40)
[2017-09-04] MEDS: LATANOPROST 0.005% OPHTH DROPS 2.5 ML BTL BOTH EYES SCH (21:41)
[2017-09-04] MEDS: PANTOPRAZOLE 40 MG/10 ML VIAL IVP SCH (22:21)
[2017-09-04 23:36] LABS: Glucose,Whole Blood 77 mg/dL (75-99)
[2017-09-05] MEDS: IPRATROPIUM-ALBUTEROL 3 ML NEB INHALATION SCH ×7 (00:19→23:35)
[2017-09-05 04:20] LABS: Glucose,Whole Blood 77 mg/dL (75-99)
[2017-09-05 04:36] LABS: ABG Base Excess -2.3 mmol/L; ABG HCO3 23 mmol/L (21-25); ABG Oxygen Saturation 98.6 % (94-97); ABG PCO2 39 mmHg (35-45); ABG PH 7.38 (7.35-7.45); ABG PO2 110 mmHg (83-108); ABG TCO2 24 mmol/L (19-24)
[2017-09-05 05:01] LABS: Albumin 2.2 g/dL (3.5-5.0); Potassium 3.3 mmol/L (3.5-5.1); Total Bilirubin 3.5 mg/dL (0.2-1.3); Total Protein 5.1 g/dL (6.3-8.2)
[2017-09-05] MEDS: PROPOFOL 1,000 MG in EMPTY BAG 1 BAG IV SCH ×4 (06:23→21:44)
[2017-09-05] MEDS: NOREPINEPHRIN 16 MG-0.9%NS PMX 16 MG/250 ML ML IV SCH ×2 (06:25→12:23)
--- NOTE | 2017-09-05 08:14 | XR ---
EXAMINATION TYPE: XR chest 1V portable DATE OF EXAM: 09/05/2017 COMPARISON: Prior chest x-ray 09/04/2017 HISTORY: Intubated TECHNIQUE: Single frontal view of the chest is obtained. FINDINGS: Patient is rotated. Endotracheal and NG tube are overlying appropriate positions, left jug ular central venous catheter is stable with the distal tip at the cavoatrial junction. Heart is enlar ged. Bibasilar increased density persists. No evident pneumothorax. There are overlying cardiac leads . IMPRESSION: Findings are similar to prior exam. Correlate for congestive heart failure with pleural effusions versus pneumonia, ARDS.
[2017-09-05 09:00] LABS: Anisocytosis Moderate; Basophils % (A) 0 %; Eosinophils # (A) 0.2 k/uL (0-0.7); Eosinophils % (A) 2 %; HCT 40.1 % (34.0-46.0); HGB 12.1 gm/dL (11.4-16.0); Hypochromasia Marked; Lymphocytes # (A) 0.7 k/uL (1.0-4.8); Lymphocytes % (A) 10 %; MCH 25.7 pg (25.0-35.0); MCHC 30.3 g/dL (31.0-37.0); MCV 84.9 fL (80.0-100.0); Microcytosis Slight; Monocytes # (A) 0.5 k/uL (0-1.0); Monocytes % (A) 7 %; Neutrophils # (A) 5.2 k/uL (1.3-7.7); Neutrophils % (A) 77 %; Platelet Count 134 k/uL (150-450); Poikilocytosis Moderate; RBC 4.73 m/uL (3.80-5.40); RDW 21.3 % (11.5-15.5); WBC 6.8 k/uL (3.8-10.6)
--- NOTE | 2017-09-05 09:26 | P.PN ---
Subjective Progress Note Date: 09/05/17 Principal diagnosis: Elevated liver enzymes choledocholithiasis Status post ERCP with sphincterotomy balloon stone extraction. Presently intubated sedated IV pressors. Total bilirubin 3.5. AST 35. ALT 30. Alkaline phosphatase 452. Nursing concern last night with possible coffee- ground emesis emanating from OG tube however this morning orogastric contents are green in color. Hemoglobin 12.1. Objective - Vital Signs Vital signs: Vital Signs Temp 98.1 F 09/05/17 04:00 Pulse 129 H 09/05/17 07:26 Resp 13 09/05/17 07:00 BP 97/67 09/04/17 12:00 Pulse Ox 99 09/05/17 06:00 Intake & Output 09/04/17 09/05/17 09/05/17 18:59 06:59 18:59 Intake Total 2213.417 612.25 13 Output Total 320 710 35 Balance 1893.417 -97.75 -22 Weight 113 kg Intake: IV 2078 256 13 0.9 NS 10 120 10 0.9 for pressure 18 36 3 Lactated Ringers 1,000 ml 2000 @ 999 mls/hr IV .Q1H1M [facility] Rx#:[id number] Meropenem 500 mg In 50 100 Sodium Chloride 0.9% 50 ml @ 100 mls/hr IVPB Q12HR [facility] Rx#:[id number] Intake, IV Titration 135.417 356.25 Amount Norepinephrin 4 mg-0.9% 93.75 156.25 Ns Pmx 4 mg In 250 ml @ Titrate IV .Q0M [facility] Rx#: [id number] Propofol 1,000 mg In 41.667 200 Empty Bag 1 bag @ Titrate IV .Q0M [facility] Rx#: [id number] Output: Gastric Drainage 60 Urine 260 710 35 Other: Voiding Method Indwelling Catheter Indwelling Catheter ABP, PAP, CO, CI - Last Documented Arterial Blood Pressure 124/75 - Exam General appearance: The patient is intubated sedated. HET: Head is normocephalic and atraumatic. Pupils are equal and reactive. Sclerae dull. Oropharynx with orogastric tube green colored gastric contents intubating. Neck: Supple without lymphadenopathy. Trachea midline. Heart: S1 S2. Regular rate and rhythm. Lungs: Fine rales bilateral bases. Abdomen: Soft, nontender, nondistended with bowel sounds. No peritoneal signs. No palpable organomegaly or masses. Extremities: No edema. [place]. Neurological: Intubated sedated unable to assess - Labs CBC & Chem 7: 09/05/17 04:25 09/05/17 04:25 Labs: Abnormal Lab Results - Last 24 Hours (Table) 09/04/17 09/04/17 09/05/17 Range/Units 12:13 19:44 04:25 MCHC (31.0-37.0) g/dL RDW (11.5-15.5) % Plt Count (150-450) k/uL Lymphocytes # (1.0-4.8) k/uL ABG pO2 (83-108) mmHg ABG O2 Saturation (94-97) % Potassium 3.3 L (3.5-5.1) mmol/L BUN 43 H (7-17) mg/dL Creatinine 1.90 H (0.52-1.04) mg/dL POC Glucose (mg/dL) 68 L 71 L (75-99) mg/dL Calcium 8.0 L (8.4-10.2) mg/dL Total Bilirubin 3.5 H (0.2-1.3) mg/dL Alkaline Phosphatase 452 H (38-126) U/L Total Protein 5.1 L (6.3-8.2) g/dL Albumin 2.2 L (3.5-5.0) g/dL 09/05/17 09/05/17 Range/Units 04:25 04:34 MCHC 30.3 L (31.0-37.0) g/dL RDW 21.3 H (11.5-15.5) % Plt Count 134 L (150-450) k/uL Lymphocytes # 0.7 L (1.0-4.8) k/uL ABG pO2 110 H (83-108) mmHg ABG O2 Saturation 98.6 H (94-97) % Potassium (3.5-5.1) mmol/L BUN (7-17) mg/dL Creatinine (0.52-1.04) mg/dL POC Glucose (mg/dL) (75-99) mg/dL Calcium (8.4-10.2) mg/dL Total Bilirubin (0.2-1.3) mg/dL Alkaline Phosphatase (38-126) U/L Total Protein (6.3-8.2) g/dL Albumin (3.5-5.0) g/dL Microbiology - Last 24 Hours (Table) 08/30/17 23:46 Blood Culture - Preliminary Blood No Growth after 120 hours Assessment and Plan (1) Choledocholithiasis Narrative/Plan: Status post ERCP sphincterotomy balloon stone extraction Current Visit: Yes Status: Acute Code(s): K80.50 - CALCULUS OF BILE DUCT W/ O CHOLANGITIS OR CHOLECYST W/O OBST SNOMED Code(s): 176971297 (2) Cholelithiasis Current Visit: Yes Status: Acute Code(s): K80.20 - CALCULUS OF GALLBLADDER W /O CHOLECYSTITIS W/O OBSTRUCTION SNOMED Code(s): 490685142 (3) Obesity (BMI 30.0-34.9) Current Visit: Yes Status: Chronic Code(s): E66.9 - OBESITY, UNSPECIFIED SNOMED Code(s): 490492053 (4) Warfarin-induced coagulopathy Current Visit: No Status: Acute Code(s): T45.511A - POISONING BY ANTICOAGULANTS, ACCIDENTAL, INIT SNOMED Code(s): 71215656 (5) Chronic atrial fibrillation Current Visit: Yes Status: Chronic Code(s): I48.2 - CHRONIC ATRIAL FIBRILLATION SNOMED Code(s): 535944602 (6) Congestive heart failure Current Visit: Yes Status: Acute Code(s): I50.9 - HEART FAILURE, UNSPECIFIED SNOMED Code(s): 42107267 (7) Dementia Current Visit: Yes Status: Chronic Code(s): F03.90 - UNSPECIFIED DEMENTIA WITHOUT BEHAVIORAL DISTURBANCE SNOMED Code(s): 89934095 (8) Acute kidney injury Current Visit: Yes Status: Acute Code(s): N17.9 - ACUTE KIDNEY FAILURE, UNSPECIFIED SNOMED Code(s): 42193895 (9) Hyperkalemia Current Visit: Yes Status: Acute Code(s): E87.5 - HYPERKALEMIA SNOMED Code (s): 40417553 (10) Postoperative respiratory failure Current Visit: Yes Status: Acute Code(s): J95.821 - ACUTE POSTPROCEDURAL RESPIRATORY FAILURE SNOMED Code(s): 439598548 Plan: 1. Supportive measures. Continue IV Protonix. ICU management. General surgery following. No CODE STATUS. Assessment and plan a care discussed with Dr. Smith
[2017-09-05] MEDS: LEVOTHYROXINE 75 MCG TAB PO SCH (09:35)
[2017-09-05] MEDS: FUROSEMIDE 10 MG/ML 4 ML VIAL IV SCH ×2 (09:35→21:43)
[2017-09-05] MEDS: MEMANTINE 10 MG TAB PO SCH (09:35)
[2017-09-05] MEDS: CHLORHEXIDINE GLUCONATE 15 ML CUP MUCOUS MEM SCH ×2 (09:35→21:43)
[2017-09-05] MEDS: METOPROLOL SUCCINATE (ER) 25 MG TAB.ER.24H PO SCH (09:36)
[2017-09-05] MEDS: MEROPENEM 500 MG in SODIUM CHLORIDE 0.9% 50 ML IVPB SCH ×2 (09:36→21:51)
[2017-09-05] MEDS: TIMOLOL 0.5% OPHTH DROPS 5 ML BTL LEFT EYE SCH (09:39)
[2017-09-05] MEDS: PANTOPRAZOLE 40 MG/10 ML VIAL IVP SCH ×2 (09:39→21:43)
[2017-09-05] MEDS: LACTATED RINGERS 1,000 ML IV SCH ×4 (09:40→17:24)
[2017-09-05] MEDS ORDERED: Potassium Replacement Protocol 1 EACH MISC MISCELLANE PRN (09:46)
[2017-09-05] MEDS: POTASSIUM CHLORIDE 10 MEQ in SODIUM CHLORIDE 0.9% 100 ML IVPB SCH ×2 (10:27→12:23)
--- NOTE | 2017-09-05 11:02 | P.PN ---
Subjective Progress Note Date: 09/05/17 Principal diagnosis: Mental status changes Progress note dated 09/03/2017 This is an 82-year-old female who came into the hospital with complaints of changes in mental status. CT was essentially negative for anything acute. In addition, the patient has has a history of diastolic CHF chronic atrial fibrillation extended spectrum beta-lactamase producing urinary tract infection acute kidney injury, bile duct stone history of TIA hypertension hyperlipidemia and hypothyroidism. The patient's most recent chest x-ray shows improving volume status. She looks okay. She seems to be in no distress. Almost laying flat in bed. Is receiving supplemental oxygen. Denies any chest pain or chest discomfort. No nausea vomiting or diarrhea. No coughing up of phlegm or blood. No fever or chills. Progress note dated 09/04/2017 This is a 82-year-old female who had a ERCP done yesterday. The patient apparently had the procedure done under general anesthesia. I'm not sure why that was. Anyway, she arrived back here into the ICU with hypotension and on the ventilator. Her initial ventilator settings included the assist control mode rate of 12 tidal volume 500 FiO2 50% and a PEEP of 5. Arterial blood gases showed a PaO2 of 119 a PaCO2 37 and a pH of 7.41. The vent was changed to a rate of 16 tidal volume 400 and FiO2 was dropped from 50 down to 40%. The patient is on no additional IV fluids at this time in part because is no good IV access and the patient's also on norepinephrine and bit of propofol. She is postop day #1. She is a no code patient. Chest x-ray shows bilateral pleural effusions and some mild vascular congestion. An art line was placed by myself and my nurse practitioner and a central line will also be placed. Progress note dated 09/05/2017 82-year-old female who was in the ICU. Had a ERCP done 2 days ago. It was done on the in the operating room under general anesthesia. I'm not sure why it was done that white but anyway she came back to the ICU from recovery on the ventilator with hypotension. Currently, the patient's on the assist control mode rate of 16, tidal volume 400, FiO2 dropped from 40 down to 30%, with a PEEP of 5. Arterial blood gases show a PaO2 of 110 PaCO2 of 39 and a pH of 7.38. She currently remains on norepinephrine at 13 mcg/m propofol at 30 mics micrograms per kilogram per minute and a saline IV at 10 mL an hour. I did ask the nurses for a cortisol level. We need to start tube feeds on this patient as well. She's not quite ready for extubation. She still on a fair amount of pressor. Objective - Vital Signs Vital signs: Vital Signs Temp 95.5 F L 09/05/17 10:00 Pulse 122 H 09/05/17 10:52 Resp 10 L 09/05/17 10:00 BP 97/67 09/04/17 12:00 Pulse Ox 96 09/05/17 10:00 Intake & Output 09/04/17 09/05/17 09/05/17 18:59 06:59 18:59 Intake Total 2213.417 612.25 1102 Output Total 320 710 165 Balance 1893.417 -97.75 937 Weight 113 kg 113 kg Intake: IV 2078 256 1102 0.9 NS 10 120 40 0.9 for pressure 18 36 12 Lactated Ringers 1,000 ml 2000 @ 999 mls/hr IV .Q1H1M [facility] Rx#:[id number] Lactated Ringers 1,000 ml 1000 @ 999 mls/hr IV .Q1H1M [facility] Rx#:[id number] Meropenem 500 mg In 50 100 50 Sodium Chloride 0.9% 50 ml @ 100 mls/hr IVPB Q12HR [facility] Rx#:[id number] Intake, IV Titration 135.417 356.25 Amount Norepinephrin 4 mg-0.9% 93.75 156.25 Ns Pmx 4 mg In 250 ml @ Titrate IV .Q0M [facility] Rx#: [id number] Propofol 1,000 mg In 41.667 200 Empty Bag 1 bag @ Titrate IV .Q0M [facility] Rx#: [id number] Output: Gastric Drainage 60 Urine 260 710 165 Other: Voiding Method Indwelling Catheter Indwelling Catheter ABP, PAP, CO, CI - Last Documented Arterial Blood Pressure 126/74 - Exam No acute distress, sedated, with an orally placed endotracheal tube and NG tube. HEENT examination is grossly unremarkable. Mucous membranes are moist. Neck supple. Full range of motion. No adenopathy thyromegaly or neck vein distention. Cardiovascular examination reveals irregular rhythm and rate. S1-S2 normal. No S3 or S4. No discernible murmur noted. Heart sounds are distant Lungs reveal diffuse rhonchi and crackles. Breath sounds are diminished at the bases. No wheezes. Breath sounds are equal bilaterally. Abdomen soft bowel sounds are heard. Extremities are intact. No cyanosis or clubbing. There are significant lower extremity edema and diffuse anasarca. Skin is without rash or lesion. Neurologic examination could not be adequately assessed. - Labs CBC & Chem 7: 09/05/17 04:25 09/05/17 04:25 Labs: Abnormal Lab Results - Last 24 Hours (Table) 09/04/17 09/04/17 09/05/17 Range/Units 12:13 19:44 04:25 MCHC (31.0-37.0) g/dL RDW (11.5-15.5) % Plt Count (150-450) k/uL Lymphocytes # (1.0-4.8) k/uL ABG pO2 (83-108) mmHg ABG O2 Saturation (94-97) % Potassium 3.3 L (3.5-5.1) mmol/L BUN 43 H (7-17) mg/dL Creatinine 1.90 H (0.52-1.04) mg/dL POC Glucose (mg/dL) 68 L 71 L (75-99) mg/dL Calcium 8.0 L (8.4-10.2) mg/dL Total Bilirubin 3.5 H (0.2-1.3) mg/dL Alkaline Phosphatase 452 H (38-126) U/L Total Protein 5.1 L (6.3-8.2) g/dL Albumin 2.2 L (3.5-5.0) g/dL 09/05/17 09/05/17 Range/Units 04:25 04:34 MCHC 30.3 L (31.0-37.0) g/dL RDW 21.3 H (11.5-15.5) % Plt Count 134 L (150-450) k/uL Lymphocytes # 0.7 L (1.0-4.8) k/uL ABG pO2 110 H (83-108) mmHg ABG O2 Saturation 98.6 H (94-97) % Potassium (3.5-5.1) mmol/L BUN (7-17) mg/dL Creatinine (0.52-1.04) mg/dL POC Glucose (mg/dL) (75-99) mg/dL Calcium (8.4-10.2) mg/dL Total Bilirubin (0.2-1.3) mg/dL Alkaline Phosphatase (38-126) U/L Total Protein (6.3-8.2) g/dL Albumin (3.5-5.0) g/dL Microbiology - Last 24 Hours (Table) 08/30/17 23:46 Blood Culture - Preliminary Blood No Growth after 120 hours Assessment and Plan Assessment: Assessment Postop day #2, status post ERCP, done under general anesthesia Postoperative respiratory failure Mental status changes, improved, with a negative computed tomography scan of the brain Acute exacerbation of diastolic see clinically and radiographically Chronic atrial fibrillation Previous history of urinary tract infection secondary to extended spectrum beta- lactamase producing organism Acute kidney injury, possibly related to ATN Common bile duct stone History of TIA History of hypertension Hyperlipidemia Hypothyroidism The patient is a DO NOT RESUSCITATE Plan: Plan dated 09/03/2017 We'll continue with supportive care. We'll await GI input as it relates to ERCP. Additional recommendations suggestions are forthcoming. Clinically she is doing better. X-rays improved. Mental status is improved. Plan dated 09/04/2017 The patient will have an art line placed and a central line placed. We'll see for can wean her off the norepinephrine. We'll use propofol for sedation. We' ll make sure she is on updrafts every 4 hours with DuoNeb. Additional recommendations and suggestions are forthcoming. Labs x-rays a medications are all reviewed. Prognosis is guarded. She is a no code patient. Critical care time is 33 minute Plan dated 09/05/2017 The patient is not yet ready for weaning and extubation. She was still remains on norepinephrine at 13 mcg/m. Her gas exchange is good. She stable on the ventilator. We'll start her on tube feeds. I'll give her some additional fluids. We'll check a cortisol level. Additional recommendations and suggestions forthcoming. Prognosis is guarded. Critical care time 33 minutes Time with Patient: Greater than 30
[2017-09-05 12:32] LABS: Glucose,Whole Blood 78 mg/dL (75-99)
--- NOTE | 2017-09-05 13:03 | P.PN ---
Subjective Progress Note Date: 09/05/17 82-year-old female who was transported to [facility] from [facility] after she was seen by Dr. Lucero and found to have increasing shortness of breath and increased edema to the lower extremities. Patient denies chest pain or pressure. Denies cough or sputum production. Denies nausea or vomiting. Denies pain or discomfort. Denies dizziness or lightheadedness. The patient has a history of atrial fibrillation maintained on long-term anticoagulated with Coumadin, glaucoma, asymptomatic bacteriuria, mood disorder with psychotic features, hypothyroidism, diastolic congestive heart failure, hypertension, hyperlipidemia, TIA, and osteopenia. 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 Chest x-ray 08/21/2017: Marked cardiomegaly with small bilateral effusions and findings suggestive of mild congestive heart failure Chest x-ray 08/22/2017: Some improvement noted in the patient's volume status. Cardiomegaly. EKG: Atrial fibrillation. Rate 103. Laboratory data: WBC 6.6. Hemoglobin 13.2. Platelet count 186. Sodium 139. Potassium 3.2. BUN 21. Creatinine 0.90. GFR 61. Glucose 111. Magnesium 2.5. AST 41. ALT 40. Total bilirubin 4.3. Alkaline phosphatase 356. Troponins negative 3 BNP: 4400 The patient was admitted to the hospital under the care of Dr. Lucero. Consultations were placed to cardiology. 08/23/2017 Patient seen and examined at the bedside. Patient was started on Lasix 40 mg IV every 12 hours yesterday per cardiology. Patient underwent a venous Doppler on 08/22/2017 due to right lower extremity edema. Doppler was negative for a DVT. Blood pressure is stable with a last reading of 110 over the T8. She is on room air with oxygen saturations greater than 92%. She is afebrile. She remains A. fib on the monitor in the 80s and 90s. INR this morning is 4.2. Coumadin remains on hold. Potassium is low this morning at 3.1. Urinalysis was completed on 08/22/2017 revealing clear yellow urine, 1+ proteinuria, moderate blood, moderate leukocyte esterase, RBC 45, WBC 33, rare bacteria, rare mucus, and hyaline casts of 7. The patient pulled out her indwelling urinary catheter this morning. Echocardiogram was completed on 08/21/2017 which revealed moderate concentric left ventricular hypertrophy, ejection fraction of 50-55%, mildly enlarged right ventricle, mild aortic regurgitation, moderate to severe aortic stenosis, moderate mitral regurgitation, severe tricuspid regurgitation, moderate pulmonary hypertension, moderate pulmonic regurgitation, and RVSP of 54.14. 08/24/2017 Patient seen and examined at the bedside. patient underwent ultrasound of the abdomen on 08/23/2017 which revealed right pleural effusion, positive sonographic Pink sign, findings suggestive of cholecystitis. Suspected hepatomegaly. General surgery was consulted. no surgical intervention from their standpoint. INR this morning is 3.9. Coumadin remains on hold. Patient' s lactic acid yesterday was 3.2. IV fluids were ordered if ok with cardiology. Fluids were discontinued. Repeat lactic acid 2.1. patient remains on Lasix 40 mg IV every 12 hours. patient remains on Levaquin for a possible urinary tract infection. Urine culture is currently pending. 08/25/2017-Note per Dr. Mendez 08/26/2017-Note per Dr. Mendez 08/27/2017 Patient evaluated at the bedside. Patient underwent MRCP which revealed common bile duct stone and well as gallstones. Patient is to undergo ERCP when INR is less than 1.5 per GI documentation. INR this morning is 2.6. Patient remains off Coumadin. Potassium this morning is 5.7. Patients urinalysis was positive for leukocyte esterase. Urine culture was sent but per lab report specimen was unsuitable and requested new specimen. Patient remains on Levaquin. Apparently, cardiology has signed off the case but patient remains on lasix 40mg IV daily. Patient has some confusion over the weekend and was pulling out IV lines and taking off her gown. CT of the brain was completed on 08/25/2017 revealing no evidence of intracranial hemorrhage or midline shift. There is moderate to severe diffuse age-related cerebral atrophy and chronic small vessel ischemic changes redemonstrated without significant change from prior exam. 08/28/2017 Patient examined at the bedside on rounds with Dr. Mendez. Patient is awake and alert, but remains confused. Patient does complain of abdominal pain. Dr. Mendez asked patient if she wanted to undergo furthering testing and procedures and patient states she wanted to proceed. Patients son is her guardian. Apparently, family is undecided if they want to pursue ERCP. INR this morning is 2.5. Patient received 5mg Vitamin K yesterday. BUN 31. Creatinine 1.40. AST 106. ALT 53. Alkaline phosphatase 873. TSH 1.4. 08/29/2017 Patient examined at the bedside. Patient has been transferred to general medical floor. Patient very restless and agitated this morning. Constantly calling out and yelling. Patient's blood pressure is on the lower side this morning at 89/65. Previous reading 90/62. Patients heart rate currently 77 but has been running in the 90s. Patient's INR yesterday was 2.5. Patient received 10 mg vitamin K. Repeat INR this morning is currently pending. Comprehensive metabolic panel from this morning is also currently pending. Currently awaiting decision from family regarding whether or not they would like to proceed with ERCP. Addendum: Lab work from this morning reveals creatinine 1.6. BUN 36. Creatinine yesterday was 1.40. Patient's baseline is around 1.0. Will continue to hold Lasix. Patient was hypotensive this morning and has had overall decreased oral intake. Begin gentle hydration with normal saline at 50 mL an hour. Monitor for signs of fluid overload. Will consult nephrology for acute kidney injury. INR is still pending. Addendum: Spoke with patients son, Derrek, regarding ERCP. Derrek states they would like to proceed with ERCP. Notified Dr. Savage. INR 1.7 today. Will recheck in AM. Will make patient NPO after midnight. 08/30/2017 Patient examined at the bedside. Patient remains confused and slightly lethargic. Patient will open eyes to verbal stimuli. She is scheduled for ERCP today. Her INR is 1.7. Potassium today is 5.9. BUN 40. Creatinine 1.81. Nephrology has been consulted. She remains on normal saline at 50 mL an hour. blood pressure has been on the lower side with systolics in the mid 80s. Blood pressure this morning is 95/68. Her Lasix remains on hold. She is afebrile. ADDENDUM 1730: Notified by nursing this afternoon that patient has become more lethargic. [employer] re -assessed patient. Patient was scheduled for ERCP today but it was cancelled due to elevated potassium. Hyperkalemia was treated this AM with IV insulin and dextrose. Patients BP has been borderline hypotensive with BPs in the 90s. Patient is receiving IV fluids at 50cc/hr. Patient was admitted with CHF exac and was receiving IV lasix a few days ago, thus fluid resuscitation has been modest. Lasix has been transitioned to oral which remains on hold. Patient received scheduled seroquel last night along with Haldol as she becomes agitated and restless and yells out frequently secondary to her dementia. Patient does appear more lethargic in comparison to examination this morning. Lethargy is likely multifactorial due to seroquel, haldol, hypotension, acute kidney injury, and suspected urinary tract infection. Patient is a DNR and does not want to be intubated. ABG was obtained to assess patients oxygenation. ABG is within normal limits. Patient is on 2L with oxygen saturations greater than 92%. She is lethargic, but appears comfortable. No signs of agonal breathing. Spoke with patients daughter in law and sister at the bedside. All questions answered to the best of my ability. Patients sister states she is going to stay overnight in the event that she becomes agitated throughout the night or in case her condition continues to decline. Repeat K is 5.5 Additional 10 units IV insulin and dextrose ordered. Repeat at 1999. Will DC seroquel and haldol. [employer] updated Dr. Mendez who agrees with orders and plan of care. Dr. Mendez does not want patient transferred to the ICU. This was also told to the patients RN. However, shortly after [employer] spoke with RN and spoke with patients family, the patients nurse called an A team. No further interventions were performed. [employer] notified Dr. Mendez that A-team was called on patient by floor nurse. 08/31/2017 Patient was transferred to ICU yesterday per Dr. Mccoy orders. Patient remains lethargic this morning but is able to open her eyes to commands. Patient is verbalizing a few words at a time. She remains confused, which is her baseline. She received 750cc in fluid boluses. She was started on Levophed and is currently infusing at 9mcg/min. Blood pressure has been running 110/70s. She is on 3L NC with oxygen saturations greater than 92%. Indwelling urinary catheter was inserted yesterday. Meaghan urine noted. Decreased output. Chest xray was completed 08/30/2017 revealing congestive heart failure with increasing congestion and right pleural fluid. Patient received 40mg IV lasix per nephrology. Repeat chest xray was completed 08/31/2017 revealing improving features of congestive heart failure, cardiomegaly, and scattered infiltrates. CBC this morning 5.8. Hemoglobin 13.5. INR 1.5. Sodium 137. Potassium 5.8. BUN 46. Creatinine 1.91. Magnesium 3.2. Total bilirubin 3.8. AST 56. ALT 44. Alkaline phosphatase 634. Ammonia level was 67 yesterday. Repeated this morning. Result is 38. Patient was hypoglycemic this morning and was receiving IV dextrose at the time of my examination. 09/01/2017-Note per Dr. Mendez 09/02/2017-Note per Dr. Mendez 09/03/2017 Patient seen and examined at the bedside. Patient has been transferred out of the ICU to the selective care unit. Blood pressure this morning is 107/61. Heart rate is in the 70s. Patient is awake and alert. She is confused which is her baseline. Patient's left arm is extremely edematous with ecchymosis and erythema throughout. Spoke with nursing who states that patient pulled out 2 of her peripheral IVs while was running in the intensive care unit. Dr. Lucero recommends Gaudencio wrap to left upper extremity. Patient is scheduled for ERCP this afternoon with Dr. Smith. 09/04/2017 Patient seen and examined at the bedside on rounds with Dr. Lucero. Patient was transferred to the intensive care unit yesterday following ERCP. Apparently patient was intubated and sedated for the procedure and was unable to be extubated afterwards. Dr. Smith was able to extract to common bile duct stones during ERCP. Patient was hypotensive throughout the night and was started on Levaquin. Currently infusing at 4 mics per minute. Patient also hypothermic and is currently wearing a bear hugger warming blanket. Nursing states that sedation was decreased and patient will wake up and follow commands , but she also thrashes around in the bed and attempts to pull at her lines and tubes. 09/05/2017 Patient seen and examined at the bedside on rounds with Dr. Lucero. His [id number] at the bedside. Patient remains in the intensive care unit on mechanical ventilation. ABGs this morning reveal pH 7.38, CO2 39, pO2 110, bicarb 23. Patient's potassium is low at 3.3 and is currently being supplemented. Patient remains on propofol for sedation. Patient remains hypotensive and is still requiring vasopressor support with Levophed. Patient remains tachycardic with heart rate between 110-130. Objective - Vital Signs Vital signs: Vital Signs Temp 96.6 F L 09/05/17 12:00 Pulse 113 H 09/05/17 12:00 Resp 16 09/05/17 12:00 BP 97/67 09/04/17 12:00 Pulse Ox 97 09/05/17 12:00 Intake & Output 09/04/17 09/05/17 09/05/17 18:59 06:59 18:59 Intake Total 2213.417 612.25 1411.909 Output Total 320 710 265 Balance 1893.417 -97.75 1146.909 Weight 113 kg 113 kg Intake: IV 2078 256 1328 0.9 NS 10 120 60 0.9 for pressure 18 36 18 Lactated Ringers 1,000 ml 2000 @ 999 mls/hr IV .Q1H1M [facility] Rx#:[id number] Lactated Ringers 1,000 ml 1000 @ 999 mls/hr IV .Q1H1M [facility] Rx#:[id number] Meropenem 500 mg In 50 100 50 Sodium Chloride 0.9% 50 ml @ 100 mls/hr IVPB Q12HR [facility] Rx#:[id number] Potassium Chloride 10 meq 200 In Sodium Chloride 0.9% 100 ml @ 100 mls/hr IVPB Q1H [facility] Rx#:[id number] Intake, IV Titration 135.417 356.25 83.909 Amount Norepinephrin 16 mg-0.9% 83.909 Ns Pmx 16 mg In 250 ml @ Titrate IV .Q0M [facility] Rx#: [id number] Norepinephrin 4 mg-0.9% 93.75 156.25 Ns Pmx 4 mg In 250 ml @ Titrate IV .Q0M [facility] Rx#: [id number] Propofol 1,000 mg In 41.667 200 Empty Bag 1 bag @ Titrate IV .Q0M [facility] Rx#: [id number] Output: Gastric Drainage 60 Urine 260 710 265 Other: Voiding Method Indwelling Catheter Indwelling Catheter ABP, PAP, CO, CI - Last Documented Arterial Blood Pressure 86/53 - Exam GENERAL: This is a 82-year-old female is sedated and intubated on mechanical ventilation in the intensive care unit HEENT: ET tube noted. Head is atraumatic, normocephalic. Pupils are equal, round, and reactive to light. Sclerae anicteric. Conjunctivae are clear. Mucus membranes of the mouth are dry. Neck is supple. RESPIRATORY: Diminished throughout. Fine rales auscultated to bilateral bases. Patient maintaining oxygen saturation greater than 92%. Patient remains on mechanical ventilation with 30% FiO2. No chest wall tenderness is noted on palpation or with deep breathing. CARDIOVASCULAR: Irregular rhythm. Tachycardic. S1 and S2 noted. Systolic murmur auscultated. No JVD noted. No S3 or S4 noted. GASTROINTESTINAL: No distention noted. Abdomen soft and round. Normal active bowel sounds auscultated x 4 quadrants. No pain and tenderness noted upon palpation. INTEGUMENTARY: Left upper extremity with significant edema, ecchymosis, and erythema secondary to peripheral IV infiltration. EXTREMITIES: 1+ peripheral pulses. +1-2 lower extremity edema. No calf tenderness noted. NEUROLOGIC: Unable to assess secondary to mechanical ventilation and continuous sedation PSYCHIATRIC: Unable to assess secondary to mechanical ventilation and continuous sedation - Labs CBC & Chem 7: 09/05/17 04:25 09/05/17 04:25 Labs: Abnormal Lab Results - Last 24 Hours (Table) 09/04/17 09/05/17 09/05/17 Range/Units 19:44 04:25 04:25 MCHC 30.3 L (31.0-37.0) g/dL RDW 21.3 H (11.5-15.5) % Plt Count 134 L (150-450) k/uL Lymphocytes # 0.7 L (1.0-4.8) k/uL ABG pO2 (83-108) mmHg ABG O2 Saturation (94-97) % Potassium 3.3 L (3.5-5.1) mmol/L BUN 43 H (7-17) mg/dL Creatinine 1.90 H (0.52-1.04) mg/dL POC Glucose (mg/dL) 71 L (75-99) mg/dL Calcium 8.0 L (8.4-10.2) mg/dL Total Bilirubin 3.5 H (0.2-1.3) mg/dL Alkaline Phosphatase 452 H (38-126) U/L Total Protein 5.1 L (6.3-8.2) g/dL Albumin 2.2 L (3.5-5.0) g/dL 09/05/17 Range/Units 04:34 MCHC (31.0-37.0) g/dL RDW (11.5-15.5) % Plt Count (150-450) k/uL Lymphocytes # (1.0-4.8) k/uL ABG pO2 110 H (83-108) mmHg ABG O2 Saturation 98.6 H (94-97) % Potassium (3.5-5.1) mmol/L BUN (7-17) mg/dL Creatinine (0.52-1.04) mg/dL POC Glucose (mg/dL) (75-99) mg/dL Calcium (8.4-10.2) mg/dL Total Bilirubin (0.2-1.3) mg/dL Alkaline Phosphatase (38-126) U/L Total Protein (6.3-8.2) g/dL Albumin (3.5-5.0) g/dL Microbiology - Last 24 Hours (Table) 08/30/17 23:46 Blood Culture - Preliminary Blood No Growth after 120 hours Assessment and Plan Plan: ASSESSMENT: Acute exacerbation of diastolic congestive heart failure, echo reveals ejection fraction of 50-55% Chronic atrial fibrillation, maintained on long-term anticoagulation with Coumadin Supratherapeutic INR, INR 4.9 on admission, resolved, coumadin remains on hold for ERCP Bacteruria, urinalysis positive for leukocyte esterase, urine culture negative 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 Hypokalemia, secondary to diuretic therapy, resolved Hyperkalemia, likely secondary to acute kidney injury, resolved Acute kidney injury, secondary to diuretic therapy, hypotension, and hypoperfusion, baseline creatinine 1.0 Hypoglycemia Elevated bilirubin and alkaline phosphatase with normal amylase and lipase with slight jaundice, s/p MRCP revealing common bile duct stone and also gallstones Choledocholithiasis Cholelithiasis, S/P ERCP with removal of two common bile duct stones 09/03/2017 Post procedural respiratory failure, patient unable to extubated following ERCP , an unexpected but potential outcome of procedure Postprocedural hypotension, requiring vasopressor support, an unexpected but potential outcome of procedure History of TIA Essential hypertension Hyperlipidemia Hypothyroidism Dementia Obesity: BMI 32.4 PLAN: Continue ICU management per Dr. Lozoya Ventilator management per Dr. Lozoya Wean sedation as tolerated Wean levophed as tolerated Continue urinary catheter. Accurate I&O IV dextrose PRN for hypoglycemia Replace potassium per protocol Home meds as appropriate Monitor labs GI prophylaxis: Pepcid 20 mg by daily DVT prophylaxis: Coumadin remains on hold. JESUS hose and Venodyne's to bilateral lower extremities Monitor vital signs and address as appropriate Further recommendations pending patient's course Nurse practitioner note has been reviewed by physician. Signing provider agrees with the documented findings, assessment, and plan of care.
--- NOTE | 2017-09-05 13:12 | PN ---
PROGRESS NOTE Valorie is an 82-year-old lady with chronic atrial fibrillation who underwent ERCP on Sunday and had to be intubated at that time. This morning, the patient remains in A fib with somewhat of a poorly controlled ventricular rate. Blood pressure is 110/60. Chest exam reveals diminished air entry at the bases. Heart exam reveals first and second heart sounds. Irregular rhythm. Abdomen is soft. Examination of the extremities did not reveal any edema. Peripheral pulses are felt. LABS: Labs show a hemoglobin of 12.1, platelet count is 134. ASSESSMENT: 1. Chronic atrial fibrillation with somewhat of a poorly controlled ventricular rate. 2. Respiratory failure. PLAN: Patient's prognosis is guarded. She is on Toprol, which I am going to continue. We should continue the Levophed for hypotension. MMODL / IJN: [id number] /
[2017-09-05 17:20] LABS: Glucose,Whole Blood 73 mg/dL (75-99)
[2017-09-05 20:07] LABS: Glucose,Whole Blood 64 mg/dL (75-99)
[2017-09-05] MEDS ORDERED: DEXTROSE 10 % IN WATER 250 ML IV STA (20:21)
--- NOTE | 2017-09-05 20:22 | P.PN ---
Subjective Progress Note Date: 09/05/17 Principal diagnosis: Cholelithiasis Patient remains on the ventilator. She is nonresponsive. No obvious discomfort. Morning labs noted. Objective - Vital Signs Vital signs: Vital Signs Temp 98.5 F 09/05/17 16:00 Pulse 126 H 09/05/17 19:23 Resp 16 09/05/17 19:00 BP 97/67 09/04/17 12:00 Pulse Ox 96 09/05/17 19:00 Intake & Output 09/05/17 09/05/17 09/06/17 06:59 18:59 06:59 Intake Total 612.25 1739.909 53 Output Total 710 445 10 Balance -97.75 1294.909 43 Weight 113 kg 113 kg Intake: IV 256 1406 13 0.9 NS 120 120 10 0.9 for pressure 36 36 3 Lactated Ringers 1,000 ml 1000 @ 999 mls/hr IV .Q1H1M [facility] Rx#:[id number] Meropenem 500 mg In 100 50 Sodium Chloride 0.9% 50 ml @ 100 mls/hr IVPB Q12HR [facility] Rx#:[id number] Potassium Chloride 10 meq 200 In Sodium Chloride 0.9% 100 ml @ 100 mls/hr IVPB Q1H [facility] Rx#:[id number] Intake, IV Titration 356.25 183.909 Amount Norepinephrin 16 mg-0.9% 83.909 Ns Pmx 16 mg In 250 ml @ Titrate IV .Q0M [facility] Rx#: [id number] Norepinephrin 4 mg-0.9% 156.25 Ns Pmx 4 mg In 250 ml @ Titrate IV .Q0M [facility] Rx#: [id number] Propofol 1,000 mg In 200 100 Empty Bag 1 bag @ Titrate IV .Q0M [facility] Rx#: [id number] Tube Feeding 120 40 Other 30 Output: Urine 710 445 10 Other: Voiding Method Indwelling Catheter Indwelling Catheter ABP, PAP, CO, CI - Last Documented Arterial Blood Pressure 87/53 - Exam Abdomen: Soft, nontender, nondistended - Labs CBC & Chem 7: 09/05/17 04:25 09/05/17 04:25 Labs: Abnormal Lab Results - Last 24 Hours (Table) 09/05/17 09/05/17 09/05/17 Range/Units 04:25 04:25 04:34 MCHC 30.3 L (31.0-37.0) g/dL RDW 21.3 H (11.5-15.5) % Plt Count 134 L (150-450) k/uL Lymphocytes # 0.7 L (1.0-4.8) k/uL ABG pO2 110 H (83-108) mmHg ABG O2 Saturation 98.6 H (94-97) % Potassium 3.3 L (3.5-5.1) mmol/L BUN 43 H (7-17) mg/dL Creatinine 1.90 H (0.52-1.04) mg/dL POC Glucose (mg/dL) (75-99) mg/dL Calcium 8.0 L (8.4-10.2) mg/dL Total Bilirubin 3.5 H (0.2-1.3) mg/dL Alkaline Phosphatase 452 H (38-126) U/L Total Protein 5.1 L (6.3-8.2) g/dL Albumin 2.2 L (3.5-5.0) g/dL 09/05/17 09/05/17 Range/Units 17:17 20:05 MCHC (31.0-37.0) g/dL RDW (11.5-15.5) % Plt Count (150-450) k/uL Lymphocytes # (1.0-4.8) k/uL ABG pO2 (83-108) mmHg ABG O2 Saturation (94-97) % Potassium (3.5-5.1) mmol/L BUN (7-17) mg/dL Creatinine (0.52-1.04) mg/dL POC Glucose (mg/dL) 73 L 64 L (75-99) mg/dL Calcium (8.4-10.2) mg/dL Total Bilirubin (0.2-1.3) mg/dL Alkaline Phosphatase (38-126) U/L Total Protein (6.3-8.2) g/dL Albumin (3.5-5.0) g/dL Microbiology - Last 24 Hours (Table) 08/30/17 23:46 Blood Culture - Preliminary Blood No Growth after 120 hours Assessment and Plan (1) Cholelithiasis Narrative/Plan: Continue to wean ventilator as able. Continue monitoring liver enzyme levels. We'll follow. Current Visit: Yes Status: Acute Code(s): K80.20 - CALCULUS OF GALLBLADDER W /O CHOLECYSTITIS W/O OBSTRUCTION SNOMED Code(s): 533615482
--- NOTE | 2017-09-05 20:51 | PN ---
PROGRESS NOTE Patient is seen for followup for acute kidney injury. Overall, her kidney function is slightly better. However, patient remains hypotensive. She is maintained on about 10 mcg of Levophed. Urine output is a maintain at 20-40 mL an hour. Currently sedation is in on hold and patient is trying to wake up. EXAMINATION: Blood pressure this morning when patient was seen was 126/74, heart rate 125 per minute. Patient was afebrile. HEART: S1, S2. LUNGS: Bilateral breath sounds are heard. Abdomen is soft, nontender. Lower extremities show trace edema bilaterally. Chronic skin changes are noted. 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 The patient does respond to her name, though. LABS: Show sodium 138, potassium 3.3, BUN 43, serum creatinine 1.90. ASSESSMENT: 1. Acute kidney injury, currently improving. Initially oliguric, currently nonoliguric, renal ischemic acute tubular necrosis. 2. Hypokalemia, being replaced. 3. Acute hypoxic respiratory failure. Patient was intubated for the procedure and currently remains intubated. 4. Hypotension, possibly related to underlying infection. So far, urine culture and blood cultures are negative. We also need to rule out adrenal insufficiency. Cortisol level was already ordered. 5. Bile duct stone and biliary obstruction, status post endoscopic retrograde cholangiopancreatography and extraction of stone. PLAN: Continue current dose of Lasix and avoid nephrotoxic agents. Repeat labs in a.m. MMODL / IJN: [id number] /
[2017-09-05 20:56] LABS: Glucose,Whole Blood 130 mg/dL (75-99)
[2017-09-05] MEDS: LATANOPROST 0.005% OPHTH DROPS 2.5 ML BTL BOTH EYES SCH (21:43)
[2017-09-05] MEDS: ATORVASTATIN 40 MG TAB PO SCH (21:43)
[2017-09-06 00:19] LABS: Glucose,Whole Blood 78 mg/dL (75-99)
[2017-09-06] MEDS: NOREPINEPHRIN 16 MG-0.9%NS PMX 16 MG/250 ML ML IV SCH ×2 (02:53→12:58)
[2017-09-06] MEDS: PROPOFOL 1,000 MG in EMPTY BAG 1 BAG IV SCH ×2 (02:55→18:12)
[2017-09-06] MEDS: IPRATROPIUM-ALBUTEROL 3 ML NEB INHALATION SCH ×6 (03:37→22:54)
[2017-09-06 04:35] LABS: Glucose,Whole Blood 79 mg/dL (75-99)
[2017-09-06 04:42] LABS: ABG Base Excess -3.9 mmol/L; ABG HCO3 23 mmol/L (21-25); ABG Oxygen Saturation 95.4 % (94-97); ABG PCO2 47 mmHg (35-45); ABG PH 7.29 (7.35-7.45); ABG PO2 80 mmHg (83-108); ABG TCO2 24 mmol/L (19-24)
[2017-09-06 05:28] LABS: Anisocytosis Moderate; Basophils % (A) 0 %; Eosinophils # (A) 0.1 k/uL (0-0.7); Eosinophils % (A) 1 %; HCT 44.6 % (34.0-46.0); HGB 13.3 gm/dL (11.4-16.0); Hypochromasia Marked; Lymphocytes % (A) 12 %; MCH 25.1 pg (25.0-35.0); MCHC 29.8 g/dL (31.0-37.0); MCV 84.2 fL (80.0-100.0); Microcytosis Slight; Monocytes # (A) 0.7 k/uL (0-1.0); Monocytes % (A) 8 %; Neutrophils # (A) 6.6 k/uL (1.3-7.7); Neutrophils % (A) 76 %; Platelet Count 170 k/uL (150-450); Poikilocytosis Slight; RDW 20.9 % (11.5-15.5); WBC 8.7 k/uL (3.8-10.6)
[2017-09-06 05:47] LABS: Albumin 2.1 g/dL (3.5-5.0); Calcium 8.1 mg/dL (8.4-10.2); Magnesium 2.2 mg/dL (1.6-2.3); Phosphorus 5.4 mg/dL (2.5-4.5); Potassium 3.5 mmol/L (3.5-5.1); Total Bilirubin 2.6 mg/dL (0.2-1.3); Total Protein 5.1 g/dL (6.3-8.2)
--- NOTE | 2017-09-06 08:15 | XR ---
EXAMINATION TYPE: XR chest 1V portable DATE OF EXAM: 09/06/2017 COMPARISON: Prior chest 09/05/2017 HISTORY: Intubated TECHNIQUE: Single frontal view of the chest is obtained. FINDINGS: Endotracheal tube, NG tube, left jugular central venous catheter are stable. Pleural paren chymal changes are also not significantly changed. The heart remains enlarged. IMPRESSION: Similar to prior exam. There is not a significant interval change evident. Additional fo llow-up recommended.
[2017-09-06] MEDS: PANTOPRAZOLE 40 MG/10 ML VIAL IVP SCH ×2 (08:40→21:53)
[2017-09-06] MEDS: LEVOTHYROXINE 75 MCG TAB PO SCH (08:41)
[2017-09-06] MEDS: METOPROLOL SUCCINATE (ER) 25 MG TAB.ER.24H PO SCH (08:42)
[2017-09-06] MEDS: MEROPENEM 500 MG in SODIUM CHLORIDE 0.9% 50 ML IVPB SCH ×2 (08:42→21:14)
[2017-09-06] MEDS: MEMANTINE 10 MG TAB PO SCH (08:42)
[2017-09-06] MEDS: CHLORHEXIDINE GLUCONATE 15 ML CUP MUCOUS MEM SCH ×2 (08:42→21:39)
[2017-09-06] MEDS: TIMOLOL 0.5% OPHTH DROPS 5 ML BTL LEFT EYE SCH (08:43)
[2017-09-06] MEDS ORDERED: POTASSIUM CHLORIDE 10 MEQ in SODIUM CHLORIDE 0.9% 100 ML IVPB ONE (09:00)
[2017-09-06] MEDS ORDERED: POTASSIUM CHLORIDE 10 MEQ in SODIUM CHLORIDE 0.9% 100 ML IVPB STA (09:55)
[2017-09-06] MEDS: FUROSEMIDE 10 MG/ML 4 ML VIAL IV SCH ×2 (09:56→20:53)
--- NOTE | 2017-09-06 11:30 | P.PN ---
Subjective Progress Note Date: 09/06/17 82-year-old female who was transported to [facility] from [facility] after she was seen by Dr. Lucero and found to have increasing shortness of breath and increased edema to the lower extremities. Patient denies chest pain or pressure. Denies cough or sputum production. Denies nausea or vomiting. Denies pain or discomfort. Denies dizziness or lightheadedness. The patient has a history of atrial fibrillation maintained on long-term anticoagulated with Coumadin, glaucoma, asymptomatic bacteriuria, mood disorder with psychotic features, hypothyroidism, diastolic congestive heart failure, hypertension, hyperlipidemia, TIA, and osteopenia. 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 Chest x-ray 08/21/2017: Marked cardiomegaly with small bilateral effusions and findings suggestive of mild congestive heart failure Chest x-ray 08/22/2017: Some improvement noted in the patient's volume status. Cardiomegaly. EKG: Atrial fibrillation. Rate 103. Laboratory data: WBC 6.6. Hemoglobin 13.2. Platelet count 186. Sodium 139. Potassium 3.2. BUN 21. Creatinine 0.90. GFR 61. Glucose 111. Magnesium 2.5. AST 41. ALT 40. Total bilirubin 4.3. Alkaline phosphatase 356. Troponins negative 3 BNP: 4400 The patient was admitted to the hospital under the care of Dr. Lucero. Consultations were placed to cardiology. 08/23/2017 Patient seen and examined at the bedside. Patient was started on Lasix 40 mg IV every 12 hours yesterday per cardiology. Patient underwent a venous Doppler on 08/22/2017 due to right lower extremity edema. Doppler was negative for a DVT. Blood pressure is stable with a last reading of 110 over the T8. She is on room air with oxygen saturations greater than 92%. She is afebrile. She remains A. fib on the monitor in the 80s and 90s. INR this morning is 4.2. Coumadin remains on hold. Potassium is low this morning at 3.1. Urinalysis was completed on 08/22/2017 revealing clear yellow urine, 1+ proteinuria, moderate blood, moderate leukocyte esterase, RBC 45, WBC 33, rare bacteria, rare mucus, and hyaline casts of 7. The patient pulled out her indwelling urinary catheter this morning. Echocardiogram was completed on 08/21/2017 which revealed moderate concentric left ventricular hypertrophy, ejection fraction of 50-55%, mildly enlarged right ventricle, mild aortic regurgitation, moderate to severe aortic stenosis, moderate mitral regurgitation, severe tricuspid regurgitation, moderate pulmonary hypertension, moderate pulmonic regurgitation, and RVSP of 54.14. 08/24/2017 Patient seen and examined at the bedside. patient underwent ultrasound of the abdomen on 08/23/2017 which revealed right pleural effusion, positive sonographic Pink sign, findings suggestive of cholecystitis. Suspected hepatomegaly. General surgery was consulted. no surgical intervention from their standpoint. INR this morning is 3.9. Coumadin remains on hold. Patient' s lactic acid yesterday was 3.2. IV fluids were ordered if ok with cardiology. Fluids were discontinued. Repeat lactic acid 2.1. patient remains on Lasix 40 mg IV every 12 hours. patient remains on Levaquin for a possible urinary tract infection. Urine culture is currently pending. 08/25/2017-Note per Dr. Mendez 08/26/2017-Note per Dr. Mendez 08/27/2017 Patient evaluated at the bedside. Patient underwent MRCP which revealed common bile duct stone and well as gallstones. Patient is to undergo ERCP when INR is less than 1.5 per GI documentation. INR this morning is 2.6. Patient remains off Coumadin. Potassium this morning is 5.7. Patients urinalysis was positive for leukocyte esterase. Urine culture was sent but per lab report specimen was unsuitable and requested new specimen. Patient remains on Levaquin. Apparently, cardiology has signed off the case but patient remains on lasix 40mg IV daily. Patient has some confusion over the weekend and was pulling out IV lines and taking off her gown. CT of the brain was completed on 08/25/2017 revealing no evidence of intracranial hemorrhage or midline shift. There is moderate to severe diffuse age-related cerebral atrophy and chronic small vessel ischemic changes redemonstrated without significant change from prior exam. 08/28/2017 Patient examined at the bedside on rounds with Dr. Mendez. Patient is awake and alert, but remains confused. Patient does complain of abdominal pain. Dr. Mendez asked patient if she wanted to undergo furthering testing and procedures and patient states she wanted to proceed. Patients son is her guardian. Apparently, family is undecided if they want to pursue ERCP. INR this morning is 2.5. Patient received 5mg Vitamin K yesterday. BUN 31. Creatinine 1.40. AST 106. ALT 53. Alkaline phosphatase 873. TSH 1.4. 08/29/2017 Patient examined at the bedside. Patient has been transferred to general medical floor. Patient very restless and agitated this morning. Constantly calling out and yelling. Patient's blood pressure is on the lower side this morning at 89/65. Previous reading 90/62. Patients heart rate currently 77 but has been running in the 90s. Patient's INR yesterday was 2.5. Patient received 10 mg vitamin K. Repeat INR this morning is currently pending. Comprehensive metabolic panel from this morning is also currently pending. Currently awaiting decision from family regarding whether or not they would like to proceed with ERCP. Addendum: Lab work from this morning reveals creatinine 1.6. BUN 36. Creatinine yesterday was 1.40. Patient's baseline is around 1.0. Will continue to hold Lasix. Patient was hypotensive this morning and has had overall decreased oral intake. Begin gentle hydration with normal saline at 50 mL an hour. Monitor for signs of fluid overload. Will consult nephrology for acute kidney injury. INR is still pending. Addendum: Spoke with patients son, Derrek, regarding ERCP. Derrek states they would like to proceed with ERCP. Notified Dr. Savage. INR 1.7 today. Will recheck in AM. Will make patient NPO after midnight. 08/30/2017 Patient examined at the bedside. Patient remains confused and slightly lethargic. Patient will open eyes to verbal stimuli. She is scheduled for ERCP today. Her INR is 1.7. Potassium today is 5.9. BUN 40. Creatinine 1.81. Nephrology has been consulted. She remains on normal saline at 50 mL an hour. blood pressure has been on the lower side with systolics in the mid 80s. Blood pressure this morning is 95/68. Her Lasix remains on hold. She is afebrile. ADDENDUM 1730: Notified by nursing this afternoon that patient has become more lethargic. CONDITIONING MACHINE OPERATOR re -assessed patient. Patient was scheduled for ERCP today but it was cancelled due to elevated potassium. Hyperkalemia was treated this AM with IV insulin and dextrose. Patients BP has been borderline hypotensive with BPs in the 90s. Patient is receiving IV fluids at 50cc/hr. Patient was admitted with CHF exac and was receiving IV lasix a few days ago, thus fluid resuscitation has been modest. Lasix has been transitioned to oral which remains on hold. Patient received scheduled seroquel last night along with Haldol as she becomes agitated and restless and yells out frequently secondary to her dementia. Patient does appear more lethargic in comparison to examination this morning. Lethargy is likely multifactorial due to seroquel, haldol, hypotension, acute kidney injury, and suspected urinary tract infection. Patient is a DNR and does not want to be intubated. ABG was obtained to assess patients oxygenation. ABG is within normal limits. Patient is on 2L with oxygen saturations greater than 92%. She is lethargic, but appears comfortable. No signs of agonal breathing. Spoke with patients daughter in law and sister at the bedside. All questions answered to the best of my ability. Patients sister states she is going to stay overnight in the event that she becomes agitated throughout the night or in case her condition continues to decline. Repeat K is 5.5 Additional 10 units IV insulin and dextrose ordered. Repeat at 1999. Will DC seroquel and haldol. CONDITIONING MACHINE OPERATOR updated Dr. Mendez who agrees with orders and plan of care. Dr. Mendez does not want patient transferred to the ICU. This was also told to the patients RN. However, shortly after CONDITIONING MACHINE OPERATOR spoke with RN and spoke with patients family, the patients nurse called an A team. No further interventions were performed. CONDITIONING MACHINE OPERATOR notified Dr. Mendez that A-team was called on patient by floor nurse. 08/31/2017 Patient was transferred to ICU yesterday per Dr. Mccoy orders. Patient remains lethargic this morning but is able to open her eyes to commands. Patient is verbalizing a few words at a time. She remains confused, which is her baseline. She received 750cc in fluid boluses. She was started on Levophed and is currently infusing at 9mcg/min. Blood pressure has been running 110/70s. She is on 3L NC with oxygen saturations greater than 92%. Indwelling urinary catheter was inserted yesterday. Meaghan urine noted. Decreased output. Chest xray was completed 08/30/2017 revealing congestive heart failure with increasing congestion and right pleural fluid. Patient received 40mg IV lasix per nephrology. Repeat chest xray was completed 08/31/2017 revealing improving features of congestive heart failure, cardiomegaly, and scattered infiltrates. CBC this morning 5.8. Hemoglobin 13.5. INR 1.5. Sodium 137. Potassium 5.8. BUN 46. Creatinine 1.91. Magnesium 3.2. Total bilirubin 3.8. AST 56. ALT 44. Alkaline phosphatase 634. Ammonia level was 67 yesterday. Repeated this morning. Result is 38. Patient was hypoglycemic this morning and was receiving IV dextrose at the time of my examination. 09/01/2017-Note per Dr. Mendez 09/02/2017-Note per Dr. Mendez 09/03/2017 Patient seen and examined at the bedside. Patient has been transferred out of the ICU to the selective care unit. Blood pressure this morning is 107/61. Heart rate is in the 70s. Patient is awake and alert. She is confused which is her baseline. Patient's left arm is extremely edematous with ecchymosis and erythema throughout. Spoke with nursing who states that patient pulled out 2 of her peripheral IVs while was running in the intensive care unit. Dr. Lucero recommends Gaudencio wrap to left upper extremity. Patient is scheduled for ERCP this afternoon with Dr. Smith. 09/04/2017 Patient seen and examined at the bedside on rounds with Dr. Lucero. Patient was transferred to the intensive care unit yesterday following ERCP. Apparently patient was intubated and sedated for the procedure and was unable to be extubated afterwards. Dr. Smith was able to extract to common bile duct stones during ERCP. Patient was hypotensive throughout the night and was started on Levaquin. Currently infusing at 4 mics per minute. Patient also hypothermic and is currently wearing a bear hugger warming blanket. Nursing states that sedation was decreased and patient will wake up and follow commands , but she also thrashes around in the bed and attempts to pull at her lines and tubes. 09/05/2017 Patient seen and examined at the bedside on rounds with Dr. Lucero. Her [id number] at the bedside. Patient remains in the intensive care unit on mechanical ventilation. ABGs this morning reveal pH 7.38, CO2 39, pO2 110, bicarb 23. Patient's potassium is low at 3.3 and is currently being supplemented. Patient remains on propofol for sedation. Patient remains hypotensive and is still requiring vasopressor support with Levophed. Patient remains tachycardic with heart rate between 110-130. 09/06/2017 Patient seen and examined at the bedside on rounds with Dr. Lucero. Patient remains in intensive care unit on mechanical ventilation. Family is at the bedside. Patient's propofol has been put on hold in an attempt to assess patients neurological status. Patient has slight spontaneous movement of her left arm. Patient is not opening eyes to verbal stimulation or following any commands at this time. Patient remains on Levophed with doses ranging from 25- 30mcg. Patient remains on lasix 40mg q12 hours. Potassium is being supplemented this AM. Discussed case with Dr. Lozoya. Awaiting decision from family regarding possibility of comfort care. Objective - Vital Signs Vital signs: Vital Signs Temp 98.5 F 09/06/17 08:00 Pulse 118 H 09/06/17 11:00 Resp 21 09/06/17 11:00 BP 97/67 09/04/17 12:00 Pulse Ox 95 09/06/17 11:00 Intake & Output 09/05/17 09/06/17 09/06/17 18:59 06:59 18:59 Intake Total 6336.634 9351.220 680.687 Output Total 445 160 215 Balance 1294.909 843.220 465.687 Weight 113 kg Intake: IV 1406 156 345 0.9 NS 120 120 80 0.9 for pressure 36 36 15 Lactated Ringers 1,000 ml 1000 @ 999 mls/hr IV .Q1H1M [facility] Rx#:[id number] Meropenem 500 mg In 50 50 Sodium Chloride 0.9% 50 ml @ 100 mls/hr IVPB Q12HR [facility] Rx#:[id number] Potassium Chloride 10 meq 200 200 In Sodium Chloride 0.9% 100 ml @ 100 mls/hr IVPB Q1H [facility] Rx#:[id number] Intake, IV Titration 183.909 423.220 315.687 Amount Norepinephrin 16 mg-0.9% 83.909 236.023 215.687 Ns Pmx 16 mg In 250 ml @ Titrate IV .Q0M [facility] Rx#: [id number] Propofol 1,000 mg In 100 187.197 100.000 Empty Bag 1 bag @ Titrate IV .Q0M [facility] Rx#: [id number] Tube Feeding 120 364 20 Other 30 60 Output: Urine 445 160 215 Other: Voiding Method Indwelling Catheter Indwelling Catheter ABP, PAP, CO, CI - Last Documented Arterial Blood Pressure 113/66 - Exam GENERAL: This is a 82-year-old female who remains intubated on mechanical ventilation in the intensive care unit HEENT: ET tube noted. Head is atraumatic, normocephalic. Pupils are equal, round, and reactive to light. Sclerae anicteric. Conjunctivae are clear. Mucus membranes of the mouth are dry. Neck is supple. RESPIRATORY: Diminished throughout. Fine rales auscultated to bilateral bases. Patient maintaining oxygen saturation greater than 92%. Patient remains on mechanical ventilation with 30% FiO2. No chest wall tenderness is noted on palpation or with deep breathing. CARDIOVASCULAR: Irregular rhythm. Tachycardic. S1 and S2 noted. Systolic murmur auscultated. No JVD noted. No S3 or S4 noted. GASTROINTESTINAL: No distention noted. Abdomen soft and round. Bowel sounds auscultated x 4 quadrants. No pain and tenderness noted upon palpation. INTEGUMENTARY: Left upper extremity with significant edema, ecchymosis, and erythema secondary to peripheral IV infiltration. EXTREMITIES: 1+ peripheral pulses. +1-2 lower extremity edema. No calf tenderness noted. NEUROLOGIC: Unable to assess secondary to mechanical ventilation and sedation PSYCHIATRIC: Unable to assess secondary to mechanical ventilation and sedation - Labs CBC & Chem 7: 09/06/17 04:50 09/06/17 04:50 Labs: Abnormal Lab Results - Last 24 Hours (Table) 09/05/17 09/05/17 09/05/17 Range/Units 17:17 20:05 20:50 MCHC (31.0-37.0) g/dL RDW (11.5-15.5) % ABG pH (7.35-7.45) ABG pCO2 (35-45) mmHg ABG pO2 (83-108) mmHg BUN (7-17) mg/dL Creatinine (0.52-1.04) mg/dL POC Glucose (mg/dL) 73 L 64 L 130 H (75-99) mg/dL Calcium (8.4-10.2) mg/dL Phosphorus (2.5-4.5) mg/dL Total Bilirubin (0.2-1.3) mg/dL Alkaline Phosphatase (38-126) U/L Total Protein (6.3-8.2) g/dL Albumin (3.5-5.0) g/dL 09/06/17 09/06/17 09/06/17 Range/Units 04:37 04:50 04:50 MCHC 29.8 L (31.0-37.0) g/dL RDW 20.9 H (11.5-15.5) % ABG pH 7.29 L (7.35-7.45) ABG pCO2 47 H (35-45) mmHg ABG pO2 80 L (83-108) mmHg BUN 43 H (7-17) mg/dL Creatinine 2.00 H (0.52-1.04) mg/dL POC Glucose (mg/dL) (75-99) mg/dL Calcium 8.1 L (8.4-10.2) mg/dL Phosphorus 5.4 H (2.5-4.5) mg/dL Total Bilirubin 2.6 H (0.2-1.3) mg/dL Alkaline Phosphatase 444 H (38-126) U/L Total Protein 5.1 L (6.3-8.2) g/dL Albumin 2.1 L (3.5-5.0) g/dL Microbiology - Last 24 Hours (Table) 08/30/17 23:46 Blood Culture - Final Blood No Growth after 144 hours Assessment and Plan Plan: ASSESSMENT: Acute exacerbation of diastolic congestive heart failure, echo reveals ejection fraction of 50-55% Chronic atrial fibrillation, maintained on long-term anticoagulation with Coumadin Supratherapeutic INR, INR 4.9 on admission, resolved, coumadin remains on hold for ERCP Bacteruria, urinalysis positive for leukocyte esterase, urine culture negative 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 Hypokalemia, secondary to diuretic therapy, resolved Hyperkalemia, likely secondary to acute kidney injury, resolved Acute kidney injury, secondary to diuretic therapy, hypotension, and hypoperfusion, baseline creatinine 1.0 Hypoglycemia Elevated bilirubin and alkaline phosphatase with normal amylase and lipase with slight jaundice, s/p MRCP revealing common bile duct stone and also gallstones Choledocholithiasis Cholelithiasis, S/P ERCP with removal of two common bile duct stones 09/03/2017 Post procedural respiratory failure, patient unable to extubated following ERCP , an unexpected but potential outcome of procedure Postprocedural hypotension, requiring vasopressor support, an unexpected but potential outcome of procedure History of TIA Essential hypertension Hyperlipidemia Hypothyroidism Dementia Obesity: BMI 32.4 PLAN: Continue ICU management per Dr. Lozoya Patients Coumadin has been on hold seconary to undergoing ERCP. Will defer to critical care to evaluate if Coumadin should be restarted. Ventilator management per Dr. Lozoya Wean levophed as tolerated Continue urinary catheter. Accurate I&O IV dextrose PRN for hypoglycemia Replace potassium per protocol Home meds as appropriate Monitor labs GI prophylaxis: Pepcid 20 mg by daily DVT prophylaxis: Coumadin remains on hold. JESUS hose and Venodyne's to bilateral lower extremities Monitor vital signs and address as appropriate Further recommendations pending patient's course Nurse practitioner note has been reviewed by physician. Signing provider agrees with the documented findings, assessment, and plan of care.
[2017-09-06] MEDS ORDERED: DEXTROSE 50%-WATER 50 ML SYRINGE IVP ONE ×2 (12:49→19:03)
[2017-09-06 12:57] LABS: Glucose,Whole Blood 61 mg/dL (75-99)
[2017-09-06 13:12] LABS: Glucose,Whole Blood 95 mg/dL (75-99)
--- NOTE | 2017-09-06 15:09 | P.PN ---
Subjective Progress Note Date: 09/06/17 Principal diagnosis: Altered mental status Progress note dated 09/03/2017 This is an 82-year-old female who came into the hospital with complaints of changes in mental status. CT was essentially negative for anything acute. In addition, the patient has has a history of diastolic CHF chronic atrial fibrillation extended spectrum beta-lactamase producing urinary tract infection acute kidney injury, bile duct stone history of TIA hypertension hyperlipidemia and hypothyroidism. The patient's most recent chest x-ray shows improving volume status. She looks okay. She seems to be in no distress. Almost laying flat in bed. Is receiving supplemental oxygen. Denies any chest pain or chest discomfort. No nausea vomiting or diarrhea. No coughing up of phlegm or blood. No fever or chills. Progress note dated 09/04/2017 This is a 82-year-old female who had a ERCP done yesterday. The patient apparently had the procedure done under general anesthesia. I'm not sure why that was. Anyway, she arrived back here into the ICU with hypotension and on the ventilator. Her initial ventilator settings included the assist control mode rate of 12 tidal volume 500 FiO2 50% and a PEEP of 5. Arterial blood gases showed a PaO2 of 119 a PaCO2 37 and a pH of 7.41. The vent was changed to a rate of 16 tidal volume 400 and FiO2 was dropped from 50 down to 40%. The patient is on no additional IV fluids at this time in part because is no good IV access and the patient's also on norepinephrine and bit of propofol. She is postop day #1. She is a no code patient. Chest x-ray shows bilateral pleural effusions and some mild vascular congestion. An art line was placed by myself and my nurse practitioner and a central line will also be placed. Progress note dated 09/05/2017 82-year-old female who was in the ICU. Had a ERCP done 2 days ago. It was done on the in the operating room under general anesthesia. I'm not sure why it was done that white but anyway she came back to the ICU from recovery on the ventilator with hypotension. Currently, the patient's on the assist control mode rate of 16, tidal volume 400, FiO2 dropped from 40 down to 30%, with a PEEP of 5. Arterial blood gases show a PaO2 of 110 PaCO2 of 39 and a pH of 7.38. She currently remains on norepinephrine at 13 mcg/m propofol at 30 mics micrograms per kilogram per minute and a saline IV at 10 mL an hour. I did ask the nurses for a cortisol level. We need to start tube feeds on this patient as well. She's not quite ready for extubation. She still on a fair amount of pressor. Progress note dated 09/06/2017 The patient is seen again today in follow-up in the intensive care unit. She remains intubated on mechanical ventilator. Current settings assist control of 16, tidal volume 400, FiO2 30% and a PEEP of 5. Arterial blood gases this morning reveal a P O2 of 80, pCO2 47, pH 7.29. Some mild respiratory acidosis. She remains on norepinephrine at 20 mcg/m. Propofol is currently on hold. She is a 0.9 normal saline at KVO. Vital HP at 10 mL per hour with a goal of 43. Chest x-ray reveals some fluid volume overload right greater than left infiltrates. He is currently on Lasix 40 mg IV push every 12 hours. Remains in a positive balance. She's been afebrile. White count 8.7. Hemoglobin 13.3. BUN 43 creatinine 2.00. Alk phos 444. Blood cultures reveal no growth to date. Urine culture reveals no growth. Objective - Vital Signs Vital signs: Vital Signs Temp 98.5 F 09/06/17 08:00 Pulse 108 H 09/06/17 14:00 Resp 18 09/06/17 14:00 BP 97/67 09/04/17 12:00 Pulse Ox 97 09/06/17 14:00 Intake & Output 09/05/17 09/06/17 09/06/17 18:59 06:59 18:59 Intake Total 6881.821 0699.220 971.000 Output Total 445 160 415 Balance 1294.909 843.220 556.000 Weight 113 kg 113 kg Intake: IV 1406 156 451 0.9 NS 120 120 180 0.9 for pressure 36 36 21 Lactated Ringers 1,000 ml 1000 @ 999 mls/hr IV .Q1H1M [facility] Rx#:[id number] Meropenem 500 mg In 50 50 Sodium Chloride 0.9% 50 ml @ 100 mls/hr IVPB Q12HR [facility] Rx#:[id number] Potassium Chloride 10 meq 200 200 In Sodium Chloride 0.9% 100 ml @ 100 mls/hr IVPB Q1H [facility] Rx#:[id number] Intake, IV Titration 183.909 423.220 450.000 Amount Norepinephrin 16 mg-0.9% 83.909 236.023 250.000 Ns Pmx 16 mg In 250 ml @ Titrate IV .Q0M [facility] Rx#: [id number] Potassium Chloride 10 meq 100 In Sodium Chloride 0.9% 100 ml @ 105 mls/hr IVPB ONCE [facility] Rx#:[id number] Propofol 1,000 mg In 100 187.197 100.000 Empty Bag 1 bag @ Titrate IV .Q0M [facility] Rx#: [id number] Tube Feeding 120 364 40 Other 30 60 30 Output: Urine 445 160 415 Other: Voiding Method Indwelling Catheter Indwelling Catheter Indwelling Catheter ABP, PAP, CO, CI - Last Documented Arterial Blood Pressure 109/63 - Exam No acute distress, sedated, with an orally placed endotracheal tube and NG tube. HEENT examination is grossly unremarkable. Mucous membranes are moist. Neck supple. Full range of motion. No adenopathy thyromegaly or neck vein distention. Cardiovascular examination reveals irregular rhythm and rate. S1-S2 normal. No S3 or S4. No discernible murmur noted. Heart sounds are distant Lungs reveal diffuse rhonchi and crackles. Breath sounds are diminished at the bases. No wheezes. Breath sounds are equal bilaterally. Abdomen soft bowel sounds are heard. Extremities are intact. No cyanosis or clubbing. There are significant lower extremity edema and diffuse anasarca. Skin is without rash or lesion. Neurologic examination could not be adequately assessed. - Labs CBC & Chem 7: 09/06/17 04:50 09/06/17 04:50 Labs: Abnormal Lab Results - Last 24 Hours (Table) 09/05/17 09/05/17 09/05/17 Range/Units 17:17 20:05 20:50 MCHC (31.0-37.0) g/dL RDW (11.5-15.5) % ABG pH (7.35-7.45) ABG pCO2 (35-45) mmHg ABG pO2 (83-108) mmHg BUN (7-17) mg/dL Creatinine (0.52-1.04) mg/dL POC Glucose (mg/dL) 73 L 64 L 130 H (75-99) mg/dL Calcium (8.4-10.2) mg/dL Phosphorus (2.5-4.5) mg/dL Total Bilirubin (0.2-1.3) mg/dL Alkaline Phosphatase (38-126) U/L Total Protein (6.3-8.2) g/dL Albumin (3.5-5.0) g/dL 09/06/17 09/06/17 09/06/17 Range/Units 04:37 04:50 04:50 MCHC 29.8 L (31.0-37.0) g/dL RDW 20.9 H (11.5-15.5) % ABG pH 7.29 L (7.35-7.45) ABG pCO2 47 H (35-45) mmHg ABG pO2 80 L (83-108) mmHg BUN 43 H (7-17) mg/dL Creatinine 2.00 H (0.52-1.04) mg/dL POC Glucose (mg/dL) (75-99) mg/dL Calcium 8.1 L (8.4-10.2) mg/dL Phosphorus 5.4 H (2.5-4.5) mg/dL Total Bilirubin 2.6 H (0.2-1.3) mg/dL Alkaline Phosphatase 444 H (38-126) U/L Total Protein 5.1 L (6.3-8.2) g/dL Albumin 2.1 L (3.5-5.0) g/dL 09/06/17 Range/Units 12:45 MCHC (31.0-37.0) g/dL RDW (11.5-15.5) % ABG pH (7.35-7.45) ABG pCO2 (35-45) mmHg ABG pO2 (83-108) mmHg BUN (7-17) mg/dL Creatinine (0.52-1.04) mg/dL POC Glucose (mg/dL) 61 L (75-99) mg/dL Calcium (8.4-10.2) mg/dL Phosphorus (2.5-4.5) mg/dL Total Bilirubin (0.2-1.3) mg/dL Alkaline Phosphatase (38-126) U/L Total Protein (6.3-8.2) g/dL Albumin (3.5-5.0) g/dL Microbiology - Last 24 Hours (Table) 08/30/17 23:46 Blood Culture - Final Blood No Growth after 144 hours Assessment and Plan Assessment: Impression: #1 Altered mental status with obtundation and unresponsiveness of unclear etiology. Computed tomography scan performed today revealed no acute intracranial mass or hemorrhage. No acute abnormalities. #2 Acute exacerbation of diastolic congestive heart failure. #3 Chronic atrial fibrillation maintained on warfarin. 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 #5 Acute kidney injury secondary to diuretic therapy and hypotension now requiring pressor support. #6 MRCP revealing common bile duct stone. The patient is status post ERCP done on 09/03/2017. She returned to the intensive care unit intubated on the mechanical ventilator and hypotensive. She has been unable to wean at this point. #7 History of TIA. #8 History of hypertension. #9 Hyperlipidemia. #10 Hypothyroidism. Plan: The patient was seen and evaluated by Dr. Lozoya. Her chest x-ray, ABGs and labs were all reviewed. We'll continue to diurese the patient. She still requiring a significant amount of pressors and unable to wean at this point. He did have discussions with the patient's son and sister. There is 1 other son to talk with who is the assigned power of patent prosecution attorney and he is recommending the 3 of them come to some agreement. The patient was initially a DO NOT RESUSCITATE/DO NOT INTUBATE CODE STATUS prior to her ERCP. We'll need further input from them if we are to continue with full supportive care knowing the patient is still being very difficult to wean and may end up with tracheostomy and PEG tube placements. In the interim we'll continue with current treatment plan. We will continue to follow and make further recommendations based on her clinical status Critical care time 34 minutes. I, the cosigning physician, performed a history & physical examination of the patient. Lungs sounds with few scattered rhonchi. Maintaining good O2 saturations in the 90s on 30% FiO2. I discussed the assessment and plan of care with my nurse practitioner, Anel Hay. I attest to the above note as dictated by her. Time with Patient: Greater than 30
--- NOTE | 2017-09-06 16:34 | PN ---
PROGRESS NOTE Patient is seen for followup for acute kidney injury. She currently remains on the vent and her Levophed is now at about 28 mcg. Urine output is maintained at 10 to 30 mL/hour. Occasionally she has had 100 mL. On examination, patient is sedated. Her sedation has just been discontinued. Blood pressure this morning was 113/59, heart rate 122 per minute. Patient is afebrile. EXAMINATION OF THE HEART: S1, S2. EXAMINATION OF LUNGS: Decreased breath sounds at the bases. Examination of lower extremities shows edema 2+ bilaterally, upper and lower extremities. Left upper extremity is significantly swollen and also mildly erythematous. Labs show sodium 138, potassium 3.5, BUN 43, serum creatinine 2.0. ASSESSMENT: 1. Acute kidney injury, acute tubular necrosis, currently nonoliguric, maintaining urine output with current dose of Lasix, which we will continue. 2. Status post ERCP and removal of bile duct stone. 3. Hypotension, maintained on Levophed. Random cortisol level was at 24. Currently receiving another fluid bolus. PLAN: Continue current dose of Lasix. Overall prognosis is guarded. MMODL / IJN: [id number] /
[2017-09-06] MEDS: DEXTROSE 50%-WATER 50 ML SYRINGE IVP PRN (16:46)
--- NOTE | 2017-09-06 16:56 | P.PN ---
Subjective Progress Note Date: 09/06/17 Principal diagnosis: Cholelithiasis Patient remains on the ventilator. Sedation was held. She does seem somewhat agitated on the ventilator. Objective - Vital Signs Vital signs: Vital Signs Temp 98.5 F 09/06/17 08:00 Pulse 107 H 09/06/17 16:00 Resp 20 09/06/17 16:00 BP 97/67 09/04/17 12:00 Pulse Ox 91 L 09/06/17 16:00 Intake & Output 09/05/17 09/06/17 09/06/17 18:59 06:59 18:59 Intake Total 8843.843 5983.220 1117.000 Output Total 445 160 640 Balance 1294.909 843.220 477.000 Weight 113 kg 113 kg Intake: IV 1406 156 557 0.9 NS 120 120 280 0.9 for pressure 36 36 27 Lactated Ringers 1,000 ml 1000 @ 999 mls/hr IV .Q1H1M [facility] Rx#:[id number] Meropenem 500 mg In 50 50 Sodium Chloride 0.9% 50 ml @ 100 mls/hr IVPB Q12HR [facility] Rx#:[id number] Potassium Chloride 10 meq 200 200 In Sodium Chloride 0.9% 100 ml @ 100 mls/hr IVPB Q1H [facility] Rx#:[id number] Intake, IV Titration 183.909 423.220 450.000 Amount Norepinephrin 16 mg-0.9% 83.909 236.023 250.000 Ns Pmx 16 mg In 250 ml @ Titrate IV .Q0M [facility] Rx#: [id number] Potassium Chloride 10 meq 100 In Sodium Chloride 0.9% 100 ml @ 105 mls/hr IVPB ONCE [facility] Rx#:[id number] Propofol 1,000 mg In 100 187.197 100.000 Empty Bag 1 bag @ Titrate IV .Q0M [facility] Rx#: [id number] Tube Feeding 120 364 80 Other 30 60 30 Output: Urine 445 160 640 Other: Voiding Method Indwelling Catheter Indwelling Catheter Indwelling Catheter ABP, PAP, CO, CI - Last Documented Arterial Blood Pressure 105/58 - Exam Abdomen: Soft, nondistended, nontender - Labs CBC & Chem 7: 09/06/17 04:50 09/06/17 04:50 Labs: Abnormal Lab Results - Last 24 Hours (Table) 09/05/17 09/05/17 09/05/17 Range/Units 17:17 20:05 20:50 MCHC (31.0-37.0) g/dL RDW (11.5-15.5) % ABG pH (7.35-7.45) ABG pCO2 (35-45) mmHg ABG pO2 (83-108) mmHg BUN (7-17) mg/dL Creatinine (0.52-1.04) mg/dL POC Glucose (mg/dL) 73 L 64 L 130 H (75-99) mg/dL Calcium (8.4-10.2) mg/dL Phosphorus (2.5-4.5) mg/dL Total Bilirubin (0.2-1.3) mg/dL Alkaline Phosphatase (38-126) U/L Total Protein (6.3-8.2) g/dL Albumin (3.5-5.0) g/dL 09/06/17 09/06/17 09/06/17 Range/Units 04:37 04:50 04:50 MCHC 29.8 L (31.0-37.0) g/dL RDW 20.9 H (11.5-15.5) % ABG pH 7.29 L (7.35-7.45) ABG pCO2 47 H (35-45) mmHg ABG pO2 80 L (83-108) mmHg BUN 43 H (7-17) mg/dL Creatinine 2.00 H (0.52-1.04) mg/dL POC Glucose (mg/dL) (75-99) mg/dL Calcium 8.1 L (8.4-10.2) mg/dL Phosphorus 5.4 H (2.5-4.5) mg/dL Total Bilirubin 2.6 H (0.2-1.3) mg/dL Alkaline Phosphatase 444 H (38-126) U/L Total Protein 5.1 L (6.3-8.2) g/dL Albumin 2.1 L (3.5-5.0) g/dL 09/06/17 Range/Units 12:45 MCHC (31.0-37.0) g/dL RDW (11.5-15.5) % ABG pH (7.35-7.45) ABG pCO2 (35-45) mmHg ABG pO2 (83-108) mmHg BUN (7-17) mg/dL Creatinine (0.52-1.04) mg/dL POC Glucose (mg/dL) 61 L (75-99) mg/dL Calcium (8.4-10.2) mg/dL Phosphorus (2.5-4.5) mg/dL Total Bilirubin (0.2-1.3) mg/dL Alkaline Phosphatase (38-126) U/L Total Protein (6.3-8.2) g/dL Albumin (3.5-5.0) g/dL Microbiology - Last 24 Hours (Table) 08/30/17 23:46 Blood Culture - Final Blood No Growth after 144 hours Assessment and Plan (1) Cholelithiasis Narrative/Plan: Family currently discussing possible removal from ventilator. We'll sign off at this point. Please contact if needed. Current Visit: Yes Status: Acute Code(s): K80.20 - CALCULUS OF GALLBLADDER W /O CHOLECYSTITIS W/O OBSTRUCTION SNOMED Code(s): 637626913
[2017-09-06 17:00] LABS: Glucose,Whole Blood 64 mg/dL (75-99)
[2017-09-06 17:18] LABS: Glucose,Whole Blood 85 mg/dL (75-99)
[2017-09-06] MEDS ORDERED: DEXTROSE 5% IN WATER 1,000 ML IV SCH (17:45)
[2017-09-06 19:11] LABS: Glucose,Whole Blood 68 mg/dL (75-99)
[2017-09-06] MEDS ORDERED: DEXTROSE 50%-WATER 50 ML SYRINGE IVP STA (19:21)
[2017-09-06 19:54] LABS: Glucose,Whole Blood 115 mg/dL (75-99)
[2017-09-06] MEDS ORDERED: Potassium Replacement Protocol 1 EACH MISC MISCELLANE PRN (20:32)
[2017-09-06] MEDS ORDERED: POTASSIUM BICARBONATE/CIT AC 20 MEQ TABLET.EFF PO ONE (20:34)
[2017-09-06 20:45] LABS: Glucose,Whole Blood 93 mg/dL (75-99)
[2017-09-06] MEDS: ATORVASTATIN 40 MG TAB PO SCH (21:39)
[2017-09-06] MEDS: LATANOPROST 0.005% OPHTH DROPS 2.5 ML BTL BOTH EYES SCH (21:53)
[2017-09-06 22:09] LABS: Glucose,Whole Blood 82 mg/dL (75-99)
[2017-09-06 23:56] LABS: Glucose,Whole Blood 80 mg/dL (75-99)
[2017-09-07 00:52] LABS: Glucose,Whole Blood 80 mg/dL (75-99)
[2017-09-07 01:57] LABS: Glucose,Whole Blood 75 mg/dL (75-99)
[2017-09-07 03:01] LABS: Glucose,Whole Blood 79 mg/dL (75-99)
[2017-09-07] MEDS: IPRATROPIUM-ALBUTEROL 3 ML NEB INHALATION SCH ×6 (03:03→23:19)
[2017-09-07 03:47] LABS: Glucose,Whole Blood 67 mg/dL (75-99)
[2017-09-07] MEDS: DEXTROSE 50%-WATER 50 ML SYRINGE IVP PRN (03:51)
[2017-09-07 04:05] LABS: ABG Base Excess -0.5 mmol/L; ABG HCO3 25 mmol/L (21-25); ABG Oxygen Saturation 95.9 % (94-97); ABG PCO2 41 mmHg (35-45); ABG PH 7.38 (7.35-7.45); ABG PO2 83 mmHg (83-108); ABG TCO2 26 mmol/L (19-24)
[2017-09-07 04:19] LABS: Anisocytosis Moderate; HCT 33.9 % (34.0-46.0); Hypochromasia Marked; MCH 24.6 pg (25.0-35.0); MCHC 29.7 g/dL (31.0-37.0); MCV 82.9 fL (80.0-100.0); Microcytosis Slight; Platelet Count 111 k/uL (150-450); Poikilocytosis Slight; RBC 4.09 m/uL (3.80-5.40); RDW 21.3 % (11.5-15.5); WBC 6.8 k/uL (3.8-10.6)
[2017-09-07 04:31] LABS: HGB 10.1 gm/dL (11.4-16.0)
[2017-09-07 04:45] LABS: Albumin 1.6 g/dL (3.5-5.0); Calcium 7.2 mg/dL (8.4-10.2); Magnesium 1.8 mg/dL (1.6-2.3); Phosphorus 3.7 mg/dL (2.5-4.5); Potassium 3.3 mmol/L (3.5-5.1); Total Bilirubin 2.5 mg/dL (0.2-1.3); Total Protein 4.1 g/dL (6.3-8.2)
[2017-09-07] MEDS: NOREPINEPHRIN 16 MG-0.9%NS PMX 16 MG/250 ML ML IV SCH (04:55)
[2017-09-07] MEDS ORDERED: Potassium Replacement Protocol 1 EACH MISC MISCELLANE PRN (05:42)
[2017-09-07] MEDS ORDERED: Magnesium Replacement Protocol 1 EACH MISC MISCELLANE PRN (05:44)
[2017-09-07 06:07] LABS: Glucose,Whole Blood 83 mg/dL (75-99)
[2017-09-07] MEDS: POTASSIUM BICARBONATE/CIT AC 20 MEQ TABLET.EFF NG-TUBE SCH ×2 (06:44→09:17)
[2017-09-07] MEDS: MAGNESIUM SULFATE-D5W PMX 1 GM in DEXTROSE/WATER 1 100ML.BAG IVPB SCH ×2 (06:45→08:15)
[2017-09-07 07:56] LABS: Glucose,Whole Blood 109 mg/dL (75-99)
[2017-09-07] MEDS: TIMOLOL 0.5% OPHTH DROPS 5 ML BTL LEFT EYE SCH (08:22)
[2017-09-07] MEDS: MEMANTINE 10 MG TAB PO SCH (08:22)
[2017-09-07] MEDS: CHLORHEXIDINE GLUCONATE 15 ML CUP MUCOUS MEM SCH ×2 (08:22→21:05)
[2017-09-07] MEDS: FUROSEMIDE 10 MG/ML 4 ML VIAL IV SCH ×2 (08:52→21:08)
[2017-09-07] MEDS: METOPROLOL SUCCINATE (ER) 25 MG TAB.ER.24H PO SCH (08:52)
[2017-09-07] MEDS: PANTOPRAZOLE 40 MG/10 ML VIAL IVP SCH ×2 (09:16→21:05)
[2017-09-07] MEDS: LEVOTHYROXINE 75 MCG TAB PO SCH (09:16)
[2017-09-07] MEDS: MEROPENEM 500 MG in SODIUM CHLORIDE 0.9% 50 ML IVPB SCH ×2 (09:20→21:05)
--- NOTE | 2017-09-07 09:38 | XR ---
EXAMINATION TYPE: XR chest 1V portable DATE OF EXAM: 09/07/2017 COMPARISON: 09/06/2017 HISTORY: Tube placement TECHNIQUE: Single frontal view of the chest is obtained. FINDINGS: ET and NG tube noted. There is bilateral consolidation and pleural effusion. The heart is enlarged. Left-sided central line seen. There is interstitial prominence centrally. No pneumothorax. Arthropathy shoulders. IMPRESSION: 1. Correlate for CHF with bilateral consolidation and pleural effusion. Underlying pneumonia not excl uded. Findings stable.
--- NOTE | 2017-09-07 09:58 | P.PN ---
Subjective Progress Note Date: 09/07/17 Principal diagnosis: Mental status changes Progress note dated 09/03/2017 This is an 82-year-old female who came into the hospital with complaints of changes in mental status. CT was essentially negative for anything acute. In addition, the patient has has a history of diastolic CHF chronic atrial fibrillation extended spectrum beta-lactamase producing urinary tract infection acute kidney injury, bile duct stone history of TIA hypertension hyperlipidemia and hypothyroidism. The patient's most recent chest x-ray shows improving volume status. She looks okay. She seems to be in no distress. Almost laying flat in bed. Is receiving supplemental oxygen. Denies any chest pain or chest discomfort. No nausea vomiting or diarrhea. No coughing up of phlegm or blood. No fever or chills. Progress note dated 09/04/2017 This is a 82-year-old female who had a ERCP done yesterday. The patient apparently had the procedure done under general anesthesia. I'm not sure why that was. Anyway, she arrived back here into the ICU with hypotension and on the ventilator. Her initial ventilator settings included the assist control mode rate of 12 tidal volume 500 FiO2 50% and a PEEP of 5. Arterial blood gases showed a PaO2 of 119 a PaCO2 37 and a pH of 7.41. The vent was changed to a rate of 16 tidal volume 400 and FiO2 was dropped from 50 down to 40%. The patient is on no additional IV fluids at this time in part because is no good IV access and the patient's also on norepinephrine and bit of propofol. She is postop day #1. She is a no code patient. Chest x-ray shows bilateral pleural effusions and some mild vascular congestion. An art line was placed by myself and my nurse practitioner and a central line will also be placed. Progress note dated 09/05/2017 82-year-old female who was in the ICU. Had a ERCP done 2 days ago. It was done on the in the operating room under general anesthesia. I'm not sure why it was done that white but anyway she came back to the ICU from recovery on the ventilator with hypotension. Currently, the patient's on the assist control mode rate of 16, tidal volume 400, FiO2 dropped from 40 down to 30%, with a PEEP of 5. Arterial blood gases show a PaO2 of 110 PaCO2 of 39 and a pH of 7.38. She currently remains on norepinephrine at 13 mcg/m propofol at 30 mics micrograms per kilogram per minute and a saline IV at 10 mL an hour. I did ask the nurses for a cortisol level. We need to start tube feeds on this patient as well. She's not quite ready for extubation. She still on a fair amount of pressor. Progress note dated 09/07/2017 82-year-old female who is in the ICU. The patient had an ERCP about 4 days ago. This apparently was done on the . Apparently was done in the operating room under general anesthesia. Anyway, she came back to the ICU on the mechanical ventilator with hypotension. Currently, the patient's situation is such that she still on the ventilator, settings of assist control mode, rate 16, tidal volume 400, FiO2 30% and PEEP of 5. Arterial blood gases show a PaO2 of 83 PaCO2 41 and a pH is 7.38. The patient's IVs included D5W IV at 50 mL an hour norepinephrine 16 mics per minute propofol at between 5-10 mics per kilogram per minute but currently on hold and vital high protein at 43 with a goal of 43 mL/h. I did speak to the family yesterday. I told him that I thought her overall prognosis was poor. Anyway there Is not any consensus on the family members and what they want to do. Some family members want to continue life support fully indefinitely. This might include tracheostomy and PEG tube placement. Another family member would prefer to make the patient comfort measures. She is a no code patient anyway. Chest x-ray showed what appears to be fluid overload with bilateral pleural effusions. A central line and arterial line were placed. Objective - Vital Signs Vital signs: Vital Signs Temp 97.2 F L 09/07/17 08:00 Pulse 114 H 09/07/17 08:00 Resp 20 09/07/17 08:00 BP 97/67 09/04/17 12:00 Pulse Ox 98 09/07/17 08:00 Intake & Output 09/06/17 09/07/17 09/07/17 18:59 06:59 18:59 Intake Total 5556.680 7294.61 227.043 Output Total 850 590 45 Balance 959.398 0458.61 182.043 Weight 113 kg Intake: IV 663 586 106 0.9 NS 380 0.9 for pressure 33 36 6 Dextrose 5% in Water 1, 550 100 000 ml @ 50 mls/hr IV . Q20H [facility] Rx#:[id number] Meropenem 500 mg In 50 Sodium Chloride 0.9% 50 ml @ 100 mls/hr IVPB Q12HR [facility] Rx#:[id number] Potassium Chloride 10 meq 200 In Sodium Chloride 0.9% 100 ml @ 100 mls/hr IVPB Q1H [facility] Rx#:[id number] Intake, IV Titration 500.000 352.61 5.043 Amount Dextrose 5% in Water 1, 50 50 000 ml @ 50 mls/hr IV . Q20H [facility] Rx#:[id number] Norepinephrin 16 mg-0.9% 250.000 250 Ns Pmx 16 mg In 250 ml @ Titrate IV .Q0M [facility] Rx#: [id number] Potassium Chloride 10 meq 100 In Sodium Chloride 0.9% 100 ml @ 105 mls/hr IVPB ONCE [facility] Rx#:[id number] Propofol 1,000 mg In 100.000 52.61 5.043 Empty Bag 1 bag @ Titrate IV .Q0M [facility] Rx#: [id number] Tube Feeding 183 688 86 Other 60 30 Output: Urine 850 590 45 Other: Voiding Method Indwelling Catheter Indwelling Catheter ABP, PAP, CO, CI - Last Documented Arterial Blood Pressure 97/58 - Exam No acute distress, sedated, with an orally placed endotracheal tube and NG tube. HEENT examination is grossly unremarkable. Mucous membranes are moist. Neck supple. Full range of motion. No adenopathy thyromegaly or neck vein distention. Cardiovascular examination reveals irregular rhythm and rate. S1-S2 normal. No S3 or S4. No discernible murmur noted. Heart sounds are distant Lungs reveal diffuse rhonchi and crackles. Breath sounds are diminished at the bases. No wheezes. Breath sounds are equal bilaterally. Abdomen soft bowel sounds are heard. Extremities are intact. No cyanosis or clubbing. There are significant lower extremity edema and diffuse anasarca. Skin is without rash or lesion. Neurologic examination could not be adequately assessed. - Labs CBC & Chem 7: 09/07/17 04:05 09/07/17 04:05 Labs: Abnormal Lab Results - Last 24 Hours (Table) 09/06/17 09/06/17 09/06/17 Range/Units 12:45 16:41 18:51 Hgb (11.4-16.0) gm/dL Hct (34.0-46.0) % MCH (25.0-35.0) pg MCHC (31.0-37.0) g/dL RDW (11.5-15.5) % Plt Count (150-450) k/uL ABG Total CO2 (19-24) mmol/L Potassium (3.5-5.1) mmol/L Chloride (98-107) mmol/L BUN (7-17) mg/dL Creatinine (0.52-1.04) mg/dL Glucose (74-99) mg/dL POC Glucose (mg/dL) 61 L 64 L 68 L (75-99) mg/dL Calcium (8.4-10.2) mg/dL Total Bilirubin (0.2-1.3) mg/dL Alkaline Phosphatase (38-126) U/L Total Protein (6.3-8.2) g/dL Albumin (3.5-5.0) g/dL 09/06/17 09/06/17 09/07/17 Range/Units 18:55 19:24 03:45 Hgb (11.4-16.0) gm/dL Hct (34.0-46.0) % MCH (25.0-35.0) pg MCHC (31.0-37.0) g/dL RDW (11.5-15.5) % Plt Count (150-450) k/uL ABG Total CO2 (19-24) mmol/L Potassium 3.1 L (3.5-5.1) mmol/L Chloride (98-107) mmol/L BUN (7-17) mg/dL Creatinine (0.52-1.04) mg/dL Glucose (74-99) mg/dL POC Glucose (mg/dL) 115 H 67 L (75-99) mg/dL Calcium (8.4-10.2) mg/dL Total Bilirubin (0.2-1.3) mg/dL Alkaline Phosphatase (38-126) U/L Total Protein (6.3-8.2) g/dL Albumin (3.5-5.0) g/dL 09/07/17 09/07/17 09/07/17 Range/Units 03:57 04:05 04:05 Hgb 10.1 L D (11.4-16.0) gm/dL Hct 33.9 L (34.0-46.0) % MCH 24.6 L (25.0-35.0) pg MCHC 29.7 L (31.0-37.0) g/dL RDW 21.3 H (11.5-15.5) % Plt Count 111 L (150-450) k/uL ABG Total CO2 26 H (19-24) mmol/L Potassium 3.3 L (3.5-5.1) mmol/L Chloride 108 H (98-107) mmol/L BUN 40 H (7-17) mg/dL Creatinine 1.40 H (0.52-1.04) mg/dL Glucose 141 H (74-99) mg/dL POC Glucose (mg/dL) (75-99) mg/dL Calcium 7.2 L (8.4-10.2) mg/dL Total Bilirubin 2.5 H (0.2-1.3) mg/dL Alkaline Phosphatase 345 H (38-126) U/L Total Protein 4.1 L (6.3-8.2) g/dL Albumin 1.6 L (3.5-5.0) g/dL 09/07/17 Range/Units 07:54 Hgb (11.4-16.0) gm/dL Hct (34.0-46.0) % MCH (25.0-35.0) pg MCHC (31.0-37.0) g/dL RDW (11.5-15.5) % Plt Count (150-450) k/uL ABG Total CO2 (19-24) mmol/L Potassium (3.5-5.1) mmol/L Chloride (98-107) mmol/L BUN (7-17) mg/dL Creatinine (0.52-1.04) mg/dL Glucose (74-99) mg/dL POC Glucose (mg/dL) 109 H (75-99) mg/dL Calcium (8.4-10.2) mg/dL Total Bilirubin (0.2-1.3) mg/dL Alkaline Phosphatase (38-126) U/L Total Protein (6.3-8.2) g/dL Albumin (3.5-5.0) g/dL Assessment and Plan Assessment: Assessment Postop day #4, status post ERCP, done under general anesthesia Postoperative respiratory failure, which required intubation and mechanical ventilation. Negative computed tomography scan of the brain Acute exacerbation of diastolic see clinically and radiographically Chronic atrial fibrillation Previous history of urinary tract infection secondary to extended spectrum beta- lactamase producing organism Acute kidney injury, possibly related to ATN Common bile duct stone History of TIA History of hypertension Hyperlipidemia Hypothyroidism The patient is a DO NOT RESUSCITATE Plan: Plan dated 09/03/2017 We'll continue with supportive care. We'll await GI input as it relates to ERCP. Additional recommendations suggestions are forthcoming. Clinically she is doing better. X-rays improved. Mental status is improved. Plan dated 09/04/2017 The patient will have an art line placed and a central line placed. We'll see for can wean her off the norepinephrine. We'll use propofol for sedation. We' ll make sure she is on updrafts every 4 hours with DuoNeb. Additional recommendations and suggestions are forthcoming. Labs x-rays a medications are all reviewed. Prognosis is guarded. She is a no code patient. Critical care time is 33 minute Plan dated 09/05/2017 The patient is not yet ready for weaning and extubation. She was still remains on norepinephrine at 13 mcg/m. Her gas exchange is good. She stable on the ventilator. We'll start her on tube feeds. I'll give her some additional fluids. We'll check a cortisol level. Additional recommendations and suggestions forthcoming. Prognosis is guarded. Critical care time 33 minutes Plan dated 09/07/2017 The patient likely is not ready for weaning and extubation. She remains on norepinephrine at 16 mcg/m. We will attempt a daily interuption of sedation. Chest x-ray shows bilateral pleural effusions. She still on the ventilator. She is being nourished. I did talk to the family yesterday and told him develop some sort of consensus in terms of what they would like done regards treatment. There seems to be some discrepancy between 1 family members and some other family members. Additional recommendations and suggestions are forthcoming. Prognosis is guarded. Critical care time 36 minutes Time with Patient: Greater than 30
[2017-09-07 11:34] LABS: Glucose,Whole Blood 92 mg/dL (75-99)
[2017-09-07] MEDS: DEXTROSE 5%-0.9% NACL 1,000 ML IV SCH (11:45)
--- NOTE | 2017-09-07 13:04 | PN ---
PROGRESS NOTE This is an 82-year-old lady who is currently intubated on vent following an ERCP. We are following her because of the atrial fibrillation. She remains in A. fib with somewhat of poorly controlled ventricular rate. She is hypotensive on Levophed. On exam, heart rate is around 116 beats per minute, blood pressure is 108/65, O2 sat is 93%. Chest exam reveals diminished air entry at the bases. Heart exam reveals first and second heart sounds, irregular rhythm. Exam of the extremities did not reveal any edema. Labs show a hemoglobin of 10, potassium is 3.3, creatinine is 1.4. ASSESSMENT: Chronic atrial fibrillation with poorly controlled ventricular rate. We will use a beta-rubio as needed, prognosis guarded. MMODL / IJN: [id number] /
--- NOTE | 2017-09-07 13:41 | PN ---
PROGRESS NOTE Patient is seen for followup for acute kidney injury secondary to hypotension hypoperfusion, ischemic ATN initially oliguric, currently nonoliguric. Patient is on the vent. Sedation has been decreased. She is maintained on 50 mL of D5W as her blood sugar was low. Initially, it was saline which was then switched to D5W. Urine output is staying at about 30 to 40 mL an hour now. I held the evening dose of Lasix yesterday. We will hold the Lasix this morning as well as patient has been able to maintain a urine output without the diuretics. PHYSICAL EXAMINATION: On examination, blood pressure is 108/65, heart rate 116 per minute. She is afebrile. EXAMINATION OF THE HEART: S1, S2. EXAMINATION OF THE LUNGS: Bilateral breath sounds are heard. Abdomen is soft, distended, nontender. Examination of the lower extremities shows edema 2+ bilaterally upper and lower extremities. Left upper extremity seems to be more swollen. LABS: Labs show sodium 141, potassium 3.3, chloride 108, BUN 40. Serum creatinine 1.4. Hemoglobin 10.1 g/dL. ASSESSMENT: 1. Acute kidney injury, acute tubular necrosis, ischemic acute tubular necrosis, initially oliguric, currently nonoliguric. We will continue with the IV fluids changed to D5 0.9 at 50 mL an hour. I will hold off on the Lasix for now. We will continue to try and wean down the Levophed. 2. Hypokalemia, will replace. 3. Bile duct stone, status post ERCP and extraction of stone. 4. Sepsis and hypotension maintained on Levophed, dose of which has recently been decreased. All cultures are currently negative. PLAN: Hold off on the Lasix for now. Continue fluids at 50 mL an hour. MMODL / IJN: [id number] /
--- NOTE | 2017-09-07 13:42 | P.PN ---
Subjective Progress Note Date: 09/07/17 82-year-old female who was transported to [facility] from [facility] after she was seen by Dr. Lucero and found to have increasing shortness of breath and increased edema to the lower extremities. Patient denies chest pain or pressure. Denies cough or sputum production. Denies nausea or vomiting. Denies pain or discomfort. Denies dizziness or lightheadedness. The patient has a history of atrial fibrillation maintained on long-term anticoagulated with Coumadin, glaucoma, asymptomatic bacteriuria, mood disorder with psychotic features, hypothyroidism, diastolic congestive heart failure, hypertension, hyperlipidemia, TIA, and osteopenia. 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 Chest x-ray 08/21/2017: Marked cardiomegaly with small bilateral effusions and findings suggestive of mild congestive heart failure Chest x-ray 08/22/2017: Some improvement noted in the patient's volume status. Cardiomegaly. EKG: Atrial fibrillation. Rate 103. Laboratory data: WBC 6.6. Hemoglobin 13.2. Platelet count 186. Sodium 139. Potassium 3.2. BUN 21. Creatinine 0.90. GFR 61. Glucose 111. Magnesium 2.5. AST 41. ALT 40. Total bilirubin 4.3. Alkaline phosphatase 356. Troponins negative 3 BNP: 4400 The patient was admitted to the hospital under the care of Dr. Lucero. Consultations were placed to cardiology. 08/23/2017 Patient seen and examined at the bedside. Patient was started on Lasix 40 mg IV every 12 hours yesterday per cardiology. Patient underwent a venous Doppler on 08/22/2017 due to right lower extremity edema. Doppler was negative for a DVT. Blood pressure is stable with a last reading of 110 over the T8. She is on room air with oxygen saturations greater than 92%. She is afebrile. She remains A. fib on the monitor in the 80s and 90s. INR this morning is 4.2. Coumadin remains on hold. Potassium is low this morning at 3.1. Urinalysis was completed on 08/22/2017 revealing clear yellow urine, 1+ proteinuria, moderate blood, moderate leukocyte esterase, RBC 45, WBC 33, rare bacteria, rare mucus, and hyaline casts of 7. The patient pulled out her indwelling urinary catheter this morning. Echocardiogram was completed on 08/21/2017 which revealed moderate concentric left ventricular hypertrophy, ejection fraction of 50-55%, mildly enlarged right ventricle, mild aortic regurgitation, moderate to severe aortic stenosis, moderate mitral regurgitation, severe tricuspid regurgitation, moderate pulmonary hypertension, moderate pulmonic regurgitation, and RVSP of 54.14. 08/24/2017 Patient seen and examined at the bedside. patient underwent ultrasound of the abdomen on 08/23/2017 which revealed right pleural effusion, positive sonographic Pink sign, findings suggestive of cholecystitis. Suspected hepatomegaly. General surgery was consulted. no surgical intervention from their standpoint. INR this morning is 3.9. Coumadin remains on hold. Patient' s lactic acid yesterday was 3.2. IV fluids were ordered if ok with cardiology. Fluids were discontinued. Repeat lactic acid 2.1. patient remains on Lasix 40 mg IV every 12 hours. patient remains on Levaquin for a possible urinary tract infection. Urine culture is currently pending. 08/25/2017-Note per Dr. Mendez 08/26/2017-Note per Dr. Mendez 08/27/2017 Patient evaluated at the bedside. Patient underwent MRCP which revealed common bile duct stone and well as gallstones. Patient is to undergo ERCP when INR is less than 1.5 per GI documentation. INR this morning is 2.6. Patient remains off Coumadin. Potassium this morning is 5.7. Patients urinalysis was positive for leukocyte esterase. Urine culture was sent but per lab report specimen was unsuitable and requested new specimen. Patient remains on Levaquin. Apparently, cardiology has signed off the case but patient remains on lasix 40mg IV daily. Patient has some confusion over the weekend and was pulling out IV lines and taking off her gown. CT of the brain was completed on 08/25/2017 revealing no evidence of intracranial hemorrhage or midline shift. There is moderate to severe diffuse age-related cerebral atrophy and chronic small vessel ischemic changes redemonstrated without significant change from prior exam. 08/28/2017 Patient examined at the bedside on rounds with Dr. Mendez. Patient is awake and alert, but remains confused. Patient does complain of abdominal pain. Dr. Mendez asked patient if she wanted to undergo furthering testing and procedures and patient states she wanted to proceed. Patients son is her guardian. Apparently, family is undecided if they want to pursue ERCP. INR this morning is 2.5. Patient received 5mg Vitamin K yesterday. BUN 31. Creatinine 1.40. AST 106. ALT 53. Alkaline phosphatase 873. TSH 1.4. 08/29/2017 Patient examined at the bedside. Patient has been transferred to general medical floor. Patient very restless and agitated this morning. Constantly calling out and yelling. Patient's blood pressure is on the lower side this morning at 89/65. Previous reading 90/62. Patients heart rate currently 77 but has been running in the 90s. Patient's INR yesterday was 2.5. Patient received 10 mg vitamin K. Repeat INR this morning is currently pending. Comprehensive metabolic panel from this morning is also currently pending. Currently awaiting decision from family regarding whether or not they would like to proceed with ERCP. Addendum: Lab work from this morning reveals creatinine 1.6. BUN 36. Creatinine yesterday was 1.40. Patient's baseline is around 1.0. Will continue to hold Lasix. Patient was hypotensive this morning and has had overall decreased oral intake. Begin gentle hydration with normal saline at 50 mL an hour. Monitor for signs of fluid overload. Will consult nephrology for acute kidney injury. INR is still pending. Addendum: Spoke with patients son, Derrek, regarding ERCP. Derrek states they would like to proceed with ERCP. Notified Dr. Savage. INR 1.7 today. Will recheck in AM. Will make patient NPO after midnight. 08/30/2017 Patient examined at the bedside. Patient remains confused and slightly lethargic. Patient will open eyes to verbal stimuli. She is scheduled for ERCP today. Her INR is 1.7. Potassium today is 5.9. BUN 40. Creatinine 1.81. Nephrology has been consulted. She remains on normal saline at 50 mL an hour. blood pressure has been on the lower side with systolics in the mid 80s. Blood pressure this morning is 95/68. Her Lasix remains on hold. She is afebrile. ADDENDUM 1730: Notified by nursing this afternoon that patient has become more lethargic. SEARCH CONSULTANT re -assessed patient. Patient was scheduled for ERCP today but it was cancelled due to elevated potassium. Hyperkalemia was treated this AM with IV insulin and dextrose. Patients BP has been borderline hypotensive with BPs in the 90s. Patient is receiving IV fluids at 50cc/hr. Patient was admitted with CHF exac and was receiving IV lasix a few days ago, thus fluid resuscitation has been modest. Lasix has been transitioned to oral which remains on hold. Patient received scheduled seroquel last night along with Haldol as she becomes agitated and restless and yells out frequently secondary to her dementia. Patient does appear more lethargic in comparison to examination this morning. Lethargy is likely multifactorial due to seroquel, haldol, hypotension, acute kidney injury, and suspected urinary tract infection. Patient is a DNR and does not want to be intubated. ABG was obtained to assess patients oxygenation. ABG is within normal limits. Patient is on 2L with oxygen saturations greater than 92%. She is lethargic, but appears comfortable. No signs of agonal breathing. Spoke with patients daughter in law and sister at the bedside. All questions answered to the best of my ability. Patients sister states she is going to stay overnight in the event that she becomes agitated throughout the night or in case her condition continues to decline. Repeat K is 5.5 Additional 10 units IV insulin and dextrose ordered. Repeat at 1999. Will DC seroquel and haldol. SEARCH CONSULTANT updated Dr. Mendez who agrees with orders and plan of care. Dr. Mendez does not want patient transferred to the ICU. This was also told to the patients RN. However, shortly after SEARCH CONSULTANT spoke with RN and spoke with patients family, the patients nurse called an A team. No further interventions were performed. SEARCH CONSULTANT notified Dr. Mendez that A-team was called on patient by floor nurse. 08/31/2017 Patient was transferred to ICU yesterday per Dr. Mccoy orders. Patient remains lethargic this morning but is able to open her eyes to commands. Patient is verbalizing a few words at a time. She remains confused, which is her baseline. She received 750cc in fluid boluses. She was started on Levophed and is currently infusing at 9mcg/min. Blood pressure has been running 110/70s. She is on 3L NC with oxygen saturations greater than 92%. Indwelling urinary catheter was inserted yesterday. Meaghan urine noted. Decreased output. Chest xray was completed 08/30/2017 revealing congestive heart failure with increasing congestion and right pleural fluid. Patient received 40mg IV lasix per nephrology. Repeat chest xray was completed 08/31/2017 revealing improving features of congestive heart failure, cardiomegaly, and scattered infiltrates. CBC this morning 5.8. Hemoglobin 13.5. INR 1.5. Sodium 137. Potassium 5.8. BUN 46. Creatinine 1.91. Magnesium 3.2. Total bilirubin 3.8. AST 56. ALT 44. Alkaline phosphatase 634. Ammonia level was 67 yesterday. Repeated this morning. Result is 38. Patient was hypoglycemic this morning and was receiving IV dextrose at the time of my examination. 09/01/2017-Note per Dr. Mendez 09/02/2017-Note per Dr. Mendez 09/03/2017 Patient seen and examined at the bedside. Patient has been transferred out of the ICU to the selective care unit. Blood pressure this morning is 107/61. Heart rate is in the 70s. Patient is awake and alert. She is confused which is her baseline. Patient's left arm is extremely edematous with ecchymosis and erythema throughout. Spoke with nursing who states that patient pulled out 2 of her peripheral IVs while was running in the intensive care unit. Dr. Lucero recommends Gaudencio wrap to left upper extremity. Patient is scheduled for ERCP this afternoon with Dr. Smith. 09/04/2017 Patient seen and examined at the bedside on rounds with Dr. Lucero. Patient was transferred to the intensive care unit yesterday following ERCP. Apparently patient was intubated and sedated for the procedure and was unable to be extubated afterwards. Dr. Smith was able to extract to common bile duct stones during ERCP. Patient was hypotensive throughout the night and was started on Levaquin. Currently infusing at 4 mics per minute. Patient also hypothermic and is currently wearing a bear hugger warming blanket. Nursing states that sedation was decreased and patient will wake up and follow commands , but she also thrashes around in the bed and attempts to pull at her lines and tubes. 09/05/2017 Patient seen and examined at the bedside on rounds with Dr. Lucero. Her [id number] at the bedside. Patient remains in the intensive care unit on mechanical ventilation. ABGs this morning reveal pH 7.38, CO2 39, pO2 110, bicarb 23. Patient's potassium is low at 3.3 and is currently being supplemented. Patient remains on propofol for sedation. Patient remains hypotensive and is still requiring vasopressor support with Levophed. Patient remains tachycardic with heart rate between 110-130. 09/06/2017 Patient seen and examined at the bedside on rounds with Dr. Lucero. Patient remains in intensive care unit on mechanical ventilation. Family is at the bedside. Patient's propofol has been put on hold in an attempt to assess patients neurological status. Patient has slight spontaneous movement of her left arm. Patient is not opening eyes to verbal stimulation or following any commands at this time. Patient remains on Levophed with doses ranging from 25- 30mcg. Patient remains on lasix 40mg q12 hours. Potassium is being supplemented this AM. Discussed case with Dr. Lozoya. Awaiting decision from family regarding possibility of comfort care. 09/07/2017 Patient seen and examined at the bedside on rounds with Dr. Lucero. Patient remains in intensive care unit on mechanical ventilation. Patient remains on Levophed to maintain blood pressure. Patient underwent brief weaning trial this morning, which she did not tolerate as her HR went into the 130-140s. Chest xray this morning shows CHF with bilateral consolidation and pleural effusions. Patient remains on lasix 40mg IV q 12 hours. Patients metopropolol was stopped per pulmonary. Patients family at the bedside and states they would like to continue the ventilator until Sunday and will make a decision at that time regarding possible termination of care. Objective - Vital Signs Vital signs: Vital Signs Temp 97.2 F L 09/07/17 08:00 Pulse 137 H 09/07/17 11:44 Resp 23 09/07/17 11:40 BP 97/67 09/04/17 12:00 Pulse Ox 93 L 09/07/17 11:40 Intake & Output 09/06/17 09/07/17 09/07/17 18:59 06:59 18:59 Intake Total 2837.359 5016.61 504.074 Output Total 850 590 145 Balance 578.549 4165.61 359.074 Weight 113 kg 113 kg Intake: IV 663 586 212 0.9 NS 380 0.9 for pressure 33 36 12 Dextrose 5% in Water 1, 550 200 000 ml @ 50 mls/hr IV . Q20H [facility] Rx#:[id number] Meropenem 500 mg In 50 Sodium Chloride 0.9% 50 ml @ 100 mls/hr IVPB Q12HR [facility] Rx#:[id number] Potassium Chloride 10 meq 200 In Sodium Chloride 0.9% 100 ml @ 100 mls/hr IVPB Q1H [facility] Rx#:[id number] Intake, IV Titration 500.000 352.61 176.074 Amount Dextrose 5% in Water 1, 50 50 000 ml @ 50 mls/hr IV . Q20H [facility] Rx#:[id number] Norepinephrin 16 mg-0.9% 250.000 250 171.031 Ns Pmx 16 mg In 250 ml @ Titrate IV .Q0M [facility] Rx#: [id number] Potassium Chloride 10 meq 100 In Sodium Chloride 0.9% 100 ml @ 105 mls/hr IVPB ONCE [facility] Rx#:[id number] Propofol 1,000 mg In 100.000 52.61 5.043 Empty Bag 1 bag @ Titrate IV .Q0M [facility] Rx#: [id number] Tube Feeding 183 688 86 Other 60 30 Output: Urine 850 590 145 Other: Voiding Method Indwelling Catheter Indwelling Catheter ABP, PAP, CO, CI - Last Documented Arterial Blood Pressure 108/65 - Exam GENERAL: This is a 82-year-old female who remains intubated on mechanical ventilation in the intensive care unit HEENT: ET tube noted. Head is atraumatic, normocephalic. Pupils are equal, round, and reactive to light. Sclerae anicteric. Conjunctivae are clear. Mucus membranes of the mouth are dry. Neck is supple. RESPIRATORY: Diminished throughout with scattered rhonhi. Fine rales auscultated to bilateral bases. Patient maintaining oxygen saturation greater than 92%. Patient remains on mechanical ventilation with 30% FiO2. No chest wall tenderness is noted on palpation or with deep breathing. CARDIOVASCULAR: Irregular rhythm. Tachycardic. S1 and S2 noted. Systolic murmur auscultated. No JVD noted. No S3 or S4 noted. GASTROINTESTINAL: Tube feeding infusing. No distention noted. Abdomen soft and round. Bowel sounds auscultated x 4 quadrants. No pain and tenderness noted upon palpation. INTEGUMENTARY: Left upper extremity with significant edema, ecchymosis, and erythema secondary to peripheral IV infiltration. EXTREMITIES: 1+ peripheral pulses. +3 lower extremity edema. 3+ bilateral upper extremity edema with third spacing present. No calf tenderness noted. NEUROLOGIC: Unable to assess secondary to mechanical ventilation and sedation PSYCHIATRIC: Unable to assess secondary to mechanical ventilation and sedation - Labs CBC & Chem 7: 09/07/17 04:05 09/07/17 11:35 Labs: Abnormal Lab Results - Last 24 Hours (Table) 09/06/17 09/06/17 09/06/17 Range/Units 12:45 16:41 18:51 Hgb (11.4-16.0) gm/dL Hct (34.0-46.0) % MCH (25.0-35.0) pg MCHC (31.0-37.0) g/dL RDW (11.5-15.5) % Plt Count (150-450) k/uL ABG Total CO2 (19-24) mmol/L Potassium (3.5-5.1) mmol/L Chloride (98-107) mmol/L BUN (7-17) mg/dL Creatinine (0.52-1.04) mg/dL Glucose (74-99) mg/dL POC Glucose (mg/dL) 61 L 64 L 68 L (75-99) mg/dL Calcium (8.4-10.2) mg/dL Total Bilirubin (0.2-1.3) mg/dL Alkaline Phosphatase (38-126) U/L Total Protein (6.3-8.2) g/dL Albumin (3.5-5.0) g/dL 09/06/17 09/06/17 09/07/17 Range/Units 18:55 19:24 03:45 Hgb (11.4-16.0) gm/dL Hct (34.0-46.0) % MCH (25.0-35.0) pg MCHC (31.0-37.0) g/dL RDW (11.5-15.5) % Plt Count (150-450) k/uL ABG Total CO2 (19-24) mmol/L Potassium 3.1 L (3.5-5.1) mmol/L Chloride (98-107) mmol/L BUN (7-17) mg/dL Creatinine (0.52-1.04) mg/dL Glucose (74-99) mg/dL POC Glucose (mg/dL) 115 H 67 L (75-99) mg/dL Calcium (8.4-10.2) mg/dL Total Bilirubin (0.2-1.3) mg/dL Alkaline Phosphatase (38-126) U/L Total Protein (6.3-8.2) g/dL Albumin (3.5-5.0) g/dL 09/07/17 09/07/17 09/07/17 Range/Units 03:57 04:05 04:05 Hgb 10.1 L D (11.4-16.0) gm/dL Hct 33.9 L (34.0-46.0) % MCH 24.6 L (25.0-35.0) pg MCHC 29.7 L (31.0-37.0) g/dL RDW 21.3 H (11.5-15.5) % Plt Count 111 L (150-450) k/uL ABG Total CO2 26 H (19-24) mmol/L Potassium 3.3 L (3.5-5.1) mmol/L Chloride 108 H (98-107) mmol/L BUN 40 H (7-17) mg/dL Creatinine 1.40 H (0.52-1.04) mg/dL Glucose 141 H (74-99) mg/dL POC Glucose (mg/dL) (75-99) mg/dL Calcium 7.2 L (8.4-10.2) mg/dL Total Bilirubin 2.5 H (0.2-1.3) mg/dL Alkaline Phosphatase 345 H (38-126) U/L Total Protein 4.1 L (6.3-8.2) g/dL Albumin 1.6 L (3.5-5.0) g/dL 09/07/17 Range/Units 07:54 Hgb (11.4-16.0) gm/dL Hct (34.0-46.0) % MCH (25.0-35.0) pg MCHC (31.0-37.0) g/dL RDW (11.5-15.5) % Plt Count (150-450) k/uL ABG Total CO2 (19-24) mmol/L Potassium (3.5-5.1) mmol/L Chloride (98-107) mmol/L BUN (7-17) mg/dL Creatinine (0.52-1.04) mg/dL Glucose (74-99) mg/dL POC Glucose (mg/dL) 109 H (75-99) mg/dL Calcium (8.4-10.2) mg/dL Total Bilirubin (0.2-1.3) mg/dL Alkaline Phosphatase (38-126) U/L Total Protein (6.3-8.2) g/dL Albumin (3.5-5.0) g/dL Assessment and Plan Plan: ASSESSMENT: Acute exacerbation of diastolic congestive heart failure, echo reveals ejection fraction of 50-55% Chronic atrial fibrillation, maintained on long-term anticoagulation with Coumadin Supratherapeutic INR, INR 4.9 on admission, resolved, coumadin remains on hold Bacteruria, urinalysis positive for leukocyte esterase, urine culture negative 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 Hypokalemia, secondary to diuretic therapy, resolved Hyperkalemia, likely secondary to acute kidney injury, resolved Acute kidney injury, secondary to diuretic therapy, hypotension, and hypoperfusion, baseline creatinine 1.0 Hypoglycemia Elevated bilirubin and alkaline phosphatase with normal amylase and lipase with slight jaundice, s/p MRCP revealing common bile duct stone and also gallstones Choledocholithiasis Cholelithiasis, S/P ERCP with removal of two common bile duct stones 09/03/2017 Post procedural respiratory failure, patient unable to extubated following ERCP , an unexpected but potential outcome of procedure Postprocedural hypotension, requiring vasopressor support, an unexpected but potential outcome of procedure History of TIA Essential hypertension Hyperlipidemia Hypothyroidism Dementia Obesity: BMI 32.4 PLAN: Continue ICU management per Dr. Lozoya Patients Coumadin has been on hold seconary to undergoing ERCP. Will defer to critical care to evaluate if Coumadin should be restarted. Ventilator management per Dr. Lozoya Wean levophed as tolerated Continue urinary catheter. Accurate I&O Continue D5.9 at 50cc/hr hypoglycemia per Dr. Blake Replace potassium per protocol Home meds as appropriate Monitor labs GI prophylaxis: Protonix 40mg IV BID DVT prophylaxis: Coumadin remains on hold. JESUS hose and Venodyne's to bilateral lower extremities Monitor vital signs and address as appropriate Further recommendations pending patient's course Patients family at the bedside and states they would like to continue the ventilator until Sunday and will make a decision at that time regarding possible termination of care Nurse practitioner note has been reviewed by physician. Signing provider agrees with the documented findings, assessment, and plan of care.
[2017-09-07 16:04] LABS: Glucose,Whole Blood 83 mg/dL (75-99)
[2017-09-07 19:00] LABS: Glucose,Whole Blood 84 mg/dL (75-99)
[2017-09-07] MEDS: ATORVASTATIN 40 MG TAB PO SCH (21:06)
[2017-09-07] MEDS: LATANOPROST 0.005% OPHTH DROPS 2.5 ML BTL BOTH EYES SCH (21:08)
[2017-09-07 21:28] LABS: Glucose,Whole Blood 100 mg/dL (75-99)
[2017-09-08 01:49] LABS: Glucose,Whole Blood 93 mg/dL (75-99)
[2017-09-08] MEDS: PROPOFOL 1,000 MG in EMPTY BAG 1 BAG IV SCH (02:54)
[2017-09-08] MEDS: IPRATROPIUM-ALBUTEROL 3 ML NEB INHALATION SCH ×6 (03:25→23:22)
[2017-09-08 04:13] LABS: Glucose,Whole Blood 92 mg/dL (75-99)
[2017-09-08 04:59] LABS: Anisocytosis Moderate; HCT 38.7 % (34.0-46.0); HGB 12.5 gm/dL (11.4-16.0); Hypochromasia Moderate; MCH 26.2 pg (25.0-35.0); MCHC 32.3 g/dL (31.0-37.0); MCV 81.1 fL (80.0-100.0); Mean Platelet Volume 8.6; Microcytosis Slight; Platelet Count 155 k/uL (150-450); Poikilocytosis Slight; RBC 4.78 m/uL (3.80-5.40); RDW 21.3 % (11.5-15.5); WBC 8.5 k/uL (3.8-10.6)
[2017-09-08 05:20] LABS: ABG Base Excess 1.7 mmol/L; ABG HCO3 26 mmol/L (21-25); ABG Oxygen Saturation 95.9 % (94-97); ABG PCO2 41 mmHg (35-45); ABG PH 7.41 (7.35-7.45); ABG PO2 79 mmHg (83-108); ABG TCO2 28 mmol/L (19-24)
[2017-09-08 05:26] LABS: Albumin 1.7 g/dL (3.5-5.0); Calcium 7.4 mg/dL (8.4-10.2); Potassium 3.3 mmol/L (3.5-5.1); Total Bilirubin 2.8 mg/dL (0.2-1.3); Total Protein 4.4 g/dL (6.3-8.2)
--- NOTE | 2017-09-08 06:43 | XR ---
EXAMINATION TYPE: XR chest 1V portable DATE OF EXAM: 09/08/2017 HISTORY: Tube placement. REFERENCE: Previous study dated 09/07/2017. FINDINGS: The patient is ET tube and NG tube remain in place, unchanged in appearance. The heart is enlarged. There are bilateral effusions. There is bibasilar airspace disease. The overal l appearance is not changed significantly. IMPRESSION: NO SIGNIFICANT CHANGE IN THE APPEARANCE OF THE CHEST.
[2017-09-08] MEDS ORDERED: Potassium Replacement Protocol 1 EACH MISC MISCELLANE PRN (07:03)
[2017-09-08] MEDS: CHLORHEXIDINE GLUCONATE 15 ML CUP MUCOUS MEM SCH ×2 (08:41→21:12)
[2017-09-08] MEDS: PANTOPRAZOLE 40 MG/10 ML VIAL IVP SCH ×2 (08:42→21:12)
[2017-09-08] MEDS: TIMOLOL 0.5% OPHTH DROPS 5 ML BTL LEFT EYE SCH (08:42)
[2017-09-08] MEDS: LEVOTHYROXINE 75 MCG TAB PO SCH (08:42)
[2017-09-08] MEDS: POTASSIUM CHLORIDE ER 20 MEQ TAB.ER PO SCH ×2 (08:43→09:50)
[2017-09-08] MEDS: DEXTROSE 5%-0.9% NACL 1,000 ML IV SCH (08:43)
[2017-09-08] MEDS: MEMANTINE 10 MG TAB PO SCH (08:43)
[2017-09-08] MEDS: MEROPENEM 500 MG in SODIUM CHLORIDE 0.9% 50 ML IVPB SCH ×2 (08:47→21:18)
[2017-09-08] MEDS ORDERED: METOPROLOL SUCCINATE (ER) 25 MG TAB.ER.24H PO STA (09:48)
[2017-09-08] MEDS: FUROSEMIDE 10 MG/ML 4 ML VIAL IV SCH ×2 (09:50→21:12)
--- NOTE | 2017-09-08 10:13 | P.PN ---
Subjective Patient is seen in follow-up for acute kidney injury. Renal function continues to improve with creatinine down to 1.1 today. She is currently intubated and sedated. She is requiring 17 mics of levo fed. She is nonoliguric. She is maintained on tube feeds. She had a bile duct stone and underwent ERCP this admission. She is maintained on IV antibiotics. Currently on levo fed. General: The patient appeared well nourished and normally developed. Intubated. HEENT: Head exam is unremarkable. Neck is without jugular venous distension. LUNGS: Breath sounds decreased. Scattered rhonchi. HEART: Rate and Rhythm are regular. First and second heart sounds normal. No murmurs, rubs or gallops. ABDOMEN: Abdominal exam reveals normal bowel sounds. Non-tender and non- distended. No evidence of peritonitis. EXTREMITITES: 1+ edema. Objective - Vital Signs Vital signs: Vital Signs Temp 97.8 F 09/08/17 08:00 Pulse 129 H 09/08/17 09:00 Resp 22 09/08/17 09:00 BP 97/67 09/04/17 12:00 Pulse Ox 96 09/08/17 09:00 Intake & Output 09/07/17 09/08/17 09/08/17 18:59 06:59 18:59 Intake Total 2515.130 3209.494 222 Output Total 450 575 90 Balance 843.442 627.494 132 Weight 113 kg 116 kg Intake: IV 236 516 106 0.9 for pressure 36 36 6 Dextrose 5% in Water 1, 200 480 100 000 ml @ 50 mls/hr IV . Q20H [facility] Rx#:[id number] Intake, IV Titration 653.442 84.494 Amount Dextrose 5%-0.9% NaCl 1, 400 50 000 ml @ 50 mls/hr IV . Q20H [facility] Rx#:[id number] Norepinephrin 16 mg-0.9% 239.656 10.344 Ns Pmx 16 mg In 250 ml @ Titrate IV .Q0M [facility] Rx#: [id number] Propofol 1,000 mg In 13.786 24.15 Empty Bag 1 bag @ Titrate IV .Q0M [facility] Rx#: [id number] Tube Feeding 344 602 86 Other 60 30 Output: Urine 450 575 90 Other: Voiding Method Indwelling Catheter Indwelling Catheter ABP, PAP, CO, CI - Last Documented Arterial Blood Pressure 98/57 - Labs CBC & Chem 7: 09/08/17 04:20 09/08/17 04:20 Labs: Abnormal Lab Results - Last 24 Hours (Table) 09/07/17 09/08/17 09/08/17 Range/Units 21:26 04:20 04:20 RDW 21.3 H (11.5-15.5) % ABG pO2 (83-108) mmHg ABG HCO3 (21-25) mmol/L ABG Total CO2 (19-24) mmol/L Potassium 3.3 L (3.5-5.1) mmol/L BUN 41 H (7-17) mg/dL Creatinine 1.10 H (0.52-1.04) mg/dL POC Glucose (mg/dL) 100 H (75-99) mg/dL Calcium 7.4 L (8.4-10.2) mg/dL Total Bilirubin 2.8 H (0.2-1.3) mg/dL AST 70 H (14-36) U/L Alkaline Phosphatase 427 H (38-126) U/L Total Protein 4.4 L (6.3-8.2) g/dL Albumin 1.7 L (3.5-5.0) g/dL 09/08/17 Range/Units 05:17 RDW (11.5-15.5) % ABG pO2 79 L (83-108) mmHg ABG HCO3 26 H (21-25) mmol/L ABG Total CO2 28 H (19-24) mmol/L Potassium (3.5-5.1) mmol/L BUN (7-17) mg/dL Creatinine (0.52-1.04) mg/dL POC Glucose (mg/dL) (75-99) mg/dL Calcium (8.4-10.2) mg/dL Total Bilirubin (0.2-1.3) mg/dL AST (14-36) U/L Alkaline Phosphatase (38-126) U/L Total Protein (6.3-8.2) g/dL Albumin (3.5-5.0) g/dL Assessment and Plan Plan: Assessment: #1. Nonoliguric acute kidney injury secondary to ischemic ATN secondary to hypotension and sepsis. Renal function improving with creatinine down to 1.1 today. #2. Hypotension requiring 17 mics of levofed. #3. Hypokalemia secondary to diuresis. Magnesium replete. #4. Bile duct stone status post ERCP maintained on IV antibiotics. Plan: Lasix 40 mg IV once today. Replace potassium. 40 mEq today. Wean vasopressors as able to tolerate. Avoid nephrotoxic agents and hypotensive episodes. Maintain tube feeds.
--- NOTE | 2017-09-08 10:46 | P.PN ---
Subjective Progress Note Date: 09/08/17 Principal diagnosis: Mental status changes Progress note dated 09/03/2017 This is an 82-year-old female who came into the hospital with complaints of changes in mental status. CT was essentially negative for anything acute. In addition, the patient has has a history of diastolic CHF chronic atrial fibrillation extended spectrum beta-lactamase producing urinary tract infection acute kidney injury, bile duct stone history of TIA hypertension hyperlipidemia and hypothyroidism. The patient's most recent chest x-ray shows improving volume status. She looks okay. She seems to be in no distress. Almost laying flat in bed. Is receiving supplemental oxygen. Denies any chest pain or chest discomfort. No nausea vomiting or diarrhea. No coughing up of phlegm or blood. No fever or chills. Progress note dated 09/04/2017 This is a 82-year-old female who had a ERCP done yesterday. The patient apparently had the procedure done under general anesthesia. I'm not sure why that was. Anyway, she arrived back here into the ICU with hypotension and on the ventilator. Her initial ventilator settings included the assist control mode rate of 12 tidal volume 500 FiO2 50% and a PEEP of 5. Arterial blood gases showed a PaO2 of 119 a PaCO2 37 and a pH of 7.41. The vent was changed to a rate of 16 tidal volume 400 and FiO2 was dropped from 50 down to 40%. The patient is on no additional IV fluids at this time in part because is no good IV access and the patient's also on norepinephrine and bit of propofol. She is postop day #1. She is a no code patient. Chest x-ray shows bilateral pleural effusions and some mild vascular congestion. An art line was placed by myself and my nurse practitioner and a central line will also be placed. Progress note dated 09/05/2017 82-year-old female who was in the ICU. Had a ERCP done 2 days ago. It was done on the in the operating room under general anesthesia. I'm not sure why it was done that white but anyway she came back to the ICU from recovery on the ventilator with hypotension. Currently, the patient's on the assist control mode rate of 16, tidal volume 400, FiO2 dropped from 40 down to 30%, with a PEEP of 5. Arterial blood gases show a PaO2 of 110 PaCO2 of 39 and a pH of 7.38. She currently remains on norepinephrine at 13 mcg/m propofol at 30 mics micrograms per kilogram per minute and a saline IV at 10 mL an hour. I did ask the nurses for a cortisol level. We need to start tube feeds on this patient as well. She's not quite ready for extubation. She still on a fair amount of pressor. Progress note dated 09/07/2017 82-year-old female who is in the ICU. The patient had an ERCP about 4 days ago. This apparently was done on the . Apparently was done in the operating room under general anesthesia. Anyway, she came back to the ICU on the mechanical ventilator with hypotension. Currently, the patient's situation is such that she still on the ventilator, settings of assist control mode, rate 16, tidal volume 400, FiO2 30% and PEEP of 5. Arterial blood gases show a PaO2 of 83 PaCO2 41 and a pH is 7.38. The patient's IVs included D5W IV at 50 mL an hour norepinephrine 16 mics per minute propofol at between 5-10 mics per kilogram per minute but currently on hold and vital high protein at 43 with a goal of 43 mL/h. I did speak to the family yesterday. I told him that I thought her overall prognosis was poor. Anyway there Is not any consensus on the family members and what they want to do. Some family members want to continue life support fully indefinitely. This might include tracheostomy and PEG tube placement. Another family member would prefer to make the patient comfort measures. She is a no code patient anyway. Chest x-ray showed what appears to be fluid overload with bilateral pleural effusions. A central line and arterial line were placed. Progress note dated 09/08/2017 82-year-old female who is currently in the ICU. I had a long talk with the family yesterday. We did make her a DO NOT RESUSCITATE. Their inclination is to keep her on the ventilator through the weekend and probably think about withdrawal of life support early next week if she makes no improvement. The patient had an ERCP about 4 days ago. It was done on the and was done in the operating room under general anesthesia. She came back to the ICU on the mechanical ventilator with hypotension. The patient's situation has not been very good. We did try daily eruption of sedation yesterday but she failed miserably. The patient is currently on the ventilator. Her vent settings include the assist control mode rate is 16 tidal volume of 400 FiO2 30% PEEP of 5. The gases show a PaO2 of 79 and PaCO2 41 and a pH of 7.41. She on a dextrose and saline IV at 50 mL an hour norepinephrine at 16 mcg/m propofol at 7 mcg/kg/m and vital high protein of 43 with a goal of 43 mL an hour. She is a DO NOT RESUSCITATE. Chest x-ray showed bilateral pleural effusions. Overall, I believe her prognosis is very poor. I don't believe she survive this illness. She did not ever want to be on life support to begin with according to the family. Objective - Vital Signs Vital signs: Vital Signs Temp 97.8 F 09/08/17 08:00 Pulse 129 H 09/08/17 09:00 Resp 22 09/08/17 09:00 BP 97/67 09/04/17 12:00 Pulse Ox 96 09/08/17 09:00 Intake & Output 09/07/17 09/08/17 09/08/17 18:59 06:59 18:59 Intake Total 8023.198 2340.494 222 Output Total 450 575 90 Balance 843.442 627.494 132 Weight 113 kg 116 kg Intake: IV 236 516 106 0.9 for pressure 36 36 6 Dextrose 5% in Water 1, 200 480 100 000 ml @ 50 mls/hr IV . Q20H [facility] Rx#:[id number] Intake, IV Titration 653.442 84.494 Amount Dextrose 5%-0.9% NaCl 1, 400 50 000 ml @ 50 mls/hr IV . Q20H [facility] Rx#:[id number] Norepinephrin 16 mg-0.9% 239.656 10.344 Ns Pmx 16 mg In 250 ml @ Titrate IV .Q0M [facility] Rx#: [id number] Propofol 1,000 mg In 13.786 24.15 Empty Bag 1 bag @ Titrate IV .Q0M [facility] Rx#: [id number] Tube Feeding 344 602 86 Other 60 30 Output: Urine 450 575 90 Other: Voiding Method Indwelling Catheter Indwelling Catheter ABP, PAP, CO, CI - Last Documented Arterial Blood Pressure 98/57 - Exam No acute distress, sedated, with an orally placed endotracheal tube and NG tube. HEENT examination is grossly unremarkable. Mucous membranes are moist. Neck supple. Full range of motion. No adenopathy thyromegaly or neck vein distention. Cardiovascular examination reveals irregular rhythm and rate. S1-S2 normal. No S3 or S4. No discernible murmur noted. Heart sounds are distant Lungs reveal diffuse rhonchi and crackles. Breath sounds are diminished at the bases. No wheezes. Breath sounds are equal bilaterally. Abdomen soft bowel sounds are heard. Extremities are intact. No cyanosis or clubbing. There are significant lower extremity edema and diffuse anasarca. Skin is without rash or lesion. Neurologic examination could not be adequately assessed. - Labs CBC & Chem 7: 09/08/17 04:20 09/08/17 04:20 Labs: Abnormal Lab Results - Last 24 Hours (Table) 09/07/17 09/08/17 09/08/17 Range/Units 21:26 04:20 04:20 RDW 21.3 H (11.5-15.5) % ABG pO2 (83-108) mmHg ABG HCO3 (21-25) mmol/L ABG Total CO2 (19-24) mmol/L Potassium 3.3 L (3.5-5.1) mmol/L BUN 41 H (7-17) mg/dL Creatinine 1.10 H (0.52-1.04) mg/dL POC Glucose (mg/dL) 100 H (75-99) mg/dL Calcium 7.4 L (8.4-10.2) mg/dL Total Bilirubin 2.8 H (0.2-1.3) mg/dL AST 70 H (14-36) U/L Alkaline Phosphatase 427 H (38-126) U/L Total Protein 4.4 L (6.3-8.2) g/dL Albumin 1.7 L (3.5-5.0) g/dL 09/08/17 Range/Units 05:17 RDW (11.5-15.5) % ABG pO2 79 L (83-108) mmHg ABG HCO3 26 H (21-25) mmol/L ABG Total CO2 28 H (19-24) mmol/L Potassium (3.5-5.1) mmol/L BUN (7-17) mg/dL Creatinine (0.52-1.04) mg/dL POC Glucose (mg/dL) (75-99) mg/dL Calcium (8.4-10.2) mg/dL Total Bilirubin (0.2-1.3) mg/dL AST (14-36) U/L Alkaline Phosphatase (38-126) U/L Total Protein (6.3-8.2) g/dL Albumin (3.5-5.0) g/dL Assessment and Plan Assessment: Assessment Postop day #5, status post ERCP, done under general anesthesia Postoperative respiratory failure, which required intubation and mechanical ventilation. Negative computed tomography scan of the brain Acute exacerbation of diastolic CHF, clinically and radiographically Chronic atrial fibrillation Previous history of urinary tract infection secondary to extended spectrum beta- lactamase producing organism Acute kidney injury, possibly related to ATN Common bile duct stone History of TIA History of hypertension Hyperlipidemia Hypothyroidism The patient is a DO NOT RESUSCITATE Plan: Plan dated 09/03/2017 We'll continue with supportive care. We'll await GI input as it relates to ERCP. Additional recommendations suggestions are forthcoming. Clinically she is doing better. X-rays improved. Mental status is improved. Plan dated 09/04/2017 The patient will have an art line placed and a central line placed. We'll see for can wean her off the norepinephrine. We'll use propofol for sedation. We' ll make sure she is on updrafts every 4 hours with DuoNeb. Additional recommendations and suggestions are forthcoming. Labs x-rays a medications are all reviewed. Prognosis is guarded. She is a no code patient. Critical care time is 33 minute Plan dated 09/05/2017 The patient is not yet ready for weaning and extubation. She was still remains on norepinephrine at 13 mcg/m. Her gas exchange is good. She stable on the ventilator. We'll start her on tube feeds. I'll give her some additional fluids. We'll check a cortisol level. Additional recommendations and suggestions forthcoming. Prognosis is guarded. Critical care time 33 minutes Plan dated 09/07/2017 The patient likely is not ready for weaning and extubation. She remains on norepinephrine at 16 mcg/m. We will attempt a daily interuption of sedation. Chest x-ray shows bilateral pleural effusions. She still on the ventilator. She is being nourished. I did talk to the family yesterday and told him develop some sort of consensus in terms of what they would like done regards treatment. There seems to be some discrepancy between 1 family members and some other family members. Additional recommendations and suggestions are forthcoming. Prognosis is guarded. Critical care time 36 minutes Plan dated 09/08/2017 The patient is currently not doing very well. She did fail miserably, her daily interuption of sedation and spontaneous breathing trial yesterday. Currently she remains on a number different medications including norepinephrine and propofol. She is getting nourishment. She is a DO NOT RESUSCITATE. At a long talk with the family yesterday. Very carnation is to withdraw life support early next week she should not make any improvement. Additional recommendations and suggestions are forthcoming. Critical care time 35 minutes Time with Patient: Greater than 30
--- NOTE | 2017-09-08 11:48 | P.PN ---
Subjective 09/08/2017: Patient remains sedated and intubated in the intensive care unit. She has remained on Levophed for blood pressure control. She is failed weaning several times. The plan is for her to remain on the ventilator with attempted weans the next several days. If she is not improved by Sunday, and based on her wishes never being on a ventilator, they will do a terminal wean. Her sister was once again at bedside, and I discussed her case with her. Dr. Lozoya' s notes were reviewed and are consistent with her previous discussions yesterday. Objective - Vital Signs Vital signs: Vital Signs Temp 97.8 F 09/08/17 08:00 Pulse 129 H 09/08/17 11:21 Resp 18 09/08/17 11:00 BP 97/67 09/04/17 12:00 Pulse Ox 96 09/08/17 11:00 Intake & Output 09/07/17 09/08/17 09/08/17 18:59 06:59 18:59 Intake Total 2373.594 9216.494 514 Output Total 450 575 210 Balance 843.442 627.494 304 Weight 113 kg 116 kg 116 kg Intake: IV 236 516 112 0.9 for pressure 36 36 12 Dextrose 5% in Water 1, 200 480 100 000 ml @ 50 mls/hr IV . Q20H [facility] Rx#:[id number] Intake, IV Titration 653.442 84.494 200 Amount Dextrose 5%-0.9% NaCl 1, 400 50 200 000 ml @ 50 mls/hr IV . Q20H [facility] Rx#:[id number] Norepinephrin 16 mg-0.9% 239.656 10.344 Ns Pmx 16 mg In 250 ml @ Titrate IV .Q0M [facility] Rx#: [id number] Propofol 1,000 mg In 13.786 24.15 Empty Bag 1 bag @ Titrate IV .Q0M [facility] Rx#: [id number] Tube Feeding 344 602 172 Other 60 30 Output: Urine 450 575 210 Other: Voiding Method Indwelling Catheter Indwelling Catheter ABP, PAP, CO, CI - Last Documented Arterial Blood Pressure 103/63 - Exam GENERAL: This is a 82-year-old female who remains intubated on mechanical ventilation in the intensive care unit HEENT: ET tube noted. Head is atraumatic, normocephalic. . Neck is supple. RESPIRATORY: Diminished throughout with scattered rhonhi. Fine rales auscultated to bilateral bases. Patient maintaining oxygen saturation greater than 92%. Patient remains on mechanical ventilation with 30% FiO2. No chest wall tenderness is noted on palpation or with deep breathing. CARDIOVASCULAR: Irregular rhythm. Tachycardic. S1 and S2 noted. Systolic murmur auscultated. No JVD noted. No S3 or S4 noted. GASTROINTESTINAL: Tube feeding on hold. No distention noted. Abdomen soft and round. Bowel sounds auscultated x 4 quadrants. No pain and tenderness noted upon palpation. INTEGUMENTARY: Left upper extremity with significant edema, ecchymosis, and erythema secondary to peripheral IV infiltration. EXTREMITIES: 1+ peripheral pulses. +3 lower extremity edema. 3+ bilateral upper extremity edema with third spacing present. No calf tenderness noted. NEUROLOGIC: Unable to assess secondary to mechanical ventilation and sedation PSYCHIATRIC: Unable to assess secondary to mechanical ventilation and sedation - Labs CBC & Chem 7: 09/08/17 04:20 09/08/17 04:20 Labs: Abnormal Lab Results - Last 24 Hours (Table) 09/07/17 09/08/17 09/08/17 Range/Units 21:26 04:20 04:20 RDW 21.3 H (11.5-15.5) % ABG pO2 (83-108) mmHg ABG HCO3 (21-25) mmol/L ABG Total CO2 (19-24) mmol/L Potassium 3.3 L (3.5-5.1) mmol/L BUN 41 H (7-17) mg/dL Creatinine 1.10 H (0.52-1.04) mg/dL POC Glucose (mg/dL) 100 H (75-99) mg/dL Calcium 7.4 L (8.4-10.2) mg/dL Total Bilirubin 2.8 H (0.2-1.3) mg/dL AST 70 H (14-36) U/L Alkaline Phosphatase 427 H (38-126) U/L Total Protein 4.4 L (6.3-8.2) g/dL Albumin 1.7 L (3.5-5.0) g/dL 09/08/17 Range/Units 05:17 RDW (11.5-15.5) % ABG pO2 79 L (83-108) mmHg ABG HCO3 26 H (21-25) mmol/L ABG Total CO2 28 H (19-24) mmol/L Potassium (3.5-5.1) mmol/L BUN (7-17) mg/dL Creatinine (0.52-1.04) mg/dL POC Glucose (mg/dL) (75-99) mg/dL Calcium (8.4-10.2) mg/dL Total Bilirubin (0.2-1.3) mg/dL AST (14-36) U/L Alkaline Phosphatase (38-126) U/L Total Protein (6.3-8.2) g/dL Albumin (3.5-5.0) g/dL Assessment and Plan Plan: ASSESSMENT: Acute exacerbation of diastolic congestive heart failure, echo reveals ejection fraction of 50-55% Chronic atrial fibrillation, maintained on long-term anticoagulation with Coumadin Supratherapeutic INR, INR 4.9 on admission, resolved, coumadin remains on hold Bacteruria, urinalysis positive for leukocyte esterase, urine culture negative 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 Hypokalemia, secondary to diuretic therapy, resolved Hyperkalemia, likely secondary to acute kidney injury, resolved Acute kidney injury, secondary to diuretic therapy, hypotension, and hypoperfusion, baseline creatinine 1.0 Hypoglycemia Elevated bilirubin and alkaline phosphatase with normal amylase and lipase with slight jaundice, s/p MRCP revealing common bile duct stone and also gallstones Choledocholithiasis Cholelithiasis, S/P ERCP with removal of two common bile duct stones 09/03/2017 Post procedural respiratory failure, patient unable to extubated following ERCP , an unexpected but potential outcome of procedure Postprocedural hypotension, requiring vasopressor support, an unexpected but potential outcome of procedure History of TIA Essential hypertension Hyperlipidemia Hypothyroidism Dementia Obesity: BMI 32.4 GI prophylaxis: Protonix 40mg IV BID DVT prophylaxis: Coumadin remains on hold. JESUS hose and Venodyne's to bilateral lower extremities PLAN: Continue ICU management per Dr. Lozoya Patients Coumadin has been on hold Ventilator management per Dr. Lozoya Wean levophed as tolerated Continue urinary catheter. Accurate I&O Continue D5.9 at 50cc/hr hypoglycemia per Dr. Blake, also to asist with Hypoglycemia Replace potassium per protocol Home meds as appropriate Monitor labs Monitor vital signs and address as appropriate Further recommendations pending patient's course Patients sister at the bedside and states no change in plans at this time
[2017-09-08] MEDS ORDERED: HEPARIN SODIUM,PORCINE 5,000 UNIT/ML 1 ML VIAL IV PRN (11:55)
[2017-09-08] MEDS ORDERED: HEPARIN SODIUM,PORCINE 5,000 UNIT/ML 1 ML VIAL IV ONE (11:55)
[2017-09-08] MEDS: NOREPINEPHRIN 16 MG-0.9%NS PMX 16 MG/250 ML ML IV SCH ×2 (12:05→15:57)
[2017-09-08 12:06] LABS: Glucose,Whole Blood 107 mg/dL (75-99)
[2017-09-08 12:22] LABS: INR 1.4 (<1.2); Partial Thromboplastin Time 28.2 sec (22.0-30.0)
--- NOTE | 2017-09-08 12:51 | PN ---
PROGRESS NOTE Deb is an 82-year-old lady that is admitted to hospital with acute cholecystitis, has chronic and complex medical problems. She is currently in atrial fibrillation with somewhat poorly controlled ventricular rate. She has received a dose of beta rubio. Hopefully this will control her heart rate better. She is hypotensive and is on Levophed. I am going to start her back on heparin as she was on anticoagulant prior to this and anticoagulation was held for surgery. On exam, heart rate is 120 beats per minute, irregular. Blood pressure is 103/62, respirations 18. Chest exam reveals diminished air entry at the bases. Heart exam reveals first and second heart sounds, irregular rhythm. Abdomen is soft. Exam of extremities did not reveal any edema. Peripheral pulses are palpable. Exam of extremities reveals 1+ edema. ASSESSMENT: 1. Chronic atrial fibrillation with poorly controlled ventricular rate. 2. Hypertension. PLAN: Patient's prognosis is guarded. I will start heparin. Continue the beta-blockers. MMODL / IJN: [id number] /
[2017-09-08] MEDS: HEPARIN SOD,PORK IN 0.45% NACL 25,000 UNIT in 0.45% NACL 1 500ML.BAG IV SCH (13:01)
[2017-09-08] MEDS: ACETAMINOPHEN TAB 325 MG TAB PO PRN (13:27)
[2017-09-08] MEDS: POTASSIUM BICARBONATE/CIT AC 20 MEQ TABLET.EFF NG-TUBE SCH ×2 (16:56→18:40)
[2017-09-08 19:08] LABS: Glucose,Whole Blood 117 mg/dL (75-99)
[2017-09-08] MEDS: ATORVASTATIN 40 MG TAB PO SCH (21:12)
[2017-09-08] MEDS: LATANOPROST 0.005% OPHTH DROPS 2.5 ML BTL BOTH EYES SCH (21:13)
[2017-09-08 23:51] LABS: Glucose,Whole Blood 91 mg/dL (75-99)
[2017-09-09] MEDS: IPRATROPIUM-ALBUTEROL 3 ML NEB INHALATION SCH ×6 (03:29→23:16)
[2017-09-09 03:48] LABS: Anisocytosis Moderate; Basophils % (A) 0 %; Eosinophils # (A) 0.1 k/uL (0-0.7); Eosinophils % (A) 2 %; HCT 40.5 % (34.0-46.0); HGB 12.1 gm/dL (11.4-16.0); Hypochromasia Moderate; Lymphocytes % (A) 12 %; MCH 24.2 pg (25.0-35.0); MCHC 29.8 g/dL (31.0-37.0); MCV 81.5 fL (80.0-100.0); Mean Platelet Volume 9.1; Microcytosis Slight; Monocytes # (A) 0.5 k/uL (0-1.0); Monocytes % (A) 6 %; Neutrophils # (A) 6.2 k/uL (1.3-7.7); Neutrophils % (A) 78 %; Platelet Count 163 k/uL (150-450); Poikilocytosis Slight; RBC 4.97 m/uL (3.80-5.40); RDW 21.8 % (11.5-15.5)
[2017-09-09 05:00] LABS: Calcium 7.6 mg/dL (8.4-10.2); Magnesium 1.9 mg/dL (1.6-2.3); Phosphorus 3.4 mg/dL (2.5-4.5)
[2017-09-09 05:06] LABS: ABG Base Excess 1.4 mmol/L; ABG HCO3 26 mmol/L (21-25); ABG Oxygen Saturation 96.9 % (94-97); ABG PCO2 40 mmHg (35-45); ABG PH 7.42 (7.35-7.45); ABG PO2 84 mmHg (83-108); ABG TCO2 27 mmol/L (19-24)
[2017-09-09 05:55] LABS: Glucose,Whole Blood 104 mg/dL (75-99)
--- NOTE | 2017-09-09 07:06 | XR ---
EXAMINATION TYPE: XR chest 1V portable DATE OF EXAM: 09/09/2017 HISTORY: Tube placement. REFERENCE: Previous study dated 09/08/2017. FINDINGS: The patient is ET tube, NG tube and left internal jugular catheter remain in place, unchang ed in appearance. There is bibasilar airspace disease. There are bilateral effusions, greater on the right than the lef t. The heart is enlarged.. IMPRESSION: NO SIGNIFICANT INTERVAL CHANGE IN THE APPEARANCE OF THE CHEST.
--- NOTE | 2017-09-09 08:01 | P.PN ---
Subjective Progress Note Date: 09/09/17 Principal diagnosis: Mental status changes Progress note dated 09/03/2017 This is an 82-year-old female who came into the hospital with complaints of changes in mental status. CT was essentially negative for anything acute. In addition, the patient has has a history of diastolic CHF chronic atrial fibrillation extended spectrum beta-lactamase producing urinary tract infection acute kidney injury, bile duct stone history of TIA hypertension hyperlipidemia and hypothyroidism. The patient's most recent chest x-ray shows improving volume status. She looks okay. She seems to be in no distress. Almost laying flat in bed. Is receiving supplemental oxygen. Denies any chest pain or chest discomfort. No nausea vomiting or diarrhea. No coughing up of phlegm or blood. No fever or chills. Progress note dated 09/04/2017 This is a 82-year-old female who had a ERCP done yesterday. The patient apparently had the procedure done under general anesthesia. I'm not sure why that was. Anyway, she arrived back here into the ICU with hypotension and on the ventilator. Her initial ventilator settings included the assist control mode rate of 12 tidal volume 500 FiO2 50% and a PEEP of 5. Arterial blood gases showed a PaO2 of 119 a PaCO2 37 and a pH of 7.41. The vent was changed to a rate of 16 tidal volume 400 and FiO2 was dropped from 50 down to 40%. The patient is on no additional IV fluids at this time in part because is no good IV access and the patient's also on norepinephrine and bit of propofol. She is postop day #1. She is a no code patient. Chest x-ray shows bilateral pleural effusions and some mild vascular congestion. An art line was placed by myself and my nurse practitioner and a central line will also be placed. Progress note dated 09/05/2017 82-year-old female who was in the ICU. Had a ERCP done 2 days ago. It was done on the in the operating room under general anesthesia. I'm not sure why it was done that white but anyway she came back to the ICU from recovery on the ventilator with hypotension. Currently, the patient's on the assist control mode rate of 16, tidal volume 400, FiO2 dropped from 40 down to 30%, with a PEEP of 5. Arterial blood gases show a PaO2 of 110 PaCO2 of 39 and a pH of 7.38. She currently remains on norepinephrine at 13 mcg/m propofol at 30 mics micrograms per kilogram per minute and a saline IV at 10 mL an hour. I did ask the nurses for a cortisol level. We need to start tube feeds on this patient as well. She's not quite ready for extubation. She still on a fair amount of pressor. Progress note dated 09/07/2017 82-year-old female who is in the ICU. The patient had an ERCP about 4 days ago. This apparently was done on the . Apparently was done in the operating room under general anesthesia. Anyway, she came back to the ICU on the mechanical ventilator with hypotension. Currently, the patient's situation is such that she still on the ventilator, settings of assist control mode, rate 16, tidal volume 400, FiO2 30% and PEEP of 5. Arterial blood gases show a PaO2 of 83 PaCO2 41 and a pH is 7.38. The patient's IVs included D5W IV at 50 mL an hour norepinephrine 16 mics per minute propofol at between 5-10 mics per kilogram per minute but currently on hold and vital high protein at 43 with a goal of 43 mL/h. I did speak to the family yesterday. I told him that I thought her overall prognosis was poor. Anyway there Is not any consensus on the family members and what they want to do. Some family members want to continue life support fully indefinitely. This might include tracheostomy and PEG tube placement. Another family member would prefer to make the patient comfort measures. She is a no code patient anyway. Chest x-ray showed what appears to be fluid overload with bilateral pleural effusions. A central line and arterial line were placed. Progress note dated 09/08/2017 82-year-old female who is currently in the ICU. I had a long talk with the family yesterday. We did make her a DO NOT RESUSCITATE. Their inclination is to keep her on the ventilator through the weekend and probably think about withdrawal of life support early next week if she makes no improvement. The patient had an ERCP about 4 days ago. It was done on the and was done in the operating room under general anesthesia. She came back to the ICU on the mechanical ventilator with hypotension. The patient's situation has not been very good. We did try daily eruption of sedation yesterday but she failed miserably. The patient is currently on the ventilator. Her vent settings include the assist control mode rate is 16 tidal volume of 400 FiO2 30% PEEP of 5. The gases show a PaO2 of 79 and PaCO2 41 and a pH of 7.41. She on a dextrose and saline IV at 50 mL an hour norepinephrine at 16 mcg/m propofol at 7 mcg/kg/m and vital high protein of 43 with a goal of 43 mL an hour. She is a DO NOT RESUSCITATE. Chest x-ray showed bilateral pleural effusions. Overall, I believe her prognosis is very poor. I don't believe she survive this illness. She did not ever want to be on life support to begin with according to the family. Progress note dated 09/09/2017 82-year-old female who is currently in the ICU on the mechanical ventilator. She is a DO NOT RESUSCITATE patient. The patient came in initially for a episode of vomiting cholelithiasis. She has had common bile duct stones and required an ERCP. That was done about 5 days ago. Interestingly, was done in the operating room under general anesthesia. She came back to the ICU on the ventilator with hypotension. The patient has done poorly since she's been here and I've had a number of conversations with the family. She is a DO NOT RESUSCITATE and the family is inclined to withdraw life support early next week. Currently, she is failed her daily interuption of sedation with spontaneous breathing trials. We've tried each day. Currently she is on the assist control mode rate of 16 tidal volume is 400 FiO2 30% PEEP of 5. Her arterial blood gases show a PaO2 of 84 a PaCO2 47 and a pH of 7.4. She resides remains on norepinephrine at 18 mcg/m, propofol at 5 mics per kilogram per minute, a D5.9 IV at 50 mL an hour and vital high protein at a rate of 43 with a goal of 43 mL an hour. Chest x-ray shows diffuse bilateral infiltrates, worse on the right with bilateral effusions right greater than left. Objective - Vital Signs Vital signs: Vital Signs Temp 98 F 09/09/17 04:00 Pulse 126 H 09/09/17 07:26 Resp 20 09/09/17 06:00 BP 97/67 09/04/17 12:00 Pulse Ox 95 09/09/17 06:00 Intake & Output 09/08/17 09/09/17 09/09/17 18:59 06:59 18:59 Intake Total 1290.850 978.426 Output Total 495 360 Balance 795.850 618.426 Weight 116 kg 118.5 kg Intake: IV 130 33 0.9 for pressure 30 33 Dextrose 5% in Water 1, 100 000 ml @ 50 mls/hr IV . Q20H [facility] Rx#:[id number] Intake, IV Titration 640.850 257.426 Amount Dextrose 5%-0.9% NaCl 1, 50 000 ml @ 50 mls/hr IV . Q20H [facility] Rx#:[id number] Dextrose 5%-0.9% NaCl 1, 500 000 ml @ 50 mls/hr IV . Q20H [facility] Rx#:[id number] Heparin Sod,Pork in 0.45% 257.426 NaCl 25,000 unit In 0.45 % NaCl 1 500ml.bag @ 8.6 UNITS/KG/HR 19.95 mls/hr IV .Q24H [facility] Rx#: [id number] Norepinephrin 16 mg-0.9% 58 Ns Pmx 16 mg In 250 ml @ Titrate IV .Q0M [facility] Rx#: [id number] Propofol 1,000 mg In 32.850 Empty Bag 1 bag @ Titrate IV .Q0M [facility] Rx#: [id number] Tube Feeding 430 688 Other 90 Output: Urine 495 360 Other: Voiding Method Indwelling Catheter Indwelling Catheter ABP, PAP, CO, CI - Last Documented Arterial Blood Pressure 98/58 - Exam No acute distress, sedated, with an orally placed endotracheal tube and NG tube. HEENT examination is grossly unremarkable. Mucous membranes are moist. Neck supple. Full range of motion. No adenopathy thyromegaly or neck vein distention. Cardiovascular examination reveals irregular rhythm and rate. S1-S2 normal. No S3 or S4. No discernible murmur noted. Heart sounds are distant Lungs reveal diffuse rhonchi and crackles. Breath sounds are diminished at the bases. No wheezes. Breath sounds are equal bilaterally. Abdomen soft bowel sounds are heard. Extremities are intact. No cyanosis or clubbing. There are significant lower extremity edema and diffuse anasarca. Skin is without rash or lesion. Neurologic examination could not be adequately assessed. - Labs CBC & Chem 7: 09/09/17 03:40 09/09/17 03:40 Labs: Abnormal Lab Results - Last 24 Hours (Table) 09/08/17 09/08/17 09/08/17 Range/Units 12:02 12:03 19:07 MCH (25.0-35.0) pg MCHC (31.0-37.0) g/dL RDW (11.5-15.5) % PT 13.0 H (9.0-12.0) sec INR 1.4 H (<1.2) APTT (22.0-30.0) sec ABG HCO3 (21-25) mmol/L ABG Total CO2 (19-24) mmol/L Sodium (137-145) mmol/L Chloride (98-107) mmol/L BUN (7-17) mg/dL Creatinine (0.52-1.04) mg/dL Glucose (74-99) mg/dL POC Glucose (mg/dL) 107 H 117 H (75-99) mg/dL Calcium (8.4-10.2) mg/dL 09/08/17 09/09/17 09/09/17 Range/Units 19:08 03:40 03:40 MCH 24.2 L (25.0-35.0) pg MCHC 29.8 L (31.0-37.0) g/dL RDW 21.8 H (11.5-15.5) % PT (9.0-12.0) sec INR (<1.2) APTT >200.0 H* 98.6 H* (22.0-30.0) sec ABG HCO3 (21-25) mmol/L ABG Total CO2 (19-24) mmol/L Sodium (137-145) mmol/L Chloride (98-107) mmol/L BUN (7-17) mg/dL Creatinine (0.52-1.04) mg/dL Glucose (74-99) mg/dL POC Glucose (mg/dL) (75-99) mg/dL Calcium (8.4-10.2) mg/dL 09/09/17 09/09/17 09/09/17 Range/Units 03:40 05:02 05:53 MCH (25.0-35.0) pg MCHC (31.0-37.0) g/dL RDW (11.5-15.5) % PT (9.0-12.0) sec INR (<1.2) APTT (22.0-30.0) sec ABG HCO3 26 H (21-25) mmol/L ABG Total CO2 27 H (19-24) mmol/L Sodium 146 H (137-145) mmol/L Chloride 111 H (98-107) mmol/L BUN 44 H (7-17) mg/dL Creatinine 1.05 H (0.52-1.04) mg/dL Glucose 117 H (74-99) mg/dL POC Glucose (mg/dL) 104 H (75-99) mg/dL Calcium 7.6 L (8.4-10.2) mg/dL Assessment and Plan Assessment: Assessment Postop day #6, status post ERCP, done under general anesthesia Postoperative respiratory failure, which required intubation and mechanical ventilation. Negative computed tomography scan of the brain Acute exacerbation of diastolic CHF, clinically and radiographically Chronic atrial fibrillation Previous history of urinary tract infection secondary to extended spectrum beta- lactamase producing organism Acute kidney injury, possibly related to ATN Common bile duct stone History of TIA History of hypertension Hyperlipidemia Hypothyroidism The patient is a DO NOT RESUSCITATE Plan: Plan dated 09/03/2017 We'll continue with supportive care. We'll await GI input as it relates to ERCP. Additional recommendations suggestions are forthcoming. Clinically she is doing better. X-rays improved. Mental status is improved. Plan dated 09/04/2017 The patient will have an art line placed and a central line placed. We'll see for can wean her off the norepinephrine. We'll use propofol for sedation. We' ll make sure she is on updrafts every 4 hours with DuoNeb. Additional recommendations and suggestions are forthcoming. Labs x-rays a medications are all reviewed. Prognosis is guarded. She is a no code patient. Critical care time is 33 minute Plan dated 09/05/2017 The patient is not yet ready for weaning and extubation. She was still remains on norepinephrine at 13 mcg/m. Her gas exchange is good. She stable on the ventilator. We'll start her on tube feeds. I'll give her some additional fluids. We'll check a cortisol level. Additional recommendations and suggestions forthcoming. Prognosis is guarded. Critical care time 33 minutes Plan dated 09/07/2017 The patient likely is not ready for weaning and extubation. She remains on norepinephrine at 16 mcg/m. We will attempt a daily interuption of sedation. Chest x-ray shows bilateral pleural effusions. She still on the ventilator. She is being nourished. I did talk to the family yesterday and told him develop some sort of consensus in terms of what they would like done regards treatment. There seems to be some discrepancy between 1 family members and some other family members. Additional recommendations and suggestions are forthcoming. Prognosis is guarded. Critical care time 36 minutes Plan dated 09/08/2017 The patient is currently not doing very well. She did fail miserably, her daily interuption of sedation and spontaneous breathing trial yesterday. Currently she remains on a number different medications including norepinephrine and propofol. She is getting nourishment. She is a DO NOT RESUSCITATE. At a long talk with the family yesterday. Very carnation is to withdraw life support early next week she should not make any improvement. Additional recommendations and suggestions are forthcoming. Critical care time 35 minutes Plan dated 09/09/2017 The patient's CBC shows a white count of 8 hemoglobin 12.1 hematocrit 40.5 and platelet count 163,000. PTT is 98.6. Sodium is 146 potassium 4 chloride is 111 and CO2 is 25. BUN and creatinine is 44 and 1.05. The patient remains on norepinephrine as mentioned above 18 mcg/m. We'll attempt another daily interuption of sedation and a weaning trial today. She has done poorly on prior attempts. Chest x-ray shows diffuse bilateral infiltrates worse right- sided than left-sided. Prognosis is poor. Family is inclined to withdraw life support tomorrow. Microbiology is as far all negative. Critical care time 34 minutes Time with Patient: Greater than 30
[2017-09-09] MEDS: MEROPENEM 500 MG in SODIUM CHLORIDE 0.9% 50 ML IVPB SCH ×2 (08:10→20:46)
[2017-09-09] MEDS: TIMOLOL 0.5% OPHTH DROPS 5 ML BTL LEFT EYE SCH (08:51)
[2017-09-09] MEDS: CHLORHEXIDINE GLUCONATE 15 ML CUP MUCOUS MEM SCH ×2 (08:51→20:46)
[2017-09-09] MEDS: DEXTROSE 5%-0.9% NACL 1,000 ML IV SCH ×2 (08:52→23:31)
[2017-09-09] MEDS: PANTOPRAZOLE 40 MG/10 ML VIAL IVP SCH ×2 (08:52→20:47)
[2017-09-09] MEDS: LEVOTHYROXINE 75 MCG TAB PO SCH (08:52)
[2017-09-09] MEDS ORDERED: METOPROLOL SUCCINATE (ER) 25 MG TAB.ER.24H PO SCH (09:00)
--- NOTE | 2017-09-09 10:16 | P.PN ---
Subjective Patient is seen in follow-up for acute kidney injury. Renal function continues to improve with creatinine down to 1.05 today. She is currently intubated and sedated. She is requiring 15 mics of levofed. She is nonoliguric. She is maintained on tube feeds. She had a bile duct stone and underwent ERCP this admission. She is maintained on IV antibiotics. Currently on levo fed. General: The patient appeared well nourished and normally developed. Intubated. HEENT: Head exam is unremarkable. Neck is without jugular venous distension. LUNGS: Breath sounds decreased. Scattered rhonchi. HEART: Rate and Rhythm are regular. First and second heart sounds normal. No murmurs, rubs or gallops. ABDOMEN: Abdominal exam reveals normal bowel sounds. Non-tender and non- distended. No evidence of peritonitis. EXTREMITITES: 1+ edema. Objective - Vital Signs Vital signs: Vital Signs Temp 97.6 F 09/09/17 08:00 Pulse 122 H 09/09/17 09:00 Resp 24 09/09/17 09:00 BP 97/67 09/04/17 12:00 Pulse Ox 93 L 09/09/17 09:00 Intake & Output 09/08/17 09/09/17 09/09/17 18:59 06:59 18:59 Intake Total 0578.115 6420.426 464 Output Total 495 360 185 Balance 795.850 714.426 279 Weight 116 kg 118.5 kg Intake: IV 130 36 62 0.9 for pressure 30 36 12 Dextrose 5% in Water 1, 100 000 ml @ 50 mls/hr IV . Q20H [facility] Rx#:[id number] Meropenem 500 mg In 50 Sodium Chloride 0.9% 50 ml @ 100 mls/hr IVPB Q12HR [facility] Rx#:[id number] Intake, IV Titration 640.850 307.426 200 Amount Dextrose 5%-0.9% NaCl 1, 50 000 ml @ 50 mls/hr IV . Q20H [facility] Rx#:[id number] Dextrose 5%-0.9% NaCl 1, 500 50 200 000 ml @ 50 mls/hr IV . Q20H [facility] Rx#:[id number] Heparin Sod,Pork in 0.45% 257.426 NaCl 25,000 unit In 0.45 % NaCl 1 500ml.bag @ 8.6 UNITS/KG/HR 19.95 mls/hr IV .Q24H [facility] Rx#: [id number] Norepinephrin 16 mg-0.9% 58 Ns Pmx 16 mg In 250 ml @ Titrate IV .Q0M [facility] Rx#: [id number] Propofol 1,000 mg In 32.850 Empty Bag 1 bag @ Titrate IV .Q0M [facility] Rx#: [id number] Tube Feeding 430 731 172 Other 90 30 Output: Urine 495 360 185 Other: Voiding Method Indwelling Catheter Indwelling Catheter ABP, PAP, CO, CI - Last Documented Arterial Blood Pressure 98/59 - Labs CBC & Chem 7: 09/09/17 03:40 09/09/17 03:40 Labs: Abnormal Lab Results - Last 24 Hours (Table) 09/08/17 09/08/17 09/08/17 Range/Units 12:02 12:03 19:07 MCH (25.0-35.0) pg MCHC (31.0-37.0) g/dL RDW (11.5-15.5) % PT 13.0 H (9.0-12.0) sec INR 1.4 H (<1.2) APTT (22.0-30.0) sec ABG HCO3 (21-25) mmol/L ABG Total CO2 (19-24) mmol/L Sodium (137-145) mmol/L Chloride (98-107) mmol/L BUN (7-17) mg/dL Creatinine (0.52-1.04) mg/dL Glucose (74-99) mg/dL POC Glucose (mg/dL) 107 H 117 H (75-99) mg/dL Calcium (8.4-10.2) mg/dL 09/08/17 09/09/17 09/09/17 Range/Units 19:08 03:40 03:40 MCH 24.2 L (25.0-35.0) pg MCHC 29.8 L (31.0-37.0) g/dL RDW 21.8 H (11.5-15.5) % PT (9.0-12.0) sec INR (<1.2) APTT >200.0 H* 98.6 H* (22.0-30.0) sec ABG HCO3 (21-25) mmol/L ABG Total CO2 (19-24) mmol/L Sodium (137-145) mmol/L Chloride (98-107) mmol/L BUN (7-17) mg/dL Creatinine (0.52-1.04) mg/dL Glucose (74-99) mg/dL POC Glucose (mg/dL) (75-99) mg/dL Calcium (8.4-10.2) mg/dL 09/09/17 09/09/17 09/09/17 Range/Units 03:40 05:02 05:53 MCH (25.0-35.0) pg MCHC (31.0-37.0) g/dL RDW (11.5-15.5) % PT (9.0-12.0) sec INR (<1.2) APTT (22.0-30.0) sec ABG HCO3 26 H (21-25) mmol/L ABG Total CO2 27 H (19-24) mmol/L Sodium 146 H (137-145) mmol/L Chloride 111 H (98-107) mmol/L BUN 44 H (7-17) mg/dL Creatinine 1.05 H (0.52-1.04) mg/dL Glucose 117 H (74-99) mg/dL POC Glucose (mg/dL) 104 H (75-99) mg/dL Calcium 7.6 L (8.4-10.2) mg/dL Assessment and Plan Plan: Assessment: #1. Nonoliguric acute kidney injury secondary to ischemic ATN secondary to hypotension and sepsis. Renal function improving with creatinine down to 1.05 today. #2. Hypotension requiring 15 mics of levofed. #3. Hypokalemia secondary to diuresis. Magnesium replete. Improved post replacement. #4. Bile duct stone status post ERCP maintained on IV antibiotics. #5. Mild hypernatremia secondary to free water deficit. Plan: Continue Lasix 40 mg IV twice daily. 200 mL every 6 hour free water flushes with tube feeds. Wean vasopressors as able to tolerate. Avoid nephrotoxic agents and hypotensive episodes. Maintain tube feeds.
[2017-09-09] MEDS: FUROSEMIDE 10 MG/ML 4 ML VIAL IV SCH ×2 (10:17→20:46)
[2017-09-09] MEDS: ACETAMINOPHEN TAB 325 MG TAB PO PRN (10:29)
[2017-09-09 11:59] LABS: Glucose,Whole Blood 115 mg/dL (75-99)
--- NOTE | 2017-09-09 16:46 | P.PN ---
Subjective 09/08/2017: Patient remains sedated and intubated in the intensive care unit. She has remained on Levophed for blood pressure control. She is failed weaning several times. The plan is for her to remain on the ventilator with attempted weans the next several days. If she is not improved by Sunday, and based on her wishes never being on a ventilator, they will do a terminal wean. Her sister was once again at bedside, and I discussed her case with her. Dr. Lozoya' s notes were reviewed and are consistent with her previous discussions yesterday. 09/09/2017: Her son and friend are bedside today. There's been no significant changes. She is on low-dose propofol of 5 mics. Objective - Vital Signs Vital signs: Vital Signs Temp 98.3 F 09/09/17 16:00 Pulse 123 H 09/09/17 16:00 Resp 21 09/09/17 16:00 BP 97/67 09/04/17 12:00 Pulse Ox 95 09/09/17 16:00 Intake & Output 09/08/17 09/09/17 09/09/17 18:59 06:59 18:59 Intake Total 2315.866 3926.426 1494.059 Output Total 495 360 540 Balance 795.850 714.426 954.059 Weight 116 kg 118.5 kg 118.5 kg Intake: IV 130 36 80 0.9 for pressure 30 36 30 Dextrose 5% in Water 1, 100 000 ml @ 50 mls/hr IV . Q20H [facility] Rx#:[id number] Meropenem 500 mg In 50 Sodium Chloride 0.9% 50 ml @ 100 mls/hr IVPB Q12HR [facility] Rx#:[id number] Intake, IV Titration 640.850 307.426 554.059 Amount Dextrose 5%-0.9% NaCl 1, 50 000 ml @ 50 mls/hr IV . Q20H [facility] Rx#:[id number] Dextrose 5%-0.9% NaCl 1, 500 50 450 000 ml @ 50 mls/hr IV . Q20H [facility] Rx#:[id number] Heparin Sod,Pork in 0.45% 257.426 39.556 NaCl 25,000 unit In 0.45 % NaCl 1 500ml.bag @ 8.6 UNITS/KG/HR 19.95 mls/hr IV .Q24H [facility] Rx#: [id number] Norepinephrin 16 mg-0.9% 58 Ns Pmx 16 mg In 250 ml @ Titrate IV .Q0M [facility] Rx#: [id number] Propofol 1,000 mg In 32.850 64.503 Empty Bag 1 bag @ Titrate IV .Q0M [facility] Rx#: [id number] Tube Feeding 430 731 430 Other 90 430 Output: Urine 495 360 540 Other: Voiding Method Indwelling Catheter Indwelling Catheter Indwelling Catheter ABP, PAP, CO, CI - Last Documented Arterial Blood Pressure 107/66 - Exam GENERAL: This is a 82-year-old female who remains intubated on mechanical ventilation in the intensive care unit HEENT: ET tube noted. Head is atraumatic, normocephalic. . Neck is supple. RESPIRATORY: Diminished throughout with scattered rhonhi. Fine rales auscultated to bilateral bases. Patient maintaining oxygen saturation greater than 92%. Patient remains on mechanical ventilation with 30% FiO2. No chest wall tenderness is noted on palpation or with deep breathing. CARDIOVASCULAR: Irregular rhythm. Tachycardic. S1 and S2 noted. Systolic murmur auscultated. No JVD noted. No S3 or S4 noted. GASTROINTESTINAL: Tube feeding on hold. No distention noted. Abdomen soft and round. Bowel sounds auscultated x 4 quadrants. No pain and tenderness noted upon palpation. INTEGUMENTARY: Left upper extremity with significant edema, ecchymosis, and erythema secondary to peripheral IV infiltration. EXTREMITIES: 1+ peripheral pulses. +3 lower extremity edema. 3+ bilateral upper extremity edema with third spacing present. No calf tenderness noted. NEUROLOGIC: Unable to assess secondary to mechanical ventilation and sedation PSYCHIATRIC: Unable to assess secondary to mechanical ventilation and sedation - Labs CBC & Chem 7: 09/09/17 03:40 09/09/17 03:40 Labs: Abnormal Lab Results - Last 24 Hours (Table) 09/08/17 09/08/17 09/09/17 Range/Units 19:07 19:08 03:40 MCH 24.2 L (25.0-35.0) pg MCHC 29.8 L (31.0-37.0) g/dL RDW 21.8 H (11.5-15.5) % APTT >200.0 H* (22.0-30.0) sec ABG HCO3 (21-25) mmol/L ABG Total CO2 (19-24) mmol/L Sodium (137-145) mmol/L Chloride (98-107) mmol/L BUN (7-17) mg/dL Creatinine (0.52-1.04) mg/dL Glucose (74-99) mg/dL POC Glucose (mg/dL) 117 H (75-99) mg/dL Calcium (8.4-10.2) mg/dL 09/09/17 09/09/17 09/09/17 Range/Units 03:40 03:40 05:02 MCH (25.0-35.0) pg MCHC (31.0-37.0) g/dL RDW (11.5-15.5) % APTT 98.6 H* (22.0-30.0) sec ABG HCO3 26 H (21-25) mmol/L ABG Total CO2 27 H (19-24) mmol/L Sodium 146 H (137-145) mmol/L Chloride 111 H (98-107) mmol/L BUN 44 H (7-17) mg/dL Creatinine 1.05 H (0.52-1.04) mg/dL Glucose 117 H (74-99) mg/dL POC Glucose (mg/dL) (75-99) mg/dL Calcium 7.6 L (8.4-10.2) mg/dL 09/09/17 09/09/17 09/09/17 Range/Units 05:53 11:55 11:56 MCH (25.0-35.0) pg MCHC (31.0-37.0) g/dL RDW (11.5-15.5) % APTT 42.9 H (22.0-30.0) sec ABG HCO3 (21-25) mmol/L ABG Total CO2 (19-24) mmol/L Sodium (137-145) mmol/L Chloride (98-107) mmol/L BUN (7-17) mg/dL Creatinine (0.52-1.04) mg/dL Glucose (74-99) mg/dL POC Glucose (mg/dL) 104 H 115 H (75-99) mg/dL Calcium (8.4-10.2) mg/dL Assessment and Plan Plan: ASSESSMENT: Acute exacerbation of diastolic congestive heart failure, echo reveals ejection fraction of 50-55% Chronic atrial fibrillation, maintained on long-term anticoagulation with Coumadin Supratherapeutic INR, INR 4.9 on admission, resolved, coumadin remains on hold Bacteruria, urinalysis positive for leukocyte esterase, urine culture negative 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 Hypokalemia, secondary to diuretic therapy, resolved Hyperkalemia, likely secondary to acute kidney injury, resolved Acute kidney injury, secondary to diuretic therapy, hypotension, and hypoperfusion, baseline creatinine 1.0 Hypoglycemia Elevated bilirubin and alkaline phosphatase with normal amylase and lipase with slight jaundice, s/p MRCP revealing common bile duct stone and also gallstones Choledocholithiasis Cholelithiasis, S/P ERCP with removal of two common bile duct stones 09/03/2017 Post procedural respiratory failure, patient unable to extubated following ERCP , an unexpected but potential outcome of procedure Postprocedural hypotension, requiring vasopressor support, an unexpected but potential outcome of procedure History of TIA Essential hypertension Hyperlipidemia Hypothyroidism Dementia Obesity: BMI 32.4 GI prophylaxis: Protonix 40mg IV BID DVT prophylaxis: Coumadin remains on hold. JESUS hose and Venodyne's to bilateral lower extremities PLAN: Continue ICU management per Dr. Lozoya Patients Coumadin has been on hold Ventilator management per Dr. Lozoya Wean levophed as tolerated Continue urinary catheter. Accurate I&O Continue D5.9 at 50cc/hr hypoglycemia per Dr. Blake, also to asist with Hypoglycemia Replace potassium per protocol Home meds as appropriate Monitor labs Monitor vital signs and address as appropriate Further recommendations pending patient's course Plan to reevaluate current status on Sunday.
[2017-09-09 20:32] LABS: Glucose,Whole Blood 114 mg/dL (75-99)
[2017-09-09] MEDS: HEPARIN SOD,PORK IN 0.45% NACL 25,000 UNIT in 0.45% NACL 1 500ML.BAG IV SCH (20:44)
[2017-09-09] MEDS: LATANOPROST 0.005% OPHTH DROPS 2.5 ML BTL BOTH EYES SCH (20:46)
[2017-09-09 23:41] LABS: Glucose,Whole Blood 87 mg/dL (75-99)
[2017-09-10] MEDS: IPRATROPIUM-ALBUTEROL 3 ML NEB INHALATION SCH ×3 (02:53→11:09)
[2017-09-10 04:09] LABS: Glucose,Whole Blood 102 mg/dL (75-99)
[2017-09-10 05:41] LABS: Anisocytosis Moderate; Basophils % (A) 0 %; Eosinophils # (A) 0.2 k/uL (0-0.7); Eosinophils % (A) 2 %; HCT 39.3 % (34.0-46.0); HGB 11.9 gm/dL (11.4-16.0); Hypochromasia Moderate; Lymphocytes # (A) 0.9 k/uL (1.0-4.8); Lymphocytes % (A) 11 %; MCH 24.6 pg (25.0-35.0); MCHC 30.3 g/dL (31.0-37.0); MCV 81.2 fL (80.0-100.0); Mean Platelet Volume 8.9; Microcytosis Slight; Monocytes # (A) 0.5 k/uL (0-1.0); Monocytes % (A) 6 %; Neutrophils # (A) 6.2 k/uL (1.3-7.7); Neutrophils % (A) 77 %; Platelet Count 188 k/uL (150-450); Poikilocytosis Slight; RBC 4.84 m/uL (3.80-5.40); RDW 21.8 % (11.5-15.5)
[2017-09-10] MEDS: PROPOFOL 1,000 MG in EMPTY BAG 1 BAG IV SCH (07:05)
[2017-09-10 07:19] LABS: Calcium 7.6 mg/dL (8.4-10.2); Potassium 3.7 mmol/L (3.5-5.1)
[2017-09-10] MEDS: LEVOTHYROXINE 75 MCG TAB PO SCH (08:16)
[2017-09-10] MEDS: CHLORHEXIDINE GLUCONATE 15 ML CUP MUCOUS MEM SCH (08:16)
[2017-09-10] MEDS: FUROSEMIDE 10 MG/ML 4 ML VIAL IV SCH (08:16)
[2017-09-10] MEDS: TIMOLOL 0.5% OPHTH DROPS 5 ML BTL LEFT EYE SCH (08:17)
[2017-09-10] MEDS: PANTOPRAZOLE 40 MG/10 ML VIAL IVP SCH (08:17)
[2017-09-10] MEDS: MEROPENEM 500 MG in SODIUM CHLORIDE 0.9% 50 ML IVPB SCH (08:33)
--- NOTE | 2017-09-10 09:36 | P.PN ---
Subjective Patient is seen in follow-up for acute kidney injury. Renal function continues to improve with creatinine down to 0.99 today. She is currently intubated and sedated. She is still requiring levofed. She is nonoliguric. She is maintained on tube feeds. She had a bile duct stone and underwent ERCP this admission. She is maintained on IV antibiotics. Sodium level 148 today. Currently on levo fed. General: The patient appeared well nourished and normally developed. Intubated. HEENT: Head exam is unremarkable. Neck is without jugular venous distension. LUNGS: Breath sounds decreased. Scattered rhonchi. HEART: Rate and Rhythm are regular. First and second heart sounds normal. No murmurs, rubs or gallops. ABDOMEN: Abdominal exam reveals normal bowel sounds. Non-tender and non- distended. No evidence of peritonitis. EXTREMITITES: 1+ edema. Objective - Vital Signs Vital signs: Vital Signs Temp 98.2 F 09/10/17 04:00 Pulse 130 H 09/10/17 07:40 Resp 18 09/10/17 07:00 BP 97/67 09/04/17 12:00 Pulse Ox 95 09/10/17 07:00 Intake & Output 09/09/17 09/10/17 09/10/17 18:59 06:59 18:59 Intake Total 0635.426 5629.593 469.239 Output Total 620 695 60 Balance 980.059 393.593 409.239 Weight 118.5 kg 118.1 kg Intake: IV 86 586 53 0.9 for pressure 36 36 3 Dextrose 5% in Water 1, 400 50 000 ml @ 50 mls/hr IV . Q20H [facility] Rx#:[id number] Dextrose 5%-0.9% NaCl 1, 150 000 ml @ 50 mls/hr IV . Q20H [facility] Rx#:[id number] Meropenem 500 mg In 50 Sodium Chloride 0.9% 50 ml @ 100 mls/hr IVPB Q12HR [facility] Rx#:[id number] Intake, IV Titration 654.059 115.593 373.239 Amount Dextrose 5%-0.9% NaCl 1, 550 50 000 ml @ 50 mls/hr IV . Q20H [facility] Rx#:[id number] Heparin Sod,Pork in 0.45% 39.556 62.946 123.239 NaCl 25,000 unit In 0.45 % NaCl 1 500ml.bag @ 8.6 UNITS/KG/HR 19.95 mls/hr IV .Q24H [facility] Rx#: [id number] Norepinephrin 16 mg-0.9% 250 Ns Pmx 16 mg In 250 ml @ Titrate IV .Q0M [facility] Rx#: [id number] Propofol 1,000 mg In 64.503 2.647 Empty Bag 1 bag @ Titrate IV .Q0M [facility] Rx#: [id number] Tube Feeding 430 387 43 Other 430 Output: Urine 620 695 60 Other: Voiding Method Indwelling Catheter Indwelling Catheter ABP, PAP, CO, CI - Last Documented Arterial Blood Pressure 100/60 - Labs CBC & Chem 7: 09/10/17 04:30 09/10/17 05:40 Labs: Abnormal Lab Results - Last 24 Hours (Table) 09/09/17 09/09/17 09/09/17 Range/Units 11:55 11:56 19:22 MCH (25.0-35.0) pg MCHC (31.0-37.0) g/dL RDW (11.5-15.5) % Lymphocytes # (1.0-4.8) k/uL APTT 42.9 H 50.7 H (22.0-30.0) sec Sodium (137-145) mmol/L Chloride (98-107) mmol/L BUN (7-17) mg/dL Glucose (74-99) mg/dL POC Glucose (mg/dL) 115 H (75-99) mg/dL Calcium (8.4-10.2) mg/dL 09/09/17 09/10/17 09/10/17 Range/Units 20:29 04:07 04:30 MCH 24.6 L (25.0-35.0) pg MCHC 30.3 L (31.0-37.0) g/dL RDW 21.8 H (11.5-15.5) % Lymphocytes # 0.9 L (1.0-4.8) k/uL APTT (22.0-30.0) sec Sodium (137-145) mmol/L Chloride (98-107) mmol/L BUN (7-17) mg/dL Glucose (74-99) mg/dL POC Glucose (mg/dL) 114 H 102 H (75-99) mg/dL Calcium (8.4-10.2) mg/dL 09/10/17 09/10/17 Range/Units 05:30 05:40 MCH (25.0-35.0) pg MCHC (31.0-37.0) g/dL RDW (11.5-15.5) % Lymphocytes # (1.0-4.8) k/uL APTT 52.1 H (22.0-30.0) sec Sodium 148 H (137-145) mmol/L Chloride 112 H (98-107) mmol/L BUN 44 H (7-17) mg/dL Glucose 109 H (74-99) mg/dL POC Glucose (mg/dL) (75-99) mg/dL Calcium 7.6 L (8.4-10.2) mg/dL Assessment and Plan Plan: Assessment: #1. Nonoliguric acute kidney injury secondary to ischemic ATN secondary to hypotension and sepsis. Renal function improving with creatinine down to 0.99 today. #2. Hypotension requiring levofed. #3. Hypokalemia secondary to diuresis. Magnesium replete. Improved post replacement. #4. Bile duct stone status post ERCP maintained on IV antibiotics. #5. Hypernatremia secondary to free water deficit. #6. Volume overload. Plan: Continue Lasix 40 mg IV twice daily. 300 mL every 6 hour free water flushes with tube feeds. Wean vasopressors as able to tolerate. Avoid nephrotoxic agents and hypotensive episodes. Maintain tube feeds. Heplock IVFs.
--- NOTE | 2017-09-10 10:15 | P.PN ---
Subjective Progress Note Date: 09/10/17 Is an 82-year-old female patient with known history of CVA, dementia, hypertension, hypothyroidism, glaucoma, chronic atrial fibrillation and previous history of skin cancer and previous history of urine checked infection with ESBL producing microorganism who resides and [facility]. The patient was originally admitted on 08/21/2017 for CHF and bilateral pleural effusion. The patient's echocardiogram showed preserved LV function and his CHF was essentially diastolic with an ejection fraction of 50-55% and the patient had moderate degree of pulmonary hypertension and moderate MR. Doppler of the lower extremities was negative for DVT. Computed tomography scan of the brain showed diffuse age-related cerebral atrophy with small vessel ischemic disease. The patient also had complications with gallstone. An MRCP was performed and the patient had 2 common bile duct stones. No suspicion for biliary dilatation. The patient a larger stone in the gallbladder without evidence of acute cholecystitis. The patient was seen in the intensive care unit on [address] Balderrama for altered mentation. Subsequently she she improved and ultimately she had to be taken back to the operating room for ERCP and the patient underwent the procedure with sphincterectomy and successful extraction of 2, by Dr. Smith using a balloon catheter. Postop the patient had to be intubated and placed on a mechanical ventilator and she has been intubated since. During the process, the patient also developed an acute kidney injury from which she is recovering for now. This morning, the patient is still on a mechanical ventilator. She is on assist control mode at the rate of 16 with a tidal volume 400, and FiO2 of 30% with a PEEP of 5. The patient's chest x-ray shows bilateral pleural effusion. ET tube is in a good location. The triple-lumen catheter is also in a good location. Her morning blood gases showed a pH of 7.41 with a pCO2 of 42 and pO2 of 73. She is hypotensive. She is on 20 mics of levo fed for now and she' s been on pressors for the past several days. She is on IV heparin regarding her chronic atrial fibrillation. Renal function is improving and the creatinine is down to 0.9. Her white count is at 8.0 with a stable hemoglobin of 11.9. The patient is covered with broad-spectrum antibiotics and the patient is currently on IV Merrem. She is sedated with Diprivan. She is receiving Lasix 40 mg IV every 12 hours. Nevertheless despite the IV Lasix the patient that fluid balance has been positive. Objective - Vital Signs Vital signs: Vital Signs Temp 98.2 F 09/10/17 04:00 Pulse 130 H 09/10/17 07:40 Resp 18 09/10/17 07:00 BP 97/67 09/04/17 12:00 Pulse Ox 95 09/10/17 07:00 Intake & Output 09/09/17 09/10/17 09/10/17 18:59 06:59 18:59 Intake Total 4854.541 0174.593 469.239 Output Total 620 695 60 Balance 980.059 393.593 409.239 Weight 118.5 kg 118.1 kg Intake: IV 86 586 53 0.9 for pressure 36 36 3 Dextrose 5% in Water 1, 400 50 000 ml @ 50 mls/hr IV . Q20H [facility] Rx#:[id number] Dextrose 5%-0.9% NaCl 1, 150 000 ml @ 50 mls/hr IV . Q20H [facility] Rx#:[id number] Meropenem 500 mg In 50 Sodium Chloride 0.9% 50 ml @ 100 mls/hr IVPB Q12HR [facility] Rx#:[id number] Intake, IV Titration 654.059 115.593 373.239 Amount Dextrose 5%-0.9% NaCl 1, 550 50 000 ml @ 50 mls/hr IV . Q20H [facility] Rx#:[id number] Heparin Sod,Pork in 0.45% 39.556 62.946 123.239 NaCl 25,000 unit In 0.45 % NaCl 1 500ml.bag @ 8.6 UNITS/KG/HR 19.95 mls/hr IV .Q24H [facility] Rx#: [id number] Norepinephrin 16 mg-0.9% 250 Ns Pmx 16 mg In 250 ml @ Titrate IV .Q0M [facility] Rx#: [id number] Propofol 1,000 mg In 64.503 2.647 Empty Bag 1 bag @ Titrate IV .Q0M [facility] Rx#: [id number] Tube Feeding 430 387 43 Other 430 Output: Urine 620 695 60 Other: Voiding Method Indwelling Catheter Indwelling Catheter ABP, PAP, CO, CI - Last Documented Arterial Blood Pressure 100/60 - Exam No acute distress, sedated, with an orally placed endotracheal tube and NG tube. HEENT examination is grossly unremarkable. Mucous membranes are moist. The triple-lumen catheter in her left IJ Neck supple. Full range of motion. No adenopathy thyromegaly or neck vein distention. Cardiovascular examination reveals irregular rhythm and rate. S1-S2 normal. No S3 or S4. No discernible murmur noted. Heart sounds are distant Lungs reveal diffuse rhonchi and crackles. Breath sounds are diminished at the bases. No wheezes. Breath sounds are equal bilaterally. Abdomen soft bowel sounds are heard. Extremities are intact. No cyanosis or clubbing. There are significant lower extremity edema and diffuse anasarca. Skin is without rash or lesion. Neurologic examination could not be adequately assessed. The patient is currently sedated with Diprivan. - Labs CBC & Chem 7: 09/10/17 04:30 09/10/17 05:40 Labs: Abnormal Lab Results - Last 24 Hours (Table) 09/09/17 09/09/17 09/09/17 Range/Units 11:55 11:56 19:22 MCH (25.0-35.0) pg MCHC (31.0-37.0) g/dL RDW (11.5-15.5) % Lymphocytes # (1.0-4.8) k/uL APTT 42.9 H 50.7 H (22.0-30.0) sec Sodium (137-145) mmol/L Chloride (98-107) mmol/L BUN (7-17) mg/dL Glucose (74-99) mg/dL POC Glucose (mg/dL) 115 H (75-99) mg/dL Calcium (8.4-10.2) mg/dL 09/09/17 09/10/17 09/10/17 Range/Units 20:29 04:07 04:30 MCH 24.6 L (25.0-35.0) pg MCHC 30.3 L (31.0-37.0) g/dL RDW 21.8 H (11.5-15.5) % Lymphocytes # 0.9 L (1.0-4.8) k/uL APTT (22.0-30.0) sec Sodium (137-145) mmol/L Chloride (98-107) mmol/L BUN (7-17) mg/dL Glucose (74-99) mg/dL POC Glucose (mg/dL) 114 H 102 H (75-99) mg/dL Calcium (8.4-10.2) mg/dL 09/10/17 09/10/17 Range/Units 05:30 05:40 MCH (25.0-35.0) pg MCHC (31.0-37.0) g/dL RDW (11.5-15.5) % Lymphocytes # (1.0-4.8) k/uL APTT 52.1 H (22.0-30.0) sec Sodium 148 H (137-145) mmol/L Chloride 112 H (98-107) mmol/L BUN 44 H (7-17) mg/dL Glucose 109 H (74-99) mg/dL POC Glucose (mg/dL) (75-99) mg/dL Calcium 7.6 L (8.4-10.2) mg/dL Assessment and Plan Plan: Assessment 1 acute hypoxic respiratory failure, remains intubated on a mechanical ventilator. 2 choledocholithiasis with abnormal LFTs status post ERCP and the patient is postop day #7 3 altered mentation, multifactorial, she has underlying dementia with diffuse [employer]PER[employer]ENT atrophy and small vessel disease. No acute CVA for now 4 CHF with diastolic dysfunction and bilateral pleural effusions 5 chronic atrial fibrillation 6 acute kidney injury recovering in the creatinine is down to 0.9 7 fluid overload with more than 8 L of fluid positivity over the past 4-5 days 8 hypotension, currently on pressors, and the patient is currently on levo fed running at 20 mics 9 previous history of ESBL producing gram-negative urinary tract infection, E. coli and the patient is currently on IV Merrem 10 hyperlipidemia 11 hypothyroidism 12 dementia 13 long term resident with history of urinary incontinence and severe degenerative arthritis 14 glucoma 15 DNR/ DO NOT INTUBATE CODE STATUS Plan I had a lengthy discussion with the family. 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 At then the discussion we decided to proceed with comfort care measures. I think it's very reasonable taken account the patient's age, very poor baseline performance and functional status and her ongoing medical problems and comorbidities. Will involve hospice. We'll proceed with comfort care measures. Addendum of the discussion and the family was very much convinced. We are going to proceed once the family is ready. Critically care evaluation, 35 minutes. Time with Patient: Greater than 30
--- NOTE | 2017-09-10 10:28 | XR ---
EXAMINATION TYPE: XR chest 1V portable DATE OF EXAM: 09/10/2017 COMPARISON: Prior chest x-ray 09/09/2017 HISTORY: Intubated TECHNIQUE: Single frontal view of the chest is obtained. FINDINGS: Endotracheal tube, NG tube are overlying appropriate positions. Left jugular central venou s catheter is stable with the distal tip at the cavoatrial junction level. There are overlying cardia c leads. No evident pneumothorax. Bibasilar effusions and cardiomegaly persist. IMPRESSION: Essentially stable exam. Cardiomegaly with basilar effusions and associated atelectasis versus edema, correlate to exclude pneumonia.
[2017-09-10] MEDS ORDERED: DRY MOUTH SPRAY 44.3 SPRAY/44.3 ML SPRAY MUCOUS MEM PRN (10:33)
[2017-09-10] MEDS ORDERED: MORPHINE SULFATE/PF 10MG/10ML VL IVP ONE (10:33)
[2017-09-10] MEDS ORDERED: LORazepam 2 MG/ML INJ IV PRN (10:33)
[2017-09-10] MEDS ORDERED: MORPHINE SULFATE/PF 10MG/10ML VL IV PRN (10:33)
[2017-09-10] MEDS ORDERED: ARTIFICIAL TEARS-HYPROMELLOSE DROPS 15 ML BTL BOTH EYES PRN (10:33)
[2017-09-10] MEDS ORDERED: ATROPINE OPHTH SOLN 1% 5ML BTL SUBLINGUAL PRN (10:33)
[2017-09-10] MEDS ORDERED: SCOPOLAMINE 1.5MG/72HR PATCH TRANSDERM PRN (10:33)
[2017-09-10] MEDS ORDERED: MORPHINE SULFATE (100 MG/2 ML) 100 MG in SODIUM CHLORIDE 0.9% 100 ML IV SCH (10:45)
[2017-09-10 10:59] VITALS: BMI 38.4
[2017-09-10] MEDS ORDERED: MORPHINE SULFATE/PF 10MG/10ML VL IVP STA (11:20)
[2017-09-10 12:48] VITALS: TEMP 98.6
--- NOTE | 2017-09-10 13:07 | P.PN ---
Subjective Progress Note Date: 09/10/17 82-year-old female who was transported to [facility] from [facility] after she was seen by Dr. Medina and found to have increasing shortness of breath and increased edema to the lower extremities. Patient denies chest pain or pressure. Denies cough or sputum production. Denies nausea or vomiting. Denies pain or discomfort. Denies dizziness or lightheadedness. The patient has a history of atrial fibrillation maintained on long-term anticoagulated with Coumadin, glaucoma, asymptomatic bacteriuria, mood disorder with psychotic features, hypothyroidism, diastolic congestive heart failure, hypertension, hyperlipidemia, TIA, and osteopenia. 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 Chest x-ray 08/21/2017: Marked cardiomegaly with small bilateral effusions and findings suggestive of mild congestive heart failure Chest x-ray 08/22/2017: Some improvement noted in the patient's volume status. Cardiomegaly. EKG: Atrial fibrillation. Rate 103. Laboratory data: WBC 6.6. Hemoglobin 13.2. Platelet count 186. Sodium 139. Potassium 3.2. BUN 21. Creatinine 0.90. GFR 61. Glucose 111. Magnesium 2.5. AST 41. ALT 40. Total bilirubin 4.3. Alkaline phosphatase 356. Troponins negative 3 BNP: 4400 The patient was admitted to the hospital under the care of Dr. Medina. Consultations were placed to cardiology. 08/23/2017 Patient seen and examined at the bedside. Patient was started on Lasix 40 mg IV every 12 hours yesterday per cardiology. Patient underwent a venous Doppler on 08/22/2017 due to right lower extremity edema. Doppler was negative for a DVT. Blood pressure is stable with a last reading of 110 over the T8. She is on room air with oxygen saturations greater than 92%. She is afebrile. She remains A. fib on the monitor in the 80s and 90s. INR this morning is 4.2. Coumadin remains on hold. Potassium is low this morning at 3.1. Urinalysis was completed on 08/22/2017 revealing clear yellow urine, 1+ proteinuria, moderate blood, moderate leukocyte esterase, RBC 45, WBC 33, rare bacteria, rare mucus, and hyaline casts of 7. The patient pulled out her indwelling urinary catheter this morning. Echocardiogram was completed on 08/21/2017 which revealed moderate concentric left ventricular hypertrophy, ejection fraction of 50-55%, mildly enlarged right ventricle, mild aortic regurgitation, moderate to severe aortic stenosis, moderate mitral regurgitation, severe tricuspid regurgitation, moderate pulmonary hypertension, moderate pulmonic regurgitation, and RVSP of 54.14. 08/24/2017 Patient seen and examined at the bedside. patient underwent ultrasound of the abdomen on 08/23/2017 which revealed right pleural effusion, positive sonographic Pink sign, findings suggestive of cholecystitis. Suspected hepatomegaly. General surgery was consulted. no surgical intervention from their standpoint. INR this morning is 3.9. Coumadin remains on hold. Patient' s lactic acid yesterday was 3.2. IV fluids were ordered if ok with cardiology. Fluids were discontinued. Repeat lactic acid 2.1. patient remains on Lasix 40 mg IV every 12 hours. patient remains on Levaquin for a possible urinary tract infection. Urine culture is currently pending. 08/25/2017-Note per Dr. Mendez 08/26/2017-Note per Dr. Mendez 08/27/2017 Patient evaluated at the bedside. Patient underwent MRCP which revealed common bile duct stone and well as gallstones. Patient is to undergo ERCP when INR is less than 1.5 per GI documentation. INR this morning is 2.6. Patient remains off Coumadin. Potassium this morning is 5.7. Patients urinalysis was positive for leukocyte esterase. Urine culture was sent but per lab report specimen was unsuitable and requested new specimen. Patient remains on Levaquin. Apparently, cardiology has signed off the case but patient remains on lasix 40mg IV daily. Patient has some confusion over the weekend and was pulling out IV lines and taking off her gown. CT of the brain was completed on 08/25/2017 revealing no evidence of intracranial hemorrhage or midline shift. There is moderate to severe diffuse age-related cerebral atrophy and chronic small vessel ischemic changes redemonstrated without significant change from prior exam. 08/28/2017 Patient examined at the bedside on rounds with Dr. Mendez. Patient is awake and alert, but remains confused. Patient does complain of abdominal pain. Dr. Mendez asked patient if she wanted to undergo furthering testing and procedures and patient states she wanted to proceed. Patients son is her guardian. Apparently, family is undecided if they want to pursue ERCP. INR this morning is 2.5. Patient received 5mg Vitamin K yesterday. BUN 31. Creatinine 1.40. AST 106. ALT 53. Alkaline phosphatase 873. TSH 1.4. 08/29/2017 Patient examined at the bedside. Patient has been transferred to general medical floor. Patient very restless and agitated this morning. Constantly calling out and yelling. Patient's blood pressure is on the lower side this morning at 89/65. Previous reading 90/62. Patients heart rate currently 77 but has been running in the 90s. Patient's INR yesterday was 2.5. Patient received 10 mg vitamin K. Repeat INR this morning is currently pending. Comprehensive metabolic panel from this morning is also currently pending. Currently awaiting decision from family regarding whether or not they would like to proceed with ERCP. Addendum: Lab work from this morning reveals creatinine 1.6. BUN 36. Creatinine yesterday was 1.40. Patient's baseline is around 1.0. Will continue to hold Lasix. Patient was hypotensive this morning and has had overall decreased oral intake. Begin gentle hydration with normal saline at 50 mL an hour. Monitor for signs of fluid overload. Will consult nephrology for acute kidney injury. INR is still pending. Addendum: Spoke with patients son, Derrek, regarding ERCP. Derrek states they would like to proceed with ERCP. Notified Dr. Savage. INR 1.7 today. Will recheck in AM. Will make patient NPO after midnight. 08/30/2017 Patient examined at the bedside. Patient remains confused and slightly lethargic. Patient will open eyes to verbal stimuli. She is scheduled for ERCP today. Her INR is 1.7. Potassium today is 5.9. BUN 40. Creatinine 1.81. Nephrology has been consulted. She remains on normal saline at 50 mL an hour. blood pressure has been on the lower side with systolics in the mid 80s. Blood pressure this morning is 95/68. Her Lasix remains on hold. She is afebrile. ADDENDUM 1730: Notified by nursing this afternoon that patient has become more lethargic. WOODS LABORER re -assessed patient. Patient was scheduled for ERCP today but it was cancelled due to elevated potassium. Hyperkalemia was treated this AM with IV insulin and dextrose. Patients BP has been borderline hypotensive with BPs in the 90s. Patient is receiving IV fluids at 50cc/hr. Patient was admitted with CHF exac and was receiving IV lasix a few days ago, thus fluid resuscitation has been modest. Lasix has been transitioned to oral which remains on hold. Patient received scheduled seroquel last night along with Haldol as she becomes agitated and restless and yells out frequently secondary to her dementia. Patient does appear more lethargic in comparison to examination this morning. Lethargy is likely multifactorial due to seroquel, haldol, hypotension, acute kidney injury, and suspected urinary tract infection. Patient is a DNR and does not want to be intubated. ABG was obtained to assess patients oxygenation. ABG is within normal limits. Patient is on 2L with oxygen saturations greater than 92%. She is lethargic, but appears comfortable. No signs of agonal breathing. Spoke with patients daughter in law and sister at the bedside. All questions answered to the best of my ability. Patients sister states she is going to stay overnight in the event that she becomes agitated throughout the night or in case her condition continues to decline. Repeat K is 5.5 Additional 10 units IV insulin and dextrose ordered. Repeat at 1999. Will DC seroquel and haldol. WOODS LABORER updated Dr. Mendez who agrees with orders and plan of care. Dr. Mendez does not want patient transferred to the ICU. This was also told to the patients RN. However, shortly after WOODS LABORER spoke with RN and spoke with patients family, the patients nurse called an A team. No further interventions were performed. WOODS LABORER notified Dr. Mendez that A-team was called on patient by floor nurse. 08/31/2017 Patient was transferred to ICU yesterday per Dr. Mccoy orders. Patient remains lethargic this morning but is able to open her eyes to commands. Patient is verbalizing a few words at a time. She remains confused, which is her baseline. She received 750cc in fluid boluses. She was started on Levophed and is currently infusing at 9mcg/min. Blood pressure has been running 110/70s. She is on 3L NC with oxygen saturations greater than 92%. Indwelling urinary catheter was inserted yesterday. Meaghan urine noted. Decreased output. Chest xray was completed 08/30/2017 revealing congestive heart failure with increasing congestion and right pleural fluid. Patient received 40mg IV lasix per nephrology. Repeat chest xray was completed 08/31/2017 revealing improving features of congestive heart failure, cardiomegaly, and scattered infiltrates. CBC this morning 5.8. Hemoglobin 13.5. INR 1.5. Sodium 137. Potassium 5.8. BUN 46. Creatinine 1.91. Magnesium 3.2. Total bilirubin 3.8. AST 56. ALT 44. Alkaline phosphatase 634. Ammonia level was 67 yesterday. Repeated this morning. Result is 38. Patient was hypoglycemic this morning and was receiving IV dextrose at the time of my examination. 09/01/2017-Note per Dr. Mendez 09/02/2017-Note per Dr. Mendez 09/03/2017 Patient seen and examined at the bedside. Patient has been transferred out of the ICU to the selective care unit. Blood pressure this morning is 107/61. Heart rate is in the 70s. Patient is awake and alert. She is confused which is her baseline. Patient's left arm is extremely edematous with ecchymosis and erythema throughout. Spoke with nursing who states that patient pulled out 2 of her peripheral IVs while was running in the intensive care unit. Dr. Medina recommends Gaudencio wrap to left upper extremity. Patient is scheduled for ERCP this afternoon with Dr. Smith. 09/04/2017 Patient seen and examined at the bedside on rounds with Dr. Medina. Patient was transferred to the intensive care unit yesterday following ERCP. Apparently patient was intubated and sedated for the procedure and was unable to be extubated afterwards. Dr. Smith was able to extract to common bile duct stones during ERCP. Patient was hypotensive throughout the night and was started on Levaquin. Currently infusing at 4 mics per minute. Patient also hypothermic and is currently wearing a bear hugger warming blanket. Nursing states that sedation was decreased and patient will wake up and follow commands , but she also thrashes around in the bed and attempts to pull at her lines and tubes. 09/05/2017 Patient seen and examined at the bedside on rounds with Dr. Medina. Her [id number] at the bedside. Patient remains in the intensive care unit on mechanical ventilation. ABGs this morning reveal pH 7.38, CO2 39, pO2 110, bicarb 23. Patient's potassium is low at 3.3 and is currently being supplemented. Patient remains on propofol for sedation. Patient remains hypotensive and is still requiring vasopressor support with Levophed. Patient remains tachycardic with heart rate between 110-130. 09/06/2017 Patient seen and examined at the bedside on rounds with Dr. Medina. Patient remains in intensive care unit on mechanical ventilation. Family is at the bedside. Patient's propofol has been put on hold in an attempt to assess patients neurological status. Patient has slight spontaneous movement of her left arm. Patient is not opening eyes to verbal stimulation or following any commands at this time. Patient remains on Levophed with doses ranging from 25- 30mcg. Patient remains on lasix 40mg q12 hours. Potassium is being supplemented this AM. Discussed case with Dr. Lozoya. Awaiting decision from family regarding possibility of comfort care. 09/07/2017 Patient seen and examined at the bedside on rounds with Dr. Medina. Patient remains in intensive care unit on mechanical ventilation. Patient remains on Levophed to maintain blood pressure. Patient underwent brief weaning trial this morning, which she did not tolerate as her HR went into the 130-140s. Chest xray this morning shows CHF with bilateral consolidation and pleural effusions. Patient remains on lasix 40mg IV q 12 hours. Patients metopropolol was stopped per pulmonary. Patients family at the bedside and states they would like to continue the ventilator until Sunday and will make a decision at that time regarding possible termination of care 09/08/2017-note per dr medina 09/09/2017-note per dr medina 09/10/2017 Patient remains on mechanical ventilation. She is requiring vasopressors to maintain her blood pressure. Multiple weaning attempts have been attempted and have been unsuccessful. Multiple family members are at the bedside this morning and have made the decision to terminally wean and make the patient comfort care. Objective - Vital Signs Vital signs: Vital Signs Temp 98.6 F 09/10/17 08:00 Pulse 107 H 09/10/17 12:00 Resp 17 09/10/17 12:00 BP 97/67 09/04/17 12:00 Pulse Ox 97 09/10/17 12:00 Intake & Output 09/09/17 09/10/17 09/10/17 18:59 06:59 18:59 Intake Total 8018.912 4903.593 598.989 Output Total 620 695 60 Balance 980.059 393.593 538.989 Weight 118.5 kg 118.1 kg 118.1 kg Intake: IV 86 586 53 0.9 for pressure 36 36 3 Dextrose 5% in Water 1, 400 50 000 ml @ 50 mls/hr IV . Q20H [facility] Rx#:[id number] Dextrose 5%-0.9% NaCl 1, 150 000 ml @ 50 mls/hr IV . Q20H [facility] Rx#:[id number] Meropenem 500 mg In 50 Sodium Chloride 0.9% 50 ml @ 100 mls/hr IVPB Q12HR [facility] Rx#:[id number] Intake, IV Titration 654.059 115.593 412.989 Amount Dextrose 5%-0.9% NaCl 1, 550 50 000 ml @ 50 mls/hr IV . Q20H [facility] Rx#:[id number] Heparin Sod,Pork in 0.45% 39.556 62.946 123.239 NaCl 25,000 unit In 0.45 % NaCl 1 500ml.bag @ 8.6 UNITS/KG/HR 19.95 mls/hr IV .Q24H [facility] Rx#: [id number] Norepinephrin 16 mg-0.9% 250 Ns Pmx 16 mg In 250 ml @ Titrate IV .Q0M [facility] Rx#: [id number] Propofol 1,000 mg In 64.503 2.647 39.75 Empty Bag 1 bag @ Titrate IV .Q0M [facility] Rx#: [id number] Tube Feeding 430 387 133 Other 430 Output: Urine 620 695 60 Other: Voiding Method Indwelling Catheter Indwelling Catheter ABP, PAP, CO, CI - Last Documented Arterial Blood Pressure 110/66 - Exam GENERAL: This is a 82-year-old female who remains intubated on mechanical ventilation in the intensive care unit HEENT: ET tube noted. Head is atraumatic, normocephalic. Pupils are equal, round, and reactive to light. Sclerae anicteric. Conjunctivae are clear. Mucus membranes of the mouth are dry. Neck is supple. RESPIRATORY: Diminished throughout with scattered rhonhi. Fine rales auscultated to bilateral bases. Patient remains on mechanical ventilation with 30% FiO2. CARDIOVASCULAR: Irregular rhythm. Tachycardic. S1 and S2 noted. Systolic murmur auscultated. No JVD noted. No S3 or S4 noted. GASTROINTESTINAL: No distention noted. Abdomen soft and round. Bowel sounds auscultated x 4 quadrants. INTEGUMENTARY: Left upper extremity with significant edema, ecchymosis, and erythema secondary to peripheral IV infiltration. EXTREMITIES: 1+ peripheral pulses. +3 lower extremity edema. 3+ bilateral upper extremity edema with third spacing present. No calf tenderness noted. NEUROLOGIC: Unable to assess secondary to mechanical ventilation PSYCHIATRIC: Unable to assess secondary to mechanical ventilation - Labs CBC & Chem 7: 09/10/17 04:30 09/10/17 05:40 Labs: Abnormal Lab Results - Last 24 Hours (Table) 09/09/17 09/09/17 09/10/17 Range/Units 19:22 20:29 04:07 MCH (25.0-35.0) pg MCHC (31.0-37.0) g/dL RDW (11.5-15.5) % Lymphocytes # (1.0-4.8) k/uL APTT 50.7 H (22.0-30.0) sec Sodium (137-145) mmol/L Chloride (98-107) mmol/L BUN (7-17) mg/dL Glucose (74-99) mg/dL POC Glucose (mg/dL) 114 H 102 H (75-99) mg/dL Calcium (8.4-10.2) mg/dL 09/10/17 09/10/17 09/10/17 Range/Units 04:30 05:30 05:40 MCH 24.6 L (25.0-35.0) pg MCHC 30.3 L (31.0-37.0) g/dL RDW 21.8 H (11.5-15.5) % Lymphocytes # 0.9 L (1.0-4.8) k/uL APTT 52.1 H (22.0-30.0) sec Sodium 148 H (137-145) mmol/L Chloride 112 H (98-107) mmol/L BUN 44 H (7-17) mg/dL Glucose 109 H (74-99) mg/dL POC Glucose (mg/dL) (75-99) mg/dL Calcium 7.6 L (8.4-10.2) mg/dL Assessment and Plan Plan: ASSESSMENT: Acute exacerbation of diastolic congestive heart failure, echo reveals ejection fraction of 50-55% Chronic atrial fibrillation, maintained on long-term anticoagulation with Coumadin Supratherapeutic INR, INR 4.9 on admission, resolved, coumadin remains on hold Bacteruria, urinalysis positive for leukocyte esterase, urine culture negative 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 Hypokalemia, secondary to diuretic therapy, resolved Hyperkalemia, likely secondary to acute kidney injury, resolved Acute kidney injury, secondary to diuretic therapy, hypotension, and hypoperfusion, baseline creatinine 1.0 Hypoglycemia Elevated bilirubin and alkaline phosphatase with normal amylase and lipase with slight jaundice, s/p MRCP revealing common bile duct stone and also gallstones Choledocholithiasis Cholelithiasis, S/P ERCP with removal of two common bile duct stones 09/03/2017 Post procedural respiratory failure, patient unable to extubated following ERCP , an unexpected but potential outcome of procedure Postprocedural hypotension, requiring vasopressor support, an unexpected but potential outcome of procedure History of TIA Essential hypertension Hyperlipidemia Hypothyroidism Dementia Obesity: BMI 32.4 PLAN: Patient is to be terminally weaned today and proceed with comfort care measures. Hospice has been consulted. Nurse practitioner note has been reviewed by physician. Signing provider agrees with the documented findings, assessment, and plan of care.
[2017-09-10 17:34] VITALS: PULSE 140; RESP 24
[2017-09-10 18:48] LABS: ABG Base Excess 1.6 mmol/L; ABG HCO3 26 mmol/L (21-25); ABG PCO2 42 mmHg (35-45); ABG PH 7.41 (7.35-7.45); ABG PO2 73 mmHg (83-108); ABG TCO2 28 mmol/L (19-24)
== END 2017-09-10 19:23 | disposition expired | DRG 291 ==
LOC: EC 11:23 → 6SEL 13:48 → 4MS4W 08-28 16:52 → 6ICU 08-30 22:23 → 6SEL 09-03 00:27 → 6ICU 09-03 18:27
PROVIDERS: ADMIT Family Medicine; ATTEND Family Medicine
PROC: 0FC98ZZ Extirpation of Matter from Common Bile Duct, Via Natural or Artificial Opening Endoscopic (ICD-10-PCS; principal; 2017-09-03 08:10)
PROC: 5A1955Z Respiratory Ventilation, Greater than 96 Consecutive Hours (ICD-10-PCS; principal; 2017-09-03 08:10)
PROC: 0BH18EZ Insertion of Endotracheal Airway into Trachea, Via Natural or Artificial Opening Endoscopic (ICD-10-PCS; principal; 2017-09-03 08:10)
PROC: 4A133J1 Monitoring of Arterial Pulse, Peripheral, Percutaneous Approach (ICD-10-PCS; 2017-09-04)
PROC: 4A133B1 Monitoring of Arterial Pressure, Peripheral, Percutaneous Approach (ICD-10-PCS; 2017-09-04)
PROC: 03HY32Z Insertion of Monitoring Device into Upper Artery, Percutaneous Approach (ICD-10-PCS; 2017-09-04)
PROC: 02HV33Z Insertion of Infusion Device into Superior Vena Cava, Percutaneous Approach (ICD-10-PCS; 2017-09-04)
DX: I11.0 Hypertensive heart disease with heart failure (principal); G93.41 Metabolic encephalopathy; N17.0 Acute kidney failure with tubular necrosis; J96.01 Acute respiratory failure with hypoxia; A41.9 Sepsis, unspecified organism; K80.66 Calculus of gallbladder and bile duct with acute and chronic cholecystitis without obstruction; E87.0 Hyperosmolality and hypernatremia; E87.2 Acidosis; I48.1 Persistent atrial fibrillation; N39.0 Urinary tract infection, site not specified; E11.649 Type 2 diabetes mellitus with hypoglycemia without coma; E03.9 Hypothyroidism, unspecified; E66.9 Obesity, unspecified; E78.00 Pure hypercholesterolemia, unspecified; E78.5 Hyperlipidemia, unspecified; E87.5 Hyperkalemia; E87.6 Hypokalemia; F03.90 Unspecified dementia, unspecified severity, without behavioral disturbance, psychotic disturbance, mood disturbance, and anxiety; F39 Unspecified mood [affective] disorder; H40.9 Unspecified glaucoma; I27.20 Pulmonary hypertension, unspecified; I08.8 Other rheumatic multiple valve diseases; I48.2 Chronic atrial fibrillation; I50.33 Acute on chronic diastolic (congestive) heart failure; K59.09 Other constipation; K76.1 Chronic passive congestion of liver; M85.80 Other specified disorders of bone density and structure, unspecified site; R79.1 Abnormal coagulation profile; T45.515A Adverse effect of anticoagulants, initial encounter; T50.2X5A Adverse effect of carbonic-anhydrase inhibitors, benzothiadiazides and other diuretics, initial encounter; Z66 Do not resuscitate; Z68.36 Body mass index [BMI] 36.0-36.9, adult; Z79.01 Long term (current) use of anticoagulants; Z79.899 Other long term (current) drug therapy; Z82.0 Family history of epilepsy and other diseases of the nervous system; Z82.49 Family history of ischemic heart disease and other diseases of the circulatory system; Z85.828 Personal history of other malignant neoplasm of skin; Z86.73 Personal history of transient ischemic attack (TIA), and cerebral infarction without residual deficits; Z87.440 Personal history of urinary (tract) infections; Z79.890 Hormone replacement therapy
CPT/HCPCS: 36415; 36600; 43262; 43264; 70450; 71045; 71046; 74181; 74328; 76705; 80048; 80053; 81001; 82140; 82150; 82533; 82805; 83036; 83605; 83690; 83735; 83880; 84100; 84132; 84443; 84484; 85025; 85027; 85379; 85610; 85730; 86850; 86900; 86901; 87040; 87086; 93005; 93306; 94002; 94003; 94640; 96374; 99285